=== PATIENT | male | born 1945 | race American Indian/Alaskan Native ===

== ENCOUNTER 2016-06-01 10:34 | Outpatient (CLI) | payer MEDICARE ==
[2016-06-01] MEDS ORDERED: XYLOCAINE TOPICAL 4% TP ONE ×2 (10:40→15:38)
[2016-06-01] MEDS ORDERED: AD OINTMENT TP ONE (12:05)
[2016-06-01] MEDS ORDERED: AD OINTMENT TP SCH (17:00)
== END 2016-06-01 10:35 | disposition home or self-care (01) ==
LOC: WOUND 10:34
PROVIDERS: ATTEND Orthopaedic Surgery
DX: E11.622 Type 2 diabetes mellitus with other skin ulcer (principal); L97.921 Non-pressure chronic ulcer of unspecified part of left lower leg limited to breakdown of skin; L97.911 Non-pressure chronic ulcer of unspecified part of right lower leg limited to breakdown of skin
CPT/HCPCS: A6250

== ENCOUNTER 2016-06-08 10:47 | Outpatient (CLI) | payer MEDICARE ==
[2016-06-08] MEDS ORDERED: XYLOCAINE TOPICAL 2% TP ONE ×2 (11:26→11:52)
[2016-06-08] MEDS ORDERED: AD OINTMENT TP ONE (12:14)
[2016-06-09] MEDS ORDERED: AD OINTMENT TP SCH (10:00)
== END 2016-06-08 10:48 | disposition home or self-care (01) ==
LOC: WOUND 10:47
PROVIDERS: ATTEND Orthopaedic Surgery
DX: I87.2 Venous insufficiency (chronic) (peripheral) (principal); E11.622 Type 2 diabetes mellitus with other skin ulcer; L97.921 Non-pressure chronic ulcer of unspecified part of left lower leg limited to breakdown of skin; L97.911 Non-pressure chronic ulcer of unspecified part of right lower leg limited to breakdown of skin
CPT/HCPCS: A6250

== ENCOUNTER 2016-06-22 13:26 | Outpatient (CLI) | payer MEDICARE ==
[~2016-06-22 13:26] MED LIST: AD OINTMENT TP ONE; XYLOCAINE TOPICAL 2% TP ONE
[2016-06-23] MEDS ORDERED: XYLOCAINE TOPICAL 2% TP ONE (09:25)
[2016-06-23] MEDS ORDERED: AD OINTMENT TP SCH (10:00)
== END 2016-06-22 13:27 | disposition home or self-care (01) ==
LOC: WOUND 13:26
PROVIDERS: ATTEND Internal Medicine
DX: I87.313 Chronic venous hypertension (idiopathic) with ulcer of bilateral lower extremity (principal); E11.622 Type 2 diabetes mellitus with other skin ulcer; L97.821 Non-pressure chronic ulcer of other part of left lower leg limited to breakdown of skin; L97.811 Non-pressure chronic ulcer of other part of right lower leg limited to breakdown of skin; I50.40 Unspecified combined systolic (congestive) and diastolic (congestive) heart failure; K21.0 Gastro-esophageal reflux disease with esophagitis; Z98.62 Peripheral vascular angioplasty status
CPT/HCPCS: A6250

== ENCOUNTER 2016-06-29 11:05 | Outpatient (CLI) | payer MEDICARE ==
[2016-06-29] MEDS ORDERED: XYLOCAINE TOPICAL 4% TP ONE ×2 (11:09→12:00)
== END 2016-06-29 11:06 | disposition home or self-care (01) ==
LOC: WOUND 11:05
PROVIDERS: ATTEND Internal Medicine
DX: I87.313 Chronic venous hypertension (idiopathic) with ulcer of bilateral lower extremity (principal); L97.821 Non-pressure chronic ulcer of other part of left lower leg limited to breakdown of skin; L97.811 Non-pressure chronic ulcer of other part of right lower leg limited to breakdown of skin; E08.8 Diabetes mellitus due to underlying condition with unspecified complications; K21.0 Gastro-esophageal reflux disease with esophagitis; I11.0 Hypertensive heart disease with heart failure; I50.40 Unspecified combined systolic (congestive) and diastolic (congestive) heart failure
CPT/HCPCS: 29581

== ENCOUNTER 2016-07-13 11:12 | Outpatient (CLI) | payer MEDICARE ==
[2016-07-13] MEDS ORDERED: XYLOCAINE TOPICAL 4% TP ONE ×2 (11:30→12:00)
[2016-07-13] MEDS ORDERED: NACL 0.9% 500 ML IR ONE (11:30)
[2016-07-13] MEDS ORDERED: NACL 0.9% IR PRN (12:00)
[2016-07-13] MEDS ORDERED: AD OINTMENT TP ONE (12:24)
== END 2016-07-13 11:13 | disposition home or self-care (01) ==
LOC: WOUND 11:12
PROVIDERS: ATTEND Internal Medicine
DX: I87.313 Chronic venous hypertension (idiopathic) with ulcer of bilateral lower extremity (principal); E11.622 Type 2 diabetes mellitus with other skin ulcer; L97.821 Non-pressure chronic ulcer of other part of left lower leg limited to breakdown of skin; L97.811 Non-pressure chronic ulcer of other part of right lower leg limited to breakdown of skin; K21.0 Gastro-esophageal reflux disease with esophagitis; I11.0 Hypertensive heart disease with heart failure; I50.40 Unspecified combined systolic (congestive) and diastolic (congestive) heart failure; Z98.62 Peripheral vascular angioplasty status
CPT/HCPCS: 29581; G0463; A6250

== ENCOUNTER 2016-07-22 12:11 | Outpatient (CLI) | payer MEDICARE | END 2016-07-22 12:12 | disposition home or self-care (01) | LOC: WOUND 12:11 | PROVIDERS: ATTEND Podiatrist | DX: I87.313 Chronic venous hypertension (idiopathic) with ulcer of bilateral lower extremity (principal); E11.622 Type 2 diabetes mellitus with other skin ulcer; L97.821 Non-pressure chronic ulcer of other part of left lower leg limited to breakdown of skin; L97.811 Non-pressure chronic ulcer of other part of right lower leg limited to breakdown of skin; K21.0 Gastro-esophageal reflux disease with esophagitis; I11.0 Hypertensive heart disease with heart failure; I50.40 Unspecified combined systolic (congestive) and diastolic (congestive) heart failure; Z98.62 Peripheral vascular angioplasty status | CPT/HCPCS: 29580; 29581 ==

== ENCOUNTER 2016-08-03 11:43 | Outpatient (CLI) | payer MEDICARE ==
[2016-08-03] MEDS ORDERED: XYLOCAINE TOPICAL 4% TP ONE ×2 (12:00→12:36)
[2016-08-03] MEDS ORDERED: NACL 0.9% IR ONE (12:29)
[2016-08-03] MEDS ORDERED: SODIUM CHLORIDE 0.9% IR SCH (13:00)
[2016-08-03] MEDS ORDERED: GENTAMICIN IR SCH (13:00)
[2016-08-03] MEDS ORDERED: SILVER NITRATE TP ONE (13:26)
== END 2016-08-03 11:44 | disposition home or self-care (01) ==
LOC: WOUND 11:43
PROVIDERS: ATTEND Internal Medicine
DX: E11.622 Type 2 diabetes mellitus with other skin ulcer (principal); I87.313 Chronic venous hypertension (idiopathic) with ulcer of bilateral lower extremity; L97.821 Non-pressure chronic ulcer of other part of left lower leg limited to breakdown of skin; L97.811 Non-pressure chronic ulcer of other part of right lower leg limited to breakdown of skin; K21.0 Gastro-esophageal reflux disease with esophagitis; I11.0 Hypertensive heart disease with heart failure; I50.40 Unspecified combined systolic (congestive) and diastolic (congestive) heart failure; Z98.62 Peripheral vascular angioplasty status
CPT/HCPCS: 11042; 11045; 82962; J1580

== ENCOUNTER 2016-08-10 11:40 | Outpatient (CLI) | payer MEDICARE ==
[2016-08-10] MEDS ORDERED: XYLOCAINE TOPICAL 4% TP ONE ×2 (11:46→14:16)
== END 2016-08-10 11:41 | disposition home or self-care (01) ==
LOC: WOUND 11:40
PROVIDERS: ATTEND Internal Medicine
DX: I87.313 Chronic venous hypertension (idiopathic) with ulcer of bilateral lower extremity (principal); E11.622 Type 2 diabetes mellitus with other skin ulcer; L97.821 Non-pressure chronic ulcer of other part of left lower leg limited to breakdown of skin; L97.811 Non-pressure chronic ulcer of other part of right lower leg limited to breakdown of skin; K21.0 Gastro-esophageal reflux disease with esophagitis; I11.0 Hypertensive heart disease with heart failure; I50.40 Unspecified combined systolic (congestive) and diastolic (congestive) heart failure; Z98.62 Peripheral vascular angioplasty status
CPT/HCPCS: 11042; 11045; 82962; 99212; G0277; 99183

== ENCOUNTER 2016-08-11 14:52 | Outpatient (CLI) | payer MEDICARE | END 2016-08-11 14:53 | disposition home or self-care (01) | LOC: WOUND 14:52 | PROVIDERS: ATTEND Internal Medicine | DX: Z53.21 Procedure and treatment not carried out due to patient leaving prior to being seen by health care provider (principal) | CPT/HCPCS: 82962; 99183; G0277 ==

== ENCOUNTER 2016-08-12 15:08 | Outpatient (CLI) | payer MEDICARE | END 2016-08-12 15:09 | disposition home or self-care (01) | LOC: WOUND 15:08 | PROVIDERS: ATTEND Internal Medicine | DX: I87.313 Chronic venous hypertension (idiopathic) with ulcer of bilateral lower extremity (principal); E11.622 Type 2 diabetes mellitus with other skin ulcer; L97.821 Non-pressure chronic ulcer of other part of left lower leg limited to breakdown of skin; L97.811 Non-pressure chronic ulcer of other part of right lower leg limited to breakdown of skin; I11.0 Hypertensive heart disease with heart failure; I50.40 Unspecified combined systolic (congestive) and diastolic (congestive) heart failure; K21.0 Gastro-esophageal reflux disease with esophagitis; Z98.62 Peripheral vascular angioplasty status | CPT/HCPCS: 82962; G0277; 99183 ==

== ENCOUNTER 2016-08-15 14:52 | Outpatient (CLI) | payer MEDICARE ==
[2016-08-15] MEDS ORDERED: GENTAMICIN IR SCH (15:30)
[2016-08-15] MEDS ORDERED: SODIUM CHLORIDE 0.9% IR SCH (15:30)
== END 2016-08-15 14:53 | disposition home or self-care (01) ==
LOC: WOUND 14:52
PROVIDERS: ATTEND Internal Medicine
DX: I87.313 Chronic venous hypertension (idiopathic) with ulcer of bilateral lower extremity (principal); E11.622 Type 2 diabetes mellitus with other skin ulcer; L97.821 Non-pressure chronic ulcer of other part of left lower leg limited to breakdown of skin; L97.811 Non-pressure chronic ulcer of other part of right lower leg limited to breakdown of skin; I11.0 Hypertensive heart disease with heart failure; I50.9 Heart failure, unspecified; K21.0 Gastro-esophageal reflux disease with esophagitis; Z98.62 Peripheral vascular angioplasty status
CPT/HCPCS: 82962; G0277; J1580; 99183

== ENCOUNTER 2016-08-16 14:52 | Outpatient (CLI) | payer MEDICARE | END 2016-08-16 14:53 | disposition home or self-care (01) | LOC: WOUND 14:52 | PROVIDERS: ATTEND Internal Medicine | DX: I87.313 Chronic venous hypertension (idiopathic) with ulcer of bilateral lower extremity (principal); E11.622 Type 2 diabetes mellitus with other skin ulcer; L97.821 Non-pressure chronic ulcer of other part of left lower leg limited to breakdown of skin; L97.811 Non-pressure chronic ulcer of other part of right lower leg limited to breakdown of skin; K21.0 Gastro-esophageal reflux disease with esophagitis; I11.0 Hypertensive heart disease with heart failure; I50.40 Unspecified combined systolic (congestive) and diastolic (congestive) heart failure; Z98.62 Peripheral vascular angioplasty status | CPT/HCPCS: 82962; G0277; 99183 ==

== ENCOUNTER 2016-08-17 15:27 | Outpatient (CLI) | payer MEDICARE | END 2016-08-17 15:28 | disposition home or self-care (01) | LOC: WOUND 15:27 | PROVIDERS: ATTEND Internal Medicine | DX: I87.313 Chronic venous hypertension (idiopathic) with ulcer of bilateral lower extremity (principal); E11.622 Type 2 diabetes mellitus with other skin ulcer; L97.821 Non-pressure chronic ulcer of other part of left lower leg limited to breakdown of skin; L97.811 Non-pressure chronic ulcer of other part of right lower leg limited to breakdown of skin; K21.0 Gastro-esophageal reflux disease with esophagitis; I11.0 Hypertensive heart disease with heart failure; I50.40 Unspecified combined systolic (congestive) and diastolic (congestive) heart failure; Z98.62 Peripheral vascular angioplasty status | CPT/HCPCS: 82962; G0277; 99183 ==

== ENCOUNTER 2016-08-19 14:48 | Outpatient (CLI) | payer MEDICARE | END 2016-08-19 14:49 | disposition home or self-care (01) | LOC: WOUND 14:48 | PROVIDERS: ATTEND Internal Medicine | DX: I87.313 Chronic venous hypertension (idiopathic) with ulcer of bilateral lower extremity (principal); E11.622 Type 2 diabetes mellitus with other skin ulcer; L97.821 Non-pressure chronic ulcer of other part of left lower leg limited to breakdown of skin; L97.811 Non-pressure chronic ulcer of other part of right lower leg limited to breakdown of skin; K21.0 Gastro-esophageal reflux disease with esophagitis; I11.0 Hypertensive heart disease with heart failure; I50.40 Unspecified combined systolic (congestive) and diastolic (congestive) heart failure; Z98.62 Peripheral vascular angioplasty status | CPT/HCPCS: 82962; G0277; 99183 ==

== ENCOUNTER 2016-08-23 15:05 | Outpatient (CLI) | payer MEDICARE | END 2016-08-23 15:06 | disposition home or self-care (01) | LOC: WOUND 15:05 | PROVIDERS: ATTEND Internal Medicine | DX: I87.313 Chronic venous hypertension (idiopathic) with ulcer of bilateral lower extremity (principal); E11.622 Type 2 diabetes mellitus with other skin ulcer; L97.821 Non-pressure chronic ulcer of other part of left lower leg limited to breakdown of skin; L97.811 Non-pressure chronic ulcer of other part of right lower leg limited to breakdown of skin; K21.0 Gastro-esophageal reflux disease with esophagitis; I11.0 Hypertensive heart disease with heart failure; I50.40 Unspecified combined systolic (congestive) and diastolic (congestive) heart failure; Z98.62 Peripheral vascular angioplasty status | CPT/HCPCS: 82962; G0277; 99183 ==

== ENCOUNTER 2016-08-25 13:52 | Outpatient (CLI) | payer MEDICARE | END 2016-08-25 13:53 | disposition home or self-care (01) | LOC: WOUND 13:52 | PROVIDERS: ATTEND Internal Medicine | DX: I87.313 Chronic venous hypertension (idiopathic) with ulcer of bilateral lower extremity (principal); E11.622 Type 2 diabetes mellitus with other skin ulcer; L97.821 Non-pressure chronic ulcer of other part of left lower leg limited to breakdown of skin; L97.811 Non-pressure chronic ulcer of other part of right lower leg limited to breakdown of skin; I11.0 Hypertensive heart disease with heart failure; I50.40 Unspecified combined systolic (congestive) and diastolic (congestive) heart failure; K21.0 Gastro-esophageal reflux disease with esophagitis; Z98.62 Peripheral vascular angioplasty status | CPT/HCPCS: 82962; G0277; 99183 ==

== ENCOUNTER 2016-08-26 14:45 | Outpatient (CLI) | payer MEDICARE ==
[2016-08-26] MEDS ORDERED: SODIUM CHLORIDE 0.9% IR SCH (22:00)
[2016-08-26] MEDS ORDERED: GENTAMICIN IR SCH (22:00)
== END 2016-08-26 14:46 | disposition home or self-care (01) ==
LOC: WOUND 14:45
PROVIDERS: ATTEND Internal Medicine
DX: I87.313 Chronic venous hypertension (idiopathic) with ulcer of bilateral lower extremity (principal); E11.622 Type 2 diabetes mellitus with other skin ulcer; L97.821 Non-pressure chronic ulcer of other part of left lower leg limited to breakdown of skin; L97.811 Non-pressure chronic ulcer of other part of right lower leg limited to breakdown of skin; I11.0 Hypertensive heart disease with heart failure; I50.40 Unspecified combined systolic (congestive) and diastolic (congestive) heart failure; K21.0 Gastro-esophageal reflux disease with esophagitis; Z98.62 Peripheral vascular angioplasty status
CPT/HCPCS: G0277 ×2; 99183

== ENCOUNTER 2016-08-29 14:25 | Outpatient (CLI) | payer MEDICARE | END 2016-08-29 14:26 | disposition home or self-care (01) | LOC: WOUND 14:25 | PROVIDERS: ATTEND Internal Medicine | DX: I87.313 Chronic venous hypertension (idiopathic) with ulcer of bilateral lower extremity (principal); E11.622 Type 2 diabetes mellitus with other skin ulcer; L97.821 Non-pressure chronic ulcer of other part of left lower leg limited to breakdown of skin; L97.811 Non-pressure chronic ulcer of other part of right lower leg limited to breakdown of skin; I10 Essential (primary) hypertension; K21.0 Gastro-esophageal reflux disease with esophagitis; I11.0 Hypertensive heart disease with heart failure; I50.40 Unspecified combined systolic (congestive) and diastolic (congestive) heart failure; Z98.62 Peripheral vascular angioplasty status | CPT/HCPCS: 82962; G0277; 99183 ==

== ENCOUNTER 2016-08-30 14:27 | Outpatient (CLI) | payer MEDICARE | END 2016-08-30 14:28 | disposition home or self-care (01) | LOC: WOUND 14:27 | PROVIDERS: ATTEND Internal Medicine | DX: I87.313 Chronic venous hypertension (idiopathic) with ulcer of bilateral lower extremity (principal); E11.622 Type 2 diabetes mellitus with other skin ulcer; L97.821 Non-pressure chronic ulcer of other part of left lower leg limited to breakdown of skin; L97.811 Non-pressure chronic ulcer of other part of right lower leg limited to breakdown of skin; I11.0 Hypertensive heart disease with heart failure; I50.40 Unspecified combined systolic (congestive) and diastolic (congestive) heart failure; K21.0 Gastro-esophageal reflux disease with esophagitis; Z98.62 Peripheral vascular angioplasty status | CPT/HCPCS: 82962; G0277; 99183 ==

== ENCOUNTER 2016-08-31 13:09 | Outpatient (CLI) | payer MEDICARE ==
[2016-08-31] MEDS ORDERED: XYLOCAINE TOPICAL 4% TP ONE (16:00)
== END 2016-08-31 13:10 | disposition home or self-care (01) ==
LOC: WOUND 13:09
PROVIDERS: ATTEND Internal Medicine
DX: E11.622 Type 2 diabetes mellitus with other skin ulcer (principal); I87.313 Chronic venous hypertension (idiopathic) with ulcer of bilateral lower extremity; L97.821 Non-pressure chronic ulcer of other part of left lower leg limited to breakdown of skin; L97.811 Non-pressure chronic ulcer of other part of right lower leg limited to breakdown of skin; I11.0 Hypertensive heart disease with heart failure; I50.40 Unspecified combined systolic (congestive) and diastolic (congestive) heart failure; K21.0 Gastro-esophageal reflux disease with esophagitis; Z98.62 Peripheral vascular angioplasty status
CPT/HCPCS: 11042; 11045; 82962; G0277; 29581; 99183

== ENCOUNTER 2016-09-01 14:25 | Outpatient (CLI) | payer MEDICARE ==
[~2016-09-01 14:25] MED LIST changes: -AD OINTMENT TP ONE; -XYLOCAINE TOPICAL 2% TP ONE; +XYLOCAINE TOPICAL 4% TP ONE
== END 2016-09-01 14:26 | disposition home or self-care (01) ==
LOC: WOUND 14:25
PROVIDERS: ATTEND Internal Medicine
DX: I87.313 Chronic venous hypertension (idiopathic) with ulcer of bilateral lower extremity (principal); E11.622 Type 2 diabetes mellitus with other skin ulcer; L97.811 Non-pressure chronic ulcer of other part of right lower leg limited to breakdown of skin; L97.821 Non-pressure chronic ulcer of other part of left lower leg limited to breakdown of skin; K21.0 Gastro-esophageal reflux disease with esophagitis; I11.0 Hypertensive heart disease with heart failure; I50.40 Unspecified combined systolic (congestive) and diastolic (congestive) heart failure; M72.6 Necrotizing fasciitis
CPT/HCPCS: 82962; G0277; 99183

== ENCOUNTER 2016-09-02 15:23 | Outpatient (CLI) | payer MEDICARE | END 2016-09-02 15:24 | disposition home or self-care (01) | LOC: WOUND 15:23 | PROVIDERS: ATTEND Internal Medicine | DX: I87.313 Chronic venous hypertension (idiopathic) with ulcer of bilateral lower extremity (principal); E11.622 Type 2 diabetes mellitus with other skin ulcer; L97.821 Non-pressure chronic ulcer of other part of left lower leg limited to breakdown of skin; L97.811 Non-pressure chronic ulcer of other part of right lower leg limited to breakdown of skin; I11.0 Hypertensive heart disease with heart failure; I50.9 Heart failure, unspecified; K21.0 Gastro-esophageal reflux disease with esophagitis; I10 Essential (primary) hypertension; Z98.62 Peripheral vascular angioplasty status | CPT/HCPCS: 82962; G0277; 99183 ==

== ENCOUNTER 2016-09-05 14:42 | Outpatient (CLI) | payer MEDICARE | END 2016-09-05 14:43 | disposition home or self-care (01) | LOC: WOUND 14:42 | PROVIDERS: ATTEND Internal Medicine | DX: I87.313 Chronic venous hypertension (idiopathic) with ulcer of bilateral lower extremity (principal); E11.622 Type 2 diabetes mellitus with other skin ulcer; L97.811 Non-pressure chronic ulcer of other part of right lower leg limited to breakdown of skin; L97.821 Non-pressure chronic ulcer of other part of left lower leg limited to breakdown of skin; K21.0 Gastro-esophageal reflux disease with esophagitis; I11.0 Hypertensive heart disease with heart failure; I50.9 Heart failure, unspecified | CPT/HCPCS: 82962; G0277; 99183 ==

== ENCOUNTER 2016-09-06 14:46 | Outpatient (CLI) | payer MEDICARE | END 2016-09-06 14:47 | disposition home or self-care (01) | LOC: WOUND 14:46 | PROVIDERS: ATTEND Podiatrist | DX: I87.313 Chronic venous hypertension (idiopathic) with ulcer of bilateral lower extremity (principal); E11.622 Type 2 diabetes mellitus with other skin ulcer; L97.821 Non-pressure chronic ulcer of other part of left lower leg limited to breakdown of skin; L97.811 Non-pressure chronic ulcer of other part of right lower leg limited to breakdown of skin; I11.0 Hypertensive heart disease with heart failure; I50.9 Heart failure, unspecified; K21.0 Gastro-esophageal reflux disease with esophagitis; Z98.62 Peripheral vascular angioplasty status | CPT/HCPCS: 82962; G0277; 99183 ==

== ENCOUNTER 2016-09-08 13:39 | Outpatient (CLI) | payer MEDICARE | END 2016-09-08 13:40 | disposition home or self-care (01) | LOC: WOUND 13:39 | PROVIDERS: ATTEND Internal Medicine | DX: I87.313 Chronic venous hypertension (idiopathic) with ulcer of bilateral lower extremity (principal); E11.622 Type 2 diabetes mellitus with other skin ulcer; L97.821 Non-pressure chronic ulcer of other part of left lower leg limited to breakdown of skin; L97.811 Non-pressure chronic ulcer of other part of right lower leg limited to breakdown of skin; I50.40 Unspecified combined systolic (congestive) and diastolic (congestive) heart failure; K21.0 Gastro-esophageal reflux disease with esophagitis; I11.0 Hypertensive heart disease with heart failure; I50.9 Heart failure, unspecified; Z98.62 Peripheral vascular angioplasty status | CPT/HCPCS: 82962; G0277; 99183 ==

== ENCOUNTER 2016-09-09 14:55 | Outpatient (CLI) | payer MEDICARE | END 2016-09-09 14:56 | disposition home or self-care (01) | LOC: WOUND 14:55 | PROVIDERS: ATTEND Internal Medicine | DX: I87.313 Chronic venous hypertension (idiopathic) with ulcer of bilateral lower extremity (principal); E11.622 Type 2 diabetes mellitus with other skin ulcer; L97.811 Non-pressure chronic ulcer of other part of right lower leg limited to breakdown of skin; L97.821 Non-pressure chronic ulcer of other part of left lower leg limited to breakdown of skin; M72.6 Necrotizing fasciitis; E08.8 Diabetes mellitus due to underlying condition with unspecified complications; K21.0 Gastro-esophageal reflux disease with esophagitis; I11.0 Hypertensive heart disease with heart failure; I50.40 Unspecified combined systolic (congestive) and diastolic (congestive) heart failure | CPT/HCPCS: 82962; G0277; 99183 ==

== ENCOUNTER 2016-09-12 14:42 | Outpatient (CLI) | payer MEDICARE | END 2016-09-12 14:43 | disposition home or self-care (01) | LOC: WOUND 14:42 | PROVIDERS: ATTEND Surgery | DX: I87.313 Chronic venous hypertension (idiopathic) with ulcer of bilateral lower extremity (principal); L97.811 Non-pressure chronic ulcer of other part of right lower leg limited to breakdown of skin; L97.821 Non-pressure chronic ulcer of other part of left lower leg limited to breakdown of skin; I11.0 Hypertensive heart disease with heart failure; I50.40 Unspecified combined systolic (congestive) and diastolic (congestive) heart failure; E11.622 Type 2 diabetes mellitus with other skin ulcer; K21.9 Gastro-esophageal reflux disease without esophagitis | CPT/HCPCS: 82962; G0277; 99183 ==

== ENCOUNTER 2016-09-13 14:42 | Outpatient (CLI) | payer MEDICARE | END 2016-09-13 14:43 | disposition home or self-care (01) | LOC: WOUND 14:42 | PROVIDERS: ATTEND Internal Medicine | DX: I87.313 Chronic venous hypertension (idiopathic) with ulcer of bilateral lower extremity (principal); E11.622 Type 2 diabetes mellitus with other skin ulcer; L97.821 Non-pressure chronic ulcer of other part of left lower leg limited to breakdown of skin; L97.811 Non-pressure chronic ulcer of other part of right lower leg limited to breakdown of skin; K21.9 Gastro-esophageal reflux disease without esophagitis; I11.0 Hypertensive heart disease with heart failure; I50.40 Unspecified combined systolic (congestive) and diastolic (congestive) heart failure | CPT/HCPCS: 82962; G0277; 99183 ==

== ENCOUNTER 2016-09-14 13:10 | Outpatient (CLI) | payer MEDICARE ==
[2016-09-14] MEDS ORDERED: XYLOCAINE TOPICAL 4% TP ONE ×2 (13:46→16:00)
== END 2016-09-14 13:11 | disposition home or self-care (01) ==
LOC: WOUND 13:10
PROVIDERS: ATTEND Surgery
DX: I87.313 Chronic venous hypertension (idiopathic) with ulcer of bilateral lower extremity (principal); E11.622 Type 2 diabetes mellitus with other skin ulcer; L97.821 Non-pressure chronic ulcer of other part of left lower leg limited to breakdown of skin; L97.811 Non-pressure chronic ulcer of other part of right lower leg limited to breakdown of skin; I11.0 Hypertensive heart disease with heart failure; I50.40 Unspecified combined systolic (congestive) and diastolic (congestive) heart failure; K21.9 Gastro-esophageal reflux disease without esophagitis
CPT/HCPCS: 29581; 82962; G0277; 99183

== ENCOUNTER 2016-09-16 14:27 | Outpatient (CLI) | payer MEDICARE | END 2016-09-16 14:28 | disposition home or self-care (01) | LOC: WOUND 14:27 | PROVIDERS: ATTEND Internal Medicine | DX: I87.313 Chronic venous hypertension (idiopathic) with ulcer of bilateral lower extremity (principal); E11.622 Type 2 diabetes mellitus with other skin ulcer; L97.811 Non-pressure chronic ulcer of other part of right lower leg limited to breakdown of skin; L97.821 Non-pressure chronic ulcer of other part of left lower leg limited to breakdown of skin; M72.6 Necrotizing fasciitis; I11.0 Hypertensive heart disease with heart failure; I50.40 Unspecified combined systolic (congestive) and diastolic (congestive) heart failure; K21.9 Gastro-esophageal reflux disease without esophagitis | CPT/HCPCS: G0277 ×2; 82962; 99183 ==

== ENCOUNTER 2016-09-21 13:16 | Outpatient (CLI) | payer MEDICARE ==
[2016-09-21] MEDS ORDERED: XYLOCAINE TOPICAL 4% TP ONE (16:27)
== END 2016-09-21 13:17 | disposition home or self-care (01) ==
LOC: WOUND 13:16
PROVIDERS: ATTEND Surgery
DX: E11.622 Type 2 diabetes mellitus with other skin ulcer (principal); I87.313 Chronic venous hypertension (idiopathic) with ulcer of bilateral lower extremity; L97.811 Non-pressure chronic ulcer of other part of right lower leg limited to breakdown of skin; L97.821 Non-pressure chronic ulcer of other part of left lower leg limited to breakdown of skin; I50.40 Unspecified combined systolic (congestive) and diastolic (congestive) heart failure; K21.0 Gastro-esophageal reflux disease with esophagitis; I11.0 Hypertensive heart disease with heart failure; I50.9 Heart failure, unspecified
CPT/HCPCS: 29581; 82962; G0277; 99183

== ENCOUNTER 2016-09-22 15:00 | Outpatient (CLI) | payer MEDICARE | END 2016-09-22 15:01 | disposition home or self-care (01) | LOC: WOUND 15:00 | PROVIDERS: ATTEND Internal Medicine | DX: I87.313 Chronic venous hypertension (idiopathic) with ulcer of bilateral lower extremity (principal); E11.622 Type 2 diabetes mellitus with other skin ulcer; L97.811 Non-pressure chronic ulcer of other part of right lower leg limited to breakdown of skin; L97.821 Non-pressure chronic ulcer of other part of left lower leg limited to breakdown of skin; M72.6 Necrotizing fasciitis; K21.0 Gastro-esophageal reflux disease with esophagitis; I11.0 Hypertensive heart disease with heart failure; I50.40 Unspecified combined systolic (congestive) and diastolic (congestive) heart failure | CPT/HCPCS: 82962; G0277; 99183 ==

== ENCOUNTER 2016-09-27 14:34 | Outpatient (CLI) | payer MEDICARE | END 2016-09-27 14:35 | disposition home or self-care (01) | LOC: WOUND 14:34 | PROVIDERS: ATTEND Internal Medicine | DX: I87.313 Chronic venous hypertension (idiopathic) with ulcer of bilateral lower extremity (principal); E11.622 Type 2 diabetes mellitus with other skin ulcer; L97.821 Non-pressure chronic ulcer of other part of left lower leg limited to breakdown of skin; L97.811 Non-pressure chronic ulcer of other part of right lower leg limited to breakdown of skin; I11.0 Hypertensive heart disease with heart failure; I50.9 Heart failure, unspecified; K21.9 Gastro-esophageal reflux disease without esophagitis; Z98.62 Peripheral vascular angioplasty status | CPT/HCPCS: 82962; G0277; 99183 ==

== ENCOUNTER 2016-09-28 13:16 | Outpatient (CLI) | payer MEDICARE ==
[2016-09-28] MEDS ORDERED: XYLOCAINE TOPICAL 4% TP ONE ×2 (13:48→14:00)
== END 2016-09-28 13:17 | disposition home or self-care (01) ==
LOC: WOUND 13:16
PROVIDERS: ATTEND Internal Medicine
DX: I87.313 Chronic venous hypertension (idiopathic) with ulcer of bilateral lower extremity (principal); E11.622 Type 2 diabetes mellitus with other skin ulcer; L97.821 Non-pressure chronic ulcer of other part of left lower leg limited to breakdown of skin; L97.811 Non-pressure chronic ulcer of other part of right lower leg limited to breakdown of skin; K21.0 Gastro-esophageal reflux disease with esophagitis; I11.0 Hypertensive heart disease with heart failure; I50.9 Heart failure, unspecified; Z98.62 Peripheral vascular angioplasty status
CPT/HCPCS: 11042; 11045; 82962; G0277; 99183

== ENCOUNTER 2016-09-30 14:52 | Outpatient (CLI) | payer MEDICARE | END 2016-09-30 14:53 | disposition home or self-care (01) | LOC: WOUND 14:52 | PROVIDERS: ATTEND Podiatrist | DX: I87.313 Chronic venous hypertension (idiopathic) with ulcer of bilateral lower extremity (principal); E11.622 Type 2 diabetes mellitus with other skin ulcer; L97.821 Non-pressure chronic ulcer of other part of left lower leg limited to breakdown of skin; L97.811 Non-pressure chronic ulcer of other part of right lower leg limited to breakdown of skin; I11.0 Hypertensive heart disease with heart failure; I50.40 Unspecified combined systolic (congestive) and diastolic (congestive) heart failure; K21.0 Gastro-esophageal reflux disease with esophagitis | CPT/HCPCS: 82962; G0277; 99183 ==

== ENCOUNTER 2016-10-03 13:21 | Outpatient (CLI) | payer MEDICARE ==
[2016-10-03] MEDS ORDERED: XYLOCAINE TOPICAL 4% TP ONE ×3 (13:47→14:14)
== END 2016-10-03 13:22 | disposition home or self-care (01) ==
LOC: WOUND 13:21
PROVIDERS: ATTEND Internal Medicine
DX: I87.313 Chronic venous hypertension (idiopathic) with ulcer of bilateral lower extremity (principal); E11.622 Type 2 diabetes mellitus with other skin ulcer; L97.821 Non-pressure chronic ulcer of other part of left lower leg limited to breakdown of skin; L97.811 Non-pressure chronic ulcer of other part of right lower leg limited to breakdown of skin; I11.0 Hypertensive heart disease with heart failure; I50.40 Unspecified combined systolic (congestive) and diastolic (congestive) heart failure; K21.0 Gastro-esophageal reflux disease with esophagitis
CPT/HCPCS: 29581; 82962; G0277; 99183

== ENCOUNTER 2016-10-04 14:30 | Outpatient (CLI) | payer MEDICARE | END 2016-10-04 14:31 | disposition home or self-care (01) | LOC: WOUND 14:30 | PROVIDERS: ATTEND Surgery | DX: I87.313 Chronic venous hypertension (idiopathic) with ulcer of bilateral lower extremity (principal); E11.622 Type 2 diabetes mellitus with other skin ulcer; L97.821 Non-pressure chronic ulcer of other part of left lower leg limited to breakdown of skin; L97.811 Non-pressure chronic ulcer of other part of right lower leg limited to breakdown of skin; K21.0 Gastro-esophageal reflux disease with esophagitis; I50.40 Unspecified combined systolic (congestive) and diastolic (congestive) heart failure; I11.0 Hypertensive heart disease with heart failure | CPT/HCPCS: 82962; G0277; 99183 ==

== ENCOUNTER 2016-10-05 14:32 | Outpatient (CLI) | payer MEDICARE | END 2016-10-05 14:33 | disposition home or self-care (01) | LOC: WOUND 14:32 | PROVIDERS: ATTEND Internal Medicine | DX: I87.313 Chronic venous hypertension (idiopathic) with ulcer of bilateral lower extremity (principal); E11.622 Type 2 diabetes mellitus with other skin ulcer; L97.821 Non-pressure chronic ulcer of other part of left lower leg limited to breakdown of skin; L97.811 Non-pressure chronic ulcer of other part of right lower leg limited to breakdown of skin; I11.0 Hypertensive heart disease with heart failure; I50.9 Heart failure, unspecified; K21.0 Gastro-esophageal reflux disease with esophagitis; Z98.62 Peripheral vascular angioplasty status | CPT/HCPCS: 82962; G0277; 99183 ==

== ENCOUNTER 2016-10-06 15:40 | Outpatient (CLI) | payer MEDICARE | END 2016-10-06 15:41 | disposition home or self-care (01) | LOC: WOUND 15:40 | PROVIDERS: ATTEND Internal Medicine | DX: I87.313 Chronic venous hypertension (idiopathic) with ulcer of bilateral lower extremity (principal); E11.622 Type 2 diabetes mellitus with other skin ulcer; L97.821 Non-pressure chronic ulcer of other part of left lower leg limited to breakdown of skin; L97.811 Non-pressure chronic ulcer of other part of right lower leg limited to breakdown of skin; K21.0 Gastro-esophageal reflux disease with esophagitis; I11.0 Hypertensive heart disease with heart failure; I50.40 Unspecified combined systolic (congestive) and diastolic (congestive) heart failure; Z98.62 Peripheral vascular angioplasty status | CPT/HCPCS: 82962; G0277; 99183 ==

== ENCOUNTER 2016-10-12 14:47 | Outpatient (CLI) | payer MEDICARE | END 2016-10-12 14:48 | disposition home or self-care (01) | LOC: WOUND 14:47 | PROVIDERS: ATTEND Surgery | DX: I87.313 Chronic venous hypertension (idiopathic) with ulcer of bilateral lower extremity (principal); E11.622 Type 2 diabetes mellitus with other skin ulcer; L97.821 Non-pressure chronic ulcer of other part of left lower leg limited to breakdown of skin; L97.811 Non-pressure chronic ulcer of other part of right lower leg limited to breakdown of skin; K21.0 Gastro-esophageal reflux disease with esophagitis; I11.0 Hypertensive heart disease with heart failure; I50.40 Unspecified combined systolic (congestive) and diastolic (congestive) heart failure; Z98.62 Peripheral vascular angioplasty status | CPT/HCPCS: 82962; G0277; 99183 ==

== ENCOUNTER 2016-10-13 14:26 | Outpatient (CLI) | payer MEDICARE | END 2016-10-13 14:27 | disposition home or self-care (01) | LOC: WOUND 14:26 | PROVIDERS: ATTEND Internal Medicine | DX: I87.313 Chronic venous hypertension (idiopathic) with ulcer of bilateral lower extremity (principal); E11.622 Type 2 diabetes mellitus with other skin ulcer; L97.821 Non-pressure chronic ulcer of other part of left lower leg limited to breakdown of skin; L97.811 Non-pressure chronic ulcer of other part of right lower leg limited to breakdown of skin; I11.0 Hypertensive heart disease with heart failure; I50.40 Unspecified combined systolic (congestive) and diastolic (congestive) heart failure; K21.0 Gastro-esophageal reflux disease with esophagitis; Z98.62 Peripheral vascular angioplasty status | CPT/HCPCS: 82962; G0277; 99183 ==

== ENCOUNTER 2016-10-14 14:26 | Outpatient (CLI) | payer MEDICARE | END 2016-10-14 14:27 | disposition home or self-care (01) | LOC: WOUND 14:26 | PROVIDERS: ATTEND Podiatrist | DX: I87.313 Chronic venous hypertension (idiopathic) with ulcer of bilateral lower extremity (principal); E11.622 Type 2 diabetes mellitus with other skin ulcer; L97.821 Non-pressure chronic ulcer of other part of left lower leg limited to breakdown of skin; L97.811 Non-pressure chronic ulcer of other part of right lower leg limited to breakdown of skin; I11.0 Hypertensive heart disease with heart failure; I50.40 Unspecified combined systolic (congestive) and diastolic (congestive) heart failure; K21.0 Gastro-esophageal reflux disease with esophagitis; Z98.62 Peripheral vascular angioplasty status | CPT/HCPCS: 82962; G0277; 99183 ==

== ENCOUNTER 2016-10-18 14:48 | Outpatient (CLI) | payer MEDICARE | END 2016-10-18 14:49 | disposition home or self-care (01) | LOC: WOUND 14:48 | PROVIDERS: ATTEND Surgery | DX: I87.313 Chronic venous hypertension (idiopathic) with ulcer of bilateral lower extremity (principal); E11.622 Type 2 diabetes mellitus with other skin ulcer; L97.821 Non-pressure chronic ulcer of other part of left lower leg limited to breakdown of skin; L97.811 Non-pressure chronic ulcer of other part of right lower leg limited to breakdown of skin; I11.0 Hypertensive heart disease with heart failure; I50.40 Unspecified combined systolic (congestive) and diastolic (congestive) heart failure; K21.0 Gastro-esophageal reflux disease with esophagitis; Z98.62 Peripheral vascular angioplasty status | CPT/HCPCS: 82962; G0277; 99183 ==

== ENCOUNTER 2016-10-20 14:22 | Outpatient (CLI) | payer MEDICARE | END 2016-10-20 14:23 | disposition home or self-care (01) | LOC: WOUND 14:22 | PROVIDERS: ATTEND Internal Medicine | DX: I87.313 Chronic venous hypertension (idiopathic) with ulcer of bilateral lower extremity (principal); E11.622 Type 2 diabetes mellitus with other skin ulcer; L97.821 Non-pressure chronic ulcer of other part of left lower leg limited to breakdown of skin; L97.811 Non-pressure chronic ulcer of other part of right lower leg limited to breakdown of skin; I11.0 Hypertensive heart disease with heart failure; I50.40 Unspecified combined systolic (congestive) and diastolic (congestive) heart failure; K21.0 Gastro-esophageal reflux disease with esophagitis; Z98.62 Peripheral vascular angioplasty status | CPT/HCPCS: 82962; G0277; 99183 ==

== ENCOUNTER 2016-10-24 12:25 | Outpatient (CLI) | payer MEDICARE ==
[2016-10-24] MEDS ORDERED: XYLOCAINE TOPICAL 4% TP ONE (13:49)
== END 2016-10-24 12:26 | disposition home or self-care (01) ==
LOC: WOUND 12:25
PROVIDERS: ATTEND Internal Medicine
DX: I87.313 Chronic venous hypertension (idiopathic) with ulcer of bilateral lower extremity (principal); E11.622 Type 2 diabetes mellitus with other skin ulcer; L97.821 Non-pressure chronic ulcer of other part of left lower leg limited to breakdown of skin; L97.811 Non-pressure chronic ulcer of other part of right lower leg limited to breakdown of skin; I11.0 Hypertensive heart disease with heart failure; I50.9 Heart failure, unspecified; K21.0 Gastro-esophageal reflux disease with esophagitis; Z98.62 Peripheral vascular angioplasty status
CPT/HCPCS: 99215; G0463

== ENCOUNTER 2016-10-25 15:00 | Outpatient (CLI) | payer MEDICARE ==
[2016-10-25] MEDS ORDERED: XYLOCAINE TOPICAL 4% TP ONE ×2 (15:20→16:25)
[2016-10-25] MEDS ORDERED: DAKIN'S FULL STRENGTH ONE (15:54)
[2016-10-25] MEDS ORDERED: DAKIN'S FULL STRENGTH IR SCH (22:00)
[2016-10-25] MEDS ORDERED: DAKIN'S HALF STRENGTH TP SCH (22:00)
== END 2016-10-25 15:01 | disposition home or self-care (01) ==
LOC: WOUND 15:00
PROVIDERS: ATTEND Surgery
DX: I87.313 Chronic venous hypertension (idiopathic) with ulcer of bilateral lower extremity (principal); L97.821 Non-pressure chronic ulcer of other part of left lower leg limited to breakdown of skin; L97.811 Non-pressure chronic ulcer of other part of right lower leg limited to breakdown of skin; I11.0 Hypertensive heart disease with heart failure; I50.40 Unspecified combined systolic (congestive) and diastolic (congestive) heart failure; K21.0 Gastro-esophageal reflux disease with esophagitis; Z98.62 Peripheral vascular angioplasty status

== ENCOUNTER 2016-10-26 13:34 | Outpatient (CLI) | payer MEDICARE ==
[2016-10-26] MEDS ORDERED: XYLOCAINE TOPICAL 4% TP ONE ×2 (14:16→15:22)
== END 2016-10-26 13:35 | disposition home or self-care (01) ==
LOC: WOUND 13:34
PROVIDERS: ATTEND Surgery
DX: I87.313 Chronic venous hypertension (idiopathic) with ulcer of bilateral lower extremity (principal); E11.622 Type 2 diabetes mellitus with other skin ulcer; L97.821 Non-pressure chronic ulcer of other part of left lower leg limited to breakdown of skin; L97.811 Non-pressure chronic ulcer of other part of right lower leg limited to breakdown of skin; I11.0 Hypertensive heart disease with heart failure; I50.40 Unspecified combined systolic (congestive) and diastolic (congestive) heart failure; K21.0 Gastro-esophageal reflux disease with esophagitis; Z98.62 Peripheral vascular angioplasty status
CPT/HCPCS: 29581

== ENCOUNTER 2016-10-31 13:14 | Outpatient (CLI) | payer MEDICARE | END 2016-10-31 13:15 | disposition home or self-care (01) | LOC: WOUND 13:14 | PROVIDERS: ATTEND Internal Medicine | DX: E11.622 Type 2 diabetes mellitus with other skin ulcer (principal); I87.313 Chronic venous hypertension (idiopathic) with ulcer of bilateral lower extremity; L97.811 Non-pressure chronic ulcer of other part of right lower leg limited to breakdown of skin; L97.821 Non-pressure chronic ulcer of other part of left lower leg limited to breakdown of skin; K21.0 Gastro-esophageal reflux disease with esophagitis; I11.0 Hypertensive heart disease with heart failure; I50.40 Unspecified combined systolic (congestive) and diastolic (congestive) heart failure | CPT/HCPCS: 99215; G0463 ==

== ENCOUNTER 2016-11-07 14:08 | Outpatient (CLI) | payer MEDICARE ==
[2016-11-07] MEDS ORDERED: XYLOCAINE TOPICAL 4% TP ONE (14:49)
== END 2016-11-07 14:09 | disposition home or self-care (01) ==
LOC: WOUND 14:08
PROVIDERS: ATTEND Internal Medicine
DX: I87.313 Chronic venous hypertension (idiopathic) with ulcer of bilateral lower extremity (principal); E11.622 Type 2 diabetes mellitus with other skin ulcer; L97.821 Non-pressure chronic ulcer of other part of left lower leg limited to breakdown of skin; L97.811 Non-pressure chronic ulcer of other part of right lower leg limited to breakdown of skin; K21.0 Gastro-esophageal reflux disease with esophagitis; I11.0 Hypertensive heart disease with heart failure; I50.40 Unspecified combined systolic (congestive) and diastolic (congestive) heart failure; Z98.62 Peripheral vascular angioplasty status
CPT/HCPCS: 99215; G0463

== ENCOUNTER 2016-11-28 12:57 | Outpatient (CLI) | payer MEDICARE ==
[2016-11-28] MEDS ORDERED: XYLOCAINE TOPICAL 4% TP ONE ×2 (13:40→13:41)
[2016-11-28] MEDS ORDERED: SILVER NITRATE TP ONE (14:20)
== END 2016-11-28 12:58 | disposition home or self-care (01) ==
LOC: WOUND 12:57
PROVIDERS: ATTEND Internal Medicine
DX: I87.313 Chronic venous hypertension (idiopathic) with ulcer of bilateral lower extremity (principal); E11.622 Type 2 diabetes mellitus with other skin ulcer; L97.821 Non-pressure chronic ulcer of other part of left lower leg limited to breakdown of skin; L97.811 Non-pressure chronic ulcer of other part of right lower leg limited to breakdown of skin; K21.0 Gastro-esophageal reflux disease with esophagitis; I11.0 Hypertensive heart disease with heart failure; I50.40 Unspecified combined systolic (congestive) and diastolic (congestive) heart failure; Z98.62 Peripheral vascular angioplasty status
CPT/HCPCS: 11719; 29581

== ENCOUNTER 2016-12-12 13:36 | Outpatient (CLI) | payer MEDICARE ==
[2016-12-12] MEDS ORDERED: XYLOCAINE TOPICAL 4% TP ONE ×2 (14:20→14:21)
[2016-12-12] MEDS ORDERED: SILVER NITRATE TP ONE ×2 (14:45→15:08)
[2016-12-12] MEDS ORDERED: AD OINTMENT TP ONE (15:38)
[2016-12-13] MEDS ORDERED: XYLOCAINE TOPICAL 4% TP ONE (14:45)
== END 2016-12-12 13:37 | disposition home or self-care (01) ==
LOC: WOUND 13:36
PROVIDERS: ATTEND Internal Medicine
DX: I87.313 Chronic venous hypertension (idiopathic) with ulcer of bilateral lower extremity (principal); E11.622 Type 2 diabetes mellitus with other skin ulcer; L97.821 Non-pressure chronic ulcer of other part of left lower leg limited to breakdown of skin; L97.811 Non-pressure chronic ulcer of other part of right lower leg limited to breakdown of skin; K21.0 Gastro-esophageal reflux disease with esophagitis; I11.0 Hypertensive heart disease with heart failure; I50.40 Unspecified combined systolic (congestive) and diastolic (congestive) heart failure; Z98.62 Peripheral vascular angioplasty status
CPT/HCPCS: A6250

== ENCOUNTER 2016-12-19 13:20 | Outpatient (CLI) | payer MEDICARE ==
[2016-12-19] MEDS ORDERED: XYLOCAINE TOPICAL 4% TP ONE (13:55)
== END 2016-12-19 13:21 | disposition home or self-care (01) ==
LOC: WOUND 13:20
PROVIDERS: ATTEND Internal Medicine
DX: E11.622 Type 2 diabetes mellitus with other skin ulcer (principal); I87.313 Chronic venous hypertension (idiopathic) with ulcer of bilateral lower extremity; L97.821 Non-pressure chronic ulcer of other part of left lower leg limited to breakdown of skin; L97.811 Non-pressure chronic ulcer of other part of right lower leg limited to breakdown of skin; E11.621 Type 2 diabetes mellitus with foot ulcer; L97.511 Non-pressure chronic ulcer of other part of right foot limited to breakdown of skin; I50.40 Unspecified combined systolic (congestive) and diastolic (congestive) heart failure; I11.0 Hypertensive heart disease with heart failure; Z98.62 Peripheral vascular angioplasty status
CPT/HCPCS: 99215; G0463

== ENCOUNTER 2017-02-13 23:00 | Inpatient (IN) | payer MEDICARE ==
[2017-02-13] MEDS ORDERED: TYLENOL PO STA (23:32)
[2017-02-13] MEDS ORDERED: NACL 0.9% 500 ML 500 ML IV ONE (23:32)
[2017-02-14 00:14] LABS: Alanine Aminotransferase 12 units/L (7-56); Albumin 2.8 g/dL (3.9-5); Albumin/Globulin Ratio 0.7 %; Alkaline Phosphatase 89 units/L (35-129); Blood Urea Nitrogen 12 mg/dL (9-20); Carbon Dioxide 17 mmol/L (22-30); Chloride 94.9 mmol/L (98-107); Glucose 362 mg/dL (75-100); Potassium 4.3 mmol/L (3.6-5.0); Sodium 128 mmol/L (137-145)
[2017-02-14 00:19] LABS: Anion Gap 20 mmol/L
[2017-02-14] MEDS ORDERED: FLAGYL 500 MG/100 ML 500 MG/100 ML BAG IV ONE (00:26)
[2017-02-14] MEDS ORDERED: NACL 0.9% 1000 ML IV ONE (00:26)
[2017-02-14] MEDS ORDERED: VANCOMYCIN VIAL IV ONE (00:26)
--- NOTE | 2017-02-14 00:29 | Emergency Department Report ---
ED General Adult HPI - General Chief complaint: Altered Mental Status Stated complaint: AMS/FEVER Time Seen by Provider: 02/13/17 23:39 Source: patient, family, EMS (ems notes not available at time of chart dictation), RN notes reviewed Mode of arrival: Stretcher Limitations: Altered Mental Status, Physical Limitation, Other (patient is delirious) - History of Present Illness Initial comments: This is a 72-year-old male, the patient is a previously unknown to this provider. Has a past medical history of peripheral artery disease, chronic lower extremity wounds, diabetes, renal insufficiency, history of lower extremity cellulitis. Patient is brought to the hospital by his family for evaluation of bilateral lower extremity redness, pain, swelling, discharge, fever, generalized weakness. This is been going on for 1 day. It is constant. It does not have exacerbating or relieving factors. Patient indicates that his legs hurt, however he cannot describe the nature of the pain, he cannot describe radiation, he indicates that palpation and range of motion makes his pain worse. Other past medical history includes COPD, diabetes, hypertension, IVC filter and vascular stent. -: Gradual Location: left, right, lower extremity Severity scale (0 -10): 6 Consistency: constant Improves with: none Worsens with: none Associated Symptoms: confusion, fever/chills, malaise, weakness - Related Data Home Medications Medication Instructions Recorded Confirmed Last Taken Famotidine 20 mg PO BID 08/02/13 02/14/17 10/31/16 08:00 Multivitamin [Multi-Vitamin Daily] 1 each PO QDAY 08/02/13 02/14/17 10/31/16 08: 00 glipiZIDE [Glipizide] 5 mg PO BIDAC 08/02/13 02/14/17 10/31/16 08:00 Acetaminophen [Tylenol] 650 mg PO Q6HR PRN 02/14/17 02/14/17 Unknown Allopurinol [Zyloprim] 100 mg PO QDAY 02/14/17 02/14/17 Unknown Docusate Sodium [Colace] 100 mg PO BID PRN 02/14/17 02/14/17 Unknown HYDROcodone/APAP 5-325 [[place] 1 each PO 4XD PRN 02/14/17 02/14/17 Unknown 5/325] Insulin Detemir [Levemir Flextouch] 10 unit SQ QHS 02/14/17 02/14/17 Unknown Insulin Lispro [Humalog 100 5 units SQ AC 02/14/17 02/14/17 Unknown UNITS/ML Kwikpen] Metoprolol [Lopressor TAB] 50 mg PO BID 02/14/17 02/14/17 Unknown Vitamin B Complex 1 each PO QDAY 02/14/17 02/14/17 Unknown amLODIPine [Norvasc] 10 mg PO DAILY 02/14/17 02/14/17 Unknown Previous Rx's Medication Instructions Recorded Last Taken Type Clopidogrel [Plavix] 75 mg PO QDAY #30 tablet 11/05/16 Unknown Rx Pregabalin [Lyrica] 100 mg PO TID #90 capsule 11/05/16 Unknown Rx Allergies Allergy/AdvReac Type Severity Reaction Status Date / Time gabapentin Allergy Unknown Verified 02/13/17 23:32 sulfamethoxazole Allergy Dizziness Verified 02/13/17 23:36 [From Bactrim] tetracycline Allergy Unknown Verified 02/13/17 23:32 trimethoprim [From Bactrim] Allergy Dizziness Verified 02/13/17 23:36 ED Review of Systems ROS: Stated complaint: AMS/FEVER Other details as noted in HPI Comment: Unobtainable due to pts medical conditions Constitutional: fever, malaise Skin: rash, lesions Neurological: weakness, confusion ED Past Medical Hx - Past Medical History Previous Medical History?: Yes Hx Hypertension: Yes Hx Congestive Heart Failure: Yes Hx Diabetes: Yes Hx Seizures: No Hx COPD: No Hx Dementia: No Hx HIV: No Additional medical history: leg ulcers, cataracts, heart murmur, enlarged heart - Surgical History Past Surgical History?: Yes Additional Surgical History: vein catheterization, IVC filter. skin debridment - Social History Smoking Status: Never Smoker Substance Use Type: None - Medications Home Medications: Home Medications Medication Instructions Recorded Confirmed Last Taken Type Famotidine 20 mg PO BID 08/02/13 02/14/17 10/31/16 08:00 History Multivitamin [Multi-Vitamin Daily] 1 each PO QDAY 08/02/13 02/14/17 10/31/16 08: 00 History glipiZIDE [Glipizide] 5 mg PO BIDAC 08/02/13 02/14/17 10/31/16 08:00 History Clopidogrel [Plavix] 75 mg PO QDAY #30 tablet 11/05/16 02/14/17 Unknown Rx Pregabalin [Lyrica] 100 mg PO TID #90 capsule 11/05/16 02/14/17 Unknown Rx Acetaminophen [Tylenol] 650 mg PO Q6HR PRN 02/14/17 02/14/17 Unknown History Allopurinol [Zyloprim] 100 mg PO QDAY 02/14/17 02/14/17 Unknown History Docusate Sodium [Colace] 100 mg PO BID PRN 02/14/17 02/14/17 Unknown History HYDROcodone/APAP 5-325 [[place] 1 each PO 4XD PRN 02/14/17 02/14/17 Unknown History 5/325] Insulin Detemir [Levemir Flextouch] 10 unit SQ QHS 02/14/17 02/14/17 Unknown History Insulin Lispro [Humalog 100 5 units SQ AC 02/14/17 02/14/17 Unknown History UNITS/ML Kwikpen] Metoprolol [Lopressor TAB] 50 mg PO BID 02/14/17 02/14/17 Unknown History Vitamin B Complex 1 each PO QDAY 02/14/17 02/14/17 Unknown History amLODIPine [Norvasc] 10 mg PO DAILY 02/14/17 02/14/17 Unknown History ED Physical Exam - General Limitations: Other (patient is delirious. He follows commands.) General appearance: alert, in distress, obese - Head Head exam: Present: atraumatic, normocephalic - Eye Eye exam: Present: normal appearance, EOMI - ENT ENT exam: Present: mucous membranes dry - Neck Neck exam: Present: normal inspection, full ROM - Respiratory Respiratory exam: Present: normal lung sounds bilaterally. Absent: respiratory distress, wheezes, rales, rhonchi, stridor, chest wall tenderness - Cardiovascular Cardiovascular Exam: Present: normal rhythm, tachycardia, normal heart sounds. Absent: systolic murmur, diastolic murmur, rubs, gallop - GI/Abdominal GI/Abdominal exam: Present: soft, normal bowel sounds. Absent: distended, tenderness, guarding, rebound, rigid, pulsatile mass - Rectal Rectal exam: Present: normal inspection, other (small sacral ulcer is noted) - exam: Present: normal inspection External exam: Present: normal external exam - Extremities Exam Extremities exam: Present: tenderness (bilateral lower extremities are tender. The plantar aspect of the right foot is eroded away, with foul-smelling discharge, no pulses are appreciated secondary to swelling.), calf tenderness, other (2+ femoral pulses are noted bilaterally. The bilateral lower extremities have chronic venous insufficiency. Left lower extremity has ulcerations on the medial and lateral aspect of the left lower extremity. There is necrotic toe. There is diffuse swelling to the lower extremity. Chronic venous stasis is noted, foul-smelling discharge is noted.). Absent: normal capillary refill - Back Exam Back exam: Present: normal inspection. Absent: tenderness - Neurological Exam Neurological exam: Present: altered, other (patient moves 4 extremities to command. Sensation is intact to light touch.) - Psychiatric Psychiatric exam: Present: normal affect, normal mood - Skin Skin exam: Present: warm, dry, intact, normal color. Absent: rash ED Course Vital Signs 02/13/17 02/13/17 02/13/17 23:24 23:30 23:40 Temperature 102.3 F H Pulse Rate 117 H 111 H 121 H Respiratory 20 22 24 Rate Blood Pressure 127/57 127/57 O2 Sat by Pulse 98 97 93 Oximetry 02/13/17 02/13/17 02/14/17 23:46 23:49 00:00 Temperature Pulse Rate 126 H 133 H Respiratory 24 22 30 H Rate Blood Pressure 143/66 167/72 O2 Sat by Pulse 96 98 Oximetry 02/14/17 02/14/17 02/14/17 00:03 00:06 00:16 Temperature Pulse Rate 133 H 133 H 130 H Respiratory 22 31 H 27 H Rate Blood Pressure 167/72 167/72 O2 Sat by Pulse 98 88 91 Oximetry 02/14/17 02/14/17 02/14/17 00:30 00:46 01:00 Temperature Pulse Rate 123 H 114 H 107 H Respiratory 26 H 17 16 Rate Blood Pressure 143/66 143/66 167/72 O2 Sat by Pulse 100 100 100 Oximetry 02/14/17 02/14/17 02/14/17 01:16 01:30 01:46 Temperature Pulse Rate 103 H 99 H 95 H Respiratory 25 H 22 22 Rate Blood Pressure 167/72 167/72 115/46 O2 Sat by Pulse 99 99 99 Oximetry 02/14/17 02/14/17 02/14/17 02:00 02:04 02:16 Temperature 101.0 F H Pulse Rate 93 H 90 Respiratory 20 15 Rate Blood Pressure 107/50 107/50 O2 Sat by Pulse 99 100 Oximetry 02/14/17 02/14/17 02/14/17 02:30 02:46 03:00 Temperature Pulse Rate 83 92 H 89 Respiratory 20 13 18 Rate Blood Pressure 107/50 115/52 121/58 O2 Sat by Pulse 100 99 99 Oximetry 02/14/17 02/14/17 02/14/17 03:16 03:30 03:40 Temperature Pulse Rate 87 86 87 Respiratory 21 21 21 Rate Blood Pressure 121/58 123/53 123/53 O2 Sat by Pulse 100 100 100 Oximetry - Reevaluation(s) Reevaluation #1: 02/14/17 02:30 Case discussed with vascular surgery, Dr. Carmen; they agree with plan for medical management, and will see the patient in the morning for consultation. ED Medical Decision Making - Lab Data Result diagrams: 02/13/17 23:42 02/14/17 00:01 Vital Signs 02/13/17 02/13/17 02/13/17 23:24 23:30 23:46 Temperature 102.3 F H Pulse Rate 117 H 111 H 126 H Respiratory 20 22 24 Rate Blood Pressure 127/57 127/57 143/66 O2 Sat by Pulse 98 97 96 Oximetry 02/13/17 02/14/17 02/14/17 23:49 00:00 00:03 Temperature Pulse Rate 133 H 133 H Respiratory 22 30 H 22 Rate Blood Pressure 167/72 O2 Sat by Pulse 98 98 Oximetry Lab Results 02/13/17 02/13/17 02/13/17 Range/Units 23:42 23:42 23:42 WBC 5.3 (4.5-11.0) K/mm3 RBC 3.66 (3.65-5.03) M/mm3 Hgb 10.1 L (11.8-15.2) gm/dl Hct 31.7 L (35.5-45.6) % MCV 87 (84-94) fl MCH 28 (28-32) pg MCHC 32 (32-34) % RDW 16.3 H (13.2-15.2) % Plt Count 216 (140-440) K/mm3 Lymph % (Auto) 9.5 L (13.4-35.0) % [place]borne % (Auto) 4.5 (0.0-7.3) % Eos % (Auto) 0.6 (0.0-4.3) % Baso % (Auto) 0.4 (0.0-1.8) % Lymph # 0.5 L (1.2-5.4) K/mm3 [place] # 0.2 (0.0-0.8) K/mm3 Eos # 0.0 (0.0-0.4) K/mm3 Baso # 0.0 (0.0-0.1) K/mm3 Seg Neutrophils % 85.0 H (40.0-70.0) % Seg Neutrophils # 4.5 (1.8-7.7) K/mm3 ESR Cancelled PT TNR INR TNR VBG pH (7.320-7.420) Sodium (137-145) mmol/L Potassium (3.6-5.0) mmol/L Chloride (98-107) mmol/L Carbon Dioxide (22-30) mmol/L Anion Gap mmol/L BUN (9-20) mg/dL Creatinine (0.8-1.5) mg/dL Estimated GFR ml/min BUN/Creatinine Ratio % Glucose (75-100) mg/dL Lactic Acid 1.20 (0.7-2.0) mmol/L Calcium (8.4-10.2) mg/dL Total Bilirubin (0.1-1.2) mg/dL AST (5-40) units/L ALT (7-56) units/L Alkaline Phosphatase (35-129) units/L Total Creatine Kinase (55-170) units/L Total Protein (6.3-8.2) g/dL Albumin (3.9-5) g/dL Albumin/Globulin Ratio % 02/14/17 02/14/17 02/14/17 Range/Units 00:01 00:38 00:38 WBC (4.5-11.0) K/mm3 RBC (3.65-5.03) M/mm3 Hgb (11.8-15.2) gm/dl Hct (35.5-45.6) % MCV (84-94) fl MCH (28-32) pg MCHC (32-34) % RDW (13.2-15.2) % Plt Count (140-440) K/mm3 Lymph % (Auto) (13.4-35.0) % [place] % (Auto) (0.0-7.3) % Eos % (Auto) (0.0-4.3) % Baso % (Auto) (0.0-1.8) % Lymph # (1.2-5.4) K/mm3 [place] # (0.0-0.8) K/mm3 Eos # (0.0-0.4) K/mm3 Baso # (0.0-0.1) K/mm3 Seg Neutrophils % (40.0-70.0) % Seg Neutrophils # (1.8-7.7) K/mm3 ESR PT INR VBG pH 7.318 L (7.320-7.420) Sodium 128 L (137-145) mmol/L Potassium 4.3 (3.6-5.0) mmol/L Chloride 94.9 L (98-107) mmol/L Carbon Dioxide 17 L (22-30) mmol/L Anion Gap 20 mmol/L BUN 12 (9-20) mg/dL Creatinine 1.1 (0.8-1.5) mg/dL Estimated GFR > 60 ml/min BUN/Creatinine Ratio 10.90 % Glucose 362 H (75-100) mg/dL Lactic Acid (0.7-2.0) mmol/L Calcium 8.0 L (8.4-10.2) mg/dL Total Bilirubin 0.40 (0.1-1.2) mg/dL AST 13 (5-40) units/L ALT 12 (7-56) units/L Alkaline Phosphatase 89 (35-129) units/L Total Creatine Kinase 26 L (55-170) units/L Total Protein 7.0 (6.3-8.2) g/dL Albumin 2.8 L (3.9-5) g/dL Albumin/Globulin Ratio 0.7 % - EKG Data -: EKG Interpreted by Me - EKG Data 02/14/17 01:18 Motion artifact, sinus tachycardia, 133 beats per minute, not morphologically consistent with STEMI, normal axis, QTC within normal limits. Appears unchanged from prior EKG from February 2016 - Radiology Data Radiology results: image reviewed interpreted by me: X-ray of the chest is negative for acute disease - Medical Decision Making Differential diagnosis: Cellulitis, myositis, osteomyelitis, pneumonia, urinary tract infection, delirium, bacteremia Assessment and plan: 72-year-old male with acute febrile illness, delirium, clinically infected bilateral lower extremities, will be medicated with vancomycin, cefepime and Flagyl. Plain films of the lower extremities are pending at this time. Patient will be treated along with sepsis pathway at this time. He is protecting his airway, does not require intubation, urinalysis is also pending. Vancomycin and Zosyn combination is avoided secondary to risk for renal insufficiency. I appreciated the patient has a past medical history of congestive heart failure , but given that he obviously meet sepsis criteria, and appears to be volume depleted, I believe the patient will benefit from aggressive IV fluid resuscitation. Case presented to the Hospital physician, Dr. Arboleda, she accepted the patient to her service. Critical care attestation.: If time is entered above; I have spent that time in minutes in the direct care of this critically ill patient, excluding procedure time. ED Disposition Clinical Impression: Sepsis, Venous stasis ulcers, Leg ulcer, Hyponatremia Disposition: OP ADMIT IP TO THIS HOSP Is pt being admited?: Yes Condition: Fair
[2017-02-14 00:41] LABS: Basophils % (Auto) 0.4 % (0.0-1.8); Eosinophils % (Auto) 0.6 % (0.0-4.3); Hematocrit 31.7 % (35.5-45.6); Hemoglobin 10.1 gm/dl (11.8-15.2); Mean Corpuscular HGB Conc 32 % (32-34); Mean Corpuscular Hemoglobin 28 pg (28-32); Mean Corpuscular Volume 87 fl (84-94); Platelet Count 216 K/mm3 (140-440); Red Blood Count 3.66 M/mm3 (3.65-5.03); Red Cell Distribution Width 16.3 % (13.2-15.2); White Blood Count 5.3 K/mm3 (4.5-11.0)
[2017-02-14 00:52] LABS: INR TNR (0.87-1.13)
[2017-02-14] MEDS ORDERED: MAXIPIME/NS 2 GM/100 ML 2 GM/100 ML BAG IV ONE (01:00)
[2017-02-14] MEDS ORDERED: VANCOMYCIN PHARMACY TO DOSE IV SCH (01:00)
--- NOTE | 2017-02-14 01:33 | XRay Report ---
FINAL REPORT EXAM: XR TIB/FIB BILAT 2V HISTORY: leg pain infection COMPARISON: None available. FINDINGS: AP lateral views of left tibia and fibula obtained. This periosteal reaction along the lateral margins of the distal fibula bilaterally. There is similar soft tissue calcification versus periosteal reaction along the medial margins of the bilateral tibia a. these findings are nonspecific but may relate to chronic osteomyelitis or sequelae of prior osteomyelitis. Neoplastic process less likely given their symmetry. Left and right knee joint spaces are preserved. Ankle mortises are preserved. IMPRESSION: Periosteal reaction along the medial margins of the distal tibia bilaterally MR prominent periosteal reaction along the lateral margins of the bilateral fibula bilaterally. Given the patient's history, these findings are concerning for chronic osteomyelitis.
--- NOTE | 2017-02-14 01:36 | XRay Report ---
FINAL REPORT EXAM: XR FOOT BILAT 2V HISTORY: food pain sepsis COMPARISON: Bilateral tibia from the same date. FINDINGS: Two views of each foot obtained. As seen on earlier exam, there is prominent periosteal reaction along the lateral margins of bilateral fibula and less prominent periosteal reaction along the medial margins of bilateral tibia. Findings are concerning for sequelae of chronic osteomyelitis. There pockets a gas along the medial margin of the 1st MTP joint on the left. There is also prominent soft tissue pockets of gas along the 2nd and 3rd digits on the left. Bony structures in those regions are not well evaluated due to overlapping of bony structures. Subtle erosive changes are not excluded. No concha deformity. IMPRESSION: Soft tissue wound with pockets a gas along the right 1st MTP joint and right 2nd digit and 2nd and 3rd left toes. Limited evaluation of bony structures those regions overlapping of bony structures. Findings are concerning for soft tissue infection with gas-forming organism. No concha bony deformity. Subtle erosive changes are not excluded in those regions. MRI may be of benefit for further evaluation of the bony structures. Periosteal reaction of the distal tibia and fibula concerning for sequelae of chronic osteomyelitis.
[2017-02-14] MEDS ORDERED: VANCOMYCIN 2,000 MG in NACL 0.9% 500 ML 500 ML IV ONE (02:00)
[2017-02-14 02:30] LABS: INR 1.15 (0.87-1.13); Partial Thromboplastin Time 31.9 Sec. (24.2-36.6)
--- NOTE | 2017-02-14 03:39 | History and Physical Report ---
History of Present Illness Date of examination: 02/14/17 Date of admission: 02/14/17 01:58 History of present illness: 72-year-old man with history of hypertension, diabetes, COPD, CHF, peripheral vascular disease, gout chronic lower extremity ulcers came to the emergency room with complaints of fever and chills. Stated that his ulcers are more painful especially the ones at the bottom of the feet and they have been draining. Patient is now seen physicians at [facility], he is scheduled to follow-up with his physician for concern of blocked toes which she's had for 2-3 weeks. Review Of Systems: Constitutional: no weight loss Ears, eyes, nose, mouth and throat: no nasal congestion, no nasal discharge, no sinus pressure, blurry vision, diplopia Neck: No neck pain or rigidity. Cardiovascular: NO chest pain, orthopnea, palpitations Respiratory: No shortness of breath, cough Gastrointestinal: abdominal pain, hematochezia Genitourinary : no dysuria, frequency , hematuria Musculoskeletal: no muscle ache Integumentary: no rash, no pruritis Neurological: no parathesias, focal weakness Endocrine: no cold or heat intolerance, no polyuria or polydipsia Hematologic/Lymphatic: no easy bruising, no easy bleeding, no gland swelling Allergic/Immunologic: no urticaria, no angioedema. PAST MEDICAL HISTORY: hypertension, diabetes, COPD, CHF, peripheral vascular disease, gout chronic lower extremity ulcers PAST SURGICAL HISTORY: IVC filter, cataract extraction SOCIAL HISTORY: Denies alcohol, tobacco, drugs FAMILY HISTORY: Diabetes Medications and Allergies Allergies Allergy/AdvReac Type Severity Reaction Status Date / Time gabapentin Allergy Unknown Verified 02/13/17 23:32 sulfamethoxazole Allergy Dizziness Verified 02/13/17 23:36 [From Bactrim] tetracycline Allergy Unknown Verified 02/13/17 23:32 trimethoprim [From Bactrim] Allergy Dizziness Verified 02/13/17 23:36 Home Medications Medication Instructions Recorded Confirmed Last Taken Type Famotidine 20 mg PO BID 08/02/13 02/14/17 10/31/16 08:00 History Multivitamin [Multi-Vitamin Daily] 1 each PO QDAY 08/02/13 02/14/17 10/31/16 08: 00 History glipiZIDE [Glipizide] 5 mg PO BIDAC 08/02/13 02/14/17 10/31/16 08:00 History Clopidogrel [Plavix] 75 mg PO QDAY #30 tablet 11/05/16 02/14/17 Unknown Rx Pregabalin [Lyrica] 100 mg PO TID #90 capsule 11/05/16 02/14/17 Unknown Rx Acetaminophen [Tylenol] 650 mg PO Q6HR PRN 02/14/17 02/14/17 Unknown History Allopurinol [Zyloprim] 100 mg PO QDAY 02/14/17 02/14/17 Unknown History Docusate Sodium [Colace] 100 mg PO BID PRN 02/14/17 02/14/17 Unknown History HYDROcodone/APAP 5-325 [[place] 1 each PO 4XD PRN 02/14/17 02/14/17 Unknown History 5/325] Insulin Detemir [Levemir Flextouch] 10 unit SQ QHS 02/14/17 02/14/17 Unknown History Insulin Lispro [Humalog 100 5 units SQ AC 02/14/17 02/14/17 Unknown History UNITS/ML Kwikpen] Metoprolol [Lopressor TAB] 50 mg PO BID 02/14/17 02/14/17 Unknown History Vitamin B Complex 1 each PO QDAY 02/14/17 02/14/17 Unknown History amLODIPine [Norvasc] 10 mg PO DAILY 02/14/17 02/14/17 Unknown History Active Meds: Active Medications Enoxaparin Sodium (Lovenox) 40 mg SUB-Q QDAY [facility] Vancomycin HCl 2,000 mg/ (Sodium Chloride) 520 mls @ 250 mls/hr IV ONCE.ED ONE Stop: 02/14/17 04:04 Vancomycin HCl 1,500 mg/ (Sodium Chloride) 515 mls @ 333.333 mls/hr IV Q12H [facility] Vancomycin HCl (Vancomycin Pharmacy To Dose) 1 each IV PKCONSULT RACHAEL PRN Reason: Protocol Exam - Physical Exam Narrative exam: General Apperance: The patient sitting in bed no acute distress HEENT: Normocephalic, atraumatic. Pupils equally round and reactive to light, extraocular movement intact, and no sclericterus or JVD or thyromegaly or nodule. Neck supple, no carotid bruit, mucous membranes moist, no exudate or erythema Heart: S1-S2, regular is rhythm Lungs: Decreased breath sound at the bases bilaterally, breathing comfortable Abdomen: Positive bowel sounds, soft, nontender, nondistended, no organomegaly Extremities: 3+ edema up to the thigh, scrotal edema, no cyanosis clubbing Skin: Lower extremity ulcers bilateral, large bilateral lower extremity ulcers and also on the plantar aspect. Positive foul smelling odor, the right first and third digit and the left third toe is necrotic, no rash, nodule, warm and dry Neuro: Cranial nerves II through XII intact, speech is fluent, motor intact , sensation intact - Constitutional Vitals: Temp Pulse Resp BP Pulse Ox 101.0 F H 86 21 123/53 100 02/14/17 02:04 02/14/17 03:30 02/14/17 03:30 02/14/17 03:30 02/14/17 03:30 Results - Labs CBC & Chem 7: 02/13/17 23:42 02/14/17 00:01 Assessment and Plan Assessment Sepsis Infected lower extremity ulcers Lower extremity ischemia hypertension, diabetes, COPD, CHF, chronic, diastolic peripheral vascular disease, gout Plan Admit to medicine Start IV Zosyn, vancomycin, follow cultures Consult vascular hOLD further IV fluid secondary to CHF Check fingersticks and initiate insulin sliding scale DVT prophylaxis
[2017-02-14] MEDS ORDERED: DULCOLAX PR PRN (03:40)
[2017-02-14] MEDS ORDERED: TYLENOL PO PRN (03:40)
[2017-02-14] MEDS ORDERED: ZOFRAN IV PRN (03:40)
[2017-02-14] MEDS ORDERED: MILK OF MAGNESIA PO PRN (03:40)
[2017-02-14] MEDS: ZOSYN/NS 3.375GM/50ML 3.375 GM/50 ML BAG IV SCH ×3 (06:14→21:22)
[2017-02-14] MEDS ORDERED: LOVENOX SUB-Q SCH (10:00)
--- NOTE | 2017-02-14 10:24 | XRay Report ---
AP chest x-ray. History: Sepsis. Findings: The heart is borderline in size with mild prominence of the central pulmonary vessels. The lungs are clear. There is no pleural fluid. Impression: Borderline heart size with mild central venous congestion.
[2017-02-14] MEDS: LOVENOX SUB-Q SCH (10:38)
[2017-02-14] MEDS: MORPHINE IV PRN ×2 (11:27→19:29)
[2017-02-14 11:32] LABS: Bilirubin,Urine NEG (Negative); Blood,Urine SM (Negative); Ketones,Urine NEG (Negative); Leukocyte Esterase,Urine MOD (Negative); Mucus,Urine FEW /HPF; Nitrite,Urine NEG (Negative); Protein,Urine <15 mg/dL mg/dL (Negative); Urobilinogen,Urine < 2.0 mg/dL (<2.0)
[2017-02-14] MEDS: VANCOMYCIN 1,500 MG in NACL 0.9% 500 ML 500 ML IV SCH (14:50)
[2017-02-14] MEDS ORDERED: COLACE PO PRN (16:54)
[2017-02-14] MEDS ORDERED: D50W (25GM) Syringe IV PRN (16:56)
--- NOTE | 2017-02-14 16:57 | Event Note ---
Date: 02/14/17 Patient examined in no acute distress has bilateral lower extremity dressing. Vascular surgeon already consulted with wound care consult. We'll also request records from [place]. If no intervention planned by vascular today we'll start patient on diet. We'll adjust insulin for better blood sugar control.
--- NOTE | 2017-02-14 17:02 | Consultation ---
History of Present Illness - Reason for Consult Consult date: 02/14/17 Peripheral Arterial Disease with Ulceration Requesting physician: EDGAR PLUNKETT - History of Present Illness This patient is 72-year-old -[place] male that was admitted on 2016 due to bilateral lower extremity wound infections. The patient is well- known to our service from previous hospitalizations. 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 He is status post a left anterior tibial artery atherectomy with balloon angioplasty; and balloon angioplasty of the left dorsalis pedis on 03/01/2016. His wound care was previously managed by the outpatient wound care clinic at [facility]. He was recently admitted to [facility]. His states that Dr. Barraza, his swage tender, has been the primary provider managing his lower extremity wound care at this point. Following discharge, he was sent to [facility] for short course of rehabilitation and antibiotics. He has since been discharged from rehabilitation. His wounds began to deteriorate which prompted him to go to the emergency room at [facility], where he has since been admitted. He was to follow-up with Dr. Barraza as an outpatient, but his medical transportation service never showed up. A vascular surgery consult has been requested to further evaluate. He states he is able to ambulate short distances in his house without much difficulty. His disagrees. 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 Hightower, cataract removal, right lower extremity wound debridement by his swage tender, possible right lower extremity arterial intervention by vascular surgeon/IR physician at [facility] regarding her recent hospitalization as per his ) Social history: . denies: smoking, alcohol abuse Family history: diabetes, hypertension Medications and Allergies Allergies Allergy/AdvReac Type Severity Reaction Status Date / Time gabapentin Allergy Unknown Verified 02/13/17 23:32 sulfamethoxazole Allergy Dizziness Verified 02/13/17 23:36 [From Bactrim] tetracycline Allergy Unknown Verified 02/13/17 23:32 trimethoprim [From Bactrim] Allergy Dizziness Verified 02/13/17 23:36 Home Medications Medication Instructions Recorded Confirmed Last Taken Type Famotidine 20 mg PO BID 08/02/13 02/14/17 10/31/16 08:00 History Multivitamin [Multi-Vitamin Daily] 1 each PO QDAY 08/02/13 02/14/17 10/31/16 08: 00 History glipiZIDE [Glipizide] 5 mg PO BIDAC 08/02/13 02/14/17 10/31/16 08:00 History Clopidogrel [Plavix] 75 mg PO QDAY #30 tablet 11/05/16 02/14/17 Unknown Rx Pregabalin [Lyrica] 100 mg PO TID #90 capsule 11/05/16 02/14/17 Unknown Rx Acetaminophen [Tylenol] 650 mg PO Q6HR PRN 02/14/17 02/14/17 Unknown History Allopurinol [Zyloprim] 100 mg PO QDAY 02/14/17 02/14/17 Unknown History Docusate Sodium [Colace] 100 mg PO BID PRN 02/14/17 02/14/17 Unknown History HYDROcodone/APAP 5-325 [Ruffin 1 each PO 4XD PRN 02/14/17 02/14/17 Unknown History 5/325] Insulin Detemir [Levemir Flextouch] 10 unit SQ QHS 02/14/17 02/14/17 Unknown History Insulin Lispro [Humalog 100 5 units SQ AC 02/14/17 02/14/17 Unknown History UNITS/ML Kwikpen] Metoprolol [Lopressor TAB] 50 mg PO BID 02/14/17 02/14/17 Unknown History Vitamin B Complex 1 each PO QDAY 02/14/17 02/14/17 Unknown History amLODIPine [Norvasc] 10 mg PO DAILY 02/14/17 02/14/17 Unknown History Active Meds: Active Medications Acetaminophen (Tylenol) 650 mg PO Q4H PRN PRN Reason: Pain MILD(1-3)/Fever >100.5/ROE Bisacodyl (Dulcolax) 10 mg [place] QDAY PRN PRN Reason: Constipation unrelieved by MOM Enoxaparin Sodium (Lovenox) 40 mg SUB-Q QDAY RACHAEL Last Admin: 02/14/17 10:38 Dose: 40 mg Vancomycin HCl 1,500 mg/ (Sodium Chloride) 515 mls @ 333.333 mls/hr IV Q12H RACHAEL Last Admin: 02/14/17 14:50 Dose: 333.333 mls/hr Piperacillin Sod/Tazobactam Sod (Zosyn/Ns 3.375gm/50ml) 3.375 gm in 50 mls @ 100 mls/hr IV Q8HR RACHAEL PRN Reason: Protocol Last Admin: 02/14/17 14:50 Dose: 100 mls/hr Magnesium Hydroxide (Milk Of Magnesia) 30 ml PO Q4H PRN PRN Reason: Constipation Morphine Sulfate (Morphine) 2 mg IV Q4H PRN PRN Reason: Pain, Moderate (4-6) Last Admin: 02/14/17 11:27 Dose: 2 mg Ondansetron HCl (Zofran) 4 mg IV Q8H PRN PRN Reason: N/V unrelieved by Claudine Vancomycin HCl (Vancomycin Pharmacy To Dose) 1 each IV PKCONSULT RACHAEL PRN Reason: Protocol Review of Systems All systems: negative Exam - Constitutional Vitals: Temp Pulse Resp BP Pulse Ox 99.0 F 88 20 135/64 99 02/14/17 12:05 02/14/17 12:05 02/14/17 12:05 02/14/17 12:05 02/14/17 12:05 General appearance: Present: no acute distress - EENT Eyes: Present: EOM intact ENT: hearing intact - Neck Neck: Present: supple - Respiratory Respiratory effort: normal - Extremities Extremities: normal temperature Extremity abnormal: ulceration (he has large ulcerations to bilateral lower extremity wounds from below the knee including his feet. The wounds were noted to have a foul odor. There are gangrenous changes to digits on both left and right foot. The most significant wound appears to be on the volar aspect of the distal right metatarsal region there is significant slough. Please see the attached pictures. He is significantly tender to even minor manipulation of the lower extremities.), pulses diminished (nonpalpable pedal pulses bilaterally ) - Psychiatric Psychiatric: appropriate mood/affect, intact judgment & insight, cooperative - Neurologic Neurologic: no focal deficits - Additional findings Additional findings: Results - Labs CBC & Chem 7: 02/13/17 23:42 02/14/17 00:01 Assessment and Plan This patient has a long history of chronic lower extremity ulcerations. This is suspected to be due to both mixed arterial and venous disease. The patient was apparently recently hospitalized at [facility] where he had a debridement to his right foot as well as an unknown arterial intervention as per his 's report. She states they are attempting to retrieve these records for review. I will repeat his arterial duplex to verify that he has adequate blood flow to heal his distal wounds. Further recommendations based upon these findings. I had a long conversation with the patient as well as his . His wounds will be very difficult to heal and will require a multifaceted approach including medical, nutritional , and arterial optimization, in combination with good local wound care. Would recommend consultation to the wound care surgeon. - Patient Problems (1) Atherosclerosis of [place] arteries of the extremities with ulceration Current Visit: No Status: Acute (2) Venous stasis ulcers Current Visit: Yes Status: Chronic Qualifiers: Venous stasis ulcer site: V Varicose vein presence: V Laterality: L Non -pressure ulcer stage: N (3) ADILENE (acute kidney injury) Current Visit: No Status: Acute (4) Congestive heart failure Current Visit: No Status: Chronic Qualifiers: Congestive heart failure type: systolic Congestive heart failure chronicity : C (5) Diabetes mellitus, type II Current Visit: No Status: Chronic Qualifiers: Diabetes mellitus complication status: D Diabetes mellitus complication detail: D Diabetic retinopathy severity: D Proliferative retinopathy type: P Diabetes mellitus macular edema: D 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
[2017-02-14] MEDS: PEPCID PO SCH (21:29)
[2017-02-14] MEDS: LOPRESSOR PO SCH (21:29)
[2017-02-14] MEDS: NOVOLOG SUB-Q SCH (21:30)
[2017-02-14] MEDS: LEVEMIR SUB-Q SCH (21:31)
[2017-02-15] MEDS: VANCOMYCIN 1,500 MG in NACL 0.9% 500 ML 500 ML IV SCH ×2 (01:01→14:31)
[2017-02-15] MEDS: ZOSYN/NS 3.375GM/50ML 3.375 GM/50 ML BAG IV SCH (05:51)
[2017-02-15 06:46] LABS: Basophils % (Auto) 0.5 % (0.0-1.8); Eosinophils % (Auto) 7.2 % (0.0-4.3); Hematocrit 27.2 % (35.5-45.6); Hemoglobin 8.7 gm/dl (11.8-15.2); Mean Corpuscular HGB Conc 32 % (32-34); Mean Corpuscular Hemoglobin 28 pg (28-32); Mean Corpuscular Volume 88 fl (84-94); Platelet Count 228 K/mm3 (140-440); Red Blood Count 3.11 M/mm3 (3.65-5.03); Red Cell Distribution Width 16.7 % (13.2-15.2); White Blood Count 4.7 K/mm3 (4.5-11.0)
[2017-02-15 07:08] LABS: Anion Gap 16 mmol/L; Blood Urea Nitrogen 8 mg/dL (9-20); Carbon Dioxide 22 mmol/L (22-30); Chloride 103.8 mmol/L (98-107); Glucose 128 mg/dL (75-100); Potassium 3.7 mmol/L (3.6-5.0); Sodium 138 mmol/L (137-145)
[2017-02-15] MEDS: NOVOLOG SUB-Q SCH ×2 (09:22→18:06)
--- NOTE | 2017-02-15 09:28 | Consultation ---
History of Present Illness - Reason for Consult Consult date: 02/15/17 bilateral feet/legs ulcers Requesting physician: RADHA HARDIN - History of Present Illness 72-year-old male with history of COPD, diabetes, heart failure, hypertension, PVD, venous insuficiency and chronic bilateral leg/foot ulcers; admitted on due to bilateral lower extremity wound with foul-smelling drainage. He is status post a left anterior tibial artery atherectomy with balloon angioplasty; and balloon angioplasty of the left dorsalis pedis on 03/01/2016. Of note, patient was recently admitted to [facility]. He sees Dr. Barraza, his assembler plastic boat. After discharge, he was sent to [facility] for short course of rehabilitation and antibiotics-unclear names. He has since been discharged from rehabilitation. His wounds began to deteriorate. Of note, he has a wound cx from 11/09/15 + ESBL E coli. In the emergency room, his initial temperature was 102.3, heart rate 93, blood pressure 139/68. Initial white count 5.3. CRP 3.5. Creatinine 1.1. Blood cultures so far negative. Foot x-ray show right first metacarpophalanx joint and right second digit and second and third left toe suspect soft tissue with gas. Tibial X-rays show periosteal reaction distal to the left the area. 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 Hightower, cataract removal, right lower extremity wound debridement by his assembler plastic boat, possible right lower extremity arterial intervention by vascular surgeon/IR physician at [facility] regarding her recent hospitalization as per his ) Social history: . denies: smoking, alcohol abuse Family history: diabetes, hypertension Medications and Allergies Allergies Allergy/AdvReac Type Severity Reaction Status Date / Time gabapentin Allergy Unknown Verified 02/13/17 23:32 sulfamethoxazole Allergy Dizziness Verified 02/13/17 23:36 [From Bactrim] tetracycline Allergy Unknown Verified 02/13/17 23:32 trimethoprim [From Bactrim] Allergy Dizziness Verified 02/13/17 23:36 Home Medications Medication Instructions Recorded Confirmed Last Taken Type Famotidine 20 mg PO BID 08/02/13 02/14/17 10/31/16 08:00 History Multivitamin [Multi-Vitamin Daily] 1 each PO QDAY 08/02/13 02/14/17 10/31/16 08: 00 History glipiZIDE [Glipizide] 5 mg PO BIDAC 08/02/13 02/14/17 10/31/16 08:00 History Clopidogrel [Plavix] 75 mg PO QDAY #30 tablet 11/05/16 02/14/17 Unknown Rx Pregabalin [Lyrica] 100 mg PO TID #90 capsule 11/05/16 02/14/17 Unknown Rx Acetaminophen [Tylenol] 650 mg PO Q6HR PRN 02/14/17 02/14/17 Unknown History Allopurinol [Zyloprim] 100 mg PO QDAY 02/14/17 02/14/17 Unknown History Docusate Sodium [Colace] 100 mg PO BID PRN 02/14/17 02/14/17 Unknown History HYDROcodone/APAP 5-325 [Pfeifer 1 each PO 4XD PRN 02/14/17 02/14/17 Unknown History 5/325] Insulin Detemir [Levemir Flextouch] 10 unit SQ QHS 02/14/17 02/14/17 Unknown History Insulin Lispro [Humalog 100 5 units SQ AC 02/14/17 02/14/17 Unknown History UNITS/ML Kwikpen] Metoprolol [Lopressor TAB] 50 mg PO BID 02/14/17 02/14/17 Unknown History Vitamin B Complex 1 each PO QDAY 02/14/17 02/14/17 Unknown History amLODIPine [Norvasc] 10 mg PO DAILY 02/14/17 02/14/17 Unknown History Active Meds: Active Medications Acetaminophen (Tylenol) 650 mg PO Q4H PRN PRN Reason: Pain MILD(1-3)/Fever >100.5/ROE Acetaminophen/Hydrocodone Bitart (Pfeifer 5/325) 1 each PO 4XD PRN PRN Reason: Pain Allopurinol (Zyloprim) 100 mg PO QDAY RACHAEL Amlodipine Besylate (Norvasc) 10 mg PO DAILY [facility] Bisacodyl (Dulcolax) 10 mg [place] QDAY PRN PRN Reason: Constipation unrelieved by MOM Clopidogrel Bisulfate (Plavix) 75 mg PO QDAY [facility] Dextrose (D50w (25gm) Syringe) 50 ml IV PRN PRN PRN Reason: Hypoglycemia Docusate Sodium (Colace) 100 mg PO BID PRN PRN Reason: Pain Enoxaparin Sodium (Lovenox) 40 mg SUB-Q QDAY [facility] Last Admin: 02/14/17 10:38 Dose: 40 mg Famotidine (Pepcid) 20 mg PO BID [facility] Last Admin: 02/14/17 21:29 Dose: 20 mg Vancomycin HCl 1,500 mg/ (Sodium Chloride) 515 mls @ 333.333 mls/hr IV Q12H [facility] Last Admin: 02/15/17 01:01 Dose: 333.333 mls/hr Piperacillin Sod/Tazobactam Sod (Zosyn/Ns 3.375gm/50ml) 3.375 gm in 50 mls @ 100 mls/hr IV Q8HR [facility] PRN Reason: Protocol Last Admin: 02/15/17 05:51 Dose: 100 mls/hr Insulin Aspart (Novolog) 0 units SUB-Q ACHS [facility] PRN Reason: Protocol Last Admin: 02/14/17 21:30 Dose: 7 units Insulin Detemir (Levemir) 15 units SUB-Q QHS [facility] Last Admin: 02/14/17 21:31 Dose: 15 units Magnesium Hydroxide (Milk Of Magnesia) 30 ml PO Q4H PRN PRN Reason: Constipation Metoprolol Tartrate (Lopressor) 50 mg PO BID [facility] Last Admin: 02/14/17 21:29 Dose: 50 mg Morphine Sulfate (Morphine) 2 mg IV Q4H PRN PRN Reason: Pain, Moderate (4-6) Last Admin: 02/14/17 19:29 Dose: 2 mg Ondansetron HCl (Zofran) 4 mg IV Q8H PRN PRN Reason: N/V unrelieved by Reglan Pregabalin 25 mg/ Pregabalin (75 mg) 100 mg PO QDAY [facility] Vancomycin HCl (Vancomycin Pharmacy To Dose) 1 each IV PKCONSULT [facility] PRN Reason: Protocol Review of Systems All systems: negative (malaise, subjective fever.) Physical Examination - Physical Exam Narrative exam: General appearance: Alert in NAD, conversant Eyes: anicteric sclerae, moist conjunctivae; no lid-lag; PERRLA HENT: Atraumatic; oropharynx clear with moist mucous membranes and no mucosal ulcerations/no oral thrush; normal hard and soft palate. Normal external ears. Neck: Trachea midline; supple, no thyromegaly or lymphadenopathy Lungs: CTA, with normal respiratory effort and no intercostal retractions CV: RRR, no murmurs Abdomen: Soft, non-tender; no masses or hepatosplenomegaly Extremities: marked bilateral leg edema with complete gangrene of right and left 3rd toes with a necrotic ulcer extended to the midanterior sole bialteral L >R. Partial left great toe necrosis. Multiple ulcers on the leg. +foul smelling drainage. Skin: Normal temperature, turgor and texture; no rash, ulcers or subcutaneous nodules Psych: Appropriate affect, alert and oriented to person, place and time. Neuro: alert and oriented x 3. Moving all extermities Lines: No CVL / PICC - Constitutional Vitals: Vital Signs Temp Pulse Resp BP Pulse Ox 98.5 F 95 H 19 139/62 98 02/15/17 05:15 02/15/17 05:15 02/15/17 05:15 02/15/17 05:15 02/15/17 05:15 Temperature -Last 24 Hours Temperature 98.5 F Temperature 98.8 F Temperature 98.8 F Temperature 97.9 F Temperature 99.0 F Results - Labs CBC & Chem 7: 02/15/17 05:42 02/15/17 05:42 Labs: Abnormal lab results 02/14/17 02/15/17 02/15/17 Range/Units 20:35 05:42 05:42 RBC 3.11 L (3.65-5.03) M/mm3 Hgb 8.7 L (11.8-15.2) gm/dl Hct 27.2 L (35.5-45.6) % RDW 16.7 H (13.2-15.2) % [place] % (Auto) 7.8 H (0.0-7.3) % Eos % (Auto) 7.2 H (0.0-4.3) % Lymph # 0.8 L (1.2-5.4) K/mm3 BUN 8 L (9-20) mg/dL Glucose 128 H (75-100) mg/dL POC Glucose 394 H (70-105) Calcium 8.0 L (8.4-10.2) mg/dL 02/15/17 Range/Units 07:54 RBC (3.65-5.03) M/mm3 Hgb (11.8-15.2) gm/dl Hct (35.5-45.6) % RDW (13.2-15.2) % [place] % (Auto) (0.0-7.3) % Eos % (Auto) (0.0-4.3) % Lymph # (1.2-5.4) K/mm3 BUN (9-20) mg/dL Glucose (75-100) mg/dL POC Glucose 118 H (70-105) Calcium (8.4-10.2) mg/dL Assessment and Plan Assessment: 1) Sepsis: Present on admission, manifested by fever, tachycardia. 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 2) Bilateral foot / toe gangrene likely due to PVD ? dry gangrene versus infected wet gangrene -S/P recent IV antibiotics and wound care -11/09/15 wound cx + ESBL E coli. -CRP=5.1 3) COPD 4) Diabetes 5) Heart failure 6) Hypertension 7) Severe PVD -S/P left anterior tibial artery atherectomy with balloon angioplasty; and balloon angioplasty of the left dorsalis pedis on 03/01/2016. 8) Venous insuficiency and chronic bilateral leg/foot ulcers; admitted on 02/14 due to bilateral lower extremity wound with foul-smelling drainage. Plan: -Vascular consult - extensive necrotic changes and failure of previous IV antibiotics/wound care consider bilateral limb amputation -follow-up blood cultures -stop zosyn -start meropenem -continue vancomycin -contact isolation Thank you Dr Hardin for your consultation, will follow up with you. Pratibha Hooper MD Infectious Diseases Specialist [facility] ([facility] M [phone] O [phone]
[2017-02-15] MEDS ORDERED: LYRICA 25 MG, LYRICA 75 MG PO SCH (10:00)
[2017-02-15] MEDS: NORCO 5/325 PO PRN (15:05)
--- NOTE | 2017-02-15 15:57 | Progress Note ---
Assessment and Plan Await results form Vascular study. Previous medical records not available when I called the floor earlier this am. I had a long conversation with the patient about his options. This included continuing what he has been doing now in attempts to get his wounds to heal. He has not been successful thus far and it would be a long slow process and may never be completely successful. There is certainly a risk that his wounds could become infected which could lead to sepsis, and potentially life threatening. Another option would be to consider amputation. Given the condition of his lower ext skin, this would likely be Bilat AKA. We discussed the indications of amputation including: Uncontrollable pain Ascending infection Hygienic concerns The pt will consider amputation (only on the right at this point) due to the amount of persistent pain he is having. I discussed the R,B,and A with the patient including the high nato-operative mortality He will discuss this with his family. We will review the [facility] study, and see if the previous op notes from [facility] have been located. If he does not wish to proceed with amputation, then he will need a consult with the wound care surgeon for possible wound debridement. - Patient Problems (1) Atherosclerosis of [place] arteries of the extremities with ulceration Current Visit: No Status: Acute (2) Venous stasis ulcers Current Visit: Yes Status: Chronic Qualifiers: Venous stasis ulcer site: V Varicose vein presence: V Laterality: L Non -pressure ulcer stage: N (3) ADILENE (acute kidney injury) Current Visit: No Status: Acute (4) Congestive heart failure Current Visit: No Status: Chronic Qualifiers: Congestive heart failure type: systolic Congestive heart failure chronicity : C (5) Diabetes mellitus, type II Current Visit: No Status: Chronic Qualifiers: Diabetes mellitus complication status: D Diabetes mellitus complication detail: D Diabetic retinopathy severity: D Proliferative retinopathy type: P Diabetes mellitus macular edema: D Diabetes mellitus assisted insulin use : D Laterality: L Chronic kidney disease stage: C (6) Hypertension Current Visit: No Status: Chronic Qualifiers: Hypertension type: H Subjective Date of service: 02/15/17 Interval history: Pt is awake. Continues to complain of pain with manipulation. Denies pain at rest. Objective - Constitutional Vitals: Vital Signs - 12hr 02/15/17 02/15/17 02/15/17 05:15 07:56 08:00 Temperature 98.5 F 98.1 F 98.2 F Pulse Rate 95 H 100 H Respiratory 19 18 Rate Blood Pressure 139/62 Blood Pressure 154/69 [Left] O2 Sat by Pulse 98 Oximetry 02/15/17 10:06 Temperature Pulse Rate Respiratory Rate Blood Pressure Blood Pressure [Left] O2 Sat by Pulse 98 Oximetry General appearance: Present: no acute distress - EENT Eyes: EOM intact ENT: hearing intact - Respiratory Respiratory effort: normal (at rest on O2 NC) Extremities: abnormal (bilat lower ext wounds bandaged recently by ET Nurse.) - Neurologic Neurologic: no focal deficits - Psychiatric Psychiatric: appropriate mood/affect, intact judgment & insight, cooperative - Labs CBC & Chem 7: 02/15/17 05:42 02/15/17 05:42 Labs: Abnormal lab results 02/14/17 02/15/17 02/15/17 Range/Units 20:35 05:42 05:42 RBC 3.11 L (3.65-5.03) M/mm3 Hgb 8.7 L (11.8-15.2) gm/dl Hct 27.2 L (35.5-45.6) % RDW 16.7 H (13.2-15.2) % [place] % (Auto) 7.8 H (0.0-7.3) % Eos % (Auto) 7.2 H (0.0-4.3) % Lymph # 0.8 L (1.2-5.4) K/mm3 BUN 8 L (9-20) mg/dL Glucose 128 H (75-100) mg/dL POC Glucose 394 H (70-105) Calcium 8.0 L (8.4-10.2) mg/dL 02/15/17 Range/Units 07:54 RBC (3.65-5.03) M/mm3 Hgb (11.8-15.2) gm/dl Hct (35.5-45.6) % RDW (13.2-15.2) % [place] % (Auto) (0.0-7.3) % Eos % (Auto) (0.0-4.3) % Lymph # (1.2-5.4) K/mm3 BUN (9-20) mg/dL Glucose (75-100) mg/dL POC Glucose 118 H (70-105) Calcium (8.4-10.2) mg/dL
--- NOTE | 2017-02-15 17:47 | Progress Note ---
Assessment and Plan Assessment and plan: The patient is a 72 yo man with a history of hypertension, DM, Copd, chf, pvd w/ chronic leg ulcers and gout who presented with fevers. -Sepsis skin infection: abx, ID is following, following culture results -PVD, acute on chronic worsening: vascular is following -Bilateral leg ischemia: Vascular is following -Bilateral leg/foot/toes gangrene: ?amputation -DVT prophylaxis: on sq Lovenox per Vascular: "Await results form Vascular study. Previous medical records not available when I called the floor earlier this am. I had a long conversation with the patient about his options. This included continuing what he has been doing now in attempts to get his wounds to heal. He has not been successful thus far and it would be a long slow process and may never be completely successful. There is certainly a risk that his wounds could become infected which could lead to sepsis, and potentially life threatening. Another option would be to consider amputation. Given the condition of his lower ext skin, this would likely be Bilat AKA. We discussed the indications of amputation including: Uncontrollable pain, Ascending infection, Hygienic concerns, The pt will consider amputation (only on the right at this point) due to the amount of persistent pain he is having. I discussed the R,B,and A with the patient including the high nato-operative mortality. He will discuss this with his family. We will review the [facility] study, and see if the previous op notes from [facility] have been located. If he does not wish to proceed with amputation, then he will need a consult with the wound care surgeon for possible wound debridement. " History Interval history: Patient was seen and examined. Follow-up on current diagnosis/fevers. Overnight uneventful. Patient denies any chest pain, shortness breath, nausea/ vomiting or severe headaches. Imaging, nursing note, chart, labs and old chart reviewed. Discussed with patient. Hospitalist Physical - Physical exam Narrative exam: GEN: Chronic debilitated, NAD, AWAKE, ALERT, ORIENTATED times to 3 HEENT: NCAT, EOMI, PERRL, OP Clear NECK: supple, no adenopathy, no thyromegaly, no JVD CVS/HEART: RRR, NORMAL S1S2, NO JVD, pulses absent feet CHEST/LUNGS: CTA B, Symmetrical chest expansion, good air entry bilaterally GI/Abdomen: soft, NTND, good bowel sounds, no guarding or rebound /Bladder: no suprapubic tenderness, no CVA or paraspinal tenderness EXT/Skin: Severe bilateral leg ulceration with gangrene MSK: FROM x 4 Neuro: CN 2-12 grossly intact, no new focal deficits Psych: calm - Constitutional Vitals: Temp Pulse Resp BP Pulse Ox 98.2 F 100 H 18 154/69 98 02/15/17 08:00 02/15/17 08:00 02/15/17 07:56 02/15/17 08:00 02/15/17 10:06 General appearance: Present: no acute distress Results - Labs CBC & Chem 7: 02/15/17 05:42 02/15/17 05:42 Labs: Laboratory Last Values WBC 4.7 K/mm3 (4.5-11.0) 02/15/17 05:42 RBC 3.11 M/mm3 (3.65-5.03) L 02/15/17 05:42 Hgb 8.7 gm/dl (11.8-15.2) L 02/15/17 05:42 Hct 27.2 % (35.5-45.6) L 02/15/17 05:42 MCV 88 fl (84-94) 02/15/17 05:42 MCH 28 pg (28-32) 02/15/17 05:42 MCHC 32 % (32-34) 02/15/17 05:42 RDW 16.7 % (13.2-15.2) H 02/15/17 05:42 Plt Count 228 K/mm3 (140-440) 02/15/17 05:42 Lymph % (Auto) 16.7 % (13.4-35.0) 02/15/17 05:42 [place] % (Auto) 7.8 % (0.0-7.3) H 02/15/17 05:42 Eos % (Auto) 7.2 % (0.0-4.3) H 02/15/17 05:42 Baso % (Auto) 0.5 % (0.0-1.8) 02/15/17 05:42 Lymph # 0.8 K/mm3 (1.2-5.4) L 02/15/17 05:42 [place] # 0.4 K/mm3 (0.0-0.8) 02/15/17 05:42 Eos # 0.3 K/mm3 (0.0-0.4) 02/15/17 05:42 Baso # 0.0 K/mm3 (0.0-0.1) 02/15/17 05:42 Seg Neutrophils % 67.8 % (40.0-70.0) 02/15/17 05:42 Seg Neutrophils # 3.2 K/mm3 (1.8-7.7) 02/15/17 05:42 ESR 85 mm/Hr (0-20) 02/14/17 01:33 PT 14.6 Sec. (12.2-14.9) 02/14/17 01:33 INR 1.15 (0.87-1.13) H 02/14/17 01:33 APTT 31.9 Sec. (24.2-36.6) 02/14/17 01:33 VBG pH 7.318 (7.320-7.420) L 02/14/17 00:38 Sodium 138 mmol/L (137-145) D 02/15/17 05:42 Potassium 3.7 mmol/L (3.6-5.0) 02/15/17 05:42 Chloride 103.8 mmol/L (98-107) 02/15/17 05:42 Carbon Dioxide 22 mmol/L (22-30) 02/15/17 05:42 Anion Gap 16 mmol/L 02/15/17 05:42 BUN 8 mg/dL (9-20) L 02/15/17 05:42 Creatinine 0.8 mg/dL (0.8-1.5) 02/15/17 05:42 Estimated GFR > 60 ml/min 02/15/17 05:42 BUN/Creatinine Ratio 10.00 % 02/15/17 05:42 Glucose 128 mg/dL (75-100) H 02/15/17 05:42 POC Glucose 344 (70-105) H 02/15/17 17:42 Lactic Acid 1.70 mmol/L (0.7-2.0) 02/14/17 05:26 Calcium 8.0 mg/dL (8.4-10.2) L 02/15/17 05:42 Total Bilirubin 0.40 mg/dL (0.1-1.2) 02/14/17 00:01 AST 13 units/L (5-40) 02/14/17 00:01 ALT 12 units/L (7-56) 02/14/17 00:01 Alkaline Phosphatase 89 units/L (35-129) 02/14/17 00:01 Total Creatine Kinase 26 units/L (55-170) L 02/14/17 00:38 C-Reactive Protein 3.50 mg/dL (0.00-1.30) H 02/14/17 00:38 Total Protein 7.0 g/dL (6.3-8.2) 02/14/17 00:01 Albumin 2.8 g/dL (3.9-5) L 02/14/17 00:01 Albumin/Globulin Ratio 0.7 % 02/14/17 00:01 Urine Color Yellow (Yellow) 02/13/17 Unknown Urine Turbidity Clear (Clear) 02/13/17 Unknown Urine pH 7.0 (5.0-7.0) 02/13/17 Unknown Ur Specific [place] 1.008 (1.003-1.030) 02/13/17 Unknown Urine Protein <15 mg/dl mg/dL (Negative) 02/13/17 Unknown Urine Glucose (UA) >=500 mg/dL (Negative) 02/13/17 Unknown Urine Ketones Neg mg/dL (Negative) 02/13/17 Unknown Urine Blood Sm (Negative) 02/13/17 Unknown Urine Nitrite Neg (Negative) 02/13/17 Unknown Urine Bilirubin Neg (Negative) 02/13/17 Unknown Urine Urobilinogen < 2.0 mg/dL (<2.0) 02/13/17 Unknown Ur Leukocyte Esterase Mod (Negative) 02/13/17 Unknown Urine WBC (Auto) 13.0 /HPF (0.0-6.0) H 02/13/17 Unknown Urine RBC (Auto) 1.0 /HPF (0.0-6.0) 02/13/17 Unknown U Epithel Cells (Auto) 1.0 /HPF (0-13.0) 02/13/17 Unknown Urine Mucus Few /HPF 02/13/17 Unknown
[2017-02-15] MEDS: LEVEMIR SUB-Q SCH (21:45)
[2017-02-16] MEDS: NOVOLOG SUB-Q SCH ×5 (01:05→22:21)
[2017-02-16] MEDS: MORPHINE IV PRN (01:37)
[2017-02-16] MEDS: VANCOMYCIN 1,500 MG in NACL 0.9% 500 ML 500 ML IV SCH ×2 (01:51→19:31)
[2017-02-16 06:00] LABS: Hematocrit 27.5 % (35.5-45.6); Hemoglobin 9.1 gm/dl (11.8-15.2); Mean Corpuscular HGB Conc 33 % (32-34); Mean Corpuscular Hemoglobin 28 pg (28-32); Mean Corpuscular Volume 85 fl (84-94); Platelet Count 239 K/mm3 (140-440); Red Blood Count 3.23 M/mm3 (3.65-5.03); Red Cell Distribution Width 16.6 % (13.2-15.2)
[2017-02-16 06:20] LABS: Anion Gap 16 mmol/L; Blood Urea Nitrogen 7 mg/dL (9-20); Calcium 8.5 mg/dL (8.4-10.2); Carbon Dioxide 23 mmol/L (22-30); Glucose 143 mg/dL (75-100); Potassium 3.8 mmol/L (3.6-5.0); Sodium 139 mmol/L (137-145)
--- NOTE | 2017-02-16 08:11 | Vascular Lab Report ---
LOWER EXTREMITY ARTERIAL DUPLEX: REASON FOR EXAM: Peripheral arterial disease. COMMENTS ON THE RIGHT: Triphasic waveforms are seen proximally. Monophasic waveforms are seen distally. No significant velocity gradients are identified. No focal significant plaque is identified. Findings are consistent with normal perfusion. Findings are consistent with the ability to heal distal wounds. COMMENTS ON THE LEFT: Triphasic waveforms are seen proximally. Triphasic waveforms are seen distally. No significant velocity gradients are identified. No focal significant plaque is identified. Findings are consistent with normal perfusion. Findings are consistent with the ability to heal distal wounds. IMPRESSION: RIGHT: Essentially normal arterial flow. LEFT:Essentially normal arterial flow.
[2017-02-16] MEDS: ZYLOPRIM PO SCH (11:51)
[2017-02-16] MEDS: PEPCID PO SCH ×2 (11:51→22:20)
[2017-02-16] MEDS: LOPRESSOR PO SCH ×2 (11:51→22:20)
[2017-02-16] MEDS: LOVENOX SUB-Q SCH (11:52)
[2017-02-16] MEDS: NORVASC PO SCH (11:53)
[2017-02-16] MEDS: PLAVIX PO SCH (11:55)
--- NOTE | 2017-02-16 12:35 | Progress Note ---
Assessment and Plan Vasc labs reviewed. Pt with tri-phasic flow proximally and monophasic distally, but no evidence of specific flow limiting lesion. No arterial intervention at this point. Pt s/p recent procedure at [facility], (details are not available for review at this point). Suspect he has adequate flow for wound healing. I had a long discussion with the pt and his (via the telephone). We discussed his condition and treatment options. 1. Continue current course in hopes that his wounds will heal. This certainly poses a risk of infection, and sepsis. 2. Amputation (indications were again discussed). His was leaning toward continuing the current course, but wanted to discuss further with her . If they continue with attempts at limb salvage, then he will need the right foot redebrided. He will need a consult with the gen surgery/wound care surgeon. Will f/u with them again tomorrow. - Patient Problems (1) Atherosclerosis of [place] arteries of the extremities with ulceration Current Visit: No Status: Acute (2) Venous stasis ulcers Current Visit: Yes Status: Chronic Qualifiers: Venous stasis ulcer site: V Varicose vein presence: V Laterality: L Non -pressure ulcer stage: N (3) ADILENE (acute kidney injury) Current Visit: No Status: Acute (4) Congestive heart failure Current Visit: No Status: Chronic Qualifiers: Congestive heart failure type: systolic Congestive heart failure chronicity : C (5) Diabetes mellitus, type II Current Visit: No Status: Chronic Qualifiers: Diabetes mellitus complication status: D Diabetes mellitus complication detail: D Diabetic retinopathy severity: D Proliferative retinopathy type: P Diabetes mellitus macular edema: D Diabetes mellitus chcf insulin use : D Laterality: L Chronic kidney disease stage: C (6) Hypertension Current Visit: No Status: Chronic Qualifiers: Hypertension type: H Subjective Date of service: 02/16/17 Interval history: Pt awake without specific complaint at present. Objective - Constitutional Vitals: Vital Signs - 12hr 02/16/17 02/16/17 02/16/17 00:49 04:31 11:51 Temperature 98.4 F 99.3 F Pulse Rate 94 H 89 Respiratory 18 21 Rate Blood Pressure 152/71 151/68 135/55 O2 Sat by Pulse 100 98 Oximetry 02/16/17 11:53 Temperature Pulse Rate Respiratory Rate Blood Pressure 135/55 O2 Sat by Pulse Oximetry General appearance: Present: no acute distress - EENT Eyes: EOM intact ENT: hearing intact - Neck Neck: supple - Respiratory Respiratory effort: normal Extremities: normal temperature, abnormal (bandages CDI) - Neurologic Neurologic: no focal deficits - Psychiatric Psychiatric: appropriate mood/affect, cooperative - Labs CBC & Chem 7: 02/16/17 05:41 02/16/17 05:41 Labs: Abnormal lab results 02/15/17 02/15/17 02/16/17 Range/Units 17:42 21:36 05:41 WBC 4.0 L (4.5-11.0) K/mm3 RBC 3.23 L (3.65-5.03) M/mm3 Hgb 9.1 L (11.8-15.2) gm/dl Hct 27.5 L (35.5-45.6) % RDW 16.6 H (13.2-15.2) % BUN (9-20) mg/dL Creatinine (0.8-1.5) mg/dL Glucose (75-100) mg/dL POC Glucose 344 H 314 H (70-105) 02/16/17 Range/Units 05:41 WBC (4.5-11.0) K/mm3 RBC (3.65-5.03) M/mm3 Hgb (11.8-15.2) gm/dl Hct (35.5-45.6) % RDW (13.2-15.2) % BUN 7 L (9-20) mg/dL Creatinine 0.7 L (0.8-1.5) mg/dL Glucose 143 H (75-100) mg/dL POC Glucose (70-105)
--- NOTE | 2017-02-16 15:05 | Progress Note ---
Assessment and Plan Assessment: 1) Sepsis: improving. 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 2) Bilateral foot / toe gangrene likely due to severe PVD ? dry gangrene versus infected wet gangrene -S/P recent IV antibiotics x 3 weeks and wound care -11/09/15 wound cx + ESBL E coli. -CRP=5.1 3) COPD 4) Diabetes 5) Heart failure 6) Hypertension 7) Severe PVD -S/P left anterior tibial artery atherectomy with balloon angioplasty; and balloon angioplasty of the left dorsalis pedis on 03/01/2016. 8) Venous insuficiency and chronic bilateral leg/foot ulcers; admitted on 02/14 due to bilateral lower extremity wound with foul-smelling drainage. Plan: -Discussed with Dr Juve Barraza (pot room supervisor) who recommended amputation and he personally called patient. Patient has failed IV antibiotics, aggressive surgical debridement and wound care. -continuation of home IV antibiotics would be futile -follow-up blood cultures -continue meropenem and vancomycin -contact isolation -discussed with vascular surgery LIYAH Jane. Thank you Dr Cabral for your consultation, will follow up with you. Pratibha Hooper MD Infectious Diseases Specialist [facility] ([facility]) M [phone] O [phone] Subjective Date of service: 02/16/17 Principal diagnosis: gangrene Interval history: Remains afebrile. No fever. Current Antimicrobials: Zosyn 02/13 Vancomycin 02/13 Microbiology: Blood cultures: 02/13 ngtd Urine cultures: Respiratory cultures: Wound cultures: Stool cultures: Other: Objective - Exam Narrative Exam: General appearance: Alert in NAD, conversant Eyes: anicteric sclerae, moist conjunctivae; no lid-lag; PERRLA HENT: Atraumatic; oropharynx clear with moist mucous membranes and no mucosal ulcerations/no oral thrush; normal hard and soft palate. Normal external ears. Neck: Trachea midline; supple, no thyromegaly or lymphadenopathy Lungs: CTA, with normal respiratory effort and no intercostal retractions CV: RRR, no murmurs Abdomen: Soft, non-tender; no masses or hepatosplenomegaly Extremities: marked bilateral leg edema with complete gangrene of right and left 3rd toes with a necrotic ulcer extended to the mid anterior sole bilateral L>R. Partial left great toe necrosis. Multiple ulcers on the leg. +foul smelling drainage. Skin: Normal temperature, turgor and texture; no rash, ulcers or subcutaneous nodules Psych: Appropriate affect, alert and oriented to person, place and time. Neuro: alert and oriented x 3. Moving all extermities Lines: No CVL / PICC - Constitutional Vitals: Vital Signs Temp Pulse Resp BP Pulse Ox 99.3 F 89 21 135/55 98 02/16/17 04:31 02/16/17 04:31 02/16/17 04:31 02/16/17 11:53 02/16/17 04:31 Temperature -Last 24 Hours Temperature 99.3 F Temperature 98.4 F Temperature 97.3 F Temperature 97.9 F - Labs CBC & Chem 7: 02/16/17 05:41 02/16/17 05:41 Labs: Abnormal lab results 02/15/17 02/15/17 02/16/17 Range/Units 17:42 21:36 05:41 WBC 4.0 L (4.5-11.0) K/mm3 RBC 3.23 L (3.65-5.03) M/mm3 Hgb 9.1 L (11.8-15.2) gm/dl Hct 27.5 L (35.5-45.6) % RDW 16.6 H (13.2-15.2) % BUN (9-20) mg/dL Creatinine (0.8-1.5) mg/dL Glucose (75-100) mg/dL POC Glucose 344 H 314 H (70-105) 02/16/17 Range/Units 05:41 WBC (4.5-11.0) K/mm3 RBC (3.65-5.03) M/mm3 Hgb (11.8-15.2) gm/dl Hct (35.5-45.6) % RDW (13.2-15.2) % BUN 7 L (9-20) mg/dL Creatinine 0.7 L (0.8-1.5) mg/dL Glucose 143 H (75-100) mg/dL POC Glucose (70-105)
--- NOTE | 2017-02-16 15:25 | Progress Note ---
Assessment and Plan Assessment and plan: The patient is a 72 yo man with a history of hypertension, DM, Copd, chf, pvd w/ chronic leg ulcers and gout who presented with fevers. -Sepsis skin infection: abx, ID is following, following culture results -PVD, acute on chronic worsening: vascular is following -Bilateral leg ischemia: Vascular is following -Bilateral leg/foot/toes gangrene: ?amputation -DVT prophylaxis: on sq Lovenox per Vascular: "Await results form Vascular study. Previous medical records not available when I called the floor earlier this am. I had a long conversation with the patient about his options. This included continuing what he has been doing now in attempts to get his wounds to heal. He has not been successful thus far and it would be a long slow process and may never be completely successful. There is certainly a risk that his wounds could become infected which could lead to sepsis, and potentially life threatening. Another option would be to consider amputation. Given the condition of his lower ext skin, this would likely be Bilat AKA. We discussed the indications of amputation including: Uncontrollable pain, Ascending infection, Hygienic concerns, The pt will consider amputation (only on the right at this point) due to the amount of persistent pain he is having. I discussed the R,B,and A with the patient including the high nato-operative mortality. He will discuss this with his family. We will review the [facility] study, and see if the previous op notes from [facility] have been located. If he does not wish to proceed with amputation, then he will need a consult with the wound care surgeon for possible wound debridement. " 1) Sepsis: improving. 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 2) Bilateral foot / toe gangrene likely due to severe PVD ? dry gangrene versus infected wet gangrene -S/P recent IV antibiotics x 3 weeks and wound care -11/09/15 wound cx + ESBL E coli. -CRP=5.1 3) COPD 4) Diabetes 5) Heart failure 6) Hypertension 7) Severe PVD -S/P left anterior tibial artery atherectomy with balloon angioplasty; and balloon angioplasty of the left dorsalis pedis on 03/01/2016. 8) Venous insuficiency and chronic bilateral leg/foot ulcers; admitted on 02/14 due to bilateral lower extremity wound with foul-smelling drainage. Plan: -Discussed with Dr Juve Barraza (plastics tooling engineer) who recommended amputation and he personally called patient. Patient has failed IV antibiotics, aggressive surgical debridement and wound care. -continuation of home IV antibiotics would be futile -follow-up blood cultures -continue meropenem and vancomycin -contact isolation -discussed with vascular surgery LIYAH Jane. Thank you Dr Cabral for your consultation, will follow up with you. Pratibha Hooper MD Infectious Diseases Specialist [facility] ([facility]) M [phone] O [phone] History Interval history: Patient was seen and examined. Follow-up on current diagnosis/fevers. Overnight uneventful. Patient denies any chest pain, shortness breath, nausea/ vomiting or severe headaches. Imaging, nursing note, chart, labs and old chart reviewed. Discussed with patient. Hospitalist Physical - Physical exam Narrative exam: GEN: Chronic debilitated, NAD, AWAKE, ALERT, ORIENTATED times to 3 HEENT: NCAT, EOMI, PERRL, OP Clear NECK: supple, no adenopathy, no thyromegaly, no JVD CVS/HEART: RRR, NORMAL S1S2, NO JVD, pulses absent feet CHEST/LUNGS: CTA B, Symmetrical chest expansion, good air entry bilaterally GI/Abdomen: soft, NTND, good bowel sounds, no guarding or rebound /Bladder: no suprapubic tenderness, no CVA or paraspinal tenderness EXT/Skin: Severe bilateral leg ulceration with gangrene MSK: FROM x 4 Neuro: CN 2-12 grossly intact, no new focal deficits Psych: calm - Constitutional Vitals: Temp Pulse Resp BP Pulse Ox 99.3 F 89 21 135/55 98 02/16/17 04:31 02/16/17 04:31 02/16/17 04:31 02/16/17 11:53 02/16/17 04:31 General appearance: Present: no acute distress Results - Labs CBC & Chem 7: 02/16/17 05:41 02/16/17 05:41 Labs: Laboratory Last Values WBC 4.0 K/mm3 (4.5-11.0) L 02/16/17 05:41 RBC 3.23 M/mm3 (3.65-5.03) L 02/16/17 05:41 Hgb 9.1 gm/dl (11.8-15.2) L 02/16/17 05:41 Hct 27.5 % (35.5-45.6) L 02/16/17 05:41 MCV 85 fl (84-94) 02/16/17 05:41 MCH 28 pg (28-32) 02/16/17 05:41 MCHC 33 % (32-34) 02/16/17 05:41 RDW 16.6 % (13.2-15.2) H 02/16/17 05:41 Plt Count 239 K/mm3 (140-440) 02/16/17 05:41 Lymph % (Auto) 16.7 % (13.4-35.0) 02/15/17 05:42 [place] % (Auto) 7.8 % (0.0-7.3) H 02/15/17 05:42 Eos % (Auto) 7.2 % (0.0-4.3) H 02/15/17 05:42 Baso % (Auto) 0.5 % (0.0-1.8) 02/15/17 05:42 Lymph # 0.8 K/mm3 (1.2-5.4) L 02/15/17 05:42 [place] # 0.4 K/mm3 (0.0-0.8) 02/15/17 05:42 Eos # 0.3 K/mm3 (0.0-0.4) 02/15/17 05:42 Baso # 0.0 K/mm3 (0.0-0.1) 02/15/17 05:42 Seg Neutrophils % 67.8 % (40.0-70.0) 02/15/17 05:42 Seg Neutrophils # 3.2 K/mm3 (1.8-7.7) 02/15/17 05:42 ESR 85 mm/Hr (0-20) 02/14/17 01:33 PT 14.6 Sec. (12.2-14.9) 02/14/17 01:33 INR 1.15 (0.87-1.13) H 02/14/17 01:33 APTT 31.9 Sec. (24.2-36.6) 02/14/17 01:33 VBG pH 7.318 (7.320-7.420) L 02/14/17 00:38 Sodium 139 mmol/L (137-145) 02/16/17 05:41 Potassium 3.8 mmol/L (3.6-5.0) 02/16/17 05:41 Chloride 104.0 mmol/L (98-107) 02/16/17 05:41 Carbon Dioxide 23 mmol/L (22-30) 02/16/17 05:41 Anion Gap 16 mmol/L 02/16/17 05:41 BUN 7 mg/dL (9-20) L 02/16/17 05:41 Creatinine 0.7 mg/dL (0.8-1.5) L 02/16/17 05:41 Estimated GFR > 60 ml/min 02/16/17 05:41 BUN/Creatinine Ratio 10.00 % 02/16/17 05:41 Glucose 143 mg/dL (75-100) H 02/16/17 05:41 POC Glucose 314 (70-105) H 02/15/17 21:36 Lactic Acid 1.70 mmol/L (0.7-2.0) 02/14/17 05:26 Calcium 8.5 mg/dL (8.4-10.2) 02/16/17 05:41 Total Bilirubin 0.40 mg/dL (0.1-1.2) 02/14/17 00:01 AST 13 units/L (5-40) 02/14/17 00:01 ALT 12 units/L (7-56) 02/14/17 00:01 Alkaline Phosphatase 89 units/L (35-129) 02/14/17 00:01 Total Creatine Kinase 26 units/L (55-170) L 02/14/17 00:38 C-Reactive Protein 3.50 mg/dL (0.00-1.30) H 02/14/17 00:38 Total Protein 7.0 g/dL (6.3-8.2) 02/14/17 00:01 Albumin 2.8 g/dL (3.9-5) L 02/14/17 00:01 Albumin/Globulin Ratio 0.7 % 02/14/17 00:01 Urine Color Yellow (Yellow) 02/13/17 Unknown Urine Turbidity Clear (Clear) 02/13/17 Unknown Urine pH 7.0 (5.0-7.0) 02/13/17 Unknown Ur Specific [place] 1.008 (1.003-1.030) 02/13/17 Unknown Urine Protein <15 mg/dl mg/dL (Negative) 02/13/17 Unknown Urine Glucose (UA) >=500 mg/dL (Negative) 02/13/17 Unknown Urine Ketones Neg mg/dL (Negative) 02/13/17 Unknown Urine Blood Sm (Negative) 02/13/17 Unknown Urine Nitrite Neg (Negative) 02/13/17 Unknown Urine Bilirubin Neg (Negative) 02/13/17 Unknown Urine Urobilinogen < 2.0 mg/dL (<2.0) 02/13/17 Unknown Ur Leukocyte Esterase Mod (Negative) 02/13/17 Unknown Urine WBC (Auto) 13.0 /HPF (0.0-6.0) H 02/13/17 Unknown Urine RBC (Auto) 1.0 /HPF (0.0-6.0) 02/13/17 Unknown U Epithel Cells (Auto) 1.0 /HPF (0-13.0) 02/13/17 Unknown Urine Mucus Few /HPF 02/13/17 Unknown Vancomycin Trough 19.0 ug/mL (5.0-20.0) 02/16/17 00:59
[2017-02-16] MEDS: NORCO 5/325 PO PRN (17:20)
--- NOTE | 2017-02-16 18:26 | Event Note ---
Date: 02/16/17 Reviewed ultrasound. RLE has monophasic distal flow. Discussed with patient that for any major amputation or minor amputation, the right lower extremity flow must be evaluated. He does not want any major amputations done at this time , and therefore will optimize RLE flow for debridement/minor amputations.
[2017-02-16] MEDS: MERREM 1,000 MG in NACL 0.9% 100 ML IV SCH (19:32)
[2017-02-16] MEDS: LEVEMIR SUB-Q SCH (22:25)
[2017-02-17] MEDS: MORPHINE IV PRN (04:53)
[2017-02-17] MEDS: ZYLOPRIM PO SCH (10:37)
[2017-02-17] MEDS: PEPCID PO SCH ×2 (10:37→21:50)
[2017-02-17] MEDS: NORVASC PO SCH (10:38)
[2017-02-17] MEDS: LOPRESSOR PO SCH ×2 (10:38→21:50)
[2017-02-17] MEDS: PLAVIX PO SCH (10:40)
--- NOTE | 2017-02-17 10:52 | Progress Note ---
Assessment and Plan Assessment: 1) Sepsis: resolved. 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 2) Bilateral foot / toe gangrene likely due to severe PVD -S/P OR right foot debridement at [facility] and recent IV antibiotics x 3 weeks and wound care -11/09/15 wound cx + ESBL E coli. -CRP=5.1 3) COPD 4) Diabetes 5) Heart failure 6) Hypertension 7) Severe PVD -S/P left anterior tibial artery atherectomy with balloon angioplasty; and balloon angioplasty of the left dorsalis pedis on 03/01/2016. 8) Venous insuficiency and chronic bilateral leg/foot ulcers; admitted on 02/14 due to bilateral lower extremity wound with foul-smelling drainage. Plan: -Patient has failed IV antibiotics, aggressive surgical debridement and wound care, requires amputation, continuation of home IV antibiotics would be futile -continue meropenem and vancomycin -contact isolation I am covering the weekend Thank you Dr Cabral for your consultation, will follow up with you. Pratibha Hooper MD Infectious Diseases Specialist [facility] ([facility]) M [phone] O [phone] Subjective Date of service: 02/17/17 Principal diagnosis: gangrene Interval history: Remains afebrile. No fever. Current Antimicrobials: Zosyn 02/13 Vancomycin 02/13 Microbiology: Blood cultures: 02/13 ngtd Urine cultures: Respiratory cultures: Wound cultures: Stool cultures: Other: Objective - Exam Narrative Exam: General appearance: Alert in NAD, conversant Eyes: anicteric sclerae, moist conjunctivae; no lid-lag; PERRLA HENT: Atraumatic; oropharynx clear with moist mucous membranes and no mucosal ulcerations/no oral thrush; normal hard and soft palate. Normal external ears. Neck: Trachea midline; supple, no thyromegaly or lymphadenopathy Lungs: CTA, with normal respiratory effort and no intercostal retractions CV: RRR, no murmurs Abdomen: Soft, non-tender; no masses or hepatosplenomegaly Extremities: marked bilateral leg edema with complete gangrene of right and left 3rd toes with a necrotic ulcer extended to the mid anterior sole bilateral L>R. Partial left great toe necrosis. Multiple ulcers on the leg. +foul smelling drainage. Skin: Normal temperature, turgor and texture; no rash, ulcers or subcutaneous nodules Psych: Appropriate affect, alert and oriented to person, place and time. Neuro: alert and oriented x 3. Moving all extermities Lines: No CVL / PICC - Constitutional Vitals: Vital Signs Temp Pulse Resp BP Pulse Ox 98.9 F 79 20 147/59 96 02/17/17 04:40 02/17/17 08:23 02/17/17 04:53 02/17/17 04:40 02/17/17 08:23 Temperature -Last 24 Hours Temperature 98.9 F Temperature 98.1 F Temperature 98.1 F Temperature 98.2 F - Labs CBC & Chem 7: 02/16/17 05:41 02/16/17 05:41 Labs: Abnormal lab results 02/16/17 02/16/17 02/16/17 Range/Units 08:48 11:53 17:26 POC Glucose 162 H 299 H 380 H (70-105) 02/16/17 Range/Units 21:42 POC Glucose 303 H (70-105)
[2017-02-17] MEDS: LYRICA PO SCH ×2 (11:36)
--- NOTE | 2017-02-17 13:52 | Query-Ulcer ---
Hilario Santoro_Dave Date:___02/17/2017 Bottoming Room Inspector/SONIA:___Monserrat Phone#:__[phone] Exercise your independent professional judgment when responding to query. Questions asked do not imply a particular answer is desired or expected. We greatly appreciate your clarification on this issue. Clinical Documentation States: 72 Year old male was admitted on 02/14/2017 with complaints of fever and chills. The Hospitalist progress note on 02/16/2017 states "Sepsis skin infection: abx, ID is following, following culture results -PVD, acute on chronic worsening: vascular is following -Bilateral leg ischemia: Vascular is following -Bilateral leg/foot/toes gangrene: ?amputation." Please specify the cause of Ulcer: [ ] Diabetic Ulcer [ ] Pressure Ulcer [ ] Venous Stasis Ulcer [x ] Arterial Ulcers (Ischemic Ulcer) [ ] Other: [ ] Unspecified Please specify the stage below: [ ] Stage I (pre-ulcer skin changes limited to persistent focal erythema) [ ] Stage II (abrasion, blister, and partial thickness skin loss) [ ] Stage III (full thickness skin loss with subcutaneous necrosis/damage) [ ] Stage IV (necrosis of soft tissues through to underlying muscle, tendon, bone) [x ] Unstageable [ ] Unable to determine Present on Admission: [ x] Yes (Y) [ ] Clinically undeterminable (W) [ ] No (N) Please also document response in your Progress Notes and/or Discharge Summary and indicate if the condition was present on admission. MTDD
--- NOTE | 2017-02-17 13:57 | Query- Nutrition ---
Hilario Bynum__Misha Date: 02/17/2017 Hatch Boss/CDS:___Monserrat Phone#:____[phone] Exercise your independent professional judgment when responding to query. Questions asked do not imply a particular answer is desired or expected. We greatly appreciate your clarification on this issue. Clinical Documentation States: 72 Year old male was admitted on 02/14/2017 with complaints of fever and chills. The Hospitalist progress note on 02/16/2017 states "-Sepsis skin infection: abx, ID is following, following culture results -PVD, acute on chronic worsening: vascular is following -Bilateral leg ischemia: Vascular is following -Bilateral leg/foot/toes gangrene: ?amputation." Clinical Findings Show: BMI: 32.8 Albumin: 2.8 Please select the most appropriate option 3 [] Mild Malnutrition [] Mild - Moderate Malnutrition [x] Moderate - Severe Malnutrition [] Severe Malnutrition Serum Albumin 2.8 to 3.4 g/dl or Pre-albumin 5 to 17 mg/dl1,2 Inadequate nutritional intake1,2,3,4 NPO > 5 days Weight loss: 5% in 1 month or 7.5% in 3 months or 10% in 6 months1, 3,4 BMI 16 to 18.4 or Weight <90% of ideal body weight1,2,3,4 Serum Albumin < 2.8 g/ dl1,2 Lymphocytes < 1500/ L2 Inadequate nutritional intake3, high stress e.g. major trauma, sepsis,pancreatitis, lee etc. Decubitus ulcers1,2, , skin breakdown2, easy hair pluckability2 Weight <80% standard for height2 Triceps skin fold <3 mm2 Mid-arm muscle circumference <15 cm2 Creatinine-height index <60% standard2 [ ] Cachexia [ ] Emaciated w/Malnutrition [ ] Other: [ ] Unable to determine [ ] Comment/Explanation: Present on Admission: [x ] Yes (Y) [ ] Clinically undeterminable (W) [ ] No (N) Please also document response in your Progress Notes and/or Discharge Summary and indicate if the condition was present on admission. MTDD
[2017-02-17] MEDS ORDERED: HEPARIN/NS 5000 UNIT/500ML(CATH LAB) 1,000 ML IR ONE (14:36)
[2017-02-17] MEDS ORDERED: HEPARIN 10,000 UNITS/10 ML ONE (14:36)
[2017-02-17] MEDS ORDERED: NACL 0.9% 500 ML 500 ML ONE (14:37)
[2017-02-17] MEDS ORDERED: ANCEF/STERILE WATER 2 GM/20 ML 2 GM/20 ML SYRINGE IV ONE (14:37)
[2017-02-17] MEDS ORDERED: XYLOCAINE 2% INFILTRATI ONE (14:37)
--- NOTE | 2017-02-17 14:41 | Consultation ---
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 Hightower, cataract removal, right lower extremity wound debridement by his parish worker, possible right lower extremity arterial intervention by vascular surgeon/IR physician at [facility] regarding her recent hospitalization as per his ) Social history: . denies: smoking, alcohol abuse Family history: diabetes, hypertension Medications and Allergies Allergies Allergy/AdvReac Type Severity Reaction Status Date / Time gabapentin Allergy Unknown Verified 02/13/17 23:32 sulfamethoxazole Allergy Dizziness Verified 02/13/17 23:36 [From Bactrim] tetracycline Allergy Unknown Verified 02/13/17 23:32 trimethoprim [From Bactrim] Allergy Dizziness Verified 02/13/17 23:36 Home Medications Medication Instructions Recorded Confirmed Last Taken Type Famotidine 20 mg PO BID 08/02/13 02/14/17 10/31/16 08:00 History Multivitamin [Multi-Vitamin Daily] 1 each PO QDAY 08/02/13 02/14/17 10/31/16 08: 00 History glipiZIDE [Glipizide] 5 mg PO BIDAC 08/02/13 02/14/17 10/31/16 08:00 History Clopidogrel [Plavix] 75 mg PO QDAY #30 tablet 11/05/16 02/14/17 Unknown Rx Pregabalin [Lyrica] 100 mg PO TID #90 capsule 11/05/16 02/14/17 Unknown Rx Acetaminophen [Tylenol] 650 mg PO Q6HR PRN 02/14/17 02/14/17 Unknown History Allopurinol [Zyloprim] 100 mg PO QDAY 02/14/17 02/14/17 Unknown History Docusate Sodium [Colace] 100 mg PO BID PRN 02/14/17 02/14/17 Unknown History HYDROcodone/APAP 5-325 [Prather 1 each PO 4XD PRN 02/14/17 02/14/17 Unknown History 5/325] Insulin Detemir [Levemir Flextouch] 10 unit SQ QHS 02/14/17 02/14/17 Unknown History Insulin Lispro [Humalog 100 5 units SQ AC 02/14/17 02/14/17 Unknown History UNITS/ML Kwikpen] Metoprolol [Lopressor TAB] 50 mg PO BID 02/14/17 02/14/17 Unknown History Vitamin B Complex 1 each PO QDAY 02/14/17 02/14/17 Unknown History amLODIPine [Norvasc] 10 mg PO DAILY 02/14/17 02/14/17 Unknown History Active Meds: Active Medications Acetaminophen (Tylenol) 650 mg PO Q4H PRN PRN Reason: Pain MILD(1-3)/Fever >100.5/ROE Acetaminophen/Hydrocodone Bitart (Prather 5/325) 1 each PO 4XD PRN PRN Reason: Pain, Moderate (4-6) Last Admin: 02/16/17 17:20 Dose: 1 each Allopurinol (Zyloprim) 100 mg PO QDAY [facility] Last Admin: 02/17/17 10:37 Dose: 100 mg Amlodipine Besylate (Norvasc) 10 mg PO DAILY [facility] Last Admin: 02/17/17 10:38 Dose: 10 mg Bisacodyl (Dulcolax) 10 mg NE QDAY PRN PRN Reason: Constipation unrelieved by MOM Clopidogrel Bisulfate (Plavix) 75 mg PO QDAY [facility] Last Admin: 02/16/17 11:55 Dose: 75 mg Dextrose (D50w (25gm) Syringe) 50 ml IV PRN PRN PRN Reason: Hypoglycemia Docusate Sodium (Colace) 100 mg PO BID PRN PRN Reason: Pain Enoxaparin Sodium (Lovenox) 40 mg SUB-Q QDAY [facility] Last Admin: 02/16/17 11:52 Dose: 40 mg Famotidine (Pepcid) 20 mg PO BID [facility] Last Admin: 02/17/17 10:37 Dose: 20 mg Vancomycin HCl 1,500 mg/ (Sodium Chloride) 515 mls @ 333.333 mls/hr IV Q12H [facility] Last Admin: 02/16/17 19:31 Dose: 333.333 mls/hr Meropenem 1,000 mg/ Sodium (Chloride) 100 mls @ 100 mls/hr IV Q8HR [facility] PRN Reason: Protocol Last Infusion: 02/16/17 20:32 Dose: Infused Insulin Aspart (Novolog) 0 units SUB-Q ACHS [facility] PRN Reason: Protocol Last Admin: 02/16/17 22:21 Dose: 6 units Insulin Detemir (Levemir) 15 units SUB-Q QHS [facility] Last Admin: 02/16/17 22:25 Dose: 15 units Magnesium Hydroxide (Milk Of Magnesia) 30 ml PO Q4H PRN PRN Reason: Constipation Metoprolol Tartrate (Lopressor) 50 mg PO BID [facility] Last Admin: 02/17/17 10:38 Dose: 50 mg Morphine Sulfate (Morphine) 2 mg IV Q4H PRN PRN Reason: Pain, Moderate (4-6) Last Admin: 02/17/17 04:53 Dose: 2 mg Ondansetron HCl (Zofran) 4 mg IV Q8H PRN PRN Reason: N/V unrelieved by Reglan Pregabalin (Lyrica) 25 mg PO QDAY [facility] Last Admin: 02/17/17 11:36 Dose: 25 mg Pregabalin (Lyrica) 75 mg PO QDAY [facility] Last Admin: 02/17/17 11:36 Dose: 75 mg Vancomycin HCl (Vancomycin Pharmacy To Dose) 1 each IV PKCONSULT [facility] PRN Reason: Protocol Assessment and Plan Bilateral LE gangrene discussed treatment options with patient, refuses recommendation for BKA's
[2017-02-17] MEDS: NOVOLOG SUB-Q SCH (14:43)
--- NOTE | 2017-02-17 15:26 | Progress Note ---
Assessment and Plan Assessment and plan: The patient is a 72 yo man with a history of hypertension, DM, Copd, chf, pvd w/ chronic leg ulcers and gout who presented with fevers. -Sepsis skin infection due to worsening PAD legs: abx, ID is following, following culture results -PVD, acute on chronic worsening: vascular is following -Bilateral leg ischemia: Vascular is following -Bilateral leg/foot/toes gangrene: ?amputation, pt refused to me despite counseling -DVT prophylaxis: on sq Lovenox per Vascular: "Await results form Vascular study. Previous medical records not available when I called the floor earlier this am. I had a long conversation with the patient about his options. This included continuing what he has been doing now in attempts to get his wounds to heal. He has not been successful thus far and it would be a long slow process and may never be completely successful. There is certainly a risk that his wounds could become infected which could lead to sepsis, and potentially life threatening. Another option would be to consider amputation. Given the condition of his lower ext skin, this would likely be Bilat AKA. We discussed the indications of amputation including: Uncontrollable pain, Ascending infection, Hygienic concerns, The pt will consider amputation (only on the right at this point) due to the amount of persistent pain he is having. I discussed the R,B,and A with the patient including the high nato-operative mortality. He will discuss this with his family. We will review the [facility] study, and see if the previous op notes from [facility] have been located. If he does not wish to proceed with amputation, then he will need a consult with the wound care surgeon for possible wound debridement. " 1) Sepsis: improving. 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 2) Bilateral foot / toe gangrene likely due to severe PVD ? dry gangrene versus infected wet gangrene -S/P recent IV antibiotics x 3 weeks and wound care -11/09/15 wound cx + ESBL E coli. -CRP=5.1 3) COPD 4) Diabetes 5) Heart failure 6) Hypertension 7) Severe PVD -S/P left anterior tibial artery atherectomy with balloon angioplasty; and balloon angioplasty of the left dorsalis pedis on 03/01/2016. 8) Venous insuficiency and chronic bilateral leg/foot ulcers; admitted on 02/14 due to bilateral lower extremity wound with foul-smelling drainage. Plan: -Discussed with Dr Juve Barraza (grey iron molder) who recommended amputation and he personally called patient. Patient has failed IV antibiotics, aggressive surgical debridement and wound care. -continuation of home IV antibiotics would be futile -follow-up blood cultures -continue meropenem and vancomycin -contact isolation -discussed with vascular surgery LIYAH Jane. Thank you Dr Cabral for your consultation, will follow up with you. Pratibha Hooper MD Infectious Diseases Specialist [facility] ([facility]) M [phone] O [phone] 02/17/17: per Ortho, Dr. Gray: "Bilateral LE gangrene, discussed treatment options with patient, refuses recommendation for BKA's". Per Vascular surgery, "Reviewed ultrasound. RLE has monophasic distal flow. Discussed with patient that for any major amputation or minor amputation, the right lower extremity flow must be evaluated. He does not want any major amputations done at this time , and therefore will optimize RLE flow for debridement/minor amputations" Options limited and prognosis poor without amputation, d/w Dr. Walter, she recommends palliative care. History Interval history: Patient was seen and examined. Follow-up on current diagnosis/fevers. Overnight uneventful. Patient denies any chest pain, shortness breath, nausea/ vomiting or severe headaches. Imaging, nursing note, chart, labs and old chart reviewed. Discussed with patient. Hospitalist Physical - Physical exam Narrative exam: GEN: Chronic debilitated, NAD, AWAKE, ALERT, ORIENTATED times to 3 HEENT: NCAT, EOMI, PERRL, OP Clear NECK: supple, no adenopathy, no thyromegaly, no JVD CVS/HEART: RRR, NORMAL S1S2, NO JVD, pulses absent feet CHEST/LUNGS: CTA B, Symmetrical chest expansion, good air entry bilaterally GI/Abdomen: soft, NTND, good bowel sounds, no guarding or rebound /Bladder: no suprapubic tenderness, no CVA or paraspinal tenderness EXT/Skin: Severe bilateral leg ulceration with gangrene MSK: FROM x 4 Neuro: CN 2-12 grossly intact, no new focal deficits Psych: calm - Constitutional Vitals: Temp Pulse Resp BP Pulse Ox 98.9 F 79 20 147/59 96 02/17/17 04:40 02/17/17 08:23 02/17/17 04:53 02/17/17 04:40 02/17/17 08:23 General appearance: Present: no acute distress Results - Labs CBC & Chem 7: 02/16/17 05:41 02/16/17 05:41 Labs: Laboratory Last Values WBC 4.0 K/mm3 (4.5-11.0) L 02/16/17 05:41 RBC 3.23 M/mm3 (3.65-5.03) L 02/16/17 05:41 Hgb 9.1 gm/dl (11.8-15.2) L 02/16/17 05:41 Hct 27.5 % (35.5-45.6) L 02/16/17 05:41 MCV 85 fl (84-94) 02/16/17 05:41 MCH 28 pg (28-32) 02/16/17 05:41 MCHC 33 % (32-34) 02/16/17 05:41 RDW 16.6 % (13.2-15.2) H 02/16/17 05:41 Plt Count 239 K/mm3 (140-440) 02/16/17 05:41 Lymph % (Auto) 16.7 % (13.4-35.0) 02/15/17 05:42 [place] % (Auto) 7.8 % (0.0-7.3) H 02/15/17 05:42 Eos % (Auto) 7.2 % (0.0-4.3) H 02/15/17 05:42 Baso % (Auto) 0.5 % (0.0-1.8) 02/15/17 05:42 Lymph # 0.8 K/mm3 (1.2-5.4) L 02/15/17 05:42 [place] # 0.4 K/mm3 (0.0-0.8) 02/15/17 05:42 Eos # 0.3 K/mm3 (0.0-0.4) 02/15/17 05:42 Baso # 0.0 K/mm3 (0.0-0.1) 02/15/17 05:42 Seg Neutrophils % 67.8 % (40.0-70.0) 02/15/17 05:42 Seg Neutrophils # 3.2 K/mm3 (1.8-7.7) 02/15/17 05:42 ESR 85 mm/Hr (0-20) 02/14/17 01:33 PT 14.6 Sec. (12.2-14.9) 02/14/17 01:33 INR 1.15 (0.87-1.13) H 02/14/17 01:33 APTT 31.9 Sec. (24.2-36.6) 02/14/17 01:33 VBG pH 7.318 (7.320-7.420) L 02/14/17 00:38 Sodium 139 mmol/L (137-145) 02/16/17 05:41 Potassium 3.8 mmol/L (3.6-5.0) 02/16/17 05:41 Chloride 104.0 mmol/L (98-107) 02/16/17 05:41 Carbon Dioxide 23 mmol/L (22-30) 02/16/17 05:41 Anion Gap 16 mmol/L 02/16/17 05:41 BUN 7 mg/dL (9-20) L 02/16/17 05:41 Creatinine 0.7 mg/dL (0.8-1.5) L 02/16/17 05:41 Estimated GFR > 60 ml/min 02/16/17 05:41 BUN/Creatinine Ratio 10.00 % 02/16/17 05:41 Glucose 143 mg/dL (75-100) H 02/16/17 05:41 POC Glucose 303 (70-105) H 02/16/17 21:42 Lactic Acid 1.70 mmol/L (0.7-2.0) 02/14/17 05:26 Calcium 8.5 mg/dL (8.4-10.2) 02/16/17 05:41 Total Bilirubin 0.40 mg/dL (0.1-1.2) 02/14/17 00:01 AST 13 units/L (5-40) 02/14/17 00:01 ALT 12 units/L (7-56) 02/14/17 00:01 Alkaline Phosphatase 89 units/L (35-129) 02/14/17 00:01 Total Creatine Kinase 26 units/L (55-170) L 02/14/17 00:38 C-Reactive Protein 3.50 mg/dL (0.00-1.30) H 02/14/17 00:38 Total Protein 7.0 g/dL (6.3-8.2) 02/14/17 00:01 Albumin 2.8 g/dL (3.9-5) L 02/14/17 00:01 Albumin/Globulin Ratio 0.7 % 02/14/17 00:01 Urine Color Yellow (Yellow) 02/13/17 Unknown Urine Turbidity Clear (Clear) 02/13/17 Unknown Urine pH 7.0 (5.0-7.0) 02/13/17 Unknown Ur Specific Power 1.008 (1.003-1.030) 02/13/17 Unknown Urine Protein <15 mg/dl mg/dL (Negative) 02/13/17 Unknown Urine Glucose (UA) >=500 mg/dL (Negative) 02/13/17 Unknown Urine Ketones Neg mg/dL (Negative) 02/13/17 Unknown Urine Blood Sm (Negative) 02/13/17 Unknown Urine Nitrite Neg (Negative) 02/13/17 Unknown Urine Bilirubin Neg (Negative) 02/13/17 Unknown Urine Urobilinogen < 2.0 mg/dL (<2.0) 02/13/17 Unknown Ur Leukocyte Esterase Mod (Negative) 02/13/17 Unknown Urine WBC (Auto) 13.0 /HPF (0.0-6.0) H 02/13/17 Unknown Urine RBC (Auto) 1.0 /HPF (0.0-6.0) 02/13/17 Unknown U Epithel Cells (Auto) 1.0 /HPF (0-13.0) 02/13/17 Unknown Urine Mucus Few /HPF 02/13/17 Unknown Vancomycin Trough 19.0 ug/mL (5.0-20.0) 02/16/17 00:59
[2017-02-17] MEDS: VERSED ONE ×3 (15:29→16:13)
[2017-02-17] MEDS: SUBLIMAZE ONE ×3 (15:29→16:05)
[2017-02-17] MEDS ORDERED: NACL 0.9% 500 ML 1,000 ML ONE (15:55)
[2017-02-17] MEDS ORDERED: TRIDIL DRIP 50MG/250ML 50 MG/250 ML BOTTLE ONE (15:55)
[2017-02-17] MEDS ORDERED: CALAN ONE (15:55)
[2017-02-17] MEDS ORDERED: BENADRYL ONE (16:17)
--- NOTE | 2017-02-17 16:53 | Operative Report ---
Operative Report Operative Report: EXAM: 1. Ultrasound-guided axis of the left common femoral artery. 2. Selection of the abdominal aorta with angiography. 3. Selection of the right external iliac artery with angiography. 4. Selection of the right superficial femoral artery with angiography. 5. Third order selection of the right popliteal artery with angiography of the entirety of the right lower extremity 6. Selection of the right anterior tibial artery with angiography. 7. Atherectomy of the right proximal and mid anterior tibial artery with a 1.25 micron CSI atherectomy device 8. Angioplasty of the right proximal and mid anterior tibial artery with a tapered 3.5-3.0 210 mm nanocross angioplasty balloon 9. Angiography of the left lower extremity 10. Closure of the left common femoral artery arteriotomy with a 6 Monegasque Angio -Seal DATE: 02/17/17 DRAPERY HEAD FORMER: DEISY ACOSTA MD INDICATION: Critical limb ischemia of the right lower extremity with abnormal ultrasound and nonhealing wounds. MEDICATIONS: Please see nursing report for full details. DEVICES: 3.5-3.0 210 mm nanocross angioplasty balloon 1.25 CSI atherectomy device CONTRAST: Please see Dietitian Teacher report for full details. PROCEDURE: The risks, benefits, and alternatives were discussed with the patient and his ; written informed consent was obtained. The patient's groins were prepped and draped in a sterile fashion. The left common femoral artery was evaluated under ultrasound was patent. Under direct ultrasound guidance, the left common from artery was accessed with a 21-gauge micropuncture needle. 0.018 inch wire was passed into the aorta. Needle was exchanged for transitional dilator. Y was exchanged for 0.035 inch wire. Transitional dilator was exchanged for a 5 Monegasque sheath. Digital subtraction angiography was performed to the sheath demonstrating an appropriate puncture, above the bifurcation and below the inferior epigastric artery. The left common femoral artery, external iliac artery, proximal superficial femoral artery were patent. The left profunda femoral artery had multifocal mild to moderate narrowings. Omni flush catheter was advanced over the wire into the abdominal aorta. Digital subtraction angiography was performed demonstrating patency of the infrarenal abdominal aorta. The bilateral common iliac arteries and external iliac arteries were patent. Catheter was used to select the right external iliac artery. Digital subtraction angiography demonstrating patency of the right external iliac artery , common femoral artery, proximal superficial femoral artery, and profunda femoral artery. Catheter was exchanged for an angled catheter. Angled catheter was used to select the superficial femoral artery. Digital subtraction angiography demonstrating patency of the right superficial femoral artery. Catheter was used to select the right popliteal artery. Digital subtraction angiography demonstrated patency of the popliteal artery. Tibioperoneal trunk was patent. The posterior tibial artery and peroneal artery were patent. The anterior tibial artery had multifocal moderate and severe narrowings within the proximal and midportion of the vessel. The patient was heparinized. The sheath was exchanged for 6 Monegasque 90 cm [place] destination positioned in the right popliteal artery. Under roadmap imaging, A V 18 wire was passed through the narrowings within the anterior tibial artery. Angled cath was advanced over the wire into the distal anterior tibial artery. Digital subtraction angiography was performed demonstrating intraluminal positioning. Viper wire was passed into the dorsalis pedis. CSI atherectomy device was advanced over the wire and use to perform atherectomy of the proximal and mid anterior tibial artery at low, medium, and high settings. 3.5-3.0 nanocross balloon was advanced over the wire and used to perform angioplasty of the proximal and mid anterior tibial artery with the proximal portion 3.5 millimeters in diameter and the middle portion 3 mm in diameter. This was inflated for 3 minutes. Fluid was removed digital subtraction angiography demonstrated no residual narrowing with excellent flow through the anterior tibial artery. Sheath was then retracted to the left external iliac artery. Digital subtraction angiography was performed throughout the left lower extremity demonstrating runoff to the left lower extremity. The left superficial femoral artery and popliteal artery were patent. The tibioperoneal trunk was patent. 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 The anterior tibial artery was occluded after the first few centimeters but reconstituted as the dorsalis pedis. Sheath was removed over 0.035 inch wire and 6 Monegasque Angio-Seal was deployed achieving immediate hemostasis. The left common femoral artery was still palpable. Patient tolerated the procedure well. Dermabond was applied. No immediate postprocedure complication. The patient's was contacted to alert her of the findings. Patient was transferred to the room without issue. FINDINGS: Please see procedure note above. IMPRESSION: Successful atherectomy and angioplasty of the right anterior tibial artery as described above.
[2017-02-17] MEDS: MERREM 1,000 MG in NACL 0.9% 100 ML IV SCH ×2 (17:37→21:59)
[2017-02-17] MEDS: VANCOMYCIN 1,500 MG in NACL 0.9% 500 ML 500 ML IV SCH (17:38)
[2017-02-17] MEDS: LEVEMIR SUB-Q SCH (21:59)
[2017-02-17] MEDS: NORCO 5/325 PO PRN (21:59)
[2017-02-18] MEDS: MERREM 1,000 MG in NACL 0.9% 100 ML IV SCH ×4 (05:51→22:24)
[2017-02-18] MEDS: VANCOMYCIN 1,500 MG in NACL 0.9% 500 ML 500 ML IV SCH ×3 (05:56→14:16)
[2017-02-18] MEDS: NOVOLOG SUB-Q SCH ×5 (08:59→22:23)
[2017-02-18] MEDS: PEPCID PO SCH ×2 (09:02→22:09)
[2017-02-18] MEDS: PLAVIX PO SCH (09:02)
[2017-02-18] MEDS: LYRICA PO SCH ×2 (09:03)
[2017-02-18] MEDS: ZYLOPRIM PO SCH (09:03)
[2017-02-18] MEDS: NORVASC PO SCH (09:04)
[2017-02-18] MEDS: LOVENOX SUB-Q SCH ×2 (09:04→09:05)
[2017-02-18] MEDS: LOPRESSOR PO SCH ×2 (09:05→22:10)
--- NOTE | 2017-02-18 14:49 | Progress Note ---
Assessment and Plan Assessment: 1) Sepsis: resolved. 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 2) Bilateral foot / toe gangrene likely due to severe PVD -S/P OR right foot debridement at [facility] and recent IV antibiotics x 3 weeks and wound care -11/09/15 wound cx + ESBL E coli. -CRP=5.1 -S/P angiogram and revascularization of right tibial with good flow per vascular surgery 3) COPD 4) Diabetes 5) Heart failure 6) Hypertension 7) Severe PVD -S/P left anterior tibial artery atherectomy with balloon angioplasty; and balloon angioplasty of the left dorsalis pedis on 03/01/2016. 8) Venous insuficiency and chronic bilateral leg/foot ulcers; admitted on 02/14 due to bilateral lower extremity wound with foul-smelling drainage. Plan: -Patient refusing major amputation -In view of right foot successful revascularization and patient refusal of major amputation, consider aggressive right leg debridement -differential repairer consult for debridement and deep tissue culture -continue meropenem and vancomycin IV for now -eventually, he needs revascularization of left foot -if aggressive debridement is done will consider prolonged IV abx Thank you Dr Cabral for your consultation, will follow up with you. Pratibha Hooper MD Infectious Diseases Specialist [facility] ([facility]) M [phone] O [phone] Subjective Date of service: 02/18/17 Principal diagnosis: gangrene Interval history: Remains afebrile. No fever. Current Antimicrobials: Zosyn 02/13 Vancomycin 02/13 Microbiology: Blood cultures: 02/13 ngtd Urine cultures: Objective - Exam Narrative Exam: General appearance: Alert in NAD, conversant Eyes: anicteric sclerae, moist conjunctivae; no lid-lag; PERRLA HENT: Atraumatic; oropharynx clear with moist mucous membranes and no mucosal ulcerations/no oral thrush; normal hard and soft palate. Normal external ears. Neck: Trachea midline; supple, no thyromegaly or lymphadenopathy Lungs: CTA, with normal respiratory effort and no intercostal retractions CV: RRR, no murmurs Abdomen: Soft, non-tender; no masses or hepatosplenomegaly Extremities: marked bilateral leg edema with complete gangrene of right and left 3rd toes with a necrotic ulcer extended to the mid anterior sole bilateral L>R. Partial left great toe necrosis. Multiple ulcers on the leg. +foul smelling drainage. Skin: Normal temperature, turgor and texture; no rash, ulcers or subcutaneous nodules Psych: Appropriate affect, alert and oriented to person, place and time. Neuro: alert and oriented x 3. Moving all extermities Lines: No CVL / PICC - Constitutional Vitals: Vital Signs Temp Pulse Resp BP Pulse Ox 99.0 F 78 18 146/73 98 02/18/17 12:03 02/18/17 11:08 02/18/17 12:03 02/18/17 12:04 02/17/17 18:35 Temperature -Last 24 Hours Temperature 99.0 F Temperature 98.0 F Temperature 98.8 F Temperature 98.0 F Temperature 98.4 F Temperature 98.4 F Temperature 98.3 F - Labs CBC & Chem 7: 02/16/17 05:41 02/16/17 05:41 Labs: Abnormal lab results 02/17/17 02/17/17 02/17/17 Range/Units 08:25 13:04 17:12 POC Glucose 149 H 158 H 126 H (70-105) 02/17/17 Range/Units 20:53 POC Glucose 165 H (70-105)
--- NOTE | 2017-02-18 15:57 | Progress Note ---
Assessment and Plan 72-year-old male with chronic ulcerations of bilateral lower extremities which have been present for a long time with severe pain of the right foot with any minimal movement. After evaluating the right foot, although extensive debridement followed by open TMA could be considered, I believe major amputation should be recommended. The patient has Charcot deformities of his right foot making recurrent ulceration nearly certain in this medically frail patient, the patient has severe pain from the rest of his right leg ulcerations (which I reviewed from wound care notes) preventing movement of his right foot, the patient has had multiple admissions for infection/sepsis, and the patient has low likelihood of ever walking again with or without major amputation. All services have recommended right lower extremity major amputation. We discussed above knee amputation and below-knee amputation. The patient understands and below-knee amputation may not be successful due to the quality of his skin in his diabetes. He does not want an above knee amputation. He wants to talk about this more tomorrow, but appears somewhat agreeable to right lower extremity below-knee amputation. Regarding left lower extremity, patient will require revascularization after his right below-knee amputation is completed as well as further debridement and possible TMA due to the extensive forefoot plantar eschar. The patient did not let me evaluate his left foot more than I already did due to pain. Subjective Date of service: 02/18/17 Principal diagnosis: gangrene Interval history: No groin hematoma. No groin pseudoaneurysm. Evaluated right foot, took down dressings, extensive fibrinous exudate with some areas of granulation tissue with healthy minimal ooze, and some focal areas purulence of in the plantar aspect of the forefoot, extending into the first interdigital web space, with focal areas of gangrene on the first digit and fourth digit, and rocker bottom deformity of the right foot. The patient would not let me examine more his foot due to pain. Left foot evaluated and there is a large eschar on the plantar surface of the forefoot which is fluctuant, and when palpated expresses pus into the left first and second interdigital this web space. The left second digit is gangrenous. The patient would not let me examine more of his leg due to pain. Objective - Constitutional Vitals: Vital Signs - 12hr 02/18/17 02/18/17 02/18/17 04:46 07:53 11:08 Temperature 98.0 F 98.8 F 98.0 F Pulse Rate 78 Respiratory 20 18 Rate Blood Pressure 156/64 152/69 Blood Pressure 152/69 [Left] 02/18/17 02/18/17 12:03 12:04 Temperature 99.0 F Pulse Rate Respiratory 18 Rate Blood Pressure 146/73 146/73 Blood Pressure [Left] General appearance: Present: mild distress (pain from feet) - EENT Eyes: EOM intact Extremities: normal temperature, normal color Extremity abnormal: other (see subjective) - Psychiatric Psychiatric: cooperative - Labs CBC & Chem 7: 02/16/17 05:41 02/16/17 05:41 Labs: Abnormal lab results 02/17/17 02/17/17 02/17/17 Range/Units 08:25 13:04 17:12 POC Glucose 149 H 158 H 126 H (70-105) 02/17/17 Range/Units 20:53 POC Glucose 165 H (70-105)
--- NOTE | 2017-02-18 18:20 | Progress Note ---
Assessment and Plan Assessment and plan: The patient is a 72 yo man with a history of hypertension, DM, Copd, chf, pvd w/ chronic leg ulcers and gout who presented with fevers. -Sepsis skin infection due to worsening PAD legs: abx, ID is following, following culture results -PVD, acute on chronic worsening: vascular is following -Bilateral leg ischemia: Vascular is following -Bilateral leg/foot/toes gangrene: ?amputation, pt refused to me despite counseling -DVT prophylaxis: on sq Lovenox per Vascular: "Await results form Vascular study. Previous medical records not available when I called the floor earlier this am. I had a long conversation with the patient about his options. This included continuing what he has been doing now in attempts to get his wounds to heal. He has not been successful thus far and it would be a long slow process and may never be completely successful. There is certainly a risk that his wounds could become infected which could lead to sepsis, and potentially life threatening. Another option would be to consider amputation. Given the condition of his lower ext skin, this would likely be Bilat AKA. We discussed the indications of amputation including: Uncontrollable pain, Ascending infection, Hygienic concerns, The pt will consider amputation (only on the right at this point) due to the amount of persistent pain he is having. I discussed the R,B,and A with the patient including the high nato-operative mortality. He will discuss this with his family. We will review the [facility] study, and see if the previous op notes from [facility] have been located. If he does not wish to proceed with amputation, then he will need a consult with the wound care surgeon for possible wound debridement. " 1) Sepsis: improving. 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 2) Bilateral foot / toe gangrene likely due to severe PVD ? dry gangrene versus infected wet gangrene -S/P recent IV antibiotics x 3 weeks and wound care -11/09/15 wound cx + ESBL E coli. -CRP=5.1 3) COPD 4) Diabetes 5) Heart failure 6) Hypertension 7) Severe PVD -S/P left anterior tibial artery atherectomy with balloon angioplasty; and balloon angioplasty of the left dorsalis pedis on 03/01/2016. 8) Venous insuficiency and chronic bilateral leg/foot ulcers; admitted on 02/14 due to bilateral lower extremity wound with foul-smelling drainage. Plan: -Discussed with Dr Juve Barraza (interventional physician) who recommended amputation and he personally called patient. Patient has failed IV antibiotics, aggressive surgical debridement and wound care. -continuation of home IV antibiotics would be futile -follow-up blood cultures -continue meropenem and vancomycin -contact isolation -discussed with vascular surgery LIYAH Jane. Thank you Dr Cabral for your consultation, will follow up with you. Pratibha Hooper MD Infectious Diseases Specialist [facility] ([facility]) M [phone] O [phone] 02/17/17: per Ortho, Dr. Gray: "Bilateral LE gangrene, discussed treatment options with patient, refuses recommendation for BKA's". Per Vascular surgery, "Reviewed ultrasound. RLE has monophasic distal flow. Discussed with patient that for any major amputation or minor amputation, the right lower extremity flow must be evaluated. He does not want any major amputations done at this time , and therefore will optimize RLE flow for debridement/minor amputations" Options limited and prognosis poor without amputation, d/w Dr. Walter, she recommends palliative care. 02/18/17: I had a prolong discussion with him, he doesnt want palliative care. He only wants right bka, not both. But he is just understandably sacred, comfort given. He will speak with his . History Interval history: Patient was seen and examined. Follow-up on current diagnosis/fevers. Overnight uneventful. Patient denies any chest pain, shortness breath, nausea/ vomiting or severe headaches. Imaging, nursing note, chart, labs and old chart reviewed. Discussed with patient. Hospitalist Physical - Physical exam Narrative exam: GEN: Chronic debilitated, NAD, AWAKE, ALERT, ORIENTATED times to 3 HEENT: NCAT, EOMI, PERRL, OP Clear NECK: supple, no adenopathy, no thyromegaly, no JVD CVS/HEART: RRR, NORMAL S1S2, NO JVD, pulses absent feet CHEST/LUNGS: CTA B, Symmetrical chest expansion, good air entry bilaterally GI/Abdomen: soft, NTND, good bowel sounds, no guarding or rebound /Bladder: no suprapubic tenderness, no CVA or paraspinal tenderness EXT/Skin: Severe bilateral leg ulceration with gangrene MSK: FROM x 4 Neuro: CN 2-12 grossly intact, no new focal deficits Psych: calm - Constitutional Vitals: Temp Pulse Resp BP Pulse Ox 99.0 F 78 18 146/73 98 02/18/17 12:03 02/18/17 11:08 02/18/17 12:03 02/18/17 12:04 02/17/17 18:35 Results - Labs CBC & Chem 7: 02/16/17 05:41 02/16/17 05:41 Labs: Laboratory Last Values WBC 4.0 K/mm3 (4.5-11.0) L 02/16/17 05:41 RBC 3.23 M/mm3 (3.65-5.03) L 02/16/17 05:41 Hgb 9.1 gm/dl (11.8-15.2) L 02/16/17 05:41 Hct 27.5 % (35.5-45.6) L 02/16/17 05:41 MCV 85 fl (84-94) 02/16/17 05:41 MCH 28 pg (28-32) 02/16/17 05:41 MCHC 33 % (32-34) 02/16/17 05:41 RDW 16.6 % (13.2-15.2) H 02/16/17 05:41 Plt Count 239 K/mm3 (140-440) 02/16/17 05:41 Lymph % (Auto) 16.7 % (13.4-35.0) 02/15/17 05:42 [place] % (Auto) 7.8 % (0.0-7.3) H 02/15/17 05:42 Eos % (Auto) 7.2 % (0.0-4.3) H 02/15/17 05:42 Baso % (Auto) 0.5 % (0.0-1.8) 02/15/17 05:42 Lymph # 0.8 K/mm3 (1.2-5.4) L 02/15/17 05:42 Trinity # 0.4 K/mm3 (0.0-0.8) 02/15/17 05:42 Eos # 0.3 K/mm3 (0.0-0.4) 02/15/17 05:42 Baso # 0.0 K/mm3 (0.0-0.1) 02/15/17 05:42 Seg Neutrophils % 67.8 % (40.0-70.0) 02/15/17 05:42 Seg Neutrophils # 3.2 K/mm3 (1.8-7.7) 02/15/17 05:42 ESR 85 mm/Hr (0-20) 02/14/17 01:33 PT 14.6 Sec. (12.2-14.9) 02/14/17 01:33 INR 1.15 (0.87-1.13) H 02/14/17 01:33 APTT 31.9 Sec. (24.2-36.6) 02/14/17 01:33 VBG pH 7.318 (7.320-7.420) L 02/14/17 00:38 Sodium 139 mmol/L (137-145) 02/16/17 05:41 Potassium 3.8 mmol/L (3.6-5.0) 02/16/17 05:41 Chloride 104.0 mmol/L (98-107) 02/16/17 05:41 Carbon Dioxide 23 mmol/L (22-30) 02/16/17 05:41 Anion Gap 16 mmol/L 02/16/17 05:41 BUN 7 mg/dL (9-20) L 02/16/17 05:41 Creatinine 0.7 mg/dL (0.8-1.5) L 02/16/17 05:41 Estimated GFR > 60 ml/min 02/16/17 05:41 BUN/Creatinine Ratio 10.00 % 02/16/17 05:41 Glucose 143 mg/dL (75-100) H 02/16/17 05:41 POC Glucose 342 (70-105) H 02/18/17 16:59 Lactic Acid 1.70 mmol/L (0.7-2.0) 02/14/17 05:26 Calcium 8.5 mg/dL (8.4-10.2) 02/16/17 05:41 Total Bilirubin 0.40 mg/dL (0.1-1.2) 02/14/17 00:01 AST 13 units/L (5-40) 02/14/17 00:01 ALT 12 units/L (7-56) 02/14/17 00:01 Alkaline Phosphatase 89 units/L (35-129) 02/14/17 00:01 Total Creatine Kinase 26 units/L (55-170) L 02/14/17 00:38 C-Reactive Protein 3.50 mg/dL (0.00-1.30) H 02/14/17 00:38 Total Protein 7.0 g/dL (6.3-8.2) 02/14/17 00:01 Albumin 2.8 g/dL (3.9-5) L 02/14/17 00:01 Albumin/Globulin Ratio 0.7 % 02/14/17 00:01 Urine Color Yellow (Yellow) 02/13/17 Unknown Urine Turbidity Clear (Clear) 02/13/17 Unknown Urine pH 7.0 (5.0-7.0) 02/13/17 Unknown Ur Specific [place] 1.008 (1.003-1.030) 02/13/17 Unknown Urine Protein <15 mg/dl mg/dL (Negative) 02/13/17 Unknown Urine Glucose (UA) >=500 mg/dL (Negative) 02/13/17 Unknown Urine Ketones Neg mg/dL (Negative) 02/13/17 Unknown Urine Blood Sm (Negative) 02/13/17 Unknown Urine Nitrite Neg (Negative) 02/13/17 Unknown Urine Bilirubin Neg (Negative) 02/13/17 Unknown Urine Urobilinogen < 2.0 mg/dL (<2.0) 02/13/17 Unknown Ur Leukocyte Esterase Mod (Negative) 02/13/17 Unknown Urine WBC (Auto) 13.0 /HPF (0.0-6.0) H 02/13/17 Unknown Urine RBC (Auto) 1.0 /HPF (0.0-6.0) 02/13/17 Unknown U Epithel Cells (Auto) 1.0 /HPF (0-13.0) 02/13/17 Unknown Urine Mucus Few /HPF 02/13/17 Unknown Vancomycin Trough 19.0 ug/mL (5.0-20.0) 02/16/17 00:59
[2017-02-18] MEDS: NORCO 5/325 PO PRN (22:11)
[2017-02-18] MEDS: LEVEMIR SUB-Q SCH (22:11)
[2017-02-19] MEDS: VANCOMYCIN 1,500 MG in NACL 0.9% 500 ML 500 ML IV SCH ×2 (01:45→16:40)
[2017-02-19] MEDS: MORPHINE IV PRN ×2 (04:03→14:10)
[2017-02-19] MEDS: MERREM 1,000 MG in NACL 0.9% 100 ML IV SCH ×4 (05:41→23:04)
[2017-02-19 06:39] LABS: Hematocrit 28.4 % (35.5-45.6); Hemoglobin 9.6 gm/dl (11.8-15.2); Mean Corpuscular HGB Conc 34 % (32-34); Mean Corpuscular Hemoglobin 29 pg (28-32); Mean Corpuscular Volume 85 fl (84-94); Platelet Count 278 K/mm3 (140-440); Red Blood Count 3.34 M/mm3 (3.65-5.03); Red Cell Distribution Width 16.5 % (13.2-15.2); White Blood Count 4.2 K/mm3 (4.5-11.0)
[2017-02-19 06:49] LABS: Anion Gap 12 mmol/L; BUN/Creatinine Ratio 13.75; Blood Urea Nitrogen 11 mg/dL (9-20); Calcium 8.8 mg/dL (8.4-10.2); Carbon Dioxide 26 mmol/L (22-30); Chloride 105.5 mmol/L (98-107); Glucose 136 mg/dL (75-100); Potassium 3.8 mmol/L (3.6-5.0); Sodium 140 mmol/L (137-145)
[2017-02-19] MEDS: NOVOLOG SUB-Q SCH ×5 (08:30→22:51)
[2017-02-19] MEDS: PLAVIX PO SCH ×2 (11:27→11:31)
[2017-02-19] MEDS: LOPRESSOR PO SCH ×3 (11:27→22:53)
[2017-02-19] MEDS: PEPCID PO SCH ×3 (11:27→22:53)
[2017-02-19] MEDS: NORVASC PO SCH ×2 (11:27→11:32)
[2017-02-19] MEDS: ZYLOPRIM PO SCH ×2 (11:28→11:31)
[2017-02-19] MEDS: LYRICA PO SCH ×2 (11:28)
[2017-02-19] MEDS: LOVENOX SUB-Q SCH (11:29)
--- NOTE | 2017-02-19 13:30 | Progress Note ---
Assessment and Plan 72-year-old male with chronic ulcerations of bilateral lower extremities which have been present for a long time with severe pain of the right foot with any minimal movement. After evaluating the right foot, although extensive debridement followed by open TMA could be considered, I believe major amputation should be recommended. The patient has Charcot deformities of his right foot making recurrent ulceration nearly certain in this medically frail patient, the patient has severe pain from the rest of his right leg ulcerations (which I reviewed from wound care notes) preventing movement of his right foot, the patient has had multiple admissions for infection/sepsis, and the patient has low likelihood of ever walking again with or without major amputation. All services have recommended right lower extremity major amputation. We discussed above knee amputation and below-knee amputation. The patient understands and below-knee amputation may not be successful due to the quality of his skin in his diabetes. He does not want an above knee amputation. The patient understands she needs a right major amputation and wants a right below-knee amputation, but his is not present. Will discuss further with being present tomorrow. Preliminarily discussed patient will need to be in rehabilitation after amputation, but he is actually resistant. may be able to convince him. Regarding left lower extremity, patient will require revascularization after his right below-knee amputation is completed as well as further debridement and possible TMA due to the extensive forefoot plantar eschar. The patient did not let me evaluate his left foot more than I already did due to pain. Subjective Date of service: 02/19/17 Principal diagnosis: gangrene Interval history: No groin hematoma. No groin pseudoaneurysm. Patient understands he needs right lower extremity major amputation. is not present. Objective - Constitutional Vitals: Vital Signs - 12hr 02/19/17 02/19/17 02/19/17 04:03 08:00 11:27 Temperature 98.7 F Pulse Rate 73 73 Respiratory 20 20 Rate Blood Pressure 147/67 Blood Pressure 147/67 [Left] O2 Sat by Pulse 97 Oximetry 02/19/17 02/19/17 11:30 11:32 Temperature Pulse Rate 73 73 Respiratory Rate Blood Pressure 147/67 147/67 Blood Pressure [Left] O2 Sat by Pulse Oximetry General appearance: Present: no acute distress - EENT Eyes: EOM intact ENT: hearing intact Extremities: normal temperature, normal color, abnormal (see prior exam, unchanged) - Psychiatric Psychiatric: cooperative - Labs CBC & Chem 7: 02/19/17 05:56 02/19/17 05:56 Labs: Abnormal lab results 02/18/17 02/18/17 02/18/17 Range/Units 07:57 12:09 16:59 WBC (4.5-11.0) K/mm3 RBC (3.65-5.03) M/mm3 Hgb (11.8-15.2) gm/dl Hct (35.5-45.6) % RDW (13.2-15.2) % Glucose (75-100) mg/dL POC Glucose 301 H 229 H 342 H (70-105) 02/18/17 02/19/17 02/19/17 Range/Units 21:15 05:56 05:56 WBC 4.2 L (4.5-11.0) K/mm3 RBC 3.34 L (3.65-5.03) M/mm3 Hgb 9.6 L (11.8-15.2) gm/dl Hct 28.4 L (35.5-45.6) % RDW 16.5 H (13.2-15.2) % Glucose 136 H (75-100) mg/dL POC Glucose 309 H (70-105) 02/19/17 Range/Units 12:21 WBC (4.5-11.0) K/mm3 RBC (3.65-5.03) M/mm3 Hgb (11.8-15.2) gm/dl Hct (35.5-45.6) % RDW (13.2-15.2) % Glucose (75-100) mg/dL POC Glucose 204 H (70-105)
--- NOTE | 2017-02-19 15:15 | Progress Note ---
Assessment and Plan Assessment and plan: The patient is a 72 yo man with a history of hypertension, DM, Copd, chf, pvd w/ chronic leg ulcers and gout who presented with fevers. -Sepsis skin infection due to worsening PAD legs: abx, ID is following, following culture results -PVD, acute on chronic worsening: vascular is following -Bilateral leg ischemia: Vascular is following -Bilateral leg/foot/toes gangrene: ?amputation, pt refused to me despite counseling -DVT prophylaxis: on sq Lovenox per Vascular: "Await results form Vascular study. Previous medical records not available when I called the floor earlier this am. I had a long conversation with the patient about his options. This included continuing what he has been doing now in attempts to get his wounds to heal. He has not been successful thus far and it would be a long slow process and may never be completely successful. There is certainly a risk that his wounds could become infected which could lead to sepsis, and potentially life threatening. Another option would be to consider amputation. Given the condition of his lower ext skin, this would likely be Bilat AKA. We discussed the indications of amputation including: Uncontrollable pain, Ascending infection, Hygienic concerns, The pt will consider amputation (only on the right at this point) due to the amount of persistent pain he is having. I discussed the R,B,and A with the patient including the high nato-operative mortality. He will discuss this with his family. We will review the [facility] study, and see if the previous op notes from [facility] have been located. If he does not wish to proceed with amputation, then he will need a consult with the wound care surgeon for possible wound debridement. " 1) Sepsis: improving. 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 2) Bilateral foot / toe gangrene likely due to severe PVD ? dry gangrene versus infected wet gangrene -S/P recent IV antibiotics x 3 weeks and wound care -11/09/15 wound cx + ESBL E coli. -CRP=5.1 3) COPD 4) Diabetes 5) Heart failure 6) Hypertension 7) Severe PVD -S/P left anterior tibial artery atherectomy with balloon angioplasty; and balloon angioplasty of the left dorsalis pedis on 03/01/2016. 8) Venous insuficiency and chronic bilateral leg/foot ulcers; admitted on 02/14 due to bilateral lower extremity wound with foul-smelling drainage. Plan: -Discussed with Dr Juve Barraza (clock and watch hands painter) who recommended amputation and he personally called patient. Patient has failed IV antibiotics, aggressive surgical debridement and wound care. -continuation of home IV antibiotics would be futile -follow-up blood cultures -continue meropenem and vancomycin -contact isolation -discussed with vascular surgery LIYAH Jane. Thank you Dr Cabral for your consultation, will follow up with you. Pratibha Hooper MD Infectious Diseases Specialist [facility] ([facility]) M [phone] O [phone] 02/17/17: per Ortho, Dr. Gray: "Bilateral LE gangrene, discussed treatment options with patient, refuses recommendation for BKA's". Per Vascular surgery, "Reviewed ultrasound. RLE has monophasic distal flow. Discussed with patient that for any major amputation or minor amputation, the right lower extremity flow must be evaluated. He does not want any major amputations done at this time , and therefore will optimize RLE flow for debridement/minor amputations" Options limited and prognosis poor without amputation, d/w Dr. Walter, she recommends palliative care. 02/18/17: I had a prolong discussion with him, he doesnt want palliative care. He only wants right bka, not both. But he is just understandably sacred, comfort given. He will speak with his . 02/19/17: Now he only wants right bka and not aka which is being recommended. History Interval history: Patient was seen and examined. Follow-up on current diagnosis/fevers. Overnight uneventful. Patient denies any chest pain, shortness breath, nausea/ vomiting or severe headaches. Imaging, nursing note, chart, labs and old chart reviewed. Discussed with patient. Hospitalist Physical - Physical exam Narrative exam: GEN: Chronic debilitated, NAD, AWAKE, ALERT, ORIENTATED times to 3 HEENT: NCAT, EOMI, PERRL, OP Clear NECK: supple, no adenopathy, no thyromegaly, no JVD CVS/HEART: RRR, NORMAL S1S2, NO JVD, pulses absent feet CHEST/LUNGS: CTA B, Symmetrical chest expansion, good air entry bilaterally GI/Abdomen: soft, NTND, good bowel sounds, no guarding or rebound /Bladder: no suprapubic tenderness, no CVA or paraspinal tenderness EXT/Skin: Severe bilateral leg ulceration with gangrene MSK: FROM x 4 Neuro: CN 2-12 grossly intact, no new focal deficits Psych: calm - Constitutional Vitals: Temp Pulse Resp BP Pulse Ox 98.7 F 73 20 147/67 97 02/19/17 08:00 02/19/17 11:32 02/19/17 08:00 02/19/17 11:32 02/19/17 08:00 General appearance: Present: no acute distress Results - Labs CBC & Chem 7: 02/19/17 05:56 02/19/17 05:56 Labs: Laboratory Last Values WBC 4.2 K/mm3 (4.5-11.0) L 02/19/17 05:56 RBC 3.34 M/mm3 (3.65-5.03) L 02/19/17 05:56 Hgb 9.6 gm/dl (11.8-15.2) L 02/19/17 05:56 Hct 28.4 % (35.5-45.6) L 02/19/17 05:56 MCV 85 fl (84-94) 02/19/17 05:56 MCH 29 pg (28-32) 02/19/17 05:56 MCHC 34 % (32-34) 02/19/17 05:56 RDW 16.5 % (13.2-15.2) H 02/19/17 05:56 Plt Count 278 K/mm3 (140-440) 02/19/17 05:56 Lymph % (Auto) 16.7 % (13.4-35.0) 02/15/17 05:42 [place] % (Auto) 7.8 % (0.0-7.3) H 02/15/17 05:42 Eos % (Auto) 7.2 % (0.0-4.3) H 02/15/17 05:42 Baso % (Auto) 0.5 % (0.0-1.8) 02/15/17 05:42 Lymph # 0.8 K/mm3 (1.2-5.4) L 02/15/17 05:42 [place] # 0.4 K/mm3 (0.0-0.8) 02/15/17 05:42 Eos # 0.3 K/mm3 (0.0-0.4) 02/15/17 05:42 Baso # 0.0 K/mm3 (0.0-0.1) 02/15/17 05:42 Seg Neutrophils % 67.8 % (40.0-70.0) 02/15/17 05:42 Seg Neutrophils # 3.2 K/mm3 (1.8-7.7) 02/15/17 05:42 ESR 85 mm/Hr (0-20) 02/14/17 01:33 PT 14.6 Sec. (12.2-14.9) 02/14/17 01:33 INR 1.15 (0.87-1.13) H 02/14/17 01:33 APTT 31.9 Sec. (24.2-36.6) 02/14/17 01:33 VBG pH 7.318 (7.320-7.420) L 02/14/17 00:38 Sodium 140 mmol/L (137-145) 02/19/17 05:56 Potassium 3.8 mmol/L (3.6-5.0) 02/19/17 05:56 Chloride 105.5 mmol/L (98-107) 02/19/17 05:56 Carbon Dioxide 26 mmol/L (22-30) 02/19/17 05:56 Anion Gap 12 mmol/L 02/19/17 05:56 BUN 11 mg/dL (9-20) 02/19/17 05:56 Creatinine 0.8 mg/dL (0.8-1.5) 02/19/17 05:56 Estimated GFR > 60 ml/min 02/19/17 05:56 BUN/Creatinine Ratio 13.75 % 02/19/17 05:56 Glucose 136 mg/dL (75-100) H 02/19/17 05:56 POC Glucose 204 (70-105) H 02/19/17 12:21 Lactic Acid 1.70 mmol/L (0.7-2.0) 02/14/17 05:26 Calcium 8.8 mg/dL (8.4-10.2) 02/19/17 05:56 Total Bilirubin 0.40 mg/dL (0.1-1.2) 02/14/17 00:01 AST 13 units/L (5-40) 02/14/17 00:01 ALT 12 units/L (7-56) 02/14/17 00:01 Alkaline Phosphatase 89 units/L (35-129) 02/14/17 00:01 Total Creatine Kinase 26 units/L (55-170) L 02/14/17 00:38 C-Reactive Protein 3.50 mg/dL (0.00-1.30) H 02/14/17 00:38 Total Protein 7.0 g/dL (6.3-8.2) 02/14/17 00:01 Albumin 2.8 g/dL (3.9-5) L 02/14/17 00:01 Albumin/Globulin Ratio 0.7 % 02/14/17 00:01 Urine Color Yellow (Yellow) 02/13/17 Unknown Urine Turbidity Clear (Clear) 02/13/17 Unknown Urine pH 7.0 (5.0-7.0) 02/13/17 Unknown Ur Specific [place] 1.008 (1.003-1.030) 02/13/17 Unknown Urine Protein <15 mg/dl mg/dL (Negative) 02/13/17 Unknown Urine Glucose (UA) >=500 mg/dL (Negative) 02/13/17 Unknown Urine Ketones Neg mg/dL (Negative) 02/13/17 Unknown Urine Blood Sm (Negative) 02/13/17 Unknown Urine Nitrite Neg (Negative) 02/13/17 Unknown Urine Bilirubin Neg (Negative) 02/13/17 Unknown Urine Urobilinogen < 2.0 mg/dL (<2.0) 02/13/17 Unknown Ur Leukocyte Esterase Mod (Negative) 02/13/17 Unknown Urine WBC (Auto) 13.0 /HPF (0.0-6.0) H 02/13/17 Unknown Urine RBC (Auto) 1.0 /HPF (0.0-6.0) 02/13/17 Unknown U Epithel Cells (Auto) 1.0 /HPF (0-13.0) 02/13/17 Unknown Urine Mucus Few /HPF 02/13/17 Unknown Vancomycin Trough 19.0 ug/mL (5.0-20.0) 02/16/17 00:59
--- NOTE | 2017-02-19 17:03 | Progress Note ---
Assessment and Plan Assessment: 1) Sepsis: resolved. 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 2) Bilateral foot / toe gangrene likely due to severe PVD -S/P OR right foot debridement at [facility] and recent IV antibiotics x 3 weeks and wound care -11/09/15 wound cx + ESBL E coli. -CRP=5.1 -S/P angiogram and revascularization of right tibial with good flow per vascular surgery 3) COPD 4) Diabetes 5) Heart failure 6) Hypertension 7) Severe PVD -S/P left anterior tibial artery atherectomy with balloon angioplasty; and balloon angioplasty of the left dorsalis pedis on 03/01/2016. 8) Venous insuficiency and chronic bilateral leg/foot ulcers; admitted on 02/14 due to bilateral lower extremity wound with foul-smelling drainage. Plan: -Patient considering right BKA -continue meropenem and vancomycin IV for now -eventually, he needs revascularization of left foot Thank you Dr Cabral for your consultation, will follow up with you. Pratibha Hooper MD Infectious Diseases Specialist [facility] ([facility]) M [phone] O [phone] Subjective Date of service: 02/19/17 Principal diagnosis: gangrene Interval history: Remains afebrile. No fever. Current Antimicrobials: Zosyn 02/13 Vancomycin 02/13 Microbiology: Blood cultures: 02/13 ngtd Urine cultures: Objective - Exam Narrative Exam: General appearance: Alert in NAD, conversant Eyes: anicteric sclerae, moist conjunctivae; no lid-lag; PERRLA HENT: Atraumatic; oropharynx clear with moist mucous membranes and no mucosal ulcerations/no oral thrush; normal hard and soft palate. Normal external ears. Neck: Trachea midline; supple, no thyromegaly or lymphadenopathy Lungs: CTA, with normal respiratory effort and no intercostal retractions CV: RRR, no murmurs Abdomen: Soft, non-tender; no masses or hepatosplenomegaly Extremities: marked bilateral leg edema with complete gangrene of right and left 3rd toes with a necrotic ulcer extended to the mid anterior sole bilateral L>R. Partial left great toe necrosis. Multiple ulcers on the leg. +foul smelling drainage. Skin: Normal temperature, turgor and texture; no rash, ulcers or subcutaneous nodules Psych: Appropriate affect, alert and oriented to person, place and time. Neuro: alert and oriented x 3. Moving all extermities Lines: No CVL / PICC - Constitutional Vitals: Vital Signs Temp Pulse Resp BP Pulse Ox 98.7 F 73 20 147/67 97 02/19/17 08:00 02/19/17 11:32 02/19/17 08:00 02/19/17 11:32 02/19/17 08:00 Temperature -Last 24 Hours Temperature 98.7 F Temperature 98.2 F Temperature 97.5 F - Labs CBC & Chem 7: 02/19/17 05:56 02/19/17 05:56 Labs: Abnormal lab results 02/18/17 02/18/17 02/18/17 Range/Units 07:57 12:09 16:59 WBC (4.5-11.0) K/mm3 RBC (3.65-5.03) M/mm3 Hgb (11.8-15.2) gm/dl Hct (35.5-45.6) % RDW (13.2-15.2) % Glucose (75-100) mg/dL POC Glucose 301 H 229 H 342 H (70-105) 02/18/17 02/19/17 02/19/17 Range/Units 21:15 05:56 05:56 WBC 4.2 L (4.5-11.0) K/mm3 RBC 3.34 L (3.65-5.03) M/mm3 Hgb 9.6 L (11.8-15.2) gm/dl Hct 28.4 L (35.5-45.6) % RDW 16.5 H (13.2-15.2) % Glucose 136 H (75-100) mg/dL POC Glucose 309 H (70-105) 02/19/17 Range/Units 12:21 WBC (4.5-11.0) K/mm3 RBC (3.65-5.03) M/mm3 Hgb (11.8-15.2) gm/dl Hct (35.5-45.6) % RDW (13.2-15.2) % Glucose (75-100) mg/dL POC Glucose 204 H (70-105)
[2017-02-19] MEDS: LEVEMIR SUB-Q SCH (22:52)
[2017-02-20] MEDS: NOVOLOG SUB-Q SCH ×5 (00:34→23:28)
[2017-02-20] MEDS: VANCOMYCIN 1,500 MG in NACL 0.9% 500 ML 500 ML IV SCH ×2 (01:56→13:25)
[2017-02-20] MEDS: NORCO 5/325 PO PRN ×2 (05:47→17:41)
[2017-02-20 06:52] LABS: Hematocrit 28.6 % (35.5-45.6); Hemoglobin 9.3 gm/dl (11.8-15.2); Mean Corpuscular HGB Conc 33 % (32-34); Mean Corpuscular Hemoglobin 28 pg (28-32); Mean Corpuscular Volume 86 fl (84-94); Platelet Count 296 K/mm3 (140-440); Red Blood Count 3.33 M/mm3 (3.65-5.03); Red Cell Distribution Width 16.8 % (13.2-15.2)
[2017-02-20 07:15] LABS: Anion Gap 14 mmol/L; Blood Urea Nitrogen 10 mg/dL (9-20); Calcium 8.7 mg/dL (8.4-10.2); Carbon Dioxide 25 mmol/L (22-30); Chloride 103.8 mmol/L (98-107); Glucose 186 mg/dL (75-100); Sodium 139 mmol/L (137-145)
[2017-02-20] MEDS: PLAVIX PO SCH (09:53)
[2017-02-20] MEDS: LOVENOX SUB-Q SCH (09:54)
[2017-02-20] MEDS: LYRICA PO SCH ×2 (09:54)
[2017-02-20] MEDS: NORVASC PO SCH (09:55)
[2017-02-20] MEDS: ZYLOPRIM PO SCH (09:55)
[2017-02-20] MEDS: PEPCID PO SCH ×2 (09:56→23:27)
[2017-02-20] MEDS: LOPRESSOR PO SCH ×2 (10:03→23:27)
--- NOTE | 2017-02-20 10:04 | Progress Note ---
Assessment and Plan Assessment: 1) Sepsis: resolved. 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 2) Bilateral foot / toe gangrene likely due to severe PVD -S/P OR right foot debridement at [facility] and recent IV antibiotics x 3 weeks and wound care -11/09/15 wound cx + ESBL E coli. -CRP=5.1 -S/P angiogram and revascularization of right tibial with good flow per vascular surgery 3) COPD 4) Diabetes 5) Heart failure 6) Hypertension 7) Severe PVD -S/P left anterior tibial artery atherectomy with balloon angioplasty; and balloon angioplasty of the left dorsalis pedis on 03/01/2016. 8) Venous insufficiency and chronic bilateral leg/foot ulcers; admitted on due to bilateral lower extremity wound with foul-smelling drainage. Plan: -Patient considering right BKA -continue meropenem and vancomycin IV for now -eventually, he needs revascularization of left foot -if amputation done will stop IV antibiotic Thank you Dr Cabral for your consultation, will follow up with you. Pratibha Hooper MD Infectious Diseases Specialist [facility] ([facility]) M [phone] O [phone] Subjective Date of service: 02/20/17 Principal diagnosis: gangrene Interval history: Remains afebrile. No fever. Current Antimicrobials: Zosyn 02/13 Vancomycin 02/13 Microbiology: Blood cultures: 02/13 ngtd Urine cultures: Objective - Exam Narrative Exam: General appearance: Alert in NAD, conversant Eyes: anicteric sclerae, moist conjunctivae; no lid-lag; PERRLA HENT: Atraumatic; oropharynx clear with moist mucous membranes and no mucosal ulcerations/no oral thrush; normal hard and soft palate. Normal external ears. Neck: Trachea midline; supple, no thyromegaly or lymphadenopathy Lungs: CTA, with normal respiratory effort and no intercostal retractions CV: RRR, no murmurs Abdomen: Soft, non-tender; no masses or hepatosplenomegaly Extremities: marked bilateral leg edema with complete gangrene of right and left 3rd toes with a necrotic ulcer extended to the mid anterior sole bilateral L>R. Partial left great toe necrosis. Multiple ulcers on the leg. +foul smelling drainage. Skin: Normal temperature, turgor and texture; no rash, ulcers or subcutaneous nodules Psych: Appropriate affect, alert and oriented to person, place and time. Neuro: alert and oriented x 3. Moving all extermities Lines: No CVL / PICC - Constitutional Vitals: Vital Signs Temp Pulse Resp BP Pulse Ox 98.5 F 67 18 126/46 96 02/19/17 19:28 02/20/17 09:55 02/19/17 19:28 02/20/17 09:55 02/19/17 19:28 Temperature -Last 24 Hours Temperature 98.5 F Temperature 97.6 F - Labs CBC & Chem 7: 02/20/17 06:01 02/20/17 06:01 Labs: Abnormal lab results 02/19/17 02/19/17 02/19/17 Range/Units 08:51 12:21 17:16 RBC (3.65-5.03) M/mm3 Hgb (11.8-15.2) gm/dl Hct (35.5-45.6) % RDW (13.2-15.2) % Glucose (75-100) mg/dL POC Glucose 156 H 204 H 347 H (70-105) 02/19/17 02/20/17 02/20/17 Range/Units 20:45 06:01 06:01 RBC 3.33 L (3.65-5.03) M/mm3 Hgb 9.3 L (11.8-15.2) gm/dl Hct 28.6 L (35.5-45.6) % RDW 16.8 H (13.2-15.2) % Glucose 186 H (75-100) mg/dL POC Glucose 331 H (70-105)
--- NOTE | 2017-02-20 10:12 | Event Note ---
Date: 02/20/17 Pt awake without specific complaint at present. I asked the pt if he and his had made any decisions regarding surgery. The Pt states he wants to proceed with a Right Above the knee amputation. I verified that he wanted an above the knee amputation, which he confirmed (His nurse was present in the room charting at the time). Our surgical schedule is full tomorrow, and will not accommodate an additional elective case. Therefore, I will schedule the case for Monday.
[2017-02-20] MEDS: MERREM 1,000 MG in NACL 0.9% 100 ML IV SCH ×2 (14:57→23:25)
--- NOTE | 2017-02-20 15:23 | Progress Note ---
Assessment and Plan Assessment and plan: The patient is a 72 yo man with a history of hypertension, DM, Copd, chf, pvd w/ chronic leg ulcers and gout who presented with fevers. -Sepsis skin infection due to worsening PAD legs: abx, ID is following, following culture results -PVD, acute on chronic worsening: vascular is following -Bilateral leg ischemia: Vascular is following -Bilateral leg/foot/toes gangrene: ?amputation, pt refused to me despite counseling -DVT prophylaxis: on sq Lovenox per Vascular: "Await results form Vascular study. Previous medical records not available when I called the floor earlier this am. I had a long conversation with the patient about his options. This included continuing what he has been doing now in attempts to get his wounds to heal. He has not been successful thus far and it would be a long slow process and may never be completely successful. There is certainly a risk that his wounds could become infected which could lead to sepsis, and potentially life threatening. Another option would be to consider amputation. Given the condition of his lower ext skin, this would likely be Bilat AKA. We discussed the indications of amputation including: Uncontrollable pain, Ascending infection, Hygienic concerns, The pt will consider amputation (only on the right at this point) due to the amount of persistent pain he is having. I discussed the R,B,and A with the patient including the high nato-operative mortality. He will discuss this with his family. We will review the [facility] study, and see if the previous op notes from [facility] have been located. If he does not wish to proceed with amputation, then he will need a consult with the wound care surgeon for possible wound debridement. " 1) Sepsis: improving. 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 2) Bilateral foot / toe gangrene likely due to severe PVD ? dry gangrene versus infected wet gangrene -S/P recent IV antibiotics x 3 weeks and wound care -11/09/15 wound cx + ESBL E coli. -CRP=5.1 3) COPD 4) Diabetes 5) Heart failure 6) Hypertension 7) Severe PVD -S/P left anterior tibial artery atherectomy with balloon angioplasty; and balloon angioplasty of the left dorsalis pedis on 03/01/2016. 8) Venous insuficiency and chronic bilateral leg/foot ulcers; admitted on 02/14 due to bilateral lower extremity wound with foul-smelling drainage. Plan: -Discussed with Dr Juve Barraza (head banquet waiter/waitress) who recommended amputation and he personally called patient. Patient has failed IV antibiotics, aggressive surgical debridement and wound care. -continuation of home IV antibiotics would be futile -follow-up blood cultures -continue meropenem and vancomycin -contact isolation -discussed with vascular surgery LIYAH Jane. Thank you Dr Cabral for your consultation, will follow up with you. Pratibha Hooper MD Infectious Diseases Specialist [facility] ([facility]) M [phone] O [phone] 02/17/17: per Ortho, Dr. Gray: "Bilateral LE gangrene, discussed treatment options with patient, refuses recommendation for BKA's". Per Vascular surgery, "Reviewed ultrasound. RLE has monophasic distal flow. Discussed with patient that for any major amputation or minor amputation, the right lower extremity flow must be evaluated. He does not want any major amputations done at this time , and therefore will optimize RLE flow for debridement/minor amputations" Options limited and prognosis poor without amputation, d/w Dr. Walter, she recommends palliative care. 02/18/17: I had a prolong discussion with him, he doesnt want palliative care. He only wants right bka, not both. But he is just understandably sacred, comfort given. He will speak with his . 02/19/17: Now he only wants right bka and not aka which is being recommended. 02/20/17: After extensive prolonged discussion >15 minutes, he has agreed for right AKA, so I spoke with Vascular and they will do it on Monday History Interval history: Patient was seen and examined. Follow-up on current diagnosis/fevers. Overnight uneventful. Patient denies any chest pain, shortness breath, nausea/ vomiting or severe headaches. Imaging, nursing note, chart, labs and old chart reviewed. Discussed with patient. Hospitalist Physical - Physical exam Narrative exam: GEN: Chronic debilitated, NAD, AWAKE, ALERT, ORIENTATED times to 3 HEENT: NCAT, EOMI, PERRL, OP Clear NECK: supple, no adenopathy, no thyromegaly, no JVD CVS/HEART: RRR, NORMAL S1S2, NO JVD, pulses absent feet CHEST/LUNGS: CTA B, Symmetrical chest expansion, good air entry bilaterally GI/Abdomen: soft, NTND, good bowel sounds, no guarding or rebound /Bladder: no suprapubic tenderness, no CVA or paraspinal tenderness EXT/Skin: Severe bilateral leg ulceration with gangrene MSK: FROM x 4 Neuro: CN 2-12 grossly intact, no new focal deficits Psych: calm - Constitutional Vitals: Temp Pulse Resp BP Pulse Ox 98.5 F 74 18 141/62 96 02/20/17 11:30 02/20/17 11:30 02/20/17 11:30 02/20/17 11:30 02/20/17 11:30 General appearance: Present: no acute distress Results - Labs CBC & Chem 7: 02/20/17 06:01 02/20/17 06:01 Labs: Laboratory Last Values WBC 5.0 K/mm3 (4.5-11.0) 02/20/17 06:01 RBC 3.33 M/mm3 (3.65-5.03) L 02/20/17 06:01 Hgb 9.3 gm/dl (11.8-15.2) L 02/20/17 06:01 Hct 28.6 % (35.5-45.6) L 02/20/17 06:01 MCV 86 fl (84-94) 02/20/17 06:01 MCH 28 pg (28-32) 02/20/17 06:01 MCHC 33 % (32-34) 02/20/17 06:01 RDW 16.8 % (13.2-15.2) H 02/20/17 06:01 Plt Count 296 K/mm3 (140-440) 02/20/17 06:01 Lymph % (Auto) 16.7 % (13.4-35.0) 02/15/17 05:42 [place] % (Auto) 7.8 % (0.0-7.3) H 02/15/17 05:42 Eos % (Auto) 7.2 % (0.0-4.3) H 02/15/17 05:42 Baso % (Auto) 0.5 % (0.0-1.8) 02/15/17 05:42 Lymph # 0.8 K/mm3 (1.2-5.4) L 02/15/17 05:42 [place] # 0.4 K/mm3 (0.0-0.8) 02/15/17 05:42 Eos # 0.3 K/mm3 (0.0-0.4) 02/15/17 05:42 Baso # 0.0 K/mm3 (0.0-0.1) 02/15/17 05:42 Seg Neutrophils % 67.8 % (40.0-70.0) 02/15/17 05:42 Seg Neutrophils # 3.2 K/mm3 (1.8-7.7) 02/15/17 05:42 ESR 85 mm/Hr (0-20) 02/14/17 01:33 PT 14.6 Sec. (12.2-14.9) 02/14/17 01:33 INR 1.15 (0.87-1.13) H 02/14/17 01:33 APTT 31.9 Sec. (24.2-36.6) 02/14/17 01:33 VBG pH 7.318 (7.320-7.420) L 02/14/17 00:38 Sodium 139 mmol/L (137-145) 02/20/17 06:01 Potassium 4.0 mmol/L (3.6-5.0) 02/20/17 06:01 Chloride 103.8 mmol/L (98-107) 02/20/17 06:01 Carbon Dioxide 25 mmol/L (22-30) 02/20/17 06:01 Anion Gap 14 mmol/L 02/20/17 06:01 BUN 10 mg/dL (9-20) 02/20/17 06:01 Creatinine 0.8 mg/dL (0.8-1.5) 02/20/17 06:01 Estimated GFR > 60 ml/min 02/20/17 06:01 BUN/Creatinine Ratio 12.50 % 02/20/17 06:01 Glucose 186 mg/dL (75-100) H 02/20/17 06:01 POC Glucose 331 (70-105) H 02/19/17 20:45 Lactic Acid 1.70 mmol/L (0.7-2.0) 02/14/17 05:26 Calcium 8.7 mg/dL (8.4-10.2) 02/20/17 06:01 Total Bilirubin 0.40 mg/dL (0.1-1.2) 02/14/17 00:01 AST 13 units/L (5-40) 02/14/17 00:01 ALT 12 units/L (7-56) 02/14/17 00:01 Alkaline Phosphatase 89 units/L (35-129) 02/14/17 00:01 Total Creatine Kinase 26 units/L (55-170) L 02/14/17 00:38 C-Reactive Protein 3.50 mg/dL (0.00-1.30) H 02/14/17 00:38 Total Protein 7.0 g/dL (6.3-8.2) 02/14/17 00:01 Albumin 2.8 g/dL (3.9-5) L 02/14/17 00:01 Albumin/Globulin Ratio 0.7 % 02/14/17 00:01 Urine Color Yellow (Yellow) 02/13/17 Unknown Urine Turbidity Clear (Clear) 02/13/17 Unknown Urine pH 7.0 (5.0-7.0) 02/13/17 Unknown Ur Specific [place] 1.008 (1.003-1.030) 02/13/17 Unknown Urine Protein <15 mg/dl mg/dL (Negative) 02/13/17 Unknown Urine Glucose (UA) >=500 mg/dL (Negative) 02/13/17 Unknown Urine Ketones Neg mg/dL (Negative) 02/13/17 Unknown Urine Blood Sm (Negative) 02/13/17 Unknown Urine Nitrite Neg (Negative) 02/13/17 Unknown Urine Bilirubin Neg (Negative) 02/13/17 Unknown Urine Urobilinogen < 2.0 mg/dL (<2.0) 02/13/17 Unknown Ur Leukocyte Esterase Mod (Negative) 02/13/17 Unknown Urine WBC (Auto) 13.0 /HPF (0.0-6.0) H 02/13/17 Unknown Urine RBC (Auto) 1.0 /HPF (0.0-6.0) 02/13/17 Unknown U Epithel Cells (Auto) 1.0 /HPF (0-13.0) 02/13/17 Unknown Urine Mucus Few /HPF 02/13/17 Unknown Vancomycin Trough 19.0 ug/mL (5.0-20.0) 02/16/17 00:59
[2017-02-20] MEDS: LEVEMIR SUB-Q SCH (23:28)
[2017-02-21] MEDS: MERREM 1,000 MG in NACL 0.9% 100 ML IV SCH ×4 (01:59→22:12)
[2017-02-21] MEDS: VANCOMYCIN 1,500 MG in NACL 0.9% 500 ML 500 ML IV SCH ×2 (02:03→15:35)
[2017-02-21] MEDS: NORCO 5/325 PO PRN ×3 (02:08→21:56)
[2017-02-21 08:14] LABS: Hematocrit 27.1 % (35.5-45.6); Hemoglobin 9.1 gm/dl (11.8-15.2); Mean Corpuscular HGB Conc 34 % (32-34); Mean Corpuscular Hemoglobin 29 pg (28-32); Mean Corpuscular Volume 85 fl (84-94); Platelet Count 295 K/mm3 (140-440); Red Blood Count 3.17 M/mm3 (3.65-5.03); Red Cell Distribution Width 16.3 % (13.2-15.2); White Blood Count 4.6 K/mm3 (4.5-11.0)
[2017-02-21 08:22] LABS: INR 1.09 (0.87-1.13); Partial Thromboplastin Time 32.9 Sec. (24.2-36.6)
[2017-02-21 08:27] LABS: Anion Gap 11 mmol/L; BUN/Creatinine Ratio 11; Blood Urea Nitrogen 9 mg/dL (9-20); Calcium 8.7 mg/dL (8.4-10.2); Carbon Dioxide 28 mmol/L (22-30); Chloride 101.6 mmol/L (98-107); Glucose 154 mg/dL (75-100); Potassium 3.8 mmol/L (3.6-5.0); Sodium 137 mmol/L (137-145)
[2017-02-21] MEDS: NOVOLOG SUB-Q SCH ×4 (08:52→21:45)
--- NOTE | 2017-02-21 11:14 | Progress Note ---
Assessment and Plan Assessment: 1) Sepsis: resolved. 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 2) Bilateral foot / toe gangrene likely due to severe PVD -S/P OR right foot debridement at [facility] and recent IV antibiotics x 3 weeks and wound care -11/09/15 wound cx + ESBL E coli. -CRP=5.1 -S/P angiogram and revascularization of right tibial with good flow per vascular surgery 3) COPD 4) Diabetes 5) Heart failure 6) Hypertension 7) Severe PVD -S/P left anterior tibial artery atherectomy with balloon angioplasty; and balloon angioplasty of the left dorsalis pedis on 03/01/2016. 8) Venous insufficiency and chronic bilateral leg/foot ulcers; admitted on due to bilateral lower extremity wound with foul-smelling drainage. Plan: -to the OR tomorrow for amputation -continue meropenem and vancomycin IV for now - will stop soon -eventually, he needs revascularization of left foot Thank you Dr Ward for your consultation, will follow up with you. Pratibha Hooper MD Infectious Diseases Specialist [facility] ([facility]) M [phone] O [phone] Subjective Date of service: 02/21/17 Principal diagnosis: gangrene Interval history: Remains afebrile. No fever. He is hungry. Current Antimicrobials: Zosyn 02/13 Vancomycin 02/13 Microbiology: Blood cultures: 02/13 ngtd Urine cultures: Objective - Exam Narrative Exam: General appearance: Alert in NAD, conversant Eyes: anicteric sclerae, moist conjunctivae; no lid-lag; PERRLA HENT: Atraumatic; oropharynx clear with moist mucous membranes and no mucosal ulcerations/no oral thrush; normal hard and soft palate. Normal external ears. Neck: Trachea midline; supple, no thyromegaly or lymphadenopathy Lungs: CTA, with normal respiratory effort and no intercostal retractions CV: RRR, no murmurs Abdomen: Soft, non-tender; no masses or hepatosplenomegaly Extremities: marked bilateral leg edema with complete gangrene of right and left 3rd toes with a necrotic ulcer extended to the mid anterior sole bilateral L>R. Partial left great toe necrosis. Multiple ulcers on the leg. +foul smelling drainage. Skin: Normal temperature, turgor and texture; no rash, ulcers or subcutaneous nodules Psych: Appropriate affect, alert and oriented to person, place and time. Neuro: alert and oriented x 3. Moving all extermities Lines: No CVL / PICC - Constitutional Vitals: Vital Signs Temp Pulse Resp BP Pulse Ox 98.4 F 64 20 142/72 100 02/21/17 10:03 02/21/17 10:03 02/21/17 10:03 02/21/17 10:03 02/21/17 10:03 Temperature -Last 24 Hours Temperature 98.4 F Temperature 98.3 F Temperature 98.5 F Temperature 98.0 F Temperature 98.6 F Temperature 98.5 F - Labs CBC & Chem 7: 02/21/17 07:18 02/21/17 07:18 Labs: Abnormal lab results 02/20/17 02/20/17 02/20/17 Range/Units 08:57 13:43 18:14 RBC (3.65-5.03) M/mm3 Hgb (11.8-15.2) gm/dl Hct (35.5-45.6) % RDW (13.2-15.2) % Glucose (75-100) mg/dL POC Glucose 137 H 185 H 264 H (70-105) 02/20/17 02/21/17 02/21/17 Range/Units 22:36 07:18 07:18 RBC 3.17 L (3.65-5.03) M/mm3 Hgb 9.1 L (11.8-15.2) gm/dl Hct 27.1 L (35.5-45.6) % RDW 16.3 H (13.2-15.2) % Glucose 154 H (75-100) mg/dL POC Glucose 243 H (70-105)
[2017-02-21] MEDS: LOVENOX SUB-Q SCH (11:40)
[2017-02-21] MEDS: ZYLOPRIM PO SCH (11:42)
[2017-02-21] MEDS: PLAVIX PO SCH (11:42)
[2017-02-21] MEDS: NORVASC PO SCH (11:44)
[2017-02-21] MEDS: LYRICA PO SCH ×2 (11:45)
[2017-02-21] MEDS: PEPCID PO SCH ×2 (11:46→21:42)
[2017-02-21] MEDS: LOPRESSOR PO SCH ×2 (11:49→21:42)
--- NOTE | 2017-02-21 13:26 | Event Note ---
Date: 02/21/17 Pt awake and alert. He denies complaint at present. He had a long discussion regarding his surgery planned for tomorrow. He now states he only wants a below the knee amputation. He understands that there is a chance this may not heal, and he still wishes to proceed. We discussed post-op rehab. R,B,and A were discussed in great detail. The pt agrees, but request that his sign the consent due to his difficulty using his right hand to sign. The consent was filled out and placed on the front of the chart. His is to sign it when she arrives at the hospital. The pt states if he codes intra-operatively then he wants us to perform a full code in attempts to save his life.
--- NOTE | 2017-02-21 16:58 | Anesthesia Consultation ---
Anesthesia Consult and Med Hx Date of service: 02/22/17 - Airway Anesthetic Teeth Evaluation: Dentures (upper and lower) ROM Head & Neck: Adequate Mental/Hyoid Distance: Adequate Mallampati Class: Class II Intubation Access Assessment: Probably Good - Pulmonary Exam CTA: Yes - Cardiac Exam Cardiac Exam: RRR - Pre-Operative Health Status ASA Pre-Surgery Classification: ASA3 Proposed Anesthetic Plan: General - Pulmonary Hx Smoking: Yes (quit 5 years ago) SOB: No COPD: Yes Hx Sleep Apnea: No - Cardiovascular System Hx Hypertension: Yes (CHF) Hx Heart Murmur: Yes Hx Peripheral Vascular Disease: Yes (IVC filter) - Central Nervous System Hx Seizures: No CVA: No Hx Psychiatric Problems: No - Gastrointestinal Hx Gastroesophageal Reflux Disease: No - Endocrine Hx Renal Disease: No (Gout) Hx Insulin Dependent Diabetes: Yes - Hematic Hx Anemia: Yes - Other Systems Hx Alcohol Use: No Hx Substance Use: No Hx Cancer: No (No to the following) Hx Obesity: No
--- NOTE | 2017-02-21 18:31 | Progress Note ---
Assessment and Plan Assessment and plan: The patient is a 72 yo man with a history of hypertension, DM, Copd, chf, pvd w/ chronic leg ulcers and gout who presented with fevers. -Sepsis skin infection due to worsening PAD legs: abx, ID is following, following culture results. failed conservative therapy -PVD, acute on chronic worsening: vascular is following. -S/P left anterior tibial artery atherectomy with balloon angioplasty; and balloon angioplasty of the left dorsalis pedis on 03/01/2016. -Bilateral leg ischemia: Vascular is following, Plan for BKA in am. -COPD- Continue nebs -Diabetes mellitus- accucheck ac/hs- Initiated, Continue levemeir QHS -Bilateral leg/foot/toes gangrene: AGREEABLE FOR AMPUTATION. -DVT prophylaxis: on sq Lovenox Plan discussed with patient in detail History Interval history: Patient seen and examined in no acute distress. Hospitalist Physical - Physical exam Narrative exam: VITAL SIGNS: Reviewed. GENERAL: The patient appeared chronically debilitated, Vital signs as documented. HEAD: No signs of head trauma. EYES: Pupils are equal. Extraocular motions intact. EARS: Hearing grossly intact. MOUTH: Oropharynx is normal. NECK: No adenopathy, no JVD. CHEST: Chest with clear breath sounds bilaterally. No wheezes, rales, or rhonchi. CARDIAC: Regular rate and rhythm. S1 and S2, without murmurs, gallops, or rubs. VASCULAR: Edema. Peripheral pulses normal and equal in all extremities. ABDOMEN: Soft, without detectable tenderness. No sign of distention. No rebound or guarding, and no masses palpated. Bowel Sounds normal. MUSCULOSKELETAL: Limited range of motion of all major joints. Extremities with severe bilateral leg ulceration with gangrene. Marked Bilateral leg edema, necrotic ulcer 3rd toe NEUROLOGIC EXAM: Alert and oriented x 3. No focal sensory or strength deficits. Speech normal. Follows commands. PSYCHIATRIC: Mood normal. SKIN: Foul smelling drainage with necrotic 3rd toe ulcer on the left - Constitutional Vitals: Temp Pulse Resp BP Pulse Ox 98.9 F 73 18 152/62 99 02/21/17 13:38 02/21/17 13:38 02/21/17 13:38 02/21/17 13:38 02/21/17 13:38 General appearance: Present: no acute distress Results - Labs CBC & Chem 7: 02/21/17 07:18 02/21/17 07:18 Labs: Laboratory Last Values WBC 4.6 K/mm3 (4.5-11.0) 02/21/17 07:18 RBC 3.17 M/mm3 (3.65-5.03) L 02/21/17 07:18 Hgb 9.1 gm/dl (11.8-15.2) L 02/21/17 07:18 Hct 27.1 % (35.5-45.6) L 02/21/17 07:18 MCV 85 fl (84-94) 02/21/17 07:18 MCH 29 pg (28-32) 02/21/17 07:18 MCHC 34 % (32-34) 02/21/17 07:18 RDW 16.3 % (13.2-15.2) H 02/21/17 07:18 Plt Count 295 K/mm3 (140-440) 02/21/17 07:18 Lymph % (Auto) 16.7 % (13.4-35.0) 02/15/17 05:42 [place] % (Auto) 7.8 % (0.0-7.3) H 02/15/17 05:42 Eos % (Auto) 7.2 % (0.0-4.3) H 02/15/17 05:42 Baso % (Auto) 0.5 % (0.0-1.8) 02/15/17 05:42 Lymph # 0.8 K/mm3 (1.2-5.4) L 02/15/17 05:42 [place] # 0.4 K/mm3 (0.0-0.8) 02/15/17 05:42 Eos # 0.3 K/mm3 (0.0-0.4) 02/15/17 05:42 Baso # 0.0 K/mm3 (0.0-0.1) 02/15/17 05:42 Seg Neutrophils % 67.8 % (40.0-70.0) 02/15/17 05:42 Seg Neutrophils # 3.2 K/mm3 (1.8-7.7) 02/15/17 05:42 ESR 85 mm/Hr (0-20) 02/14/17 01:33 PT 14.7 Sec. (12.2-14.9) 02/21/17 07:18 INR 1.09 (0.87-1.13) 02/21/17 07:18 APTT 32.9 Sec. (24.2-36.6) 02/21/17 07:18 VBG pH 7.318 (7.320-7.420) L 02/14/17 00:38 Sodium 137 mmol/L (137-145) 02/21/17 07:18 Potassium 3.8 mmol/L (3.6-5.0) 02/21/17 07:18 Chloride 101.6 mmol/L (98-107) 02/21/17 07:18 Carbon Dioxide 28 mmol/L (22-30) 02/21/17 07:18 Anion Gap 11 mmol/L 02/21/17 07:18 BUN 9 mg/dL (9-20) 02/21/17 07:18 Creatinine 0.8 mg/dL (0.8-1.5) 02/21/17 07:18 Estimated GFR > 60 ml/min 02/21/17 07:18 BUN/Creatinine Ratio 11 % 02/21/17 07:18 Glucose 154 mg/dL (75-100) H 02/21/17 07:18 POC Glucose 252 (70-105) H 02/21/17 12:13 Lactic Acid 1.70 mmol/L (0.7-2.0) 02/14/17 05:26 Calcium 8.7 mg/dL (8.4-10.2) 02/21/17 07:18 Magnesium 1.70 mg/dL (1.7-2.3) 02/21/17 07:18 Total Bilirubin 0.40 mg/dL (0.1-1.2) 02/14/17 00:01 AST 13 units/L (5-40) 02/14/17 00:01 ALT 12 units/L (7-56) 02/14/17 00:01 Alkaline Phosphatase 89 units/L (35-129) 02/14/17 00:01 Total Creatine Kinase 26 units/L (55-170) L 02/14/17 00:38 C-Reactive Protein 3.50 mg/dL (0.00-1.30) H 02/14/17 00:38 Total Protein 7.0 g/dL (6.3-8.2) 02/14/17 00:01 Albumin 2.8 g/dL (3.9-5) L 02/14/17 00:01 Albumin/Globulin Ratio 0.7 % 02/14/17 00:01 Urine Color Yellow (Yellow) 02/13/17 Unknown Urine Turbidity Clear (Clear) 02/13/17 Unknown Urine pH 7.0 (5.0-7.0) 02/13/17 Unknown Ur Specific [place] 1.008 (1.003-1.030) 02/13/17 Unknown Urine Protein <15 mg/dl mg/dL (Negative) 02/13/17 Unknown Urine Glucose (UA) >=500 mg/dL (Negative) 02/13/17 Unknown Urine Ketones Neg mg/dL (Negative) 02/13/17 Unknown Urine Blood Sm (Negative) 02/13/17 Unknown Urine Nitrite Neg (Negative) 02/13/17 Unknown Urine Bilirubin Neg (Negative) 02/13/17 Unknown Urine Urobilinogen < 2.0 mg/dL (<2.0) 02/13/17 Unknown Ur Leukocyte Esterase Mod (Negative) 02/13/17 Unknown Urine WBC (Auto) 13.0 /HPF (0.0-6.0) H 02/13/17 Unknown Urine RBC (Auto) 1.0 /HPF (0.0-6.0) 02/13/17 Unknown U Epithel Cells (Auto) 1.0 /HPF (0-13.0) 02/13/17 Unknown Urine Mucus Few /HPF 02/13/17 Unknown Vancomycin Trough 24.7 ug/mL (5.0-20.0) H 02/21/17 14:53
[2017-02-21] MEDS: LEVEMIR SUB-Q SCH (21:44)
[2017-02-22] MEDS: VANCOMYCIN 1,500 MG in NACL 0.9% 500 ML 500 ML IV SCH (02:20)
[2017-02-22 06:44] LABS: Hematocrit 26.8 % (35.5-45.6); Mean Corpuscular HGB Conc 34 % (32-34); Mean Corpuscular Hemoglobin 29 pg (28-32); Mean Corpuscular Volume 85 fl (84-94); Platelet Count 300 K/mm3 (140-440); Red Blood Count 3.16 M/mm3 (3.65-5.03); Red Cell Distribution Width 16.7 % (13.2-15.2); White Blood Count 4.4 K/mm3 (4.5-11.0)
[2017-02-22 07:03] LABS: Anion Gap 14 mmol/L; BUN/Creatinine Ratio 16; Blood Urea Nitrogen 11 mg/dL (9-20); Calcium 8.4 mg/dL (8.4-10.2); Carbon Dioxide 26 mmol/L (22-30); Chloride 101.3 mmol/L (98-107); Glucose 150 mg/dL (75-100); Sodium 137 mmol/L (137-145)
[2017-02-22] MEDS ORDERED: XYLOCAINE MPF 2% ONE (09:40)
[2017-02-22] MEDS ORDERED: SUBLIMAZE ONE ×2 (09:40→12:02)
[2017-02-22] MEDS ORDERED: DIPRIVAN 10 MG/ML IV ONE (09:42)
[2017-02-22] MEDS: LOPRESSOR PO SCH ×2 (10:00→22:15)
[2017-02-22] MEDS: NORVASC PO SCH (10:00)
[2017-02-22] MEDS: PLAVIX PO SCH (10:00)
[2017-02-22] MEDS: ZYLOPRIM PO SCH (10:00)
[2017-02-22] MEDS: PEPCID PO SCH ×2 (10:00→22:14)
[2017-02-22] MEDS: LOVENOX SUB-Q SCH (10:00)
[2017-02-22] MEDS: NOVOLOG SUB-Q SCH ×3 (10:00→22:54)
[2017-02-22] MEDS: LYRICA PO SCH ×2 (10:00)
[2017-02-22] MEDS ORDERED: ANCEF/STERILE WATER 2 GM/20 ML IV NR (11:00)
[2017-02-22] MEDS ORDERED: NACL 0.9% IR ONE (11:31)
[2017-02-22] MEDS ORDERED: NACL 0.9% 500 ML 500 ML IV NR (11:44)
[2017-02-22] MEDS ORDERED: NACL 0.9% 1000 ML 1,000 ML ONE (12:01)
[2017-02-22] MEDS ORDERED: ePHEDrine SULFATE ONE (12:13)
[2017-02-22] MEDS ORDERED: ZOFRAN ONE (12:29)
--- NOTE | 2017-02-22 12:36 | Operative Report ---
Operative Report Operative Report: Pre-operative diagnosis: Right foot gangrene Post-operative diagnosis: The same Procedure name(s): Right below-knee amputation Surgeon: Blake Toribio MD, RPVI Second Rigger: LIYAH Johnston Anesthesia: Gen. Findings: 1. Nonsalvageable right foot 2. Well vascularized flaps. 3. Severe venous insufficiency. 4. Poor skin condition. 5. Poorly defined fascia. Specimens: Right leg, EBL: 750 mL IV fluids: 1700 mL Disposition: The recovery Indications: Salvageable right foot Procedure: Patient was brought to the operating room and laid on the table in supine position. After general endotracheal anesthesia was achieved the leg was prepped in usual sterile fashion. The anterior and posterior flap were drawn on the right leg. The incision along the flap lines was made using #10 blade. Subcutaneous tissue was divided with electrocautery. The greater saphenous vein was encountered in its usual location and divided between 3-0 silk ties. The muscles were divided with Bovie electrocautery on both sides of the tibia. The anterior tibial artery was dissected free and ligated between 3-0 silk ties. Both anterior tibial veins were ligated with 3-0 silk ties. The posterior tibial artery was divided between 3-0 silk ties. The posterior tibial veins were divided between 3-0 silk ties. The tibia was divided with oscillating saw after the periosteal elevator was used to push back the periosteum. The fibula was dissected and skeletonized with periosteal elevator. It was cut with a bone cutter at the higher level than the cut edge of the tibia. The posterior flap was then developed using an amputation knife. The bleeding points were controlled with hemostats and tied with 3-0 silk ties. The tibial nerve was divided with a knife and allowed to retract. The hemostasis was adequate. The bleeding was significant due to both good arterial flow in significant venous insufficiency. Bleeding arterial and venous vessels were controlled with 3-0 silk suture ligature. The wound was irrigated with saline. The fascia was approximated using frequent interrupted 0 Vicryl sutures. The skin was closed using dionisio. The dressing and a posterior splint was applied. The patient tolerated procedure well. At the end of the case all instrument, sponge, and needle counts were correct.
[2017-02-22 12:43] LABS: ISTAT K 4.2 (3.5-4.9)
[2017-02-22] MEDS ORDERED: AMIDATE IV ONE (12:56)
[2017-02-22] MEDS: DILAUDID IV PRN ×3 (13:00→14:15)
[2017-02-22] MEDS ORDERED: LACTATED RINGERS 1,000 ML ONE (13:06)
--- NOTE | 2017-02-22 15:28 | Progress Note ---
Assessment and Plan Assessment and plan: The patient is a 72 yo man with a history of hypertension, DM, Copd, chf, pvd w/ chronic leg ulcers and gout who presented with fevers. -Sepsis skin infection due to worsening PAD legs: abx, ID is following, following culture results. failed conservative therapy. for amputation today -PVD, acute on chronic worsening: vascular is following. -S/P left anterior tibial artery atherectomy with balloon angioplasty; and balloon angioplasty of the left dorsalis pedis on 03/01/2016. -Bilateral leg ischemia: Vascular is following, Plan for BKA today. -COPD- Continue nebs -Diabetes mellitus- accucheck ac/hs- Initiated, Continue levemeir QHS -Bilateral leg/foot/toes gangrene: AGREEABLE FOR AMPUTATION. -DVT prophylaxis: on sq Lovenox Plan discussed with patient in detail History Interval history: Patient seen and examined in no acute distress. Going for amputation today Hospitalist Physical - Physical exam Narrative exam: VITAL SIGNS: Reviewed. GENERAL: The patient appeared chronically debilitated, Vital signs as documented. HEAD: No signs of head trauma. EYES: Pupils are equal. Extraocular motions intact. EARS: Hearing grossly intact. MOUTH: Oropharynx is normal. NECK: No adenopathy, no JVD. CHEST: Chest with clear breath sounds bilaterally. No wheezes, rales, or rhonchi. CARDIAC: Regular rate and rhythm. S1 and S2, without murmurs, gallops, or rubs. VASCULAR: Edema. Peripheral pulses normal and equal in all extremities. ABDOMEN: Soft, without detectable tenderness. No sign of distention. No rebound or guarding, and no masses palpated. Bowel Sounds normal. MUSCULOSKELETAL: Limited range of motion of all major joints. Extremities with severe bilateral leg ulceration with gangrene. Marked Bilateral leg edema, necrotic ulcer 3rd toe NEUROLOGIC EXAM: Alert and oriented x 3. No focal sensory or strength deficits. Speech normal. Follows commands. PSYCHIATRIC: Mood normal. SKIN: Foul smelling drainage with necrotic 3rd toe ulcer on the left - Constitutional Vitals: Temp Pulse Resp BP Pulse Ox 98.1 F 91 H 16 147/57 96 02/22/17 14:00 02/22/17 14:00 02/22/17 14:00 02/22/17 14:00 02/22/17 14:00 General appearance: Present: no acute distress Results - Labs CBC & Chem 7: 02/22/17 15:02 02/22/17 06:08 Labs: Laboratory Last Values WBC 4.4 K/mm3 (4.5-11.0) L 02/22/17 06:08 RBC 3.16 M/mm3 (3.65-5.03) L 02/22/17 06:08 Hgb 9.0 gm/dl (11.8-15.2) L 02/22/17 06:08 POC Hgb 8.2 (12-17) L 02/22/17 12:02 Hct 26.8 % (35.5-45.6) L 02/22/17 06:08 POC Hct 24 (38-51) L 02/22/17 12:02 MCV 85 fl (84-94) 02/22/17 06:08 MCH 29 pg (28-32) 02/22/17 06:08 MCHC 34 % (32-34) 02/22/17 06:08 RDW 16.7 % (13.2-15.2) H 02/22/17 06:08 Plt Count 300 K/mm3 (140-440) 02/22/17 06:08 Lymph % (Auto) 16.7 % (13.4-35.0) 02/15/17 05:42 [place] % (Auto) 7.8 % (0.0-7.3) H 02/15/17 05:42 Eos % (Auto) 7.2 % (0.0-4.3) H 02/15/17 05:42 Baso % (Auto) 0.5 % (0.0-1.8) 02/15/17 05:42 Lymph # 0.8 K/mm3 (1.2-5.4) L 02/15/17 05:42 [place] # 0.4 K/mm3 (0.0-0.8) 02/15/17 05:42 Eos # 0.3 K/mm3 (0.0-0.4) 02/15/17 05:42 Baso # 0.0 K/mm3 (0.0-0.1) 02/15/17 05:42 Seg Neutrophils % 67.8 % (40.0-70.0) 02/15/17 05:42 Seg Neutrophils # 3.2 K/mm3 (1.8-7.7) 02/15/17 05:42 ESR 85 mm/Hr (0-20) 02/14/17 01:33 PT 14.7 Sec. (12.2-14.9) 02/21/17 07:18 INR 1.09 (0.87-1.13) 02/21/17 07:18 APTT 32.9 Sec. (24.2-36.6) 02/21/17 07:18 VBG pH 7.318 (7.320-7.420) L 02/14/17 00:38 POC Sodium 138 mmol/L (138-146) 02/22/17 12:02 POC Potassium 4.2 (3.5-4.9) 02/22/17 12:02 POC Chloride 102 (98-109) 02/22/17 12:02 Sodium 137 mmol/L (137-145) 02/22/17 06:08 Potassium 4.0 mmol/L (3.6-5.0) 02/22/17 06:08 Chloride 101.3 mmol/L (98-107) 02/22/17 06:08 Carbon Dioxide 26 mmol/L (22-30) 02/22/17 06:08 Anion Gap 14 mmol/L 02/22/17 06:08 POC BUN 7 mg/dl (8-26) L 02/22/17 12:02 BUN 11 mg/dL (9-20) 02/22/17 06:08 Creatinine 0.7 mg/dL (0.8-1.5) L 02/22/17 06:08 Estimated GFR > 60 ml/min 02/22/17 06:08 BUN/Creatinine Ratio 16 % 02/22/17 06:08 Glucose 150 mg/dL (75-100) H 02/22/17 06:08 POC Glucose 152 (70-105) H 02/22/17 12:02 Lactic Acid 1.70 mmol/L (0.7-2.0) 02/14/17 05:26 Calcium 8.4 mg/dL (8.4-10.2) 02/22/17 06:08 Magnesium 1.70 mg/dL (1.7-2.3) 02/21/17 07:18 Total Bilirubin 0.40 mg/dL (0.1-1.2) 02/14/17 00:01 AST 13 units/L (5-40) 02/14/17 00:01 ALT 12 units/L (7-56) 02/14/17 00:01 Alkaline Phosphatase 89 units/L (35-129) 02/14/17 00:01 Total Creatine Kinase 26 units/L (55-170) L 02/14/17 00:38 C-Reactive Protein 3.50 mg/dL (0.00-1.30) H 02/14/17 00:38 Total Protein 7.0 g/dL (6.3-8.2) 02/14/17 00:01 Albumin 2.8 g/dL (3.9-5) L 02/14/17 00:01 Albumin/Globulin Ratio 0.7 % 02/14/17 00:01 Urine Color Yellow (Yellow) 02/13/17 Unknown Urine Turbidity Clear (Clear) 02/13/17 Unknown Urine pH 7.0 (5.0-7.0) 02/13/17 Unknown Ur Specific [place] 1.008 (1.003-1.030) 02/13/17 Unknown Urine Protein <15 mg/dl mg/dL (Negative) 02/13/17 Unknown Urine Glucose (UA) >=500 mg/dL (Negative) 02/13/17 Unknown Urine Ketones Neg mg/dL (Negative) 02/13/17 Unknown Urine Blood Sm (Negative) 02/13/17 Unknown Urine Nitrite Neg (Negative) 02/13/17 Unknown Urine Bilirubin Neg (Negative) 02/13/17 Unknown Urine Urobilinogen < 2.0 mg/dL (<2.0) 02/13/17 Unknown Ur Leukocyte Esterase Mod (Negative) 02/13/17 Unknown Urine WBC (Auto) 13.0 /HPF (0.0-6.0) H 02/13/17 Unknown Urine RBC (Auto) 1.0 /HPF (0.0-6.0) 02/13/17 Unknown U Epithel Cells (Auto) 1.0 /HPF (0-13.0) 02/13/17 Unknown Urine Mucus Few /HPF 02/13/17 Unknown Vancomycin Trough 24.7 ug/mL (5.0-20.0) H 02/21/17 14:53 Blood Type A POSITIVE 02/22/17 11:35 Antibody Screen TNR 02/22/17 11:35 OLIVA Antibody Screen Negative 02/22/17 11:35 Crossmatch See Detail 02/22/17 11:35
[2017-02-22 15:51] LABS: Hemoglobin 9.5 gm/dl (11.8-15.2)
[2017-02-22] MEDS: MORPHINE IV PRN (15:55)
[2017-02-22] MEDS: NORCO 5/325 PO PRN (18:26)
--- NOTE | 2017-02-22 18:37 | Post Anesthesia Evaluation ---
- Post Anesthesia Evaluation Patient Participated: Yes Airway Patent: Yes Stable Respiratory Function: Yes Nausea/Vomiting: No Temp > 96.8F: Yes Pain Manageable: Yes Adequeate Hydration: Yes Anesthesia Complications: No Block Receding Appropriately: Not Applicable Patient on Ventilator: No
[2017-02-22] MEDS: LEVEMIR SUB-Q SCH (22:16)
[2017-02-22] MEDS: MERREM 1,000 MG in NACL 0.9% 100 ML IV SCH (22:31)
[2017-02-23] MEDS: MORPHINE IV PRN (04:44)
[2017-02-23] MEDS: NACL 0.9% 1000 ML 1,000 ML IV SCH ×2 (05:54→19:41)
[2017-02-23] MEDS: MERREM 1,000 MG in NACL 0.9% 100 ML IV SCH ×2 (06:51→18:00)
[2017-02-23] MEDS: NOVOLOG SUB-Q SCH ×4 (08:29→22:43)
--- NOTE | 2017-02-23 10:57 | Progress Note ---
Assessment and Plan Assessment: 1) Sepsis: resolved. 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 2) Bilateral foot / toe gangrene likely due to severe PVD -S/P OR right foot debridement at [facility] and recent IV antibiotics x 3 weeks and wound care -11/09/15 wound cx + ESBL E coli. -CRP=5.1 -S/P angiogram and revascularization of right tibial with good flow per vascular surgery -S/P right BKA 02/22 3) COPD 4) Diabetes 5) Heart failure 6) Hypertension 7) Severe PVD -S/P left anterior tibial artery atherectomy with balloon angioplasty; and balloon angioplasty of the left dorsalis pedis on 03/01/2016. 8) Venous insufficiency and chronic bilateral leg/foot ulcers; admitted on due to bilateral lower extremity wound with foul-smelling drainage. Plan: -continue meropenem and vancomycin for 48h after BKA then monitor off antibiotics and f/u with [facility] ID provider -eventually, he needs revascularization of left foot I am signing off Thank you Dr Ward for your consultation, will follow up with you. Pratibha Hooper MD Infectious Diseases Specialist [facility] ([facility]) M [phone] O [phone] Subjective Date of service: 02/23/17 Principal diagnosis: gangrene Interval history: Somnolent no fever. Had Right BKA yesterday Current Antimicrobials: Zosyn 02/13 Vancomycin 02/13 Microbiology: Blood cultures: 02/13 ngtd Urine cultures: Objective - Exam Narrative Exam: General appearance: Alert in NAD, conversant Eyes: anicteric sclerae, moist conjunctivae; no lid-lag; PERRLA HENT: Atraumatic; oropharynx clear with moist mucous membranes and no mucosal ulcerations/no oral thrush; normal hard and soft palate. Normal external ears. Neck: Trachea midline; supple, no thyromegaly or lymphadenopathy Lungs: CTA, with normal respiratory effort and no intercostal retractions CV: RRR, no murmurs Abdomen: Soft, non-tender; no masses or hepatosplenomegaly Extremities: +right BKA. Partial left great toe necrosis. Multiple ulcers on the leg. Skin: Normal temperature, turgor and texture; no rash, ulcers or subcutaneous nodules Psych: Appropriate affect, alert and oriented to person, place and time. Neuro: alert and oriented x 3. Moving all extermities Lines: No CVL / PICC - Constitutional Vitals: Vital Signs Temp Pulse Resp BP Pulse Ox 99.0 F 78 20 140/65 99 02/23/17 05:48 02/23/17 08:00 02/23/17 05:53 02/23/17 05:48 02/23/17 05:48 Temperature -Last 24 Hours Temperature 99.0 F Temperature 99.1 F Temperature 98.8 F Temperature 98.1 F Temperature 99.0 F Temperature 99.0 F Temperature 98.2 F Temperature 98.6 F Temperature 98.2 F Temperature 98.2 F Temperature 98.4 F Temperature 98.4 F Temperature 98.1 F Temperature 98.1 F Temperature 97.9 F Temperature 98.2 F Temperature 98.6 F Temperature 99.1 F - Labs CBC & Chem 7: 02/22/17 15:02 02/22/17 06:08 Labs: Abnormal lab results 02/22/17 02/22/17 02/22/17 Range/Units 08:26 11:35 12:02 Hgb (11.8-15.2) gm/dl POC Hgb 8.2 L (12-17) Hct (35.5-45.6) % POC Hct 24 L (38-51) POC BUN 7 L (8-26) mg/dl POC Glucose 156 H 152 H (70-105) Crossmatch See Detail 02/22/17 02/22/17 02/22/17 Range/Units 12:45 15:02 17:37 Hgb 9.5 L (11.8-15.2) gm/dl POC Hgb (12-17) Hct 29.0 L (35.5-45.6) % POC Hct (38-51) POC BUN (8-26) mg/dl POC Glucose 198 H 234 H (70-105) Crossmatch 02/22/17 Range/Units 22:14 Hgb (11.8-15.2) gm/dl POC Hgb (12-17) Hct (35.5-45.6) % POC Hct (38-51) POC BUN (8-26) mg/dl POC Glucose 289 H (70-105) Crossmatch
[2017-02-23 11:13] LABS: Anion Gap 15 mmol/L; BUN/Creatinine Ratio 11; Blood Urea Nitrogen 8 mg/dL (9-20); Calcium 8.7 mg/dL (8.4-10.2); Carbon Dioxide 26 mmol/L (22-30); Chloride 98.4 mmol/L (98-107); Glucose 203 mg/dL (75-100); Potassium 4.2 mmol/L (3.6-5.0); Sodium 135 mmol/L (137-145)
[2017-02-23 11:23] LABS: Hematocrit 30.6 % (35.5-45.6); Mean Corpuscular HGB Conc 33 % (32-34); Mean Corpuscular Hemoglobin 29 pg (28-32); Mean Corpuscular Volume 87 fl (84-94); Platelet Count 325 K/mm3 (140-440); Red Blood Count 3.51 M/mm3 (3.65-5.03); Red Cell Distribution Width 16.4 % (13.2-15.2); White Blood Count 8.1 K/mm3 (4.5-11.0)
[2017-02-23] MEDS: LOPRESSOR PO SCH ×2 (11:52→22:42)
[2017-02-23] MEDS: LOVENOX SUB-Q SCH (11:52)
[2017-02-23] MEDS: LYRICA PO SCH ×2 (11:52→11:53)
[2017-02-23] MEDS: PLAVIX PO SCH (11:52)
[2017-02-23] MEDS: NORVASC PO SCH (11:53)
[2017-02-23] MEDS: ZYLOPRIM PO SCH (11:53)
[2017-02-23] MEDS: PEPCID PO SCH ×2 (11:53→22:42)
[2017-02-23] MEDS: DILAUDID IV PRN (15:58)
--- NOTE | 2017-02-23 16:21 | Progress Note ---
Assessment and Plan Assessment and plan: The patient is a 72 yo man with a history of hypertension, DM, Copd, chf, pvd w/ chronic leg ulcers and gout who presented with fevers. -Sepsis skin infection due to worsening PAD leg: abx, ID is following, following culture results. failed conservative therapy. S/P right BKA, -PVD, acute on chronic worsening: vascular is following. -S/P left anterior tibial artery atherectomy with balloon angioplasty; and balloon angioplasty of the left dorsalis pedis on 03/01/2016. -Bilateral leg ischemia: Vascular is following, S/P Right BKA -COPD- Continue nebs -Diabetes mellitus- accucheck ac/hs- Initiated, Continue levimeir QHS, adjusted upwards for better control -Bilateral leg/foot/toes gangrene: RIGHT BKA, done successfully -Acute blood loss anemia-Expected outcome, s/p PRBC transfusion with good response. -DVT prophylaxis: on sq Lovenox Plan discussed with patient in detail History Interval history: Patient seen and examined in no acute distress. Post amputation, still with some pain, refused PT today. Hospitalist Physical - Physical exam Narrative exam: VITAL SIGNS: Reviewed. GENERAL: The patient appeared chronically debilitated, Vital signs as documented. HEAD: No signs of head trauma. EYES: Pupils are equal. Extraocular motions intact. EARS: Hearing grossly intact. MOUTH: Oropharynx is normal. NECK: No adenopathy, no JVD. CHEST: Chest with clear breath sounds bilaterally. No wheezes, rales, or rhonchi. CARDIAC: Regular rate and rhythm. S1 and S2, without murmurs, gallops, or rubs. VASCULAR: Edema. Peripheral pulses normal and equal in all extremities. ABDOMEN: Soft, without detectable tenderness. No sign of distention. No rebound or guarding, and no masses palpated. Bowel Sounds normal. MUSCULOSKELETAL: Right BKA. left leg with dressing, positive edema, chronic changes noted NEUROLOGIC EXAM: Alert and oriented x 3. No focal sensory or strength deficits. Speech normal. Follows commands. PSYCHIATRIC: Mood normal. SKIN: Foul smelling drainage with necrotic 3rd toe ulcer on the left - Constitutional Vitals: Temp Pulse Resp BP Pulse Ox 99.0 F 95 H 20 162/64 100 02/23/17 05:48 02/23/17 12:21 02/23/17 15:58 02/23/17 12:20 02/23/17 12:21 General appearance: Present: no acute distress Results - Labs CBC & Chem 7: 02/23/17 10:31 02/23/17 10:31 Labs: Laboratory Last Values WBC 8.1 K/mm3 (4.5-11.0) 02/23/17 10:31 RBC 3.51 M/mm3 (3.65-5.03) L 02/23/17 10:31 Hgb 10.0 gm/dl (11.8-15.2) L 02/23/17 10:31 POC Hgb 8.2 (12-17) L 02/22/17 12:02 Hct 30.6 % (35.5-45.6) L 02/23/17 10:31 POC Hct 24 (38-51) L 02/22/17 12:02 MCV 87 fl (84-94) 02/23/17 10:31 MCH 29 pg (28-32) 02/23/17 10:31 MCHC 33 % (32-34) 02/23/17 10:31 RDW 16.4 % (13.2-15.2) H 02/23/17 10:31 Plt Count 325 K/mm3 (140-440) 02/23/17 10:31 Lymph % (Auto) 16.7 % (13.4-35.0) 02/15/17 05:42 [place] % (Auto) 7.8 % (0.0-7.3) H 02/15/17 05:42 Eos % (Auto) 7.2 % (0.0-4.3) H 02/15/17 05:42 Baso % (Auto) 0.5 % (0.0-1.8) 02/15/17 05:42 Lymph # 0.8 K/mm3 (1.2-5.4) L 02/15/17 05:42 [place] # 0.4 K/mm3 (0.0-0.8) 02/15/17 05:42 Eos # 0.3 K/mm3 (0.0-0.4) 02/15/17 05:42 Baso # 0.0 K/mm3 (0.0-0.1) 02/15/17 05:42 Seg Neutrophils % 67.8 % (40.0-70.0) 02/15/17 05:42 Seg Neutrophils # 3.2 K/mm3 (1.8-7.7) 02/15/17 05:42 ESR 85 mm/Hr (0-20) 02/14/17 01:33 PT 14.7 Sec. (12.2-14.9) 02/21/17 07:18 INR 1.09 (0.87-1.13) 02/21/17 07:18 APTT 32.9 Sec. (24.2-36.6) 02/21/17 07:18 VBG pH 7.318 (7.320-7.420) L 02/14/17 00:38 POC Sodium 138 mmol/L (138-146) 02/22/17 12:02 POC Potassium 4.2 (3.5-4.9) 02/22/17 12:02 POC Chloride 102 (98-109) 02/22/17 12:02 Sodium 135 mmol/L (137-145) L 02/23/17 10:31 Potassium 4.2 mmol/L (3.6-5.0) 02/23/17 10:31 Chloride 98.4 mmol/L (98-107) 02/23/17 10:31 Carbon Dioxide 26 mmol/L (22-30) 02/23/17 10:31 Anion Gap 15 mmol/L 02/23/17 10:31 POC BUN 7 mg/dl (8-26) L 02/22/17 12:02 BUN 8 mg/dL (9-20) L 02/23/17 10:31 Creatinine 0.7 mg/dL (0.8-1.5) L 02/23/17 10:31 Estimated GFR > 60 ml/min 02/23/17 10:31 BUN/Creatinine Ratio 11 % 02/23/17 10:31 Glucose 203 mg/dL (75-100) H 02/23/17 10:31 POC Glucose 292 (70-105) H 02/23/17 12:26 Lactic Acid 1.70 mmol/L (0.7-2.0) 02/14/17 05:26 Calcium 8.7 mg/dL (8.4-10.2) 02/23/17 10:31 Magnesium 1.70 mg/dL (1.7-2.3) 02/21/17 07:18 Total Bilirubin 0.40 mg/dL (0.1-1.2) 02/14/17 00:01 AST 13 units/L (5-40) 02/14/17 00:01 ALT 12 units/L (7-56) 02/14/17 00:01 Alkaline Phosphatase 89 units/L (35-129) 02/14/17 00:01 Total Creatine Kinase 26 units/L (55-170) L 02/14/17 00:38 C-Reactive Protein 3.50 mg/dL (0.00-1.30) H 02/14/17 00:38 Total Protein 7.0 g/dL (6.3-8.2) 02/14/17 00:01 Albumin 2.8 g/dL (3.9-5) L 02/14/17 00:01 Albumin/Globulin Ratio 0.7 % 02/14/17 00:01 Urine Color Yellow (Yellow) 02/13/17 Unknown Urine Turbidity Clear (Clear) 02/13/17 Unknown Urine pH 7.0 (5.0-7.0) 02/13/17 Unknown Ur Specific [place] 1.008 (1.003-1.030) 02/13/17 Unknown Urine Protein <15 mg/dl mg/dL (Negative) 02/13/17 Unknown Urine Glucose (UA) >=500 mg/dL (Negative) 02/13/17 Unknown Urine Ketones Neg mg/dL (Negative) 02/13/17 Unknown Urine Blood Sm (Negative) 02/13/17 Unknown Urine Nitrite Neg (Negative) 02/13/17 Unknown Urine Bilirubin Neg (Negative) 02/13/17 Unknown Urine Urobilinogen < 2.0 mg/dL (<2.0) 02/13/17 Unknown Ur Leukocyte Esterase Mod (Negative) 02/13/17 Unknown Urine WBC (Auto) 13.0 /HPF (0.0-6.0) H 02/13/17 Unknown Urine RBC (Auto) 1.0 /HPF (0.0-6.0) 02/13/17 Unknown U Epithel Cells (Auto) 1.0 /HPF (0-13.0) 02/13/17 Unknown Urine Mucus Few /HPF 02/13/17 Unknown Vancomycin Trough 24.7 ug/mL (5.0-20.0) H 02/21/17 14:53 Blood Type A POSITIVE 02/22/17 11:35 Antibody Screen TNR 02/22/17 11:35 OLIVA Antibody Screen Negative 02/22/17 11:35 Crossmatch See Detail 02/22/17 11:35
--- NOTE | 2017-02-23 16:56 | Progress Note ---
Assessment and Plan Spoke with at the bedside. Hem is 10.0 following transfusion. Pt c/o pain earlier this afternoon, and recently took IV analgesic. He has since fallen asleep, I did not wake the pt. I recommended that he use oral analgesics primarily, and IV should be for breakthrough pain only. He apparently worked with PT today. D/c planning in progress. Check wounds in the next 24-48 hrs. - Patient Problems (1) Atherosclerosis of [place] arteries of the extremities with ulceration Current Visit: No Status: Acute (2) Venous stasis ulcers Current Visit: Yes Status: Chronic Qualifiers: Venous stasis ulcer site: V Varicose vein presence: V Laterality: L Non -pressure ulcer stage: N (3) ADILENE (acute kidney injury) Current Visit: No Status: Acute (4) Congestive heart failure Current Visit: No Status: Chronic Qualifiers: Congestive heart failure type: systolic Congestive heart failure chronicity : C (5) Diabetes mellitus, type II Current Visit: No Status: Chronic Qualifiers: Diabetes mellitus complication status: D Diabetes mellitus complication detail: D Diabetic retinopathy severity: D Proliferative retinopathy type: P Diabetes mellitus macular edema: D Diabetes mellitus care home insulin use : D Laterality: L Chronic kidney disease stage: C (6) Hypertension Current Visit: No Status: Chronic Qualifiers: Hypertension type: H Subjective Date of service: 02/23/17 Principal diagnosis: gangrene Interval history: Pt sleeping. Objective - Constitutional Vitals: Vital Signs - 12hr 02/23/17 02/23/17 02/23/17 05:15 05:48 05:53 Temperature 99.1 F 99.0 F Pulse Rate 77 75 Respiratory 18 20 Rate Blood Pressure 150/67 140/65 O2 Sat by Pulse 99 99 Oximetry 02/23/17 02/23/17 02/23/17 06:47 08:00 08:37 Temperature Pulse Rate 82 78 83 Respiratory Rate Blood Pressure O2 Sat by Pulse 100 98 Oximetry 02/23/17 02/23/17 02/23/17 12:20 12:21 15:58 Temperature Pulse Rate 99 H 95 H Respiratory 18 20 Rate Blood Pressure 162/64 O2 Sat by Pulse 100 100 Oximetry General appearance: Present: no acute distress - EENT Eyes: EOM intact ENT: hearing intact - Respiratory Respiratory effort: normal Extremities: abnormal (Bandages CDI, Knee splint inplace) - Labs CBC & Chem 7: 02/23/17 10:31 02/23/17 10:31 Labs: Abnormal lab results 02/22/17 02/22/17 02/22/17 Range/Units 08:26 11:35 17:37 RBC (3.65-5.03) M/mm3 Hgb (11.8-15.2) gm/dl Hct (35.5-45.6) % RDW (13.2-15.2) % Sodium (137-145) mmol/L BUN (9-20) mg/dL Creatinine (0.8-1.5) mg/dL Glucose (75-100) mg/dL POC Glucose 156 H 234 H (70-105) Crossmatch See Detail 02/22/17 02/23/17 02/23/17 Range/Units 22:14 08:41 10:31 RBC 3.51 L (3.65-5.03) M/mm3 Hgb 10.0 L (11.8-15.2) gm/dl Hct 30.6 L (35.5-45.6) % RDW 16.4 H (13.2-15.2) % Sodium (137-145) mmol/L BUN (9-20) mg/dL Creatinine (0.8-1.5) mg/dL Glucose (75-100) mg/dL POC Glucose 289 H 217 H (70-105) Crossmatch 02/23/17 02/23/17 Range/Units 10:31 12:26 RBC (3.65-5.03) M/mm3 Hgb (11.8-15.2) gm/dl Hct (35.5-45.6) % RDW (13.2-15.2) % Sodium 135 L (137-145) mmol/L BUN 8 L (9-20) mg/dL Creatinine 0.7 L (0.8-1.5) mg/dL Glucose 203 H (75-100) mg/dL POC Glucose 292 H (70-105) Crossmatch
[2017-02-23] MEDS: LEVEMIR SUB-Q SCH (22:44)
[2017-02-24] MEDS: MERREM 1,000 MG in NACL 0.9% 100 ML IV SCH ×4 (01:25→23:02)
[2017-02-24] MEDS: NORCO 5/325 PO PRN ×2 (01:54→08:31)
[2017-02-24 05:35] LABS: Hematocrit 25.5 % (35.5-45.6); Hemoglobin 8.9 gm/dl (11.8-15.2); Mean Corpuscular HGB Conc 35 % (32-34); Mean Corpuscular Hemoglobin 30 pg (28-32); Mean Corpuscular Volume 86 fl (84-94); Platelet Count 287 K/mm3 (140-440); Red Blood Count 2.97 M/mm3 (3.65-5.03); Red Cell Distribution Width 15.9 % (13.2-15.2); White Blood Count 7.2 K/mm3 (4.5-11.0)
[2017-02-24 05:54] LABS: Anion Gap 16 mmol/L; BUN/Creatinine Ratio 12; Blood Urea Nitrogen 7 mg/dL (9-20); Calcium 8.2 mg/dL (8.4-10.2); Carbon Dioxide 26 mmol/L (22-30); Chloride 98.7 mmol/L (98-107); Glucose 168 mg/dL (75-100); Potassium 3.8 mmol/L (3.6-5.0); Sodium 137 mmol/L (137-145)
[2017-02-24] MEDS: NOVOLOG SUB-Q SCH ×5 (08:57→22:18)
[2017-02-24] MEDS: NORVASC PO SCH (09:25)
[2017-02-24] MEDS: ZYLOPRIM PO SCH (09:25)
[2017-02-24] MEDS: PLAVIX PO SCH (09:25)
[2017-02-24] MEDS: LOPRESSOR PO SCH ×2 (09:26→22:15)
[2017-02-24] MEDS: LYRICA PO SCH ×2 (09:26)
[2017-02-24] MEDS: LOVENOX SUB-Q SCH (09:26)
[2017-02-24] MEDS: PEPCID PO SCH ×2 (09:26→22:15)
--- NOTE | 2017-02-24 09:39 | Progress Note ---
Assessment and Plan Assessment and plan: The patient is a 72 yo man with a history of hypertension, DM, Copd, chf, pvd w/ chronic leg ulcers and gout who presented with fevers. patient is post up day # 2 from a right below-knee amputation. Is -Sepsis unableskin infection due to worsening PAD leg: abx, ID is following, following culture results. failed conservative therapy. Post Op right BKA, remains afibrile, anticipate discontinuation of abx today. and if fever free in am will discharge,. Per ID continue meropenem and vancomycin for 48h after BKA then monitor off antibiotics and f/u with [facility] ID provider - eventually, he needs revascularization of left foot. Flap evaluation by vascular. -PVD, acute on chronic worsening: vascular is following. -S/P left anterior tibial artery atherectomy with balloon angioplasty; and balloon angioplasty of the left dorsalis pedis on 03/01/2016. -Bilateral leg ischemia: Vascular is following, S/P Right BKA -COPD- Continue nebs -Diabetes mellitus- accucheck ac/hs- Initiated, Continue levimeir QHS, adjusted upwards for better control -Bilateral leg/foot/toes gangrene: RIGHT BKA, done successfully -Acute blood loss anemia-Expected outcome, s/p PRBC transfusion with good response. -DVT prophylaxis: on sq Lovenox Plan discussed with patient in detail Discharge planning WHEN OK WITH VASCULAR History Interval history: Patient seen and examined in no acute distress. Post amputation, still with some pain, refused PT today. Hospitalist Physical - Physical exam Narrative exam: VITAL SIGNS: Reviewed. GENERAL: The patient appeared chronically debilitated, Vital signs as documented. HEAD: No signs of head trauma. EYES: Pupils are equal. Extraocular motions intact. EARS: Hearing grossly intact. MOUTH: Oropharynx is normal. NECK: No adenopathy, no JVD. CHEST: Chest with clear breath sounds bilaterally. No wheezes, rales, or rhonchi. CARDIAC: Regular rate and rhythm. S1 and S2, without murmurs, gallops, or rubs. VASCULAR: Edema. Peripheral pulses normal and equal in all extremities. ABDOMEN: Soft, without detectable tenderness. No sign of distention. No rebound or guarding, and no masses palpated. Bowel Sounds normal. MUSCULOSKELETAL: Right BKA. left leg with dressing, positive edema, chronic changes noted NEUROLOGIC EXAM: Alert and oriented x 3. No focal sensory or strength deficits. Speech normal. Follows commands. PSYCHIATRIC: Mood normal. SKIN: Foul smelling drainage with necrotic 3rd toe ulcer on the left - Constitutional Vitals: Temp Pulse Resp BP Pulse Ox 98.9 F 74 22 144/62 97 02/24/17 08:05 02/24/17 08:05 02/24/17 08:05 02/24/17 08:05 02/24/17 08:05 General appearance: Present: no acute distress Results - Labs CBC & Chem 7: 02/24/17 05:13 02/24/17 05:13 Labs: Laboratory Last Values WBC 7.2 K/mm3 (4.5-11.0) 02/24/17 05:13 RBC 2.97 M/mm3 (3.65-5.03) L 02/24/17 05:13 Hgb 8.9 gm/dl (11.8-15.2) L 02/24/17 05:13 POC Hgb 8.2 (12-17) L 02/22/17 12:02 Hct 25.5 % (35.5-45.6) L 02/24/17 05:13 POC Hct 24 (38-51) L 02/22/17 12:02 MCV 86 fl (84-94) 02/24/17 05:13 MCH 30 pg (28-32) 02/24/17 05:13 MCHC 35 % (32-34) H 02/24/17 05:13 RDW 15.9 % (13.2-15.2) H 02/24/17 05:13 Plt Count 287 K/mm3 (140-440) 02/24/17 05:13 Lymph % (Auto) 16.7 % (13.4-35.0) 02/15/17 05:42 [place] % (Auto) 7.8 % (0.0-7.3) H 02/15/17 05:42 Eos % (Auto) 7.2 % (0.0-4.3) H 02/15/17 05:42 Baso % (Auto) 0.5 % (0.0-1.8) 02/15/17 05:42 Lymph # 0.8 K/mm3 (1.2-5.4) L 02/15/17 05:42 [place] # 0.4 K/mm3 (0.0-0.8) 02/15/17 05:42 Eos # 0.3 K/mm3 (0.0-0.4) 02/15/17 05:42 Baso # 0.0 K/mm3 (0.0-0.1) 02/15/17 05:42 Seg Neutrophils % 67.8 % (40.0-70.0) 02/15/17 05:42 Seg Neutrophils # 3.2 K/mm3 (1.8-7.7) 02/15/17 05:42 ESR 85 mm/Hr (0-20) 02/14/17 01:33 PT 14.7 Sec. (12.2-14.9) 02/21/17 07:18 INR 1.09 (0.87-1.13) 02/21/17 07:18 APTT 32.9 Sec. (24.2-36.6) 02/21/17 07:18 VBG pH 7.318 (7.320-7.420) L 02/14/17 00:38 POC Sodium 138 mmol/L (138-146) 02/22/17 12:02 POC Potassium 4.2 (3.5-4.9) 02/22/17 12:02 POC Chloride 102 (98-109) 02/22/17 12:02 Sodium 137 mmol/L (137-145) 02/24/17 05:13 Potassium 3.8 mmol/L (3.6-5.0) 02/24/17 05:13 Chloride 98.7 mmol/L (98-107) 02/24/17 05:13 Carbon Dioxide 26 mmol/L (22-30) 02/24/17 05:13 Anion Gap 16 mmol/L 02/24/17 05:13 POC BUN 7 mg/dl (8-26) L 02/22/17 12:02 BUN 7 mg/dL (9-20) L 02/24/17 05:13 Creatinine 0.6 mg/dL (0.8-1.5) L 02/24/17 05:13 Estimated GFR > 60 ml/min 02/24/17 05:13 BUN/Creatinine Ratio 12 % 02/24/17 05:13 Glucose 168 mg/dL (75-100) H 02/24/17 05:13 POC Glucose 231 (70-105) H 02/23/17 22:35 Lactic Acid 1.70 mmol/L (0.7-2.0) 02/14/17 05:26 Calcium 8.2 mg/dL (8.4-10.2) L 02/24/17 05:13 Magnesium 1.70 mg/dL (1.7-2.3) 02/21/17 07:18 Total Bilirubin 0.40 mg/dL (0.1-1.2) 02/14/17 00:01 AST 13 units/L (5-40) 02/14/17 00:01 ALT 12 units/L (7-56) 02/14/17 00:01 Alkaline Phosphatase 89 units/L (35-129) 02/14/17 00:01 Total Creatine Kinase 26 units/L (55-170) L 02/14/17 00:38 C-Reactive Protein 3.50 mg/dL (0.00-1.30) H 02/14/17 00:38 Total Protein 7.0 g/dL (6.3-8.2) 02/14/17 00:01 Albumin 2.8 g/dL (3.9-5) L 02/14/17 00:01 Albumin/Globulin Ratio 0.7 % 02/14/17 00:01 Urine Color Yellow (Yellow) 02/13/17 Unknown Urine Turbidity Clear (Clear) 02/13/17 Unknown Urine pH 7.0 (5.0-7.0) 02/13/17 Unknown Ur Specific [place] 1.008 (1.003-1.030) 02/13/17 Unknown Urine Protein <15 mg/dl mg/dL (Negative) 02/13/17 Unknown Urine Glucose (UA) >=500 mg/dL (Negative) 02/13/17 Unknown Urine Ketones Neg mg/dL (Negative) 02/13/17 Unknown Urine Blood Sm (Negative) 02/13/17 Unknown Urine Nitrite Neg (Negative) 02/13/17 Unknown Urine Bilirubin Neg (Negative) 02/13/17 Unknown Urine Urobilinogen < 2.0 mg/dL (<2.0) 02/13/17 Unknown Ur Leukocyte Esterase Mod (Negative) 02/13/17 Unknown Urine WBC (Auto) 13.0 /HPF (0.0-6.0) H 02/13/17 Unknown Urine RBC (Auto) 1.0 /HPF (0.0-6.0) 02/13/17 Unknown U Epithel Cells (Auto) 1.0 /HPF (0-13.0) 02/13/17 Unknown Urine Mucus Few /HPF 02/13/17 Unknown Vancomycin Trough 24.7 ug/mL (5.0-20.0) H 02/21/17 14:53 Blood Type A POSITIVE 02/22/17 11:35 Antibody Screen TNR 02/22/17 11:35 OLIVA Antibody Screen Negative 02/22/17 11:35 Crossmatch See Detail 02/22/17 11:35
[2017-02-24] MEDS: MORPHINE IV PRN (11:40)
--- NOTE | 2017-02-24 12:41 | Progress Note ---
Assessment and Plan The patient is postoperative day #2 from a right below-knee amputation. He does have some serosanguineous drainage from the incision as well as a blister on the posterior flap however the flap appears to be viable at this time. We will continue to do daily dressing changes and evaluate the flap for viability. He is encouraged to work with physical therapy. We will order an Amp[place]ield to protect the stump as well as provide knee immobilization and prevention of contracture. Subjective Date of service: 02/24/17 Principal diagnosis: gangrene Interval history: The patient has some incisional pain however he denies any other complaint at this time. Objective - Constitutional Vitals: Vital Signs - 12hr 02/24/17 02/24/17 02/24/17 01:01 03:35 04:10 Temperature 98.9 F 97.9 F Pulse Rate 79 70 71 Respiratory 20 20 19 Rate Blood Pressure 133/52 Blood Pressure 136/57 132/52 [Left] O2 Sat by Pulse 97 95 95 Oximetry 02/24/17 08:05 Temperature 98.9 F Pulse Rate 74 Respiratory 22 Rate Blood Pressure 144/62 Blood Pressure [Left] O2 Sat by Pulse 97 Oximetry General appearance: Present: no acute distress - Breasts Breasts: deferred Extremities: abnormal (right below-knee amputation incision with slight serosanguineous drainage. There is no obvious evidence of infection. The patient does have an intact blister on the posterior flap however this is small and superficial. Otherwise the incision is intact) - Labs CBC & Chem 7: 02/24/17 05:13 02/24/17 05:13 Labs: Abnormal lab results 02/23/17 02/23/17 02/23/17 Range/Units 08:41 12:26 18:04 RBC (3.65-5.03) M/mm3 Hgb (11.8-15.2) gm/dl Hct (35.5-45.6) % MCHC (32-34) % RDW (13.2-15.2) % BUN (9-20) mg/dL Creatinine (0.8-1.5) mg/dL Glucose (75-100) mg/dL POC Glucose 217 H 292 H 211 H (70-105) Calcium (8.4-10.2) mg/dL 02/23/17 02/24/17 02/24/17 Range/Units 22:35 05:13 05:13 RBC 2.97 L (3.65-5.03) M/mm3 Hgb 8.9 L (11.8-15.2) gm/dl Hct 25.5 L (35.5-45.6) % MCHC 35 H (32-34) % RDW 15.9 H (13.2-15.2) % BUN 7 L (9-20) mg/dL Creatinine 0.6 L (0.8-1.5) mg/dL Glucose 168 H (75-100) mg/dL POC Glucose 231 H (70-105) Calcium 8.2 L (8.4-10.2) mg/dL 02/24/17 Range/Units 08:06 RBC (3.65-5.03) M/mm3 Hgb (11.8-15.2) gm/dl Hct (35.5-45.6) % MCHC (32-34) % RDW (13.2-15.2) % BUN (9-20) mg/dL Creatinine (0.8-1.5) mg/dL Glucose (75-100) mg/dL POC Glucose 159 H (70-105) Calcium (8.4-10.2) mg/dL
[2017-02-24] MEDS: NACL 0.9% 1000 ML 1,000 ML IV SCH (19:36)
[2017-02-24] MEDS: LEVEMIR SUB-Q SCH (22:17)
[2017-02-25] MEDS: MERREM 1,000 MG in NACL 0.9% 100 ML IV SCH ×4 (06:55→22:55)
[2017-02-25] MEDS: NOVOLOG SUB-Q SCH ×4 (08:20→22:57)
[2017-02-25 08:37] LABS: Hematocrit 24.8 % (35.5-45.6); Hemoglobin 8.4 gm/dl (11.8-15.2); Mean Corpuscular HGB Conc 34 % (32-34); Mean Corpuscular Hemoglobin 29 pg (28-32); Mean Corpuscular Volume 86 fl (84-94); Platelet Count 297 K/mm3 (140-440); Red Blood Count 2.87 M/mm3 (3.65-5.03); Red Cell Distribution Width 16.3 % (13.2-15.2); White Blood Count 6.1 K/mm3 (4.5-11.0)
[2017-02-25] MEDS: LYRICA PO SCH ×2 (09:20→09:21)
[2017-02-25] MEDS: LOVENOX SUB-Q SCH (09:20)
[2017-02-25] MEDS: ZYLOPRIM PO SCH (09:21)
[2017-02-25] MEDS: PEPCID PO SCH ×2 (09:21→21:50)
[2017-02-25] MEDS: LOPRESSOR PO SCH ×2 (09:22→21:50)
[2017-02-25] MEDS: NORVASC PO SCH (09:23)
[2017-02-25] MEDS: PLAVIX PO SCH (09:23)
--- NOTE | 2017-02-25 11:11 | Progress Note ---
Assessment and Plan Assessment and plan: The patient is a 72 yo man with a history of hypertension, DM, Copd, chf, pvd w/ chronic leg ulcers and gout who presented with fevers. patient is post up day # 2 from a right below-knee amputation. Is -Sepsis unableskin infection due to worsening PAD leg: abx, ID is following, following culture results. failed conservative therapy. Post Op right BKA, remains afibrile, anticipate discontinuation of abx today. and if fever free in am will discharge,. Per ID continue meropenem and vancomycin for 48h after BKA then monitor off antibiotics and f/u with [facility] ID provider - eventually, he needs revascularization of left foot. Flap evaluation by vascular. -PVD, acute on chronic worsening: vascular is following. -S/P left anterior tibial artery atherectomy with balloon angioplasty; and balloon angioplasty of the left dorsalis pedis on 03/01/2016. -Bilateral leg ischemia: Vascular is following, S/P Right BKA -COPD- Continue nebs -Diabetes mellitus- accucheck ac/hs- Initiated, Continue levimeir QHS, adjusted upwards for better control -Bilateral leg/foot/toes gangrene: RIGHT BKA, done successfully -Acute blood loss anemia-Expected outcome, s/p PRBC transfusion with good response. SLOWLY DRIFTING DOWN. WILL MONITOR -DVT prophylaxis: on sq Lovenox Plan discussed with patient in detail Discharge planning WHEN OK WITH VASCULAR History Interval history: Patient seen and examined in no acute distress. Post amputation, still with some pain, tolerated some PT TODAY Hospitalist Physical - Physical exam Narrative exam: VITAL SIGNS: Reviewed. GENERAL: The patient appeared chronically debilitated, Vital signs as documented. HEAD: No signs of head trauma. EYES: Pupils are equal. Extraocular motions intact. EARS: Hearing grossly intact. MOUTH: Oropharynx is normal. NECK: No adenopathy, no JVD. CHEST: Chest with clear breath sounds bilaterally. No wheezes, rales, or rhonchi. CARDIAC: Regular rate and rhythm. S1 and S2, without murmurs, gallops, or rubs. VASCULAR: Edema. Peripheral pulses normal and equal in all extremities. ABDOMEN: Soft, without detectable tenderness. No sign of distention. No rebound or guarding, and no masses palpated. Bowel Sounds normal. MUSCULOSKELETAL: Right BKA. left leg with dressing, positive edema, chronic changes noted NEUROLOGIC EXAM: Alert and oriented x 3. No focal sensory or strength deficits. Speech normal. Follows commands. PSYCHIATRIC: Mood normal. SKIN: Foul smelling drainage with necrotic 3rd toe ulcer on the left - Constitutional Vitals: Temp Pulse Resp BP Pulse Ox 98.9 F 76 18 145/56 95 02/25/17 08:00 02/25/17 09:23 02/25/17 08:00 02/25/17 09:23 02/25/17 08:00 General appearance: Present: no acute distress Results - Labs CBC & Chem 7: 02/25/17 08:05 02/24/17 05:13 Labs: Laboratory Last Values WBC 6.1 K/mm3 (4.5-11.0) 02/25/17 08:05 RBC 2.87 M/mm3 (3.65-5.03) L 02/25/17 08:05 Hgb 8.4 gm/dl (11.8-15.2) L 02/25/17 08:05 POC Hgb 8.2 (12-17) L 02/22/17 12:02 Hct 24.8 % (35.5-45.6) L 02/25/17 08:05 POC Hct 24 (38-51) L 02/22/17 12:02 MCV 86 fl (84-94) 02/25/17 08:05 MCH 29 pg (28-32) 02/25/17 08:05 MCHC 34 % (32-34) 02/25/17 08:05 RDW 16.3 % (13.2-15.2) H 02/25/17 08:05 Plt Count 297 K/mm3 (140-440) 02/25/17 08:05 Lymph % (Auto) 16.7 % (13.4-35.0) 02/15/17 05:42 [place] % (Auto) 7.8 % (0.0-7.3) H 02/15/17 05:42 Eos % (Auto) 7.2 % (0.0-4.3) H 02/15/17 05:42 Baso % (Auto) 0.5 % (0.0-1.8) 02/15/17 05:42 Lymph # 0.8 K/mm3 (1.2-5.4) L 02/15/17 05:42 [place] # 0.4 K/mm3 (0.0-0.8) 02/15/17 05:42 Eos # 0.3 K/mm3 (0.0-0.4) 02/15/17 05:42 Baso # 0.0 K/mm3 (0.0-0.1) 02/15/17 05:42 Seg Neutrophils % 67.8 % (40.0-70.0) 02/15/17 05:42 Seg Neutrophils # 3.2 K/mm3 (1.8-7.7) 02/15/17 05:42 ESR 85 mm/Hr (0-20) 02/14/17 01:33 PT 14.7 Sec. (12.2-14.9) 02/21/17 07:18 INR 1.09 (0.87-1.13) 02/21/17 07:18 APTT 32.9 Sec. (24.2-36.6) 02/21/17 07:18 VBG pH 7.318 (7.320-7.420) L 02/14/17 00:38 POC Sodium 138 mmol/L (138-146) 02/22/17 12:02 POC Potassium 4.2 (3.5-4.9) 02/22/17 12:02 POC Chloride 102 (98-109) 02/22/17 12:02 Sodium 137 mmol/L (137-145) 02/24/17 05:13 Potassium 3.8 mmol/L (3.6-5.0) 02/24/17 05:13 Chloride 98.7 mmol/L (98-107) 02/24/17 05:13 Carbon Dioxide 26 mmol/L (22-30) 02/24/17 05:13 Anion Gap 16 mmol/L 02/24/17 05:13 POC BUN 7 mg/dl (8-26) L 02/22/17 12:02 BUN 7 mg/dL (9-20) L 02/24/17 05:13 Creatinine 0.6 mg/dL (0.8-1.5) L 02/24/17 05:13 Estimated GFR > 60 ml/min 02/24/17 05:13 BUN/Creatinine Ratio 12 % 02/24/17 05:13 Glucose 168 mg/dL (75-100) H 02/24/17 05:13 POC Glucose 160 (70-105) H 02/25/17 07:59 Lactic Acid 1.70 mmol/L (0.7-2.0) 02/14/17 05:26 Calcium 8.2 mg/dL (8.4-10.2) L 02/24/17 05:13 Magnesium 1.70 mg/dL (1.7-2.3) 02/21/17 07:18 Total Bilirubin 0.40 mg/dL (0.1-1.2) 02/14/17 00:01 AST 13 units/L (5-40) 02/14/17 00:01 ALT 12 units/L (7-56) 02/14/17 00:01 Alkaline Phosphatase 89 units/L (35-129) 02/14/17 00:01 Total Creatine Kinase 26 units/L (55-170) L 02/14/17 00:38 C-Reactive Protein 3.50 mg/dL (0.00-1.30) H 02/14/17 00:38 Total Protein 7.0 g/dL (6.3-8.2) 02/14/17 00:01 Albumin 2.8 g/dL (3.9-5) L 02/14/17 00:01 Albumin/Globulin Ratio 0.7 % 02/14/17 00:01 Urine Color Yellow (Yellow) 02/13/17 Unknown Urine Turbidity Clear (Clear) 02/13/17 Unknown Urine pH 7.0 (5.0-7.0) 02/13/17 Unknown Ur Specific [place] 1.008 (1.003-1.030) 02/13/17 Unknown Urine Protein <15 mg/dl mg/dL (Negative) 02/13/17 Unknown Urine Glucose (UA) >=500 mg/dL (Negative) 02/13/17 Unknown Urine Ketones Neg mg/dL (Negative) 02/13/17 Unknown Urine Blood Sm (Negative) 02/13/17 Unknown Urine Nitrite Neg (Negative) 02/13/17 Unknown Urine Bilirubin Neg (Negative) 02/13/17 Unknown Urine Urobilinogen < 2.0 mg/dL (<2.0) 02/13/17 Unknown Ur Leukocyte Esterase Mod (Negative) 02/13/17 Unknown Urine WBC (Auto) 13.0 /HPF (0.0-6.0) H 02/13/17 Unknown Urine RBC (Auto) 1.0 /HPF (0.0-6.0) 02/13/17 Unknown U Epithel Cells (Auto) 1.0 /HPF (0-13.0) 02/13/17 Unknown Urine Mucus Few /HPF 02/13/17 Unknown Vancomycin Trough 24.7 ug/mL (5.0-20.0) H 02/21/17 14:53 Blood Type A POSITIVE 02/22/17 11:35 Antibody Screen TNR 02/22/17 11:35 OLIVA Antibody Screen Negative 02/22/17 11:35 Crossmatch See Detail 02/22/17 11:35
--- NOTE | 2017-02-25 12:01 | Progress Note ---
Assessment and Plan Status post right BKA. Despite poor skin condition is appears to be healing well. Plan: Continue stump protection with Ambo shield. Pain control. Left leg wound care Subjective Principal diagnosis: gangrene Interval history: Patient denies significant pain. Objective - Exam Narrative Exam: Right BKA incision is intact with minimal drainage. Both flaps are viable. Skin discoloration due to venous insufficiency. - Constitutional Vitals: Vital Signs - 12hr 02/25/17 02/25/17 02/25/17 00:10 08:00 09:22 Temperature 99.5 F 98.9 F Pulse Rate 85 76 76 Respiratory 20 18 Rate Blood Pressure 145/56 Blood Pressure 149/67 145/56 [Left] O2 Sat by Pulse 80 L 95 Oximetry 02/25/17 09:23 Temperature Pulse Rate 76 Respiratory Rate Blood Pressure 145/56 Blood Pressure [Left] O2 Sat by Pulse Oximetry - Labs CBC & Chem 7: 02/25/17 08:05 02/24/17 05:13 Labs: Abnormal lab results 02/24/17 02/24/17 02/24/17 Range/Units 12:54 16:30 22:04 RBC (3.65-5.03) M/mm3 Hgb (11.8-15.2) gm/dl Hct (35.5-45.6) % RDW (13.2-15.2) % POC Glucose 130 H 191 H 232 H (70-105) 02/25/17 02/25/17 Range/Units 07:59 08:05 RBC 2.87 L (3.65-5.03) M/mm3 Hgb 8.4 L (11.8-15.2) gm/dl Hct 24.8 L (35.5-45.6) % RDW 16.3 H (13.2-15.2) % POC Glucose 160 H (70-105)
[2017-02-25] MEDS: NACL 0.9% 1000 ML 1,000 ML IV SCH (14:39)
[2017-02-25] MEDS: DILAUDID IV PRN (15:50)
[2017-02-25] MEDS: NORCO 5/325 PO PRN (15:59)
[2017-02-25] MEDS: LEVEMIR SUB-Q SCH (22:57)
[2017-02-26] MEDS: NORCO 5/325 PO PRN ×2 (04:05→18:50)
[2017-02-26] MEDS: MERREM 1,000 MG in NACL 0.9% 100 ML IV SCH ×3 (06:00→22:00)
[2017-02-26] MEDS: NACL 0.9% 1000 ML 1,000 ML IV SCH (06:01)
[2017-02-26] MEDS: NOVOLOG SUB-Q SCH ×4 (08:18→22:19)
[2017-02-26] MEDS: LOVENOX SUB-Q SCH (09:25)
[2017-02-26] MEDS: LYRICA PO SCH ×2 (09:32)
[2017-02-26] MEDS: PEPCID PO SCH ×2 (09:32→22:18)
[2017-02-26] MEDS: NORVASC PO SCH (09:32)
[2017-02-26] MEDS: PLAVIX PO SCH (09:32)
[2017-02-26] MEDS: LOPRESSOR PO SCH ×2 (09:33→22:17)
[2017-02-26] MEDS: ZYLOPRIM PO SCH (09:33)
--- NOTE | 2017-02-26 12:14 | Progress Note ---
Assessment and Plan Assessment and plan: The patient is a 72 yo man with a history of hypertension, DM, Copd, chf, pvd w/ chronic leg ulcers and gout who presented with fevers. patient is post up day # 2 from a right below-knee amputation. Is -Sepsis unableskin infection due to worsening PAD leg: abx, ID is following, following culture results. failed conservative therapy. Post Op right BKA, remains afibrile, anticipate discontinuation of abx today. and if fever free in am will discharge,. Per ID continue meropenem and vancomycin for 48h after BKA then monitor off antibiotics and f/u with [facility] ID provider - eventually, he needs revascularization of left foot. Flap evaluation by vascular. -PVD, acute on chronic worsening: vascular is following. -S/P left anterior tibial artery atherectomy with balloon angioplasty; and balloon angioplasty of the left dorsalis pedis on 03/01/2016. -Bilateral leg ischemia: Vascular is following, S/P Right BKA -COPD- Continue nebs -Diabetes mellitus- accucheck ac/hs- Initiated, Continue levimeir QHS, adjusted upwards for better control -Bilateral leg/foot/toes gangrene: RIGHT BKA, done successfully -Acute blood loss anemia-Expected outcome, s/p PRBC transfusion with good response. SLOWLY DRIFTING DOWN. WILL MONITOR -DVT prophylaxis: on sq Lovenox Plan discussed with patient in detail Discharge planning WHEN OK WITH VASCULAR History Interval history: Patient seen and examined in no acute distress. Post amputation, Hospitalist Physical - Physical exam Narrative exam: VITAL SIGNS: Reviewed. GENERAL: The patient appeared chronically debilitated, Vital signs as documented. HEAD: No signs of head trauma. EYES: Pupils are equal. Extraocular motions intact. EARS: Hearing grossly intact. MOUTH: Oropharynx is normal. NECK: No adenopathy, no JVD. CHEST: Chest with clear breath sounds bilaterally. No wheezes, rales, or rhonchi. CARDIAC: Regular rate and rhythm. S1 and S2, without murmurs, gallops, or rubs. VASCULAR: Edema. Peripheral pulses normal and equal in all extremities. ABDOMEN: Soft, without detectable tenderness. No sign of distention. No rebound or guarding, and no masses palpated. Bowel Sounds normal. MUSCULOSKELETAL: Right BKA. left leg with dressing, positive edema, chronic changes noted NEUROLOGIC EXAM: Alert and oriented x 3. No focal sensory or strength deficits. Speech normal. Follows commands. PSYCHIATRIC: Mood normal. SKIN: necrotic 3rd toe ulcer on the left - Constitutional Vitals: Temp Pulse Resp BP Pulse Ox 98.3 F 68 20 140/60 94 02/26/17 08:00 02/26/17 09:33 02/26/17 08:00 02/26/17 09:33 02/26/17 08:00 General appearance: Present: no acute distress Results - Labs CBC & Chem 7: 02/25/17 08:05 02/24/17 05:13 Labs: Laboratory Last Values WBC 6.1 K/mm3 (4.5-11.0) 02/25/17 08:05 RBC 2.87 M/mm3 (3.65-5.03) L 02/25/17 08:05 Hgb 8.4 gm/dl (11.8-15.2) L 02/25/17 08:05 POC Hgb 8.2 (12-17) L 02/22/17 12:02 Hct 24.8 % (35.5-45.6) L 02/25/17 08:05 POC Hct 24 (38-51) L 02/22/17 12:02 MCV 86 fl (84-94) 02/25/17 08:05 MCH 29 pg (28-32) 02/25/17 08:05 MCHC 34 % (32-34) 02/25/17 08:05 RDW 16.3 % (13.2-15.2) H 02/25/17 08:05 Plt Count 297 K/mm3 (140-440) 02/25/17 08:05 Lymph % (Auto) 16.7 % (13.4-35.0) 02/15/17 05:42 [place] % (Auto) 7.8 % (0.0-7.3) H 02/15/17 05:42 Eos % (Auto) 7.2 % (0.0-4.3) H 02/15/17 05:42 Baso % (Auto) 0.5 % (0.0-1.8) 02/15/17 05:42 Lymph # 0.8 K/mm3 (1.2-5.4) L 02/15/17 05:42 [place] # 0.4 K/mm3 (0.0-0.8) 02/15/17 05:42 Eos # 0.3 K/mm3 (0.0-0.4) 02/15/17 05:42 Baso # 0.0 K/mm3 (0.0-0.1) 02/15/17 05:42 Seg Neutrophils % 67.8 % (40.0-70.0) 02/15/17 05:42 Seg Neutrophils # 3.2 K/mm3 (1.8-7.7) 02/15/17 05:42 ESR 85 mm/Hr (0-20) 02/14/17 01:33 PT 14.7 Sec. (12.2-14.9) 02/21/17 07:18 INR 1.09 (0.87-1.13) 02/21/17 07:18 APTT 32.9 Sec. (24.2-36.6) 02/21/17 07:18 VBG pH 7.318 (7.320-7.420) L 02/14/17 00:38 POC Sodium 138 mmol/L (138-146) 02/22/17 12:02 POC Potassium 4.2 (3.5-4.9) 02/22/17 12:02 POC Chloride 102 (98-109) 02/22/17 12:02 Sodium 137 mmol/L (137-145) 02/24/17 05:13 Potassium 3.8 mmol/L (3.6-5.0) 02/24/17 05:13 Chloride 98.7 mmol/L (98-107) 02/24/17 05:13 Carbon Dioxide 26 mmol/L (22-30) 02/24/17 05:13 Anion Gap 16 mmol/L 02/24/17 05:13 POC BUN 7 mg/dl (8-26) L 02/22/17 12:02 BUN 7 mg/dL (9-20) L 02/24/17 05:13 Creatinine 0.6 mg/dL (0.8-1.5) L 02/24/17 05:13 Estimated GFR > 60 ml/min 02/24/17 05:13 BUN/Creatinine Ratio 12 % 02/24/17 05:13 Glucose 168 mg/dL (75-100) H 02/24/17 05:13 POC Glucose 263 (70-105) H 02/26/17 11:39 Lactic Acid 1.70 mmol/L (0.7-2.0) 02/14/17 05:26 Calcium 8.2 mg/dL (8.4-10.2) L 02/24/17 05:13 Magnesium 1.70 mg/dL (1.7-2.3) 02/21/17 07:18 Total Bilirubin 0.40 mg/dL (0.1-1.2) 02/14/17 00:01 AST 13 units/L (5-40) 02/14/17 00:01 ALT 12 units/L (7-56) 02/14/17 00:01 Alkaline Phosphatase 89 units/L (35-129) 02/14/17 00:01 Total Creatine Kinase 26 units/L (55-170) L 02/14/17 00:38 C-Reactive Protein 3.50 mg/dL (0.00-1.30) H 02/14/17 00:38 Total Protein 7.0 g/dL (6.3-8.2) 02/14/17 00:01 Albumin 2.8 g/dL (3.9-5) L 02/14/17 00:01 Albumin/Globulin Ratio 0.7 % 02/14/17 00:01 Urine Color Yellow (Yellow) 02/13/17 Unknown Urine Turbidity Clear (Clear) 02/13/17 Unknown Urine pH 7.0 (5.0-7.0) 02/13/17 Unknown Ur Specific [place] 1.008 (1.003-1.030) 02/13/17 Unknown Urine Protein <15 mg/dl mg/dL (Negative) 02/13/17 Unknown Urine Glucose (UA) >=500 mg/dL (Negative) 02/13/17 Unknown Urine Ketones Neg mg/dL (Negative) 02/13/17 Unknown Urine Blood Sm (Negative) 02/13/17 Unknown Urine Nitrite Neg (Negative) 02/13/17 Unknown Urine Bilirubin Neg (Negative) 02/13/17 Unknown Urine Urobilinogen < 2.0 mg/dL (<2.0) 02/13/17 Unknown Ur Leukocyte Esterase Mod (Negative) 02/13/17 Unknown Urine WBC (Auto) 13.0 /HPF (0.0-6.0) H 02/13/17 Unknown Urine RBC (Auto) 1.0 /HPF (0.0-6.0) 02/13/17 Unknown U Epithel Cells (Auto) 1.0 /HPF (0-13.0) 02/13/17 Unknown Urine Mucus Few /HPF 02/13/17 Unknown Vancomycin Trough 24.7 ug/mL (5.0-20.0) H 02/21/17 14:53 Blood Type A POSITIVE 02/22/17 11:35 Antibody Screen TNR 02/22/17 11:35 OLIVA Antibody Screen Negative 02/22/17 11:35 Crossmatch See Detail 02/22/17 11:35
[2017-02-26] MEDS: LEVEMIR SUB-Q SCH (22:20)
[2017-02-27] MEDS: NORCO 5/325 PO PRN ×2 (05:06→09:10)
[2017-02-27] MEDS: MERREM 1,000 MG in NACL 0.9% 100 ML IV SCH (06:00)
[2017-02-27] MEDS: NOVOLOG SUB-Q SCH ×2 (08:49→12:22)
[2017-02-27] MEDS: NORVASC PO SCH (09:03)
[2017-02-27] MEDS: LYRICA PO SCH ×2 (09:04)
[2017-02-27] MEDS: LOVENOX SUB-Q SCH (09:04)
[2017-02-27] MEDS: ZYLOPRIM PO SCH (09:05)
[2017-02-27] MEDS: LOPRESSOR PO SCH (09:05)
[2017-02-27] MEDS: PEPCID PO SCH (09:05)
[2017-02-27] MEDS: PLAVIX PO SCH (09:06)
--- NOTE | 2017-02-27 09:40 | Discharge Summary ---
Providers - Providers Date of Admission: 02/14/17 01:58 Attending physician: EDGAR PLUNKETT MD 02/14/17 02:29 Consult to Physician [CONS] Urgent Consulting Provider: DEISY ACOSTA Reason For Exam: sepsis celulitis PAD Place consult to:: Dr. Flores Notified:: Answering Service Phone number called:: [phone] Was contact made?: Yes If yes, spoke with:: Dr. Flores Time called:: 02:31 Comment:: Dr. Menezes ( dr) spoke with Dr. Flores 02/14/17 12:47 Consult to Wound/ET Nurse [CONS] Routine Reason For Exam: wound eval 02/14/17 12:48 Consult to Physician [CONS] Routine Consulting Provider: MARISSA ADDISON Reason For Exam: SEPSIS Place consult to:: Jose Angel Notified:: fish 02/16/17 17:18 Consult to Physician [CONS] Routine Consulting Provider: PAM GRAY Reason For Exam: Amputation Place consult to:: Dr. Gray Notified:: Griselda RN Phone number called:: Was contact made?: Yes If yes, spoke with:: Eladia-Office Time called:: 09:40 02/22/17 Consult to Case Management [CONS] Routine Services Needed at Discharge: Other Notified:: case mngt Was contact made?: Yes Comment:: rehab eval Occupational Therapy Evaluate and Treat [CONS] Routine Comment: Reason For Exam: s/p amputation Physical Therapy Evaluation and Treat [CONS] Routine Comment: Reason For Exam: s/p amputation 02/22/17 12:33 Consult Acute Rehabilitation [CONS] Routine Consulting Provider: PRABHA SPEAR Reason For Exam: eval for acute rehab 02/24/17 12:46 Consult to Resource Program Teacher [CONS] Routine Reason For Exam: Critical Care Cns for [place] (Call Already Placed) Primary care physician: PLASTIC WORKER Hospitalization Condition: Fair Hospital course: Status post right BKA. Despite poor skin condition is appears to be healing well. Plan: Continue stump protection with Ambo shield. Pain control. Left leg wound care 1) Sepsis: resolved. 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 2) Bilateral foot / toe gangrene likely due to severe PVD -S/P OR right foot debridement at [facility] and recent IV antibiotics x 3 weeks and wound care -11/09/15 wound cx + ESBL E coli. -CRP=5.1 -S/P angiogram and revascularization of right tibial with good flow per vascular surgery -S/P right BKA 02/22 3) COPD 4) Diabetes 5) Heart failure 6) Hypertension 7) Severe PVD -S/P left anterior tibial artery atherectomy with balloon angioplasty; and balloon angioplasty of the left dorsalis pedis on 03/01/2016. 8) Venous insufficiency and chronic bilateral leg/foot ulcers; admitted on due to bilateral lower extremity wound with foul-smelling drainage. Plan: -continue meropenem and vancomycin for 48h after BKA then monitor off antibiotics and f/u with [facility] provider -eventually, he needs revascularization of left foot Disposition: DC/TX-03 SN[facility] CERT Exam - Constitutional Vitals: Temp Pulse Resp BP Pulse Ox 98.8 F 64 18 143/62 97 02/27/17 08:00 02/27/17 09:03 02/27/17 08:00 02/27/17 09:03 02/27/17 08:00 Plan Activity: advance as tolerated, fall precautions Diet: low fat, diabetic Wound: per your surgeon's advice Special Instructions: record daily BP diary, record blood sugar diary, smoking cessation, physical therapy, occupational therapy Additional Instructions: Continue stump protection with Ambo shield. f/u with [facility] provider Follow up with: VARUN SAUNDERS MD [Primary Care Provider] - 3-5 Days WESLEY HOOPER MD [Staff Physician] - 7 Days Prescriptions: HYDROcodone/APAP 5-325 [[place] 5-325 mg TAB] 1 each PO 4XD PRN #14 tablet PRN Reason: Pain
[2017-02-27 13:40] VITALS: BP 120/50
--- NOTE | 2017-02-27 14:37 | Event Note ---
Date: 02/27/17 Patient is sleeping, but awoke easily. He denies complain at present. His ampushield and bandages were removed. His right BKA incision is intact. There is no erythema or drainage appreciated. He has a large fluid-filled bulla on the distal stump. His knee is straight. His bandages and the ampushield were replaced. The patient is in preparation for discharge to rehabilitation later today. No objections from a vascular surgery standpoint. Patient is to follow up in our office in 2 weeks and should call for an appointment.
== END 2017-02-27 16:56 | DRG 853 ==
LOC: ED 23:00 → 4A 02-14 01:58 → CC2 02-24 15:35
PROVIDERS: ADMIT Internal Medicine; ATTEND Internal Medicine
PROC: 047P3ZZ Dilation of Right Anterior Tibial Artery, Percutaneous Approach (ICD-10-PCS; principal; 2017-02-17)
PROC: 04CP3ZZ Extirpation of Matter from Right Anterior Tibial Artery, Percutaneous Approach (ICD-10-PCS; 2017-02-17)
PROC: B4101ZZ Fluoroscopy of Abdominal Aorta using Low Osmolar Contrast (ICD-10-PCS; 2017-02-17)
PROC: B41G1ZZ Fluoroscopy of Left Lower Extremity Arteries using Low Osmolar Contrast (ICD-10-PCS; 2017-02-17)
PROC: B41F1ZZ Fluoroscopy of Right Lower Extremity Arteries using Low Osmolar Contrast (ICD-10-PCS; 2017-02-17)
PROC: B41J1ZZ Fluoroscopy of Other Lower Arteries using Low Osmolar Contrast (ICD-10-PCS; 2017-02-17)
PROC: 0Y6H0Z1 Detachment at Right Lower Leg, High, Open Approach (ICD-10-PCS; 2017-02-22)
PROC: 30233N1 Transfusion of Nonautologous Red Blood Cells into Peripheral Vein, Percutaneous Approach (ICD-10-PCS; 2017-02-22)
DX: A41.9 Sepsis, unspecified organism (principal); E43 Unspecified severe protein-calorie malnutrition; L97.929 Non-pressure chronic ulcer of unspecified part of left lower leg with unspecified severity; L97.919 Non-pressure chronic ulcer of unspecified part of right lower leg with unspecified severity; I50.32 Chronic diastolic (congestive) heart failure; I77.2 Rupture of artery; E11.52 Type 2 diabetes mellitus with diabetic peripheral angiopathy with gangrene; E87.1 Hypo-osmolality and hyponatremia; N17.9 Acute kidney failure, unspecified; D62 Acute posthemorrhagic anemia; I70.261 Atherosclerosis of native arteries of extremities with gangrene, right leg; J44.9 Chronic obstructive pulmonary disease, unspecified; I11.0 Hypertensive heart disease with heart failure; E11.621 Type 2 diabetes mellitus with foot ulcer; M10.9 Gout, unspecified; Z83.3 Family history of diabetes mellitus; Z68.31 Body mass index [BMI] 31.0-31.9, adult; Z88.2 Allergy status to sulfonamides; Z79.899 Other long term (current) drug therapy; Z82.49 Family history of ischemic heart disease and other diseases of the circulatory system
CPT/HCPCS: 36415; 37229; 71010; 75625; 75710; 80048; 80053; 80202; 81001; 82140; 82550; 82803; 82805; 82962; 83735; 85014; 85018; 85025; 85027; 85610; 85652; 85730; 86140; 86850; 86900; 86901; 86920; 87040; 87086; 88307; 88311; 93005; 93010; 93925; 94760; 96365; 96367; 96375; C1724; C1725; C1760; C1769; C1887; J0690; J0692; J1170; J1200; J1644; J1650; J1815; J1818; J2185; J2250; J2270; J2405; J2543; J2704; J3010; J3370; J7030; J7040; J7120; P9016; Q9967

== ENCOUNTER 2017-06-19 13:23 | Outpatient (CLI) | payer MEDICARE ==
[2017-06-19] MEDS ORDERED: XYLOCAINE TOPICAL 4% TP ONE ×3 (14:05→14:35)
[2017-06-19] MEDS ORDERED: DAKIN'S FULL STRENGTH ONE (15:23)
[2017-06-19] MEDS ORDERED: DAKIN'S FULL STRENGTH TP ONE (16:07)
[2017-06-19] MEDS ORDERED: DAKIN'S HALF STRENGTH TP SCH (22:00)
== END 2017-06-19 13:24 | disposition home or self-care (01) ==
LOC: WOUND 13:23
PROVIDERS: ATTEND Internal Medicine
DX: E11.621 Type 2 diabetes mellitus with foot ulcer (principal); L97.421 Non-pressure chronic ulcer of left heel and midfoot limited to breakdown of skin; I87.2 Venous insufficiency (chronic) (peripheral); K21.9 Gastro-esophageal reflux disease without esophagitis; I11.0 Hypertensive heart disease with heart failure; I50.9 Heart failure, unspecified; Z89.511 Acquired absence of right leg below knee; Z98.62 Peripheral vascular angioplasty status; Z87.891 Personal history of nicotine dependence
CPT/HCPCS: 99215; G0463

== ENCOUNTER 2017-06-19 16:13 | Inpatient (IN) | payer MEDICARE ==
[2017-06-19 18:32] LABS: Basophils % (Auto) 0.2 % (0.0-1.8); Eosinophils % (Auto) 0.2 % (0.0-4.3); Hematocrit 35.8 % (35.5-45.6); Hemoglobin 11.8 gm/dl (11.8-15.2); Lymphocytes # (Auto) 0.6 K/mm3 (1.2-5.4); Lymphocytes % (Auto) 7.9 % (13.4-35.0); Mean Corpuscular HGB Conc 33 % (32-34); Mean Corpuscular Hemoglobin 27 pg (28-32); Mean Corpuscular Volume 83 fl (84-94); Monocytes # (Auto) 0.5 K/mm3 (0.0-0.8); Monocytes % (Auto) 5.9 % (0.0-7.3); Platelet Count 309 K/mm3 (140-440); Red Blood Count 4.34 M/mm3 (3.65-5.03); Red Cell Distribution Width 19.9 % (13.2-15.2)
[2017-06-19 18:54] LABS: Alanine Aminotransferase 10 units/L (7-56); BUN/Creatinine Ratio 18; Blood Urea Nitrogen 16 mg/dL (9-20); Calcium 9.3 mg/dL (8.4-10.2); Hemolysis Index 17
[2017-06-19] MEDS: NOVOLOG SUB-Q SCH ×2 (18:54→23:36)
[2017-06-19] MEDS ORDERED: DULCOLAX PR PRN (19:26)
[2017-06-19] MEDS ORDERED: TYLENOL PO PRN ×2 (19:26→19:34)
[2017-06-19] MEDS ORDERED: D50W (25GM) Syringe IV PRN (19:26)
[2017-06-19] MEDS ORDERED: MILK OF MAGNESIA PO PRN (19:26)
[2017-06-19] MEDS ORDERED: COLACE PO PRN (19:34)
--- NOTE | 2017-06-19 19:52 | History and Physical Report ---
History of Present Illness Date of examination: 06/19/17 Date of admission: 06/19/17 17:19 Chief complaint: Chief complaint: Left foot infection worsening 3 months. History of present illness: History of present illness: 72-year-old -[place] male with history of insulin-dependent diabetes hypertension peripheral arterial disease and coronary artery disease peripheral neuropathy and gout sent in from the wound clinic for left foot gangrenous and also changes with copious amounts of pus draining. Outpatient wound care could not be taken care of. Patient needs extensive debridement and may be left below-knee amputation because of non- resolving ulcers on the left foot. Patient has 2 large ulcers one on the left heel and one on the left forefoot.No fever no chills.No shortness of breath.No chest pain or palpitations Past medical history: Hypertension Type 2 [id number] diabetes Peripheral neuropathy Gout peripheral arterial disease Coronary artery disease Past surgical history: Right below-knee amputation Family history Hypertension social history Smoker in the past stopped many years ago. Review of System: Constitutional: no fever, no chills, no weight loss Ears, eyes, nose, mouth and throat: no nasal congestion, no nasal discharge, no sinus pressure, no vision change, no red eye. Neck: No neck pain or rigidity. Cardiovascular: No chest pain, no orthopnea, no palpitations, no leg swelling Respiratory: No shortness of breath, no cough, no congestion, no wheezing Gastrointestinal: no abdominal pain, no nausea, no vomiting Genitourinary : no dysuria, no hematuria Musculoskeletal: no joint swelling or muscle ache Integumentary: left foot ulcers acute on chronic draining lots of pus. Duration 3 months. Neurological: parathesias, numbness, tingling Endocrine: no cold or heat intolerance, no polyuria or polydipsia Hematologic/Lymphatic: no easy bruising, no easy bleeding, no gland swelling Allergic/Immunologic: no urticaria, no angioedema. Medications and Allergies Allergies Allergy/AdvReac Type Severity Reaction Status Date / Time gabapentin Allergy Unknown Verified 02/13/17 23:32 sulfamethoxazole Allergy Dizziness Verified 02/13/17 23:36 [From Bactrim] tetracycline Allergy Unknown Verified 02/13/17 23:32 trimethoprim [From Bactrim] Allergy Dizziness Verified 02/13/17 23:36 Home Medications Medication Instructions Recorded Confirmed Last Taken Type Famotidine 20 mg PO BID 08/02/13 02/14/17 10/31/16 08:00 History Multivitamin [Multi-Vitamin Daily] 1 each PO QDAY 08/02/13 02/14/17 10/31/16 08: 00 History glipiZIDE [Glipizide] 5 mg PO BIDAC 08/02/13 02/14/17 10/31/16 08:00 History Clopidogrel [Plavix] 75 mg PO QDAY #30 tablet 11/05/16 02/14/17 Unknown Rx Pregabalin [Lyrica] 100 mg PO TID #90 capsule 11/05/16 02/14/17 Unknown Rx Acetaminophen [Acetaminophen TAB] 650 mg PO Q6HR PRN 02/14/17 02/14/17 Unknown History Allopurinol [Zyloprim] 100 mg PO QDAY 02/14/17 02/14/17 Unknown History Docusate Sodium [Colace CAP] 100 mg PO BID PRN 02/14/17 02/14/17 Unknown History Insulin Detemir [Levemir Flextouch] 10 unit SQ QHS 02/14/17 02/14/17 Unknown History Insulin Lispro [Humalog 100 5 units SQ AC 02/14/17 02/14/17 Unknown History UNITS/ML Kwikpen] Metoprolol [Lopressor TAB] 50 mg PO BID 02/14/17 02/14/17 Unknown History Vitamin B Complex 1 each PO QDAY 02/14/17 02/14/17 Unknown History amLODIPine [Norvasc] 10 mg PO DAILY 02/14/17 02/14/17 Unknown History HYDROcodone/APAP 5-325 [[place] 1 each PO 4XD PRN #14 tablet 02/27/17 Unknown Rx 5-325 mg TAB] Active Meds: Active Medications Acetaminophen (Tylenol) 650 mg PO Q4H PRN PRN Reason: Pain MILD(1-3)/Fever >100.5/ROE Acetaminophen (Tylenol) 650 mg PO Q6HR PRN PRN Reason: Pain Allopurinol (Zyloprim) 100 mg PO QDAY RACHAEL Amlodipine Besylate (Norvasc) 10 mg PO DAILY RACHAEL Bisacodyl (Dulcolax) 10 mg OR QDAY PRN PRN Reason: Constipation unrelieved by MOM Clopidogrel Bisulfate (Plavix) 75 mg PO QDAY RACHAEL Dextrose (D50w (25gm) Syringe) 50 ml IV PRN PRN PRN Reason: Hypoglycemia Docusate Sodium (Colace) 100 mg PO BID PRN PRN Reason: Pain Famotidine (Pepcid) 20 mg PO BID RACHAEL Heparin Sodium (Porcine) (Heparin) 5,000 unit SUB-Q Q12HR RACHAEL Hydromorphone HCl (Dilaudid) 1 mg IV Q3H PRN PRN Reason: Pain , Severe (7-10) Sodium Chloride (Nacl 0.9% 1000 Ml) 1,000 mls @ 75 mls/hr IV DIRECT RACHAEL Piperacillin Sod/Tazobactam Sod (Zosyn/Ns 3.375gm/50ml) 3.375 gm in 50 mls @ 100 mls/hr IV Q8HR RACHAEL PRN Reason: Protocol Insulin Aspart (Novolog) 0 units SUB-Q ACHS RACHAEL PRN Reason: Protocol Last Admin: 06/19/17 18:54 Dose: 8 units Magnesium Hydroxide (Milk Of Magnesia) 30 ml PO Q4H PRN PRN Reason: Constipation Metoprolol Tartrate (Lopressor) 50 mg PO BID RACHAEL Miscellaneous Medication (Insulin Detemir [Levemir Flextouch]) 30 unit SQ QHS RACHAEL Miscellaneous Medication (Insulin Lispro [Humalog 100 Units/Ml Kwikpen]) 8 units SQ AC RACHAEL Miscellaneous Medication (Pregabalin [Lyrica]) 100 mg PO TID RACHAEL Morphine Sulfate (Morphine) 4 mg IV Q4H PRN PRN Reason: Pain , Severe (7-10) Ondansetron HCl (Zofran) 4 mg IV Q4H PRN PRN Reason: N/V unrelieved by Reglan Oxycodone/Acetaminophen (Percocet 5/325) 1 tab PO Q6H PRN PRN Reason: Pain, Moderate (4-6) Vancomycin HCl (Vancomycin Pharmacy To Dose) 1 each IV PKCONSULT RACHAEL PRN Reason: Protocol Exam - Physical Exam Narrative exam: lying in bed comfortably - Constitutional Vitals: Temp Pulse Resp BP Pulse Ox 97.6 F 100 H 19 133/70 96 06/19/17 18:49 06/19/17 18:49 06/19/17 18:49 06/19/17 18:49 06/19/17 18:49 General appearance: Present: no acute distress, well-nourished - EENT Eyes: Present: PERRL ENT: hearing intact, clear oral mucosa - Neck Neck: Present: supple, normal ROM - Respiratory Respiratory effort: normal Respiratory: bilateral: CTA - Cardiovascular Heart rate: 80 Rhythm: regular Heart Sounds: Present: S1 & S2. Absent: rub, click - Extremities Extremities: pulses symmetrical, No edema, abnormal (left foot 2 large ulcers on the plantar area one in the front and one in the back 5 cm 5 cm is about 1 cm depth. Draining pus) Extremity abnormal: edema (left foot), other (Right below-knee amputation) Peripheral Pulses: abnormal (decreased pulses) - Abdominal General gastrointestinal: Present: soft, non-tender, non-distended, normal bowel sounds Male genitourinary: Present: normal - Rectal Rectal Exam: deferred - Integumentary Integumentary: Present: clear, warm, dry - Musculoskeletal Musculoskeletal: gait normal, strength equal bilaterally - Psychiatric Psychiatric: appropriate mood/affect, intact judgment & insight - Neurologic Neurologic: CNII-XII intact, moves all extremities Results - Labs CBC & Chem 7: 06/19/17 17:55 06/19/17 17:55 Labs: Laboratory Last Values WBC 8.0 K/mm3 (4.5-11.0) 06/19/17 17:55 RBC 4.34 M/mm3 (3.65-5.03) 06/19/17 17:55 Hgb 11.8 gm/dl (11.8-15.2) 06/19/17 17:55 Hct 35.8 % (35.5-45.6) 06/19/17 17:55 MCV 83 fl (84-94) L 06/19/17 17:55 MCH 27 pg (28-32) L 06/19/17 17:55 MCHC 33 % (32-34) 06/19/17 17:55 RDW 19.9 % (13.2-15.2) H 06/19/17 17:55 Plt Count 309 K/mm3 (140-440) 06/19/17 17:55 Lymph % (Auto) 7.9 % (13.4-35.0) L 06/19/17 17:55 [place] % (Auto) 5.9 % (0.0-7.3) 06/19/17 17:55 Eos % (Auto) 0.2 % (0.0-4.3) 06/19/17 17:55 Baso % (Auto) 0.2 % (0.0-1.8) 06/19/17 17:55 Lymph # 0.6 K/mm3 (1.2-5.4) L 06/19/17 17:55 [place] # 0.5 K/mm3 (0.0-0.8) 06/19/17 17:55 Eos # 0.0 K/mm3 (0.0-0.4) 06/19/17 17:55 Baso # 0.0 K/mm3 (0.0-0.1) 06/19/17 17:55 Seg Neutrophils % 85.8 % (40.0-70.0) H 06/19/17 17:55 Seg Neutrophils # 6.9 K/mm3 (1.8-7.7) 06/19/17 17:55 Sodium 134 mmol/L (137-145) L 06/19/17 17:55 Potassium 3.8 mmol/L (3.6-5.0) 06/19/17 17:55 Chloride 97.9 mmol/L (98-107) L 06/19/17 17:55 Carbon Dioxide 19 mmol/L (22-30) L 06/19/17 17:55 Anion Gap 21 mmol/L 06/19/17 17:55 BUN 16 mg/dL (9-20) 06/19/17 17:55 Creatinine 0.9 mg/dL (0.8-1.5) 06/19/17 17:55 Estimated GFR > 60 ml/min 06/19/17 17:55 BUN/Creatinine Ratio 18 % 06/19/17 17:55 Glucose 372 mg/dL (75-100) H 06/19/17 17:55 POC Glucose 353 (70-105) H 06/19/17 18:47 Calcium 9.3 mg/dL (8.4-10.2) 06/19/17 17:55 Total Bilirubin 0.40 mg/dL (0.1-1.2) 06/19/17 17:55 AST 16 units/L (5-40) 06/19/17 17:55 ALT 10 units/L (7-56) 06/19/17 17:55 Alkaline Phosphatase 94 units/L (35-129) 06/19/17 17:55 Total Protein 7.6 g/dL (6.3-8.2) 06/19/17 17:55 Albumin 3.0 g/dL (3.9-5) L 06/19/17 17:55 Albumin/Globulin Ratio 0.7 % 06/19/17 17:55 Short CBC 06/19/17 Range/Units 17:55 WBC 8.0 (4.5-11.0) K/mm3 Hgb 11.8 (11.8-15.2) gm/dl Hct 35.8 (35.5-45.6) % Plt Count 309 (140-440) K/mm3 BMP 06/19/17 17:55 Sodium 134 L Potassium 3.8 Chloride 97.9 L Carbon Dioxide 19 L BUN 16 Creatinine 0.9 Glucose 372 H Calcium 9.3 Liver Function 06/19/17 Range/Units 17:55 Total Bilirubin 0.40 (0.1-1.2) mg/dL AST 16 (5-40) units/L ALT 10 (7-56) units/L Alkaline Phosphatase 94 (35-129) units/L Albumin 3.0 L (3.9-5) g/dL - Imaging and Cardiology Imaging and Cardiology: left foot x-ray pending Assessment and Plan Advance Directives: Yes (full code) VTE prophylaxis?: Chemical Plan of care discussed with patient/family: Yes - Patient Problems (1) Foot ulcer, left Current Visit: Yes Status: Chronic Qualifiers: Non-pressure ulcer stage: with fat layer exposed Qualified Code(s): L97.522 - Non-pressure chronic ulcer of other part of left foot with fat layer exposed Plan to address problem: severe left heel ulcer and forefoot ulcer. 5 cm 5 cm with about 1 cm depth. Patient to be treated aggressively with wound care debridement and broad- spectrum antibiotics including IV Zosyn and vancomycin. Surgery consult requested. Also vascular surgery consult requested. patient may need left below-knee amputation. MRI of the foot ordered to rule out osteomyelitis. Also arterial duplex scan ordered (2) Insulin dependent diabetes mellitus Current Visit: Yes Status: Chronic Plan to address problem: uncontrolled. Levemir increased to from 10 units to 30 units daily at bedtime. Also Humalog increased to 8 units subcutaneous before each meal. Check hemoglobin A1c. To treat diabetes aggressively.Will stop the glipizide as the patient is on insulin. Does not need oral hypoglycemics (3) Hypertension Current Visit: Yes Status: Chronic Qualifiers: Hypertension type: essential hypertension Qualified Code(s): I10 - Essential (primary) hypertension Plan to address problem: continue amlodipine and metoprolol. (4) Peripheral neuropathy Current Visit: Yes Status: Chronic Qualifiers: Peripheral neuropathy type: polyneuropathy, unspecified Qualified Code(s): G62.9 - Polyneuropathy, unspecified Plan to address problem: Continue Lyrica (5) Peripheral arterial disease Current Visit: Yes Status: Chronic Plan to address problem: Suspected--- arterial duplex scan ordered (6) Hyponatremia Current Visit: No Status: Acute Plan to address problem: mild----should correct with IV fluids normal saline (7) Coronary artery disease Current Visit: Yes Status: Chronic Qualifiers: Coronary Disease-Associated Artery/Lesion type: elim ira artery [place] vs. transplanted heart: elim ira heart Plan to address problem: continue Plavix (8) Gout Current Visit: Yes Status: Inactive Qualifiers: Gout etiology: idiopathic Plan to address problem: continue allopurinol to prevent gout attacks (9) Gastroesophageal reflux disease Current Visit: Yes Status: Chronic Qualifiers: Esophagitis presence: without esophagitis Qualified Code(s): K21.9 - Gastro -esophageal reflux disease without esophagitis Plan to address problem: continue famotidine (10) Pain management Current Visit: Yes Status: Chronic Plan to address problem: patient initiated on Percocet and morphine when necessary.. Will reevaluate (11) DVT prophylaxis Current Visit: No Status: Acute Plan to address problem: heparin 5000 ubcutaneous every 12hours
[2017-06-19] MEDS ORDERED: NON-FORMULARY (Pregabalin [Lyrica] 100 MG) PO SCH (20:00)
[2017-06-19] MEDS ORDERED: VANCOMYCIN PHARMACY TO DOSE IV SCH (20:00)
[2017-06-19] MEDS: PLAVIX PO SCH (20:39)
[2017-06-19] MEDS: NORVASC PO SCH (20:40)
[2017-06-19] MEDS: ZYLOPRIM PO SCH (20:40)
[2017-06-19] MEDS: ZOFRAN IV PRN (20:42)
[2017-06-19] MEDS: PEPCID PO SCH ×2 (20:42→23:28)
[2017-06-19] MEDS: DILAUDID IV PRN (20:42)
[2017-06-19] MEDS: LOPRESSOR PO SCH ×2 (20:47→23:36)
[2017-06-19] MEDS: NACL 0.9% 1000 ML 1,000 ML IV SCH (20:48)
[2017-06-19] MEDS ORDERED: LEVEMIR SUB-Q SCH (22:00)
[2017-06-19] MEDS ORDERED: INSULIN DETEMIR 30 UNIT SQ SCH (22:00)
[2017-06-19] MEDS: ZOSYN/NS 3.375GM/50ML 3.375 GM/50 ML BAG IV SCH (23:27)
[2017-06-19] MEDS: HEPARIN SUB-Q SCH (23:29)
[2017-06-19] MEDS: LYRICA PO SCH ×2 (23:36)
[2017-06-20] MEDS: ZOSYN/NS 3.375GM/50ML 3.375 GM/50 ML BAG IV SCH ×3 (05:12→23:08)
[2017-06-20] MEDS: DILAUDID IV PRN (05:12)
[2017-06-20 07:12] LABS: Basophils % (Auto) 0.5 % (0.0-1.8); Eosinophils # (Auto) 0.1 K/mm3 (0.0-0.4); Eosinophils % (Auto) 2.2 % (0.0-4.3); Hemoglobin 10.1 gm/dl (11.8-15.2); Lymphocytes # (Auto) 0.8 K/mm3 (1.2-5.4); Lymphocytes % (Auto) 14.5 % (13.4-35.0); Mean Corpuscular HGB Conc 34 % (32-34); Mean Corpuscular Hemoglobin 28 pg (28-32); Mean Corpuscular Volume 81 fl (84-94); Monocytes # (Auto) 0.5 K/mm3 (0.0-0.8); Monocytes % (Auto) 8.4 % (0.0-7.3); Platelet Count 276 K/mm3 (140-440); Red Blood Count 3.66 M/mm3 (3.65-5.03)
[2017-06-20] MEDS ORDERED: INSULIN LISPRO 8 UNIT SQ SCH (07:30)
[2017-06-20 07:32] LABS: Red Cell Distribution Width 20.1 % (13.2-15.2)
[2017-06-20 07:35] LABS: Hematocrit 29.7 % (35.5-45.6)
[2017-06-20 07:40] LABS: Alanine Aminotransferase 9 units/L (7-56); Albumin 3.1 g/dL (3.9-5); BUN/Creatinine Ratio 25; Blood Urea Nitrogen 25 mg/dL (9-20); Calcium 8.5 mg/dL (8.4-10.2); Hemolysis Index 3
[2017-06-20] MEDS ORDERED: LYRICA PO SCH ×2 (08:00)
[2017-06-20] MEDS: NOVOLOG SUB-Q SCH ×7 (08:35→22:59)
[2017-06-20] MEDS: PLAVIX PO SCH (09:58)
[2017-06-20] MEDS: NORVASC PO SCH (09:58)
[2017-06-20] MEDS: LOPRESSOR PO SCH ×2 (09:59→22:58)
[2017-06-20] MEDS: LYRICA PO SCH ×6 (09:59→22:18)
[2017-06-20] MEDS: ZYLOPRIM PO SCH (09:59)
[2017-06-20] MEDS: PEPCID PO SCH ×2 (09:59→22:59)
[2017-06-20] MEDS: HEPARIN SUB-Q SCH ×2 (10:01→22:59)
[2017-06-20] MEDS: PERCOCET 5/325 PO PRN (13:56)
--- NOTE | 2017-06-20 16:23 | Event Note ---
Date: 06/20/17 Consulted for PVD. Pt known to our service from previous admissions. Went to eval the pt, but he was off the floor. Arterial duplex ordered, will see pt tomorrow.
[2017-06-20] MEDS: VANCOMYCIN 1,250 MG in NACL 0.9% 250ML 250 ML IV SCH (17:00)
--- NOTE | 2017-06-20 17:31 | Progress Note ---
Assessment and Plan Assessment and plan: --Diabetic foot ulcer left/gangrenous changes Continue IV antibiotics, wound care, Doppler studies, MRI of the foot, vascular consulted --Peripheral neuropathy; continue current management, --Type 2 diabetes mellitus; moderate control, Accu-Chek sliding scale coverage and ADA diet and insulin hemoglobin A1c 8.1 --Hypertension; moderate control, continue current antihypertensives and when necessary medications --Peripheral vascular disease; follow arterial studies, vascular following the patient --Mild Hyponatremia; probably pseudohyponatremia secondary to hyperglycemia, significant improvement --DVT prophylaxis; Lovenox Closely monitor the patient had just management as needed Plan of care discussed with the patient and his nurse Follow MRA, vascular studies, and vascular evaluation and recommendations History Interval history: Patient seen and evaluated medical records reviewed No new complaints, Vital signs reviewed Alert and awake and responds appropriately, not in acute distress Hospitalist Physical - Constitutional Vitals: Temp Pulse Resp BP Pulse Ox 98.5 F 78 18 99/52 91 06/20/17 07:43 06/20/17 07:43 06/20/17 10:00 06/20/17 07:43 06/20/17 07:43 General appearance: Present: no acute distress, well-nourished - EENT Eyes: Present: PERRL, EOM intact - Neck Neck: Present: supple, normal ROM - Respiratory Respiratory effort: normal Respiratory: bilateral: diminished, negative: rales, rhonchi, wheezing - Cardiovascular Rhythm: regular Heart Sounds: Present: S1 & S2 - Extremities Extremities: abnormal (right below-knee amputation, hyperpigmentation of the stump) Extremity abnormal: other (left foot/leg gangrene, dressing in place) - Abdominal General gastrointestinal: soft, non-tender, non-distended, normal bowel sounds - Integumentary Integumentary: Present: clear, warm - Psychiatric Psychiatric: appropriate mood/affect, cooperative - Neurologic Neurologic: CNII-XII intact, moves all extremities Results - Labs CBC & Chem 7: 06/20/17 06:54 06/20/17 06:54 Labs: Laboratory Last Values WBC 5.6 K/mm3 (4.5-11.0) 06/20/17 06:54 RBC 3.66 M/mm3 (3.65-5.03) 06/20/17 06:54 Hgb 10.1 gm/dl (11.8-15.2) L 06/20/17 06:54 Hct 29.7 % (35.5-45.6) L D 06/20/17 06:54 MCV 81 fl (84-94) L 06/20/17 06:54 MCH 28 pg (28-32) 06/20/17 06:54 MCHC 34 % (32-34) 06/20/17 06:54 RDW 20.1 % (13.2-15.2) H 06/20/17 06:54 Plt Count 276 K/mm3 (140-440) 06/20/17 06:54 Lymph % (Auto) 14.5 % (13.4-35.0) 06/20/17 06:54 [place] % (Auto) 8.4 % (0.0-7.3) H 06/20/17 06:54 Eos % (Auto) 2.2 % (0.0-4.3) 06/20/17 06:54 Baso % (Auto) 0.5 % (0.0-1.8) 06/20/17 06:54 Lymph # 0.8 K/mm3 (1.2-5.4) L 06/20/17 06:54 Pe[place] # 0.5 K/mm3 (0.0-0.8) 06/20/17 06:54 Eos # 0.1 K/mm3 (0.0-0.4) 06/20/17 06:54 Baso # 0.0 K/mm3 (0.0-0.1) 06/20/17 06:54 Seg Neutrophils % 74.4 % (40.0-70.0) H 06/20/17 06:54 Seg Neutrophils # 4.2 K/mm3 (1.8-7.7) 06/20/17 06:54 Sodium 139 mmol/L (137-145) 06/20/17 06:54 Potassium 4.0 mmol/L (3.6-5.0) 06/20/17 06:54 Chloride 103.9 mmol/L (98-107) 06/20/17 06:54 Carbon Dioxide 24 mmol/L (22-30) 06/20/17 06:54 Anion Gap 15 mmol/L 06/20/17 06:54 BUN 25 mg/dL (9-20) H 06/20/17 06:54 Creatinine 1.0 mg/dL (0.8-1.5) 06/20/17 06:54 Estimated GFR > 60 ml/min 06/20/17 06:54 BUN/Creatinine Ratio 25 % 06/20/17 06:54 Glucose 79 mg/dL (75-100) 06/20/17 06:54 POC Glucose 52 (70-105) L 06/20/17 11:13 Hemoglobin A1c 8.1 % (4-6) H 06/19/17 17:55 Calcium 8.5 mg/dL (8.4-10.2) 06/20/17 06:54 Total Bilirubin 0.50 mg/dL (0.1-1.2) 06/20/17 06:54 AST 13 units/L (5-40) 06/20/17 06:54 ALT 9 units/L (7-56) 06/20/17 06:54 Alkaline Phosphatase 78 units/L (35-129) 06/20/17 06:54 Total Protein 6.9 g/dL (6.3-8.2) 06/20/17 06:54 Albumin 3.1 g/dL (3.9-5) L 06/20/17 06:54 Albumin/Globulin Ratio 0.8 % 06/20/17 06:54
--- NOTE | 2017-06-20 19:24 | Magnetic Resonance Report ---
FINAL REPORT EXAM: MR MOYA NONJOINT LT WO CON HISTORY: left foot severe ulcer. Rule out osteomyelitis TECHNIQUE: Multiplanar MRI of the left foot. No contrast administered. PRIORS: Left foot radiographs, 13 February 2017. FINDINGS: Examination somewhat limited due to positioning. Abnormal bone marrow edema, including dark T1 and bright T2 signal intensity, noted in the distal half of 2nd metatarsal, distal 3rd of 3rd metatarsal, involving the 2nd and 3rd MTP joints and also proximal phalanges. The 2nd toe middle phalanx and 3rd toe middle and distal phalanges suboptimally visualized and cannot completely exclude involvement. Diffuse soft tissue edema and apparent defect or ulceration in the plantar soft tissues centered about the 2nd and 3rd toe MTP joints. Soft tissue edema also the plantar musculature along 2nd and 3rd metatarsals. No discrete or loculated fluid collection. Remainder of bone marrow signal intensity within normal limits. Mild-moderate hallux valgus and variable degenerative change scattered in the MTP and IP joints. No occult fracture or other osseous abnormality. Flexor and extensor tendons appear grossly intact. Lisfranc ligament and joint grossly intact. Mild soft tissue edema in the dorsal forefoot. IMPRESSION: 1. Findings compatible with nonspecific postinflammatory change, including osteomyelitis and cellulitis centered about the 2nd and 3rd MTP joints and involving 2nd and 3rd metatarsals proximal phalanges, as reported above. Additional inflammatory change in the 2nd toe middle phalanx and 3rd toe middle and distal phalanges cannot be completely excluded. Clinical correlation and followup suggested.
[2017-06-20] MEDS: LEVEMIR SUB-Q SCH (23:22)
[2017-06-21] MEDS: VANCOMYCIN 1,250 MG in NACL 0.9% 250ML 250 ML IV SCH ×2 (04:06→17:21)
[2017-06-21] MEDS: NACL 0.9% 1000 ML 1,000 ML IV SCH (05:13)
[2017-06-21] MEDS: DILAUDID IV PRN (05:13)
[2017-06-21] MEDS: ZOFRAN IV PRN (05:14)
[2017-06-21] MEDS: ZOSYN/NS 3.375GM/50ML 3.375 GM/50 ML BAG IV SCH ×3 (05:47→17:35)
[2017-06-21] MEDS: LYRICA PO SCH ×8 (08:00→21:00)
[2017-06-21] MEDS: NOVOLOG SUB-Q SCH ×7 (08:02→22:00)
--- NOTE | 2017-06-21 13:09 | Event Note ---
Date: 06/21/17 my consult note was dictated and i have requested id consult and await vascular studies and vascular follow up. i have also made referral to [facility] because i believe the patient will need prolonged care to save the limb called pardeep gutierrez [facility]
[2017-06-21] MEDS: MORPHINE IV PRN ×3 (13:27→22:31)
[2017-06-21] MEDS: PEPCID PO SCH ×2 (13:30→22:10)
[2017-06-21] MEDS: ZYLOPRIM PO SCH (13:30)
[2017-06-21] MEDS: LOPRESSOR PO SCH ×2 (13:31→22:11)
[2017-06-21] MEDS: PLAVIX PO SCH (13:31)
[2017-06-21] MEDS: NORVASC PO SCH (13:31)
[2017-06-21] MEDS: HEPARIN SUB-Q SCH ×2 (13:35→22:20)
--- NOTE | 2017-06-21 15:46 | Consultation ---
History of Present Illness - Reason for Consult Consult date: 06/21/17 Left leg gangrene Requesting physician: MIGUEL ANGEL NICHOLSON - History of Present Illness History of present illness: 72-year-old -Hungarian male with history of insulin-dependent diabetes hypertension peripheral arterial disease and coronary artery disease peripheral neuropathy and gout sent in from the wound clinic for left foot gangrenous and also changes with copious amounts of pus draining. Outpatient wound care could not be taken care of. Patient needs extensive debridement and may be left below-knee amputation because of non- resolving ulcers on the left foot. Patient has 2 large ulcers one on the left heel and one on the left forefoot.No fever no chills.No shortness of breath.No chest pain or palpitations Initial temperature was 97.6, HR 100, SPO2 96%, , B/P 133/70, Cr 1.0, WBC 5.6 Microbiology: Blood cultures: Urine cultures: Wound culture 06/20 gram negative rods, SA Current Antimicrobials: vancomycin 06/20 zosyn 06/21 Previous Antimicrobials: Medications and Allergies Allergies Allergy/AdvReac Type Severity Reaction Status Date / Time gabapentin Allergy Unknown Verified 02/13/17 23:32 sulfamethoxazole Allergy Dizziness Verified 02/13/17 23:36 [From Bactrim] tetracycline Allergy Unknown Verified 02/13/17 23:32 trimethoprim [From Bactrim] Allergy Dizziness Verified 02/13/17 23:36 Home Medications Medication Instructions Recorded Confirmed Last Taken Type Famotidine 20 mg PO BID 08/02/13 02/14/17 10/31/16 08:00 History Multivitamin [Multi-Vitamin Daily] 1 each PO QDAY 08/02/13 02/14/17 10/31/16 08: 00 History glipiZIDE [Glipizide] 5 mg PO BIDAC 08/02/13 02/14/17 10/31/16 08:00 History Clopidogrel [Plavix] 75 mg PO QDAY #30 tablet 11/05/16 02/14/17 Unknown Rx Pregabalin [Lyrica] 100 mg PO TID #90 capsule 11/05/16 02/14/17 Unknown Rx Acetaminophen [Acetaminophen TAB] 650 mg PO Q6HR PRN 02/14/17 02/14/17 Unknown History Allopurinol [Zyloprim] 100 mg PO QDAY 02/14/17 02/14/17 Unknown History Docusate Sodium [Colace CAP] 100 mg PO BID PRN 02/14/17 02/14/17 Unknown History Insulin Detemir [Levemir Flextouch] 10 unit SQ QHS 02/14/17 02/14/17 Unknown History Insulin Lispro [Humalog 100 5 units SQ AC 02/14/17 02/14/17 Unknown History UNITS/ML Kwikpen] Metoprolol [Lopressor TAB] 50 mg PO BID 02/14/17 02/14/17 Unknown History Vitamin B Complex 1 each PO QDAY 02/14/17 02/14/17 Unknown History amLODIPine [Norvasc] 10 mg PO DAILY 02/14/17 02/14/17 Unknown History HYDROcodone/APAP 5-325 [[place] 1 each PO 4XD PRN #14 tablet 02/27/17 Unknown Rx 5-325 mg TAB] Active Meds: Active Medications Acetaminophen (Tylenol) 650 mg PO Q4H PRN PRN Reason: Pain MILD(1-3)/Fever >100.5/ROE Allopurinol (Zyloprim) 100 mg PO QDAY [facility] Last Admin: 06/21/17 13:30 Dose: 100 mg Amlodipine Besylate (Norvasc) 10 mg PO DAILY [facility] Last Admin: 06/21/17 13:31 Dose: 10 mg Bisacodyl (Dulcolax) 10 mg [place] QDAY PRN PRN Reason: Constipation unrelieved by MOM Clopidogrel Bisulfate (Plavix) 75 mg PO QDAY [facility] Last Admin: 06/21/17 13:31 Dose: 75 mg Dextrose (D50w (25gm) Syringe) 50 ml IV PRN PRN PRN Reason: Hypoglycemia Docusate Sodium (Colace) 100 mg PO BID PRN PRN Reason: Pain Famotidine (Pepcid) 20 mg PO BID [facility] Last Admin: 06/21/17 13:30 Dose: 20 mg Heparin Sodium (Porcine) (Heparin) 5,000 unit SUB-Q Q12HR [facility] Last Admin: 06/21/17 13:35 Dose: 5,000 unit Hydromorphone HCl (Dilaudid) 1 mg IV Q3H PRN PRN Reason: Pain , Severe (7-10) Last Admin: 06/21/17 05:13 Dose: 1 mg Sodium Chloride (Nacl 0.9% 1000 Ml) 1,000 mls @ 75 mls/hr IV DIRECT [facility] Last Admin: 06/21/17 05:13 Dose: 75 mls/hr Piperacillin Sod/Tazobactam Sod (Zosyn/Ns 3.375gm/50ml) 3.375 gm in 50 mls @ 100 mls/hr IV Q6HR [facility] PRN Reason: Protocol Last Admin: 06/21/17 13:28 Dose: 100 mls/hr Vancomycin HCl 1,250 mg/ (Sodium Chloride) 262.5 mls @ 166.667 mls/hr IV Q12H [facility] Last Admin: 06/21/17 04:06 Dose: 166.667 mls/hr Insulin Aspart (Novolog) 0 units SUB-Q ACHS [facility] PRN Reason: Protocol Last Admin: 06/21/17 13:37 Dose: 2 units Insulin Aspart (Novolog) 8 units SUB-Q AC [facility] Last Admin: 06/21/17 08:03 Dose: Not Given Insulin Detemir (Levemir) 10 units SUB-Q QHS [facility] Last Admin: 06/20/17 23:22 Dose: 10 units Magnesium Hydroxide (Milk Of Magnesia) 30 ml PO Q4H PRN PRN Reason: Constipation Metoprolol Tartrate (Lopressor) 50 mg PO BID [facility] Last Admin: 06/21/17 13:31 Dose: 50 mg Morphine Sulfate (Morphine) 4 mg IV Q4H PRN PRN Reason: Pain , Severe (7-10) Last Admin: 06/21/17 13:27 Dose: 4 mg Ondansetron HCl (Zofran) 4 mg IV Q4H PRN PRN Reason: N/V unrelieved by Reglan Last Admin: 06/21/17 05:14 Dose: 4 mg Oxycodone/Acetaminophen (Percocet 5/325) 1 tab PO Q6H PRN PRN Reason: Pain, Moderate (4-6) Last Admin: 06/20/17 13:56 Dose: 1 tab Pregabalin (Lyrica) 75 mg PO TID [facility] Last Admin: 06/21/17 08:29 Dose: 75 mg Pregabalin (Lyrica) 25 mg PO TID [facility] Last Admin: 06/21/17 14:24 Dose: 25 mg Vancomycin HCl (Vancomycin Pharmacy To Dose) 1 each IV PKCONSULT RACHAEL PRN Reason: Protocol Review of Systems All systems: negative Physical Examination - Physical Exam Narrative exam: General appearance: Alert in NAD Eyes: anicteric sclerae, moist conjunctivae; no lid-lag; PERRLA HENT: Atraumatic; oropharynx clear Neck: Trachea midline; supple, no thyromegaly or lymphadenopathy Lungs: CTAB CV: RRR, no murmurs Abdomen: Soft, non-tender; no masses or hepatosplenomegaly Extremities: left foot ulcer with pus, Right BKA Skin: Normal temperature, turgor and texture Psych: calm and cooperative Neuro: alert, non-verbal. Moving all extermities Lines: No CVL / PICC - Constitutional Vitals: Vital Signs Temp Pulse Resp BP Pulse Ox 97.8 F 89 20 122/55 98 06/21/17 15:07 06/21/17 15:07 06/21/17 15:07 06/21/17 15:07 06/21/17 15:07 Temperature -Last 24 Hours Temperature 97.8 F Temperature 98.8 F Temperature 99.3 F Temperature 97.6 F Results - Labs CBC & Chem 7: 06/20/17 06:54 06/20/17 06:54 Labs: Abnormal lab results 06/20/17 06/20/17 06/21/17 Range/Units 17:56 22:38 06:20 POC Glucose 133 H 160 H 130 H (70-105) 06/21/17 Range/Units 11:28 POC Glucose 158 H (70-105) Assessment and Plan Assessment: 1) Diabetic foot ulcer : left foot gangrene -CAROTID DUPLEX showed <50% STENOSIS BILATERALLY BY DOPPLER VELOCITIES.ANTEGRADE VERTEBRAL ARTERY FLOW BILATERALLY. 2) Peripheral vascular disease 3)HTN 4)Hyponatermia 5)Allergy to tetracycline, timethoprim, sufamethoxazole Plan: -continue zosyn and vanco for now -obtain CRP -wound care following -f/u on MRI Thank you Dr. Nicholson for your consult, will follow up MANPREET Hassan for Dr. Pratibha Hooper MD Infectious Diseases Specialist [facility], [place], [facility] ([facility] M [phone] O [phone]
--- NOTE | 2017-06-21 16:55 | Progress Note ---
Assessment and Plan Assessment and plan: --Diabetic foot ulcer left/left foot gangrene/possible osteomyelitis Continue IV antibiotics vancomycin Zosyn, wound care, Doppler studies, MRI of the foot reviewed, vascular consulted, ID evaluation noted and appreciated --Peripheral neuropathy; continue gabapentin --Type 2 diabetes mellitus; moderate control, Accu-Chek sliding scale coverage and ADA diet and insulin hemoglobin A1c 8.1 --Hypertension; moderate control, continue current antihypertensives and when necessary medications --Peripheral vascular disease; follow arterial studies, vascular following the patient --Mild Hyponatremia; probably pseudohyponatremia secondary to hyperglycemia, improved --DVT prophylaxis; Lovenox Closely monitor the patient had just management as needed Plan of care discussed with the patient and his nurse Follow MRA, vascular studies, and vascular evaluation and recommendations History Interval history: Patient Seen and evaluated medical records reviewed No new events reported by nursing staff Underwent MRI of the leg Findings consistent with postinflammatory change including osteomyelitis and cellulitis around second third metatarsophalangeal joints as well as proximal phalanx. Patient has no new complaints Vital signs reviewed Hospitalist Physical - Constitutional Vitals: Temp Pulse Resp BP Pulse Ox 97.8 F 89 20 122/55 98 06/21/17 15:07 06/21/17 15:07 06/21/17 15:07 06/21/17 15:07 06/21/17 15:07 General appearance: Present: no acute distress, well-nourished - EENT Eyes: Present: PERRL, EOM intact - Neck Neck: Present: supple, normal ROM - Respiratory Respiratory effort: normal Respiratory: bilateral: diminished, negative: rales, rhonchi, wheezing - Cardiovascular Rhythm: regular Heart Sounds: Present: S1 & S2 - Extremities Extremities: abnormal (status post right BKA) Extremity abnormal: other (left lower extremity, gangrene foot) - Abdominal General gastrointestinal: soft, non-tender, non-distended, normal bowel sounds - Integumentary Integumentary: Present: clear, warm - Psychiatric Psychiatric: appropriate mood/affect, cooperative - Neurologic Neurologic: CNII-XII intact, moves all extremities Results - Labs CBC & Chem 7: 06/20/17 06:54 06/20/17 06:54 Labs: Laboratory Last Values WBC 5.6 K/mm3 (4.5-11.0) 06/20/17 06:54 RBC 3.66 M/mm3 (3.65-5.03) 06/20/17 06:54 Hgb 10.1 gm/dl (11.8-15.2) L 06/20/17 06:54 Hct 29.7 % (35.5-45.6) L D 06/20/17 06:54 MCV 81 fl (84-94) L 06/20/17 06:54 MCH 28 pg (28-32) 06/20/17 06:54 MCHC 34 % (32-34) 06/20/17 06:54 RDW 20.1 % (13.2-15.2) H 06/20/17 06:54 Plt Count 276 K/mm3 (140-440) 06/20/17 06:54 Lymph % (Auto) 14.5 % (13.4-35.0) 06/20/17 06:54 [place] % (Auto) 8.4 % (0.0-7.3) H 06/20/17 06:54 Eos % (Auto) 2.2 % (0.0-4.3) 06/20/17 06:54 Baso % (Auto) 0.5 % (0.0-1.8) 06/20/17 06:54 Lymph # 0.8 K/mm3 (1.2-5.4) L 06/20/17 06:54 [place] # 0.5 K/mm3 (0.0-0.8) 06/20/17 06:54 Eos # 0.1 K/mm3 (0.0-0.4) 06/20/17 06:54 Baso # 0.0 K/mm3 (0.0-0.1) 06/20/17 06:54 Seg Neutrophils % 74.4 % (40.0-70.0) H 06/20/17 06:54 Seg Neutrophils # 4.2 K/mm3 (1.8-7.7) 06/20/17 06:54 Sodium 139 mmol/L (137-145) 06/20/17 06:54 Potassium 4.0 mmol/L (3.6-5.0) 06/20/17 06:54 Chloride 103.9 mmol/L (98-107) 06/20/17 06:54 Carbon Dioxide 24 mmol/L (22-30) 06/20/17 06:54 Anion Gap 15 mmol/L 06/20/17 06:54 BUN 25 mg/dL (9-20) H 06/20/17 06:54 Creatinine 1.0 mg/dL (0.8-1.5) 06/20/17 06:54 Estimated GFR > 60 ml/min 06/20/17 06:54 BUN/Creatinine Ratio 25 % 06/20/17 06:54 Glucose 79 mg/dL (75-100) 06/20/17 06:54 POC Glucose 158 (70-105) H 06/21/17 11:28 Hemoglobin A1c 8.1 % (4-6) H 06/19/17 17:55 Calcium 8.5 mg/dL (8.4-10.2) 06/20/17 06:54 Total Bilirubin 0.50 mg/dL (0.1-1.2) 06/20/17 06:54 AST 13 units/L (5-40) 06/20/17 06:54 ALT 9 units/L (7-56) 06/20/17 06:54 Alkaline Phosphatase 78 units/L (35-129) 06/20/17 06:54 Total Protein 6.9 g/dL (6.3-8.2) 06/20/17 06:54 Albumin 3.1 g/dL (3.9-5) L 06/20/17 06:54 Albumin/Globulin Ratio 0.8 % 06/20/17 06:54
--- NOTE | 2017-06-21 17:12 | Consultation ---
History of Present Illness - Reason for Consult Consult date: 06/21/17 Requesting physician: SAIRA HERNANDEZ - History of Present Illness This patient is a 72-year-old male that was admitted on 2017 due to a left lower extremity wound infection. The patient has chronic wounds which are followed at the outpatient wound care clinic at [facility]. He apparently presented to the clinic draining copious amounts of purulence from his left lower extremity wounds. He was sent to the hospital for direct admission, and to begin antibiotics. The patient is known to our service from previous admissions. He had similar wounds to his right lower extremity. He is undergone multiple endovascular procedures to improve the blood flow to his lower extremities. He ultimately required a right [id number]-[id number] amputation. A vascular surgery consult has been requested to further evaluate. The patient complains of severe right hip pain. He reports this started following an incident where he slipped from his chair to the floor. He subsequently developed a "muscle spasm" which has continued to give him discomfort. He denies discomfort to his right below the knee amputation site. He also denies pain involving his left lower extremity. 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 Higthower, cataract removal, debridement of the right lower extremity Previous debridement of his right lower extremity by technical aide, some sort of arterial intervention by an interventional radiologist at [facility]) Social history: . denies: smoking, alcohol abuse Family history: diabetes, hypertension Medications and Allergies Allergies Allergy/AdvReac Type Severity Reaction Status Date / Time gabapentin Allergy Unknown Verified 02/13/17 23:32 sulfamethoxazole Allergy Dizziness Verified 02/13/17 23:36 [From Bactrim] tetracycline Allergy Unknown Verified 02/13/17 23:32 trimethoprim [From Bactrim] Allergy Dizziness Verified 02/13/17 23:36 Home Medications Medication Instructions Recorded Confirmed Last Taken Type Famotidine 20 mg PO BID 08/02/13 02/14/17 10/31/16 08:00 History Multivitamin [Multi-Vitamin Daily] 1 each PO QDAY 08/02/13 02/14/17 10/31/16 08: 00 History glipiZIDE [Glipizide] 5 mg PO BIDAC 08/02/13 02/14/17 10/31/16 08:00 History Clopidogrel [Plavix] 75 mg PO QDAY #30 tablet 11/05/16 02/14/17 Unknown Rx Pregabalin [Lyrica] 100 mg PO TID #90 capsule 11/05/16 02/14/17 Unknown Rx Acetaminophen [Acetaminophen TAB] 650 mg PO Q6HR PRN 02/14/17 02/14/17 Unknown History Allopurinol [Zyloprim] 100 mg PO QDAY 02/14/17 02/14/17 Unknown History Docusate Sodium [Colace CAP] 100 mg PO BID PRN 02/14/17 02/14/17 Unknown History Insulin Detemir [Levemir Flextouch] 10 unit SQ QHS 02/14/17 02/14/17 Unknown History Insulin Lispro [Humalog 100 5 units SQ AC 02/14/17 02/14/17 Unknown History UNITS/ML Kwikpen] Metoprolol [Lopressor TAB] 50 mg PO BID 02/14/17 02/14/17 Unknown History Vitamin B Complex 1 each PO QDAY 02/14/17 02/14/17 Unknown History amLODIPine [Norvasc] 10 mg PO DAILY 02/14/17 02/14/17 Unknown History HYDROcodone/APAP 5-325 [[place] 1 each PO 4XD PRN #14 tablet 02/27/17 Unknown Rx 5-325 mg TAB] Active Meds: Active Medications Acetaminophen (Tylenol) 650 mg PO Q4H PRN PRN Reason: Pain MILD(1-3)/Fever >100.5/ROE Allopurinol (Zyloprim) 100 mg PO QDAY [facility] Last Admin: 06/21/17 13:30 Dose: 100 mg Amlodipine Besylate (Norvasc) 10 mg PO DAILY [facility] Last Admin: 06/21/17 13:31 Dose: 10 mg Bisacodyl (Dulcolax) 10 mg MI QDAY PRN PRN Reason: Constipation unrelieved by MOM Clopidogrel Bisulfate (Plavix) 75 mg PO QDAY [facility] Last Admin: 06/21/17 13:31 Dose: 75 mg Dextrose (D50w (25gm) Syringe) 50 ml IV PRN PRN PRN Reason: Hypoglycemia Docusate Sodium (Colace) 100 mg PO BID PRN PRN Reason: Pain Famotidine (Pepcid) 20 mg PO BID [facility] Last Admin: 06/21/17 13:30 Dose: 20 mg Heparin Sodium (Porcine) (Heparin) 5,000 unit SUB-Q Q12HR [facility] Last Admin: 06/21/17 13:35 Dose: 5,000 unit Hydromorphone HCl (Dilaudid) 1 mg IV Q3H PRN PRN Reason: Pain , Severe (7-10) Last Admin: 06/21/17 05:13 Dose: 1 mg Sodium Chloride (Nacl 0.9% 1000 Ml) 1,000 mls @ 75 mls/hr IV DIRECT [facility] Last Admin: 06/21/17 05:13 Dose: 75 mls/hr Piperacillin Sod/Tazobactam Sod (Zosyn/Ns 3.375gm/50ml) 3.375 gm in 50 mls @ 100 mls/hr IV Q6HR [facility] PRN Reason: Protocol Last Admin: 06/21/17 13:28 Dose: 100 mls/hr Vancomycin HCl 1,250 mg/ (Sodium Chloride) 262.5 mls @ 166.667 mls/hr IV Q12H [facility] Last Admin: 06/21/17 04:06 Dose: 166.667 mls/hr Insulin Aspart (Novolog) 0 units SUB-Q ACHS [facility] PRN Reason: Protocol Last Admin: 06/21/17 13:37 Dose: 2 units Insulin Aspart (Novolog) 8 units SUB-Q AC [facility] Last Admin: 06/21/17 08:03 Dose: Not Given Insulin Detemir (Levemir) 10 units SUB-Q QHS [facility] Last Admin: 06/20/17 23:22 Dose: 10 units Magnesium Hydroxide (Milk Of Magnesia) 30 ml PO Q4H PRN PRN Reason: Constipation Metoprolol Tartrate (Lopressor) 50 mg PO BID [facility] Last Admin: 06/21/17 13:31 Dose: 50 mg Morphine Sulfate (Morphine) 4 mg IV Q4H PRN PRN Reason: Pain , Severe (7-10) Last Admin: 06/21/17 13:27 Dose: 4 mg Ondansetron HCl (Zofran) 4 mg IV Q4H PRN PRN Reason: N/V unrelieved by Reglan Last Admin: 06/21/17 05:14 Dose: 4 mg Oxycodone/Acetaminophen (Percocet 5/325) 1 tab PO Q6H PRN PRN Reason: Pain, Moderate (4-6) Last Admin: 06/20/17 13:56 Dose: 1 tab Pregabalin (Lyrica) 75 mg PO TID [facility] Last Admin: 06/21/17 08:29 Dose: 75 mg Pregabalin (Lyrica) 25 mg PO TID [facility] Last Admin: 06/21/17 14:24 Dose: 25 mg Vancomycin HCl (Vancomycin Pharmacy To Dose) 1 each IV PKCONSULT RACHAEL PRN Reason: Protocol Review of Systems All systems: negative Exam - Constitutional Vitals: Temp Pulse Resp BP Pulse Ox 97.8 F 89 20 122/55 98 06/21/17 15:07 06/21/17 15:07 06/21/17 15:07 06/21/17 15:07 06/21/17 15:07 General appearance: Present: no acute distress - EENT Eyes: Present: EOM intact ENT: hearing intact - Neck Neck: Present: supple - Respiratory Respiratory effort: normal - Extremities Extremities: abnormal (patient has a right [id number] amputation, incision is healed well and is having one small downsize ulceration in the lateral aspect of the incision there is no erythema or drainage appreciated, the distal stump has dried skin, his left lower extremity shows chronic venous skin color changes with hemosiderin deposits thickened skin with scars from previous healed ulcerations his multiple active ulcerations over the anterior distal tibial section as well as over the Achilles and posterior heel as well as the lateral malleolus there is a large ulceration on the volar aspect of his foot over the metatarsal head, his third toe appears to have eroded away (please see pictures)) Extremity abnormal: pulses diminished - Psychiatric Psychiatric: appropriate mood/affect, cooperative - Neurologic Neurologic: no focal deficits Results - Labs CBC & Chem 7: 06/20/17 06:54 06/20/17 06:54 Labs: Abnormal lab results 06/20/17 06/20/17 06/21/17 Range/Units 17:56 22:38 06:20 POC Glucose 133 H 160 H 130 H (70-105) 06/21/17 06/21/17 Range/Units 11:28 16:57 POC Glucose 158 H 178 H (70-105) Assessment and Plan This patient presents with chronic wounds to his left lower extremity. He has known peripheral arterial disease, and status post previous revascularization attempts to both lower extremity. He ultimately required a [id number] amputation to his right lower extremity. A vascular surgery consult has been requested to evaluate. I discussed the situation with the patient. He has chronic wounds that have failed to heal thus far. They certainly place him at an increased risk of infection (that could be life threatening). I have concerns that his wounds are unlikely heal. We discussed amputation. He stated understanding, but states he does not wish to proceed with an amputation of his left lower extremity at this point. Therefore, recommend continued local wound care and antibiotics (as managed by the infectious disease service). We will check a lower extremity arterial duplex to evaluate his ability to heal distal wounds. Further recommendations based upon these findings. Pt's primary complaint is pain of his right hip. Recommend Ortho consult to evaluate for possible musculoskeletal etiology. - Patient Problems (1) Atherosclerosis of [place] arteries of the extremities with ulceration Current Visit: No Status: Acute (2) Venous stasis ulcers Current Visit: No Status: Chronic (3) Right hip pain Current Visit: Yes Status: Acute (4) Diabetes mellitus, type II Current Visit: No Status: Chronic (5) Hypertension Current Visit: No Status: Chronic (6) Congestive heart failure Current Visit: No Status: Chronic Qualifiers: Congestive heart failure type: systolic
[2017-06-21] MEDS: LEVEMIR SUB-Q SCH (22:13)
[2017-06-22] MEDS: ZOSYN/NS 3.375GM/50ML 3.375 GM/50 ML BAG IV SCH ×2 (01:00→06:11)
--- NOTE | 2017-06-22 01:56 | Consultation ---
TIME SEEN: 1200 noon. CHIEF COMPLAINT: Foot ulcer. HISTORY OF PRESENT ILLNESS: The patient has an extended history with me. He was seen by me for venous stasis, which he has had for greater than a decade, multiple ulcers, went through several procedures including hyperbaric therapy, multiple referrals, etc., ultimately developed a severe worsening decompensation of his leg ulcers and developed bilateral diabetic foot ulcers, eventually had to have amputation of his right leg, and I had not seen the patient for quite some time. He showed up in clinic with a weeping ulcer of his left foot with an auto amputation of a toe with venous ulcers that actually were slightly improved, but he obviously had an infection going on, cellulitis, osteomyelitis with possible vascular compromise, so I direct admitted him to the hospitalist. REVIEW OF SYSTEMS: No ENT, no chest pain, no shortness of breath, no GI or complaints. PAST MEDICAL HISTORY: Obviously, hypertension, diabetes, peripheral vascular disease, neuropathy, gout, coronary artery disease. PAST SURGICAL HISTORY: Right below knee amputation. FAMILY HISTORY: Hypertension. SOCIAL HISTORY: Negative. MEDICATIONS: Include Pepcid, multivitamin, glipizide, Plavix, Lyrica, Tylenol, allopurinol, Colace, detemir, lispro, metoprolol, vitamin B, Norvasc, hydrocodone. PHYSICAL EXAMINATION: VITAL SIGNS: Stable. HEENT: Head normocephalic, atraumatic. HEART: S1, S2. LUNGS: Good air entry. ABDOMEN: Nontender, soft, nondistended. Bowel sounds present. EXTREMITIES: Right leg amputation. Left foot large ulcer with slough, exudate, progressive chronic inflammation, erythema, edema, pus drainage. LABORATORY DATA AND IMAGING: CBC: Hemoglobin and hematocrit 11 and 35, white count 8, platelets 309. BMP was essentially normal. Creatinine 1.0. IMAGING: Arterial Dopplers report is actually pending. MRI shows osteomyelitis, cellulitis as I suspected of the left foot with degeneration of multiple phalanxes and tarsals. ASSESSMENT AND PLAN: 1. Diabetes. Accu-Cheks, sliding scale insulin. 2. Hypertension. 3. Peripheral vascular disease. 4. Neuropathy, all to be managed by the hospitalist. 5. Diabetic foot ulcer, venous stasis. Complete antibiotics, wound care consult. LTAC referral. Vascular consult. May need a partial amputation for removal of the infected bones, aggressive wound care and offloading. JOB# [id number] SENAIT/CRISTY
[2017-06-22] MEDS: VANCOMYCIN 1,250 MG in NACL 0.9% 250ML 250 ML IV SCH ×4 (03:30→23:03)
[2017-06-22] MEDS: NACL 0.9% 1000 ML 1,000 ML IV SCH (04:02)
--- NOTE | 2017-06-22 07:05 | Progress Note ---
Assessment and Plan - Patient Problems (1) Right hip pain Current Visit: Yes Status: Acute (2) Coronary artery disease Current Visit: No Status: Chronic Qualifiers: Coronary Disease-Associated Artery/Lesion type: pala artery [place] vs. transplanted heart: pala heart (3) Foot ulcer, left Current Visit: Yes Status: Chronic Qualifiers: Non-pressure ulcer stage: with fat layer exposed Qualified Code(s): L97.522 - Non-pressure chronic ulcer of other part of left foot with fat layer exposed Plan to address problem: continue antibiotics and await vascular input and treatment and review of studies will need debridement and wound vac and likely move to ltac if possible and appreciate id input (4) Gastroesophageal reflux disease Current Visit: No Status: Chronic Qualifiers: Esophagitis presence: without esophagitis Qualified Code(s): K21.9 - Gastro -esophageal reflux disease without esophagitis (5) Hypertension Current Visit: No Status: Chronic Qualifiers: Hypertension type: essential hypertension Qualified Code(s): I10 - Essential (primary) hypertension (6) Insulin dependent diabetes mellitus Current Visit: No Status: Chronic (7) Peripheral arterial disease Current Visit: Yes Status: Chronic Plan to address problem: continue anticoagulation (8) Peripheral neuropathy Current Visit: No Status: Chronic Qualifiers: Peripheral neuropathy type: polyneuropathy, unspecified Qualified Code(s): G62.9 - Polyneuropathy, unspecified (9) Gout Current Visit: No Status: Inactive Qualifiers: Gout etiology: idiopathic (10) Atherosclerosis of [place] arteries of the extremities with ulceration Current Visit: No Status: Acute (11) Diabetes mellitus Current Visit: No Status: Acute (12) Congestive heart failure Current Visit: No Status: Chronic Qualifiers: Congestive heart failure type: systolic (13) Leg ulcer Current Visit: No Status: Chronic (14) Peripheral vascular disease Current Visit: No Status: Chronic (15) Venous stasis ulcers Current Visit: No Status: Chronic Plan to address problem: much smaller than in past unable to compress due to current issues. vascular can consider skin matrix Subjective Date of service: 06/22/17 Interval history: patient remain stable and all issues explained Objective - Constitutional Vitals: Vital Signs - 12hr 06/21/17 06/21/17 06/21/17 22:00 22:11 23:20 Temperature 98.4 F Pulse Rate 82 68 Pulse Rate [ 82 Right Radial] Respiratory 18 18 Rate Blood Pressure 132/61 131/54 O2 Sat by Pulse 95 Oximetry General appearance: Present: no acute distress - EENT Eyes: EOM intact - Neck Neck: supple - Respiratory Respiratory effort: normal - Breasts Breasts: deferred - Cardiovascular Heart Sounds: Present: S1 & S2 Extremities: no ischemia Extremity abnormal: deformity - Gastrointestinal General gastrointestinal: Present: soft, non-tender, non-distended Rectal Exam: deferred - Genitourinary Male genitourinary: deferred - Neurologic Neurologic: CNII-XII intact - Psychiatric Psychiatric: appropriate mood/affect (wound dressing intact and ulcers without change) - Labs CBC & Chem 7: 06/20/17 06:54 06/20/17 06:54 Labs: Abnormal lab results 06/21/17 06/21/17 06/21/17 Range/Units 11:28 16:57 17:11 POC Glucose 158 H 178 H (70-105) C-Reactive Protein 5.10 H (0.00-1.30) mg/dL 06/21/17 06/22/17 Range/Units 22:02 06:18 POC Glucose 142 H 158 H (70-105) C-Reactive Protein (0.00-1.30) mg/dL
[2017-06-22] MEDS: NOVOLOG SUB-Q SCH ×7 (07:30→23:03)
[2017-06-22] MEDS: DILAUDID IV PRN ×3 (09:48→20:27)
[2017-06-22] MEDS: PLAVIX PO SCH (09:49)
[2017-06-22] MEDS: LYRICA PO SCH ×6 (09:49→20:27)
[2017-06-22] MEDS: ZYLOPRIM PO SCH (09:49)
[2017-06-22] MEDS: NORVASC PO SCH (09:49)
[2017-06-22] MEDS: LOPRESSOR PO SCH ×2 (09:50→22:49)
[2017-06-22] MEDS: PEPCID PO SCH ×2 (09:50→22:49)
[2017-06-22] MEDS: HEPARIN SUB-Q SCH ×2 (09:51→22:59)
--- NOTE | 2017-06-22 10:06 | Event Note ---
Date: 06/22/17 Reviewed arterial duplex. Monophasic flow in the left infrapopliteal arterial flow. Recommend angiography with possible revascularization. R/B/A discussed with patient and . Agreed with procedure.
--- NOTE | 2017-06-22 10:17 | Progress Note ---
Assessment and Plan Assessment: 1) Diabetic left foot ulcers at plantar and heel location with gangrene: ? osteomylitis, ?cellulitis -CAROTID DUPLEX showed <50% STENOSIS BILATERALLY BY DOPPLER VELOCITIES.ANTEGRADE VERTEBRAL ARTERY FLOW BILATERALLY. -CRP=5.10 -wound culture positive for MRSA, gram negative x 2 and proteus 2) Left foot Ostemyelitis, cellulitis: MRI showed osteomyelitis, cellulitis, with degeneration of multiple phalanxes and tarsals 3) Peripheral vascular disease 4)HTN 5)Hyponatermia 6)Allergy to tetracycline, timethoprim, sufamethoxazole Plan: -continue vanco and zosyn day 4 -Per vascular Recommend angiography with possible revascularization -If not amputated, will do iv ABX for 6 weeks -wound care following -place on contact isolation Thank you Dr. Uribe for your consult, will follow up MANPREET Hassan for Dr. Pratibha Hooper MD Infectious Diseases Specialist [facility] ([facility]) M [phone] O [phone] Subjective Date of service: 06/22/17 Principal diagnosis: gangrene Interval history: I feel better, no fever, sever painful spasms of the right stump Microbiology: Blood cultures: Urine cultures: Wound culture 06/20 gram negative rods, SA Current Antimicrobials: vancomycin 06/19 Previous Antimicrobials: zosyn 06/21 Objective - Exam Narrative Exam: General appearance: Alert in NAD Eyes: anicteric sclerae, moist conjunctivae; no lid-lag; PERRLA HENT: Atraumatic; oropharynx clear Neck: Trachea midline; supple, no thyromegaly or lymphadenopathy Lungs: CTAB CV: RRR, no murmurs Abdomen: Soft, non-tender; no masses or hepatosplenomegaly Extremities: left foot ulcer with pus, Right BKA Skin: Normal temperature, turgor and texture Psych: calm and cooperative Neuro: alert, non-verbal. Moving all extermities Lines: No CVL / PICC - Constitutional Vitals: Vital Signs Temp Pulse Resp BP Pulse Ox 99.1 F 74 18 126/60 92 06/22/17 07:34 06/22/17 09:50 06/22/17 10:02 06/22/17 09:50 06/22/17 07:34 Temperature -Last 24 Hours Temperature 99.1 F Temperature 98.4 F Temperature 97.8 F - Labs CBC & Chem 7: 06/20/17 06:54 06/20/17 06:54 Labs: Abnormal lab results 06/21/17 06/21/17 06/21/17 Range/Units 11:28 16:57 17:11 POC Glucose 158 H 178 H (70-105) C-Reactive Protein 5.10 H (0.00-1.30) mg/dL 06/21/17 06/22/17 Range/Units 22:02 06:18 POC Glucose 142 H 158 H (70-105) C-Reactive Protein (0.00-1.30) mg/dL
[2017-06-22] MEDS ORDERED: LEVAQUIN 750MG/150ML 750 MG/150 ML BAG IV SCH (14:00)
[2017-06-22] MEDS ORDERED: HEPARIN 10,000 UNITS/10 ML ONE (14:39)
[2017-06-22] MEDS ORDERED: HEPARIN/NS 5000 UNIT/500ML(CATH LAB) 1,000 ML IR ONE (14:39)
[2017-06-22] MEDS ORDERED: XYLOCAINE 2% INFILTRATI ONE (14:40)
[2017-06-22] MEDS ORDERED: ANCEF/STERILE WATER 2 GM/20 ML 2 GM/20 ML SYRINGE IV ONE (14:40)
[2017-06-22] MEDS: SUBLIMAZE ONE ×4 (15:00→16:06)
[2017-06-22] MEDS: VERSED ONE ×3 (15:00→16:06)
[2017-06-22] MEDS ORDERED: NACL 0.9% 1000 ML 0 ML ONE (15:38)
--- NOTE | 2017-06-22 15:39 | Query-Ulcer ---
Dear Date:__06/22/2017 Nozzle Tender/CDS:___Monserrat Phone#:__[phone] Exercise your independent professional judgment when responding to query. Questions asked do not imply a particular answer is desired or expected. We greatly appreciate your clarification on this issue. Clinical Documentation States: 72 Year old male was admitted on 06/19/2017 for for left foot gangrenous and also changes with copious amounts of pus draining. The Hospitalist (Dr. Gautam) Progress note on 06/21/2017 states "--Diabetic foot ulcer left/left foot gangrene/possible osteomyelitis." Please specify the stage below: [ ] Stage I (pre-ulcer skin changes limited to persistent focal erythema) [ ] Stage II (abrasion, blister, and partial thickness skin loss) [x ] Stage III (full thickness skin loss with subcutaneous necrosis/damage) [ ] Stage IV (necrosis of soft tissues through to underlying muscle, tendon, bone) [ ] Unstageable [ ] Unable to determine Present on Admission: [x ] Yes (Y) [ ] Clinically undeterminable (W) [ ] No (N) Please also document response in your Progress Notes and/or Discharge Summary and indicate if the condition was present on admission. MTDD
[2017-06-22] MEDS ORDERED: NITROGLYCERIN SYRINGE 3 ML ONE (15:58)
--- NOTE | 2017-06-22 16:17 | Operative Report ---
Operative Report Operative Report: EXAM: 1. Ultrasound-guided access of the right common femoral artery 2. Angiography of the right lower extremity. 3. Selection of the abdominal aorta with angiography 4. Selection of the left external iliac artery with angiography of the left lower extremity 5. Selection of the left superficial femoral artery and popliteal artery with angiography of the left lower extremity 6. Selection of the left dorsalis pedis with angiography 7. Pre-dilatation angioplasty of the left anterior tibial artery with a 1.5-2 mm x 210 mm casper cross angioplasty balloon 8. Angioplasty of the left anterior tibial artery with a 2-2.5 mm x 210 mm casper cross angioplasty balloon 9. Injection of 400 g of nitroglycerin in the left anterior tibial artery 10. Closure of the right common femoral artery with a 6 Serbian Perclose DATE: 06/22/2017 G[employer]TER APPRENTICE: DEISY ACOSTA MD INDICATION: Nonhealing ulcers of the left lower extremity with an infection of the left lower extremity with abnormal arterial ultrasounds concerning for critical limb ischemia. MEDICATIONS: Please see nursing report for full details. DEVICES: 1.5-2 mm x 210 mm now cross angioplasty balloon 2-2.5 mm x 210 mm casper cross angioplasty balloon CONTRAST: 55 mL of nonionic contrast PROCEDURE: The risks, benefits, and alternatives were discussed with the patient and his ; telephone consent was obtained from the patient's . The patient was transferred to the angiography suite in stable condition. The patient's groins were prepped and draped in a sterile fashion. The right common femoral artery was evaluated with ultrasound. Under direct ultrasound guidance, the right common femoral artery was accessed with a 21- gauge micro-puncture needle. 0.018 inch wire was passed into the aorta. Needle was exchanged for transitional dilator. A wire was exchanged for 0.035 inch wire. Transitional dilator was exchanged for a 5 Serbian sheath. Digital subtraction angiography was performed demonstrating an appropriate puncture, above the bifurcation and below the inferior epigastric artery. The right external iliac artery, common femoral artery, proximal superficial femoral artery, and proximal profunda femoral artery are patent. The abdominal aorta was selected. The infrarenal abdominal aorta was patent. The bilateral common iliac arteries are patent. The bilateral external iliac arteries and internal iliac arteries are patent. The left external iliac artery was selected. Digital subtraction angiography demonstrating patency of the left external iliac artery, common femoral artery, and proximal superficial femoral artery and profunda femoral artery. The left superficial femoral artery was selected. Digital subtraction angiography demonstrated patency of the left superficial femoral artery. Left popliteal artery was selected. Digital subtraction angiography demonstrated patency of the left popliteal artery. There was a single vessel runoff through an anatomic variant with the peroneal artery contiguous with the posterior tibial artery at the level of the ankle which provide dominant flow to the foot. This does not look like hypertrophied posterior communicating arteries, and instead appeared to be an anatomic variant with a single contiguous peroneal artery that communicated with the distal posterior tibial artery. The proximal and mid posterior tibial artery were occluded. The anterior tibial artery was occluded from ostium to ankle. The dorsalis pedis reconstituted but was diminutive in size. The patient was heparinized. Sheath was exchanged for 6 Serbian 90 cm [place] destination positioned in the left popliteal artery. The left anterior tibial artery was selected and with the use of a V18 and Navicross catheter, the chronic total occlusion was crossed and the and the dorsalis pedis. Digital subtraction angiography was performed demonstrating a diminutive dorsalis pedis measuring approximately half a millimeter in size. Viper wire was advanced into the dorsalis pedis. With the use of a Sophia-Olga Lidia, pullback angiography was performed. There is a tract created from the catheter from the ostium to the ankle. I decided not to perform atherectomy due to the diminutive size of the dorsalis pedis. 1.5-2 mm angioplasty balloon was advanced over the wire and used to perform predilatation angioplasty at the ankle to the mid calf. 2-2.5 mm millimeter angioplasty balloon was advanced over the wire and used to perform angioplasty from the ankle to the popliteal artery with the majority of the angioplasty using the 2.5 mm portion of the angioplasty balloon. Digital subtraction angiography demonstrated improved flow through the anterior tibial artery, but the dorsalis pedis artery had some spasm within it. 400 g of nitroglycerin was injected. Wire was removed and repeat angiography demonstrated prompt flow through the proximal mid and distal portions of the vessel, but there is still some mild spasm to the dorsalis pedis. This would likely improve on its own. At this point, all wires, catheters, and sheaths were retracted to the right external iliac artery. Sheath was exchanged for 6 Serbian Pro-glide. Pro-glide was deployed achieving immediate hemostasis. Sterile dressing applied. Patient tolerated the procedure well. No immediate postprocedural complication. FINDINGS: Please see procedure note above IMPRESSION: 1. Successful angioplasty/revascularization of the left anterior tibial artery. 2. Successful angiography of the bilateral lower extremities with clinical change (left lower extremity worsening infection).
[2017-06-22] MEDS ORDERED: HALFPRIN EC PO ONE (17:19)
--- NOTE | 2017-06-22 18:48 | Progress Note ---
Assessment and Plan Assessment and plan: --Mild hypoalbuminemia/protein calorie malnutrition; supportive care, nutrition supplements --Diabetic foot ulcer left/left foot gangrene/possible osteomyelitis Continue IV antibiotics vancomycin Zosyn, wound care, Doppler studies, MRI findings consistent with osteomyelitis Vascular and ID wound care following --Peripheral vascular disease; vascular recommend angiography and possible revascularization --MRSA wound infection; contact isolation, continue vancomycin, follow culture sensitivities --Cultures gram-negative rods 2 and Proteus, ID following --Peripheral neuropathy; continue gabapentin --Type 2 diabetes mellitus; moderate control, Accu-Chek sliding scale coverage and ADA diet and insulin hemoglobin A1c 8.1 --Hypertension; moderate control, continue current antihypertensives and when necessary medications --Mild Hyponatremia; probably pseudohyponatremia secondary to hyperglycemia, improved --DVT prophylaxis; Lovenox Closely monitor the patient had just management as needed Plan of care discussed with the patient and his nurse Follow MRA, vascular studies, and vascular evaluation and recommendations History Interval history: Patient seen and evaluated medical records reviewed Patient feels Slightly better, but complains of pain in the right leg Vascular evaluation is in progress A lot of headache oriented 3 vital signs reviewed Hospitalist Physical - Constitutional Vitals: Temp Pulse Resp BP Pulse Ox 97.9 F 78 20 134/62 96 06/22/17 16:51 06/22/17 16:51 06/22/17 16:51 06/22/17 16:51 06/22/17 16:51 General appearance: Present: no acute distress, well-nourished - EENT Eyes: Present: PERRL, EOM intact - Neck Neck: Present: supple, normal ROM - Respiratory Respiratory effort: normal Respiratory: negative: rales, rhonchi, wheezing - Cardiovascular Rhythm: regular Heart Sounds: Present: S1 & S2 - Extremities Extremities: abnormal (right below-knee amputation) Extremity abnormal: other (left leg nonhealing ulcer, dressing in place) - Abdominal General gastrointestinal: soft, non-tender, non-distended, normal bowel sounds - Integumentary Integumentary: Present: clear, warm - Psychiatric Psychiatric: appropriate mood/affect, cooperative - Neurologic Neurologic: CNII-XII intact, moves all extremities Results - Labs CBC & Chem 7: 06/20/17 06:54 06/20/17 06:54 Labs: Laboratory Last Values WBC 5.6 K/mm3 (4.5-11.0) 06/20/17 06:54 RBC 3.66 M/mm3 (3.65-5.03) 06/20/17 06:54 Hgb 10.1 gm/dl (11.8-15.2) L 06/20/17 06:54 Hct 29.7 % (35.5-45.6) L D 06/20/17 06:54 MCV 81 fl (84-94) L 06/20/17 06:54 MCH 28 pg (28-32) 06/20/17 06:54 MCHC 34 % (32-34) 06/20/17 06:54 RDW 20.1 % (13.2-15.2) H 06/20/17 06:54 Plt Count 276 K/mm3 (140-440) 06/20/17 06:54 Lymph % (Auto) 14.5 % (13.4-35.0) 06/20/17 06:54 [place] % (Auto) 8.4 % (0.0-7.3) H 06/20/17 06:54 Eos % (Auto) 2.2 % (0.0-4.3) 06/20/17 06:54 Baso % (Auto) 0.5 % (0.0-1.8) 06/20/17 06:54 Lymph # 0.8 K/mm3 (1.2-5.4) L 06/20/17 06:54 [place] # 0.5 K/mm3 (0.0-0.8) 06/20/17 06:54 Eos # 0.1 K/mm3 (0.0-0.4) 06/20/17 06:54 Baso # 0.0 K/mm3 (0.0-0.1) 06/20/17 06:54 Seg Neutrophils % 74.4 % (40.0-70.0) H 06/20/17 06:54 Seg Neutrophils # 4.2 K/mm3 (1.8-7.7) 06/20/17 06:54 ESR > 140.0 mm/Hr (0-20) 06/21/17 19:45 Sodium 139 mmol/L (137-145) 06/20/17 06:54 Potassium 4.0 mmol/L (3.6-5.0) 06/20/17 06:54 Chloride 103.9 mmol/L (98-107) 06/20/17 06:54 Carbon Dioxide 24 mmol/L (22-30) 06/20/17 06:54 Anion Gap 15 mmol/L 06/20/17 06:54 BUN 25 mg/dL (9-20) H 06/20/17 06:54 Creatinine 1.0 mg/dL (0.8-1.5) 06/20/17 06:54 Estimated GFR > 60 ml/min 06/20/17 06:54 BUN/Creatinine Ratio 25 % 06/20/17 06:54 Glucose 79 mg/dL (75-100) 06/20/17 06:54 POC Glucose 134 (70-105) H 06/22/17 16:55 Hemoglobin A1c 8.1 % (4-6) H 06/19/17 17:55 Calcium 8.5 mg/dL (8.4-10.2) 06/20/17 06:54 Total Bilirubin 0.50 mg/dL (0.1-1.2) 06/20/17 06:54 AST 13 units/L (5-40) 06/20/17 06:54 ALT 9 units/L (7-56) 06/20/17 06:54 Alkaline Phosphatase 78 units/L (35-129) 06/20/17 06:54 C-Reactive Protein 5.10 mg/dL (0.00-1.30) H 06/21/17 17:11 Total Protein 6.9 g/dL (6.3-8.2) 06/20/17 06:54 Albumin 3.1 g/dL (3.9-5) L 06/20/17 06:54 Albumin/Globulin Ratio 0.8 % 06/20/17 06:54 Vancomycin Trough 19.6 ug/mL (5.0-20.0) 06/22/17 02:40
[2017-06-22] MEDS: LEVEMIR SUB-Q SCH (23:00)
[2017-06-23] MEDS: NACL 0.9% 1000 ML 1,000 ML IV SCH ×2 (01:18→12:57)
[2017-06-23 06:39] LABS: Basophils % (Auto) 0.5 % (0.0-1.8); Eosinophils # (Auto) 0.2 K/mm3 (0.0-0.4); Eosinophils % (Auto) 5.1 % (0.0-4.3); Hematocrit 29.8 % (35.5-45.6); Hemoglobin 9.7 gm/dl (11.8-15.2); Lymphocytes # (Auto) 0.5 K/mm3 (1.2-5.4); Lymphocytes % (Auto) 16.7 % (13.4-35.0); Mean Corpuscular HGB Conc 33 % (32-34); Mean Corpuscular Hemoglobin 28 pg (28-32); Mean Corpuscular Volume 84 fl (84-94); Monocytes # (Auto) 0.3 K/mm3 (0.0-0.8); Monocytes % (Auto) 8.4 % (0.0-7.3); Platelet Count 242 K/mm3 (140-440); Red Blood Count 3.54 M/mm3 (3.65-5.03)
[2017-06-23] MEDS: DILAUDID IV PRN ×2 (06:41→16:22)
[2017-06-23 06:58] LABS: BUN/Creatinine Ratio 13; Blood Urea Nitrogen 10 mg/dL (9-20); Calcium 8.5 mg/dL (8.4-10.2); Hemolysis Index 11
--- NOTE | 2017-06-23 07:03 | Progress Note ---
Assessment and Plan post angio and the patient will likely need some type of debridement and prolonged antibiotics and has been accepted at [facility] once all procedural treatment has been completed - Patient Problems (1) Right hip pain Current Visit: Yes Status: Acute (2) Coronary artery disease Current Visit: No Status: Chronic Qualifiers: Coronary Disease-Associated Artery/Lesion type: algaaciq artery [place] vs. transplanted heart: algaaciq heart (3) Foot ulcer, left Current Visit: Yes Status: Chronic Qualifiers: Non-pressure ulcer stage: with fat layer exposed Qualified Code(s): L97.522 - Non-pressure chronic ulcer of other part of left foot with fat layer exposed (4) Gastroesophageal reflux disease Current Visit: No Status: Chronic Qualifiers: Esophagitis presence: without esophagitis Qualified Code(s): K21.9 - Gastro -esophageal reflux disease without esophagitis (5) Hypertension Current Visit: No Status: Chronic Qualifiers: Hypertension type: essential hypertension Qualified Code(s): I10 - Essential (primary) hypertension (6) Insulin dependent diabetes mellitus Current Visit: No Status: Chronic (7) Peripheral arterial disease Current Visit: Yes Status: Chronic (8) Peripheral neuropathy Current Visit: No Status: Chronic Qualifiers: Peripheral neuropathy type: polyneuropathy, unspecified Qualified Code(s): G62.9 - Polyneuropathy, unspecified (9) Atherosclerosis of algaaciq arteries of the extremities with ulceration Current Visit: No Status: Acute (10) Diabetes mellitus Current Visit: No Status: Acute (11) Congestive heart failure Current Visit: No Status: Chronic Qualifiers: Congestive heart failure type: systolic (12) Leg ulcer Current Visit: No Status: Chronic (13) Peripheral vascular disease Current Visit: No Status: Chronic (14) Venous stasis ulcers Current Visit: No Status: Chronic Subjective Date of service: 06/23/17 Principal diagnosis: gangrene Interval history: post angio Objective - Constitutional Vitals: Vital Signs - 12hr 06/22/17 06/22/17 06/22/17 20:09 22:49 23:35 Temperature 97.7 F 98.5 F Pulse Rate 89 89 85 Respiratory 16 16 Rate Blood Pressure 142/63 143/63 125/63 O2 Sat by Pulse 94 93 Oximetry Extremity abnormal: erythema (wound clean and intact) - Labs CBC & Chem 7: 06/23/17 06:19 06/23/17 06:19 Labs: Abnormal lab results 06/22/17 06/22/17 06/22/17 Range/Units 11:50 16:55 21:18 WBC (4.5-11.0) K/mm3 RBC (3.65-5.03) M/mm3 Hgb (11.8-15.2) gm/dl Hct (35.5-45.6) % RDW (13.2-15.2) % [place] % (Auto) (0.0-7.3) % Eos % (Auto) (0.0-4.3) % Lymph # (1.2-5.4) K/mm3 Glucose (75-100) mg/dL POC Glucose 114 H 134 H 208 H (70-105) 06/23/17 06/23/17 06/23/17 Range/Units 05:30 06:19 06:19 WBC 3.2 L (4.5-11.0) K/mm3 RBC 3.54 L (3.65-5.03) M/mm3 Hgb 9.7 L (11.8-15.2) gm/dl Hct 29.8 L (35.5-45.6) % RDW 20.0 H (13.2-15.2) % [place] % (Auto) 8.4 H (0.0-7.3) % Eos % (Auto) 5.1 H (0.0-4.3) % Lymph # 0.5 L (1.2-5.4) K/mm3 Glucose 146 H (75-100) mg/dL POC Glucose 148 H (70-105)
--- NOTE | 2017-06-23 08:25 | Vascular Lab Report ---
LOWER EXTREMITY ARTERIAL DUPLEX: REASON FOR EXAM: Lower extremity gangrene with right below-knee amputation. COMMENTS ON THE RIGHT: Triphasic waveforms are seen proximally. The right superficial femoral artery has triphasic waveforms. There is a right below-knee amputation. The popliteal artery could not be evaluated due to patient compliance. No significant velocity gradients are identified. No focal significant plaque is identified. Findings are consistent with normal perfusion. Findings are consistent with the ability to heal distal wounds. COMMENTS ON THE LEFT: Triphasic waveforms are seen proximally. The superficial femoral artery and popliteal artery are triphasic. Monophasic waveforms are seen distally. No significant velocity gradients are identified. There is a significant decline in velocities of the anterior tibial artery compared to the posterior tibial artery. No focal significant plaque is identified. Findings are consistent with abnormal perfusion. Findings are compatible with possible compromise in the ability to heal distal wounds in the anterior tibial artery territory. IMPRESSION: RIGHT: Essentially normal arterial flow. LEFT:Monophasic distal waveforms which, in combination with gangrene, are concerning for distal arterial disease. Velocities are predominantly preserved. Recommend further evaluation.
[2017-06-23] MEDS: NOVOLOG SUB-Q SCH ×9 (08:27→23:25)
[2017-06-23] MEDS: HEPARIN SUB-Q SCH ×2 (10:16→21:52)
[2017-06-23] MEDS: PLAVIX PO SCH (10:19)
[2017-06-23] MEDS: HALFPRIN EC PO SCH (10:19)
[2017-06-23] MEDS: NORVASC PO SCH (10:19)
[2017-06-23] MEDS: ZYLOPRIM PO SCH (10:19)
[2017-06-23] MEDS: MORPHINE IV PRN (10:20)
[2017-06-23] MEDS: PEPCID PO SCH ×2 (10:20→21:55)
[2017-06-23] MEDS: LYRICA PO SCH ×6 (10:20→19:55)
[2017-06-23] MEDS: LOPRESSOR PO SCH ×2 (10:20→21:55)
--- NOTE | 2017-06-23 10:24 | Progress Note ---
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 -CRP=5.10 -wound culture positive for MRSA, ESBL E coli, Proteus, MDR -s/p balloon angioplaty of left tibial artery 06/22 2) Left foot Ostemyelitis, cellulitis: MRI showed osteomyelitis, cellulitis, with degeneration of multiple phalanxes and tarsals 3) Peripheral vascular disease 4)HTN 5)Hyponatermia, resolved 6)Allergy to tetracycline, timethoprim, sufamethoxazole Plan: - -continue vanco -stop levaquin -add meropenem due to ESBL E coli -If not amputated, will do iv ABX for 6 weeks -wound care following -continue contact isolation due to ESBL E coli -upon discharge will do vancomycin 1250 mg iv q 12 hrs and meropenem 1gm iv q 8hrs total 6 weeks until 08/03 -correctional case records supervisor notified we are signing off, please call for any question Thank you Dr. Uribe for your consult, will follow up MANPREET Hassan for Dr. Pratibha Hooper MD Infectious Diseases Specialist [facility] M [phone] O [phone] Subjective Date of service: 06/23/17 Principal diagnosis: gangrene Interval history: My spasms are getting better, no fever Microbiology: Blood cultures: Urine cultures: Wound culture 06/20 gram negative rods, SA Current Antimicrobials: vancomycin 06/19 Previous Antimicrobials: zosyn 06/21 Objective - Exam Narrative Exam: General appearance: Alert in NAD Eyes: anicteric sclerae, moist conjunctivae; no lid-lag; PERRLA HENT: Atraumatic; oropharynx clear Neck: Trachea midline; supple, no thyromegaly or lymphadenopathy Lungs: CTAB CV: RRR, no murmurs Abdomen: Soft, non-tender; no masses or hepatosplenomegaly Extremities: left foot ulcer with dressing intact, Right BKA with dressing Skin: Normal temperature, turgor and texture Psych: calm and cooperative Neuro: alert, non-verbal. Moving all extermities Lines: No CVL / PICC - Constitutional Vitals: Vital Signs Temp Pulse Resp BP Pulse Ox 98.4 F 85 19 134/60 99 06/23/17 09:29 06/23/17 09:29 06/23/17 09:29 06/23/17 09:29 06/23/17 09:29 Temperature -Last 24 Hours Temperature 98.4 F Temperature 98.5 F Temperature 97.7 F Temperature 98.3 F Temperature 97.9 F Temperature 98.4 F - Labs CBC & Chem 7: 06/23/17 06:19 06/23/17 06:19 Labs: Abnormal lab results 06/22/17 06/22/17 06/22/17 Range/Units 11:50 16:55 21:18 WBC (4.5-11.0) K/mm3 RBC (3.65-5.03) M/mm3 Hgb (11.8-15.2) gm/dl Hct (35.5-45.6) % RDW (13.2-15.2) % [place] % (Auto) (0.0-7.3) % Eos % (Auto) (0.0-4.3) % Lymph # (1.2-5.4) K/mm3 Glucose (75-100) mg/dL POC Glucose 114 H 134 H 208 H (70-105) 06/23/17 06/23/17 06/23/17 Range/Units 05:30 06:19 06:19 WBC 3.2 L (4.5-11.0) K/mm3 RBC 3.54 L (3.65-5.03) M/mm3 Hgb 9.7 L (11.8-15.2) gm/dl Hct 29.8 L (35.5-45.6) % RDW 20.0 H (13.2-15.2) % [place] % (Auto) 8.4 H (0.0-7.3) % Eos % (Auto) 5.1 H (0.0-4.3) % Lymph # 0.5 L (1.2-5.4) K/mm3 Glucose 146 H (75-100) mg/dL POC Glucose 148 H (70-105)
[2017-06-23] MEDS: VANCOMYCIN 1,250 MG in NACL 0.9% 250ML 250 ML IV SCH ×2 (13:06→13:14)
--- NOTE | 2017-06-23 15:29 | Progress Note ---
Assessment and Plan Assessment and plan: --Nonhealing Diabetic left foot/leg ulcer, possible osteomyelitis On vancomycin Zosyn, ID changed to daptomycin and meropenem , Continue wound care, Vascular , ID ,wound care following. Discussed with Dr. Kayce baez, advised to consult podiatry and orthopedic or possible debridement and other related procedures And transfer the patient to LTAC after procedures are done --Peripheral vascular disease; s/p balloon angioplasty per vascular, Discussed with vascular surgeon Dr. Hickman --MRSA wound infection; contact isolation, daptomycin and meropenem per ID --Cultures gram-negative rods 2 and Proteus, ID following --Peripheral neuropathy; continue gabapentin --Type 2 diabetes mellitus; Accu-Chek sliding scale coverage and ADA diet and insulin, hemoglobin A1c 8.1 --Hypertension; moderate control, continue current antihypertensives and when necessary medications --Mild Hyponatremia; probably pseudohyponatremia secondary to hyperglycemia, improved --Mild hypoalbuminemia/protein calorie malnutrition; supportive care, nutrition supplements --DVT prophylaxis; Lovenox Closely monitor the patient and adjust management as needed Plan of care discussed with the patient, the family and his nurse I also discussed with the PMD and vascular Dr. Hickman History Interval history: Patient seen and evaluated medical records reviewed Patient underwent vascular procedure balloon angioplasty Patient feels slightly better Vital signs reviewed Hospitalist Physical - Constitutional Vitals: Temp Pulse Resp BP Pulse Ox 98.4 F 85 19 134/60 99 06/23/17 09:29 06/23/17 09:29 06/23/17 09:29 06/23/17 09:29 06/23/17 09:29 General appearance: Present: no acute distress, well-nourished - EENT Eyes: Present: PERRL, EOM intact - Neck Neck: Present: supple, normal ROM - Respiratory Respiratory effort: normal Respiratory: bilateral: diminished, negative: rales, rhonchi, wheezing - Cardiovascular Rhythm: regular Heart Sounds: Present: S1 & S2 - Extremities Extremities: abnormal (status post BKA right) Extremity abnormal: other (nonhealing ulcer left leg and foot) - Abdominal General gastrointestinal: soft, non-tender, non-distended, normal bowel sounds - Integumentary Integumentary: Present: clear, warm - Psychiatric Psychiatric: appropriate mood/affect, cooperative - Neurologic Neurologic: CNII-XII intact, moves all extremities Results - Labs CBC & Chem 7: 06/23/17 06:19 06/23/17 06:19 Labs: Laboratory Last Values WBC 3.2 K/mm3 (4.5-11.0) L 06/23/17 06:19 RBC 3.54 M/mm3 (3.65-5.03) L 06/23/17 06:19 Hgb 9.7 gm/dl (11.8-15.2) L 06/23/17 06:19 Hct 29.8 % (35.5-45.6) L 06/23/17 06:19 MCV 84 fl (84-94) 06/23/17 06:19 MCH 28 pg (28-32) 06/23/17 06:19 MCHC 33 % (32-34) 06/23/17 06:19 RDW 20.0 % (13.2-15.2) H 06/23/17 06:19 Plt Count 242 K/mm3 (140-440) 06/23/17 06:19 Lymph % (Auto) 16.7 % (13.4-35.0) 06/23/17 06:19 [place] % (Auto) 8.4 % (0.0-7.3) H 06/23/17 06:19 Eos % (Auto) 5.1 % (0.0-4.3) H 06/23/17 06:19 Baso % (Auto) 0.5 % (0.0-1.8) 06/23/17 06:19 Lymph # 0.5 K/mm3 (1.2-5.4) L 06/23/17 06:19 [place] # 0.3 K/mm3 (0.0-0.8) 06/23/17 06:19 Eos # 0.2 K/mm3 (0.0-0.4) 06/23/17 06:19 Baso # 0.0 K/mm3 (0.0-0.1) 06/23/17 06:19 Seg Neutrophils % 69.3 % (40.0-70.0) 06/23/17 06:19 Seg Neutrophils # 2.2 K/mm3 (1.8-7.7) 06/23/17 06:19 ESR > 140.0 mm/Hr (0-20) 06/21/17 19:45 Sodium 138 mmol/L (137-145) 06/23/17 06:19 Potassium 3.7 mmol/L (3.6-5.0) 06/23/17 06:19 Chloride 102.9 mmol/L (98-107) 06/23/17 06:19 Carbon Dioxide 22 mmol/L (22-30) 06/23/17 06:19 Anion Gap 17 mmol/L 06/23/17 06:19 BUN 10 mg/dL (9-20) 06/23/17 06:19 Creatinine 0.8 mg/dL (0.8-1.5) 06/23/17 06:19 Estimated GFR > 60 ml/min 06/23/17 06:19 BUN/Creatinine Ratio 13 % 06/23/17 06:19 Glucose 146 mg/dL (75-100) H 06/23/17 06:19 POC Glucose 158 (70-105) H 06/23/17 12:13 Hemoglobin A1c 8.1 % (4-6) H 06/19/17 17:55 Calcium 8.5 mg/dL (8.4-10.2) 06/23/17 06:19 Total Bilirubin 0.50 mg/dL (0.1-1.2) 06/20/17 06:54 AST 13 units/L (5-40) 06/20/17 06:54 ALT 9 units/L (7-56) 06/20/17 06:54 Alkaline Phosphatase 78 units/L (35-129) 06/20/17 06:54 C-Reactive Protein 5.10 mg/dL (0.00-1.30) H 06/21/17 17:11 Total Protein 6.9 g/dL (6.3-8.2) 06/20/17 06:54 Albumin 3.1 g/dL (3.9-5) L 06/20/17 06:54 Albumin/Globulin Ratio 0.8 % 06/20/17 06:54 Vancomycin Trough 19.6 ug/mL (5.0-20.0) 06/22/17 02:40
--- NOTE | 2017-06-23 16:08 | Progress Note ---
Assessment and Plan 72-year-old male with history of peripheral vascular disease. This patient presents with chronic wounds to his left lower extremity. I had a long discussion with the patient. This was previous performed by our PA. He has known peripheral arterial disease, and status post previous revascularization attempts to both lower extremity. He ultimately required a [id number] amputation to his right lower extremity due to extensive soft tissue infection. A vascular surgery consult has been requested to evaluate. The patient has chronic wounds that have failed to heal thus far. They certainly place him at an increased risk of infection (that could be life threatening). I have concerns that his wounds are unlikely heal. We discussed minor and major amputations. He stated understanding, but states he does not wish to proceed with an amputation of his left lower extremity at this point. Vascular study performed and patient underwent revascularization of his left LARRY with good angiographic results. Given the patient's preferences, I recommend continued local wound care, debridement by wound care, and antibiotics for osteomyelitis (as managed by the infectious disease service). Pt's primary complaint is pain of his right hip. Recommend Ortho consult to evaluate for possible etiology. Subjective Date of service: 06/23/17 Principal diagnosis: gangrene Interval history: No complications from angiography. Right groin c/d/i bandage. Left foot bandaged and patient did not allow me to take bandage down. Right BKA bandaged and patient did not allow me to take bandage down. Objective - Constitutional Vitals: Vital Signs - 12hr 06/23/17 09:29 Temperature 98.4 F Pulse Rate 85 Respiratory 19 Rate Blood Pressure 134/60 O2 Sat by Pulse 99 Oximetry General appearance: Present: no acute distress - EENT Eyes: EOM intact ENT: hearing intact - Respiratory Respiratory effort: normal Extremities: pulses intact (R and L [employer]ECTIVE [employer]NAL INST[employer]ER palpable ; right BKA ; left foot bandaged), normal temperature, normal color, abnormal (left foot bandaged ; right BKA stump bandage ; patient did not allow me to take the dressing down) - Psychiatric Psychiatric: appropriate mood/affect, cooperative - Labs CBC & Chem 7: 06/23/17 06:19 06/23/17 06:19 Labs: Abnormal lab results 06/22/17 06/22/17 06/23/17 Range/Units 16:55 21:18 05:30 WBC (4.5-11.0) K/mm3 RBC (3.65-5.03) M/mm3 Hgb (11.8-15.2) gm/dl Hct (35.5-45.6) % RDW (13.2-15.2) % [place] % (Auto) (0.0-7.3) % Eos % (Auto) (0.0-4.3) % Lymph # (1.2-5.4) K/mm3 Glucose (75-100) mg/dL POC Glucose 134 H 208 H 148 H (70-105) 06/23/17 06/23/17 06/23/17 Range/Units 06:19 06:19 12:13 WBC 3.2 L (4.5-11.0) K/mm3 RBC 3.54 L (3.65-5.03) M/mm3 Hgb 9.7 L (11.8-15.2) gm/dl Hct 29.8 L (35.5-45.6) % RDW 20.0 H (13.2-15.2) % [place] % (Auto) 8.4 H (0.0-7.3) % Eos % (Auto) 5.1 H (0.0-4.3) % Lymph # 0.5 L (1.2-5.4) K/mm3 Glucose 146 H (75-100) mg/dL POC Glucose 158 H (70-105)
[2017-06-23] MEDS: MERREM 1,000 MG in NACL 0.9% 100 ML IV SCH ×2 (16:40→23:23)
[2017-06-23] MEDS: CUBICIN IV SCH (18:15)
[2017-06-23] MEDS: NACL 0.9% IV SCH (18:15)
[2017-06-23] MEDS: PERCOCET 5/325 PO PRN (20:06)
[2017-06-23] MEDS: LEVEMIR SUB-Q SCH (22:00)
[2017-06-24] MEDS: NACL 0.9% 1000 ML 1,000 ML IV SCH ×2 (05:24→21:56)
[2017-06-24] MEDS: MERREM 1,000 MG in NACL 0.9% 100 ML IV SCH ×3 (05:25→21:52)
[2017-06-24] MEDS: PERCOCET 5/325 PO PRN ×2 (05:47→18:05)
--- NOTE | 2017-06-24 07:39 | Event Note ---
Date: 06/24/17 patient remain stable and exam unchanged ,consider eval to remove phalanges and debride wound and then move to [facility], if cannot be accomplished then move to [facility]ac for prolonged abx.
[2017-06-24] MEDS: NOVOLOG SUB-Q SCH ×7 (08:34→21:56)
[2017-06-24] MEDS: LYRICA PO SCH ×6 (08:35→19:56)
[2017-06-24] MEDS: HALFPRIN EC PO SCH (10:19)
[2017-06-24] MEDS: PLAVIX PO SCH (10:19)
[2017-06-24] MEDS: NORVASC PO SCH (10:20)
[2017-06-24] MEDS: PEPCID PO SCH ×2 (10:20→21:52)
[2017-06-24] MEDS: ZYLOPRIM PO SCH (10:20)
[2017-06-24] MEDS: HEPARIN SUB-Q SCH ×2 (10:20→21:52)
[2017-06-24] MEDS: LOPRESSOR PO SCH ×2 (10:23→21:51)
[2017-06-24] MEDS: DILAUDID IV PRN (10:24)
--- NOTE | 2017-06-24 16:27 | Progress Note ---
Assessment and Plan Assessment and plan: --Peripheral vascular disease; s/p balloon angioplasty per vascular, Discussed with vascular surgeon Dr. Hickman --Nonhealing Diabetic left foot/leg ulcer, possible osteomyelitis Continue daptomycin and meropenem but ID, wound care, Vascular , ID ,wound care following. Dr. Kayce baez,recommended to consult podiatry and orthopedic for possible debridement and other related procedures Pending ortho and podiatry evaluations , And transfer the patient to LTAC after procedures are done --MRSA wound infection/positive gram-negative rods Proteus; contact isolation, daptomycin and meropenem per ID --Peripheral neuropathy; continue gabapentin --Type 2 diabetes mellitus; Accu-Chek sliding scale coverage and ADA diet and insulin, hemoglobin A1c 8.1 --Hypertension; moderate control, continue current antihypertensives and when necessary medications --Mild Hyponatremia; probably pseudohyponatremia secondary to hyperglycemia, improved --Mild hypoalbuminemia/protein calorie malnutrition; supportive care, nutrition supplements --DVT prophylaxis; Lovenox We'll follow ortho and podiatry evaluation and recommendations And then plans of surgical procedure patient can be transferred to LTAC for further management Plan of care discussed with the nurse and the patient at the bedside History Interval history: Patient seen and evaluated medical records reviewed Feels slightly better no new complaints Vascular and wound care evaluation smoking appreciated Alert awake oriented 3 not in acute distress Vital signs reviewed Hospitalist Physical - Constitutional Vitals: Temp Pulse Resp BP Pulse Ox 99.0 F 77 20 159/67 96 06/24/17 15:43 06/24/17 15:43 06/24/17 15:43 06/24/17 15:43 06/24/17 15:43 General appearance: Present: no acute distress, well-nourished - EENT Eyes: Present: PERRL, EOM intact - Neck Neck: Present: supple, normal ROM - Respiratory Respiratory effort: normal Respiratory: negative: rales, rhonchi, wheezing - Cardiovascular Rhythm: regular Heart Sounds: Present: S1 & S2 - Extremities Extremities: abnormal ( right BKA) Extremity abnormal: other (lower extremity nonhealing chronic ulcer, dressing in place) - Abdominal General gastrointestinal: soft, non-tender, non-distended, normal bowel sounds - Integumentary Integumentary: Present: clear, warm - Psychiatric Psychiatric: appropriate mood/affect, cooperative - Neurologic Neurologic: CNII-XII intact, moves all extremities Results - Labs CBC & Chem 7: 06/23/17 06:19 06/23/17 06:19 Labs: Laboratory Last Values WBC 3.2 K/mm3 (4.5-11.0) L 06/23/17 06:19 RBC 3.54 M/mm3 (3.65-5.03) L 06/23/17 06:19 Hgb 9.7 gm/dl (11.8-15.2) L 06/23/17 06:19 Hct 29.8 % (35.5-45.6) L 06/23/17 06:19 MCV 84 fl (84-94) 06/23/17 06:19 MCH 28 pg (28-32) 06/23/17 06:19 MCHC 33 % (32-34) 06/23/17 06:19 RDW 20.0 % (13.2-15.2) H 06/23/17 06:19 Plt Count 242 K/mm3 (140-440) 06/23/17 06:19 Lymph % (Auto) 16.7 % (13.4-35.0) 06/23/17 06:19 [place] % (Auto) 8.4 % (0.0-7.3) H 06/23/17 06:19 Eos % (Auto) 5.1 % (0.0-4.3) H 06/23/17 06:19 Baso % (Auto) 0.5 % (0.0-1.8) 06/23/17 06:19 Lymph # 0.5 K/mm3 (1.2-5.4) L 06/23/17 06:19 [place] # 0.3 K/mm3 (0.0-0.8) 06/23/17 06:19 Eos # 0.2 K/mm3 (0.0-0.4) 06/23/17 06:19 Baso # 0.0 K/mm3 (0.0-0.1) 06/23/17 06:19 Seg Neutrophils % 69.3 % (40.0-70.0) 06/23/17 06:19 Seg Neutrophils # 2.2 K/mm3 (1.8-7.7) 06/23/17 06:19 ESR > 140.0 mm/Hr (0-20) 06/21/17 19:45 Sodium 138 mmol/L (137-145) 06/23/17 06:19 Potassium 3.7 mmol/L (3.6-5.0) 06/23/17 06:19 Chloride 102.9 mmol/L (98-107) 06/23/17 06:19 Carbon Dioxide 22 mmol/L (22-30) 06/23/17 06:19 Anion Gap 17 mmol/L 06/23/17 06:19 BUN 10 mg/dL (9-20) 06/23/17 06:19 Creatinine 0.8 mg/dL (0.8-1.5) 06/23/17 06:19 Estimated GFR > 60 ml/min 06/23/17 06:19 BUN/Creatinine Ratio 13 % 06/23/17 06:19 Glucose 146 mg/dL (75-100) H 06/23/17 06:19 POC Glucose 190 (70-105) H 06/24/17 15:51 Hemoglobin A1c 8.1 % (4-6) H 06/19/17 17:55 Calcium 8.5 mg/dL (8.4-10.2) 06/23/17 06:19 Total Bilirubin 0.50 mg/dL (0.1-1.2) 06/20/17 06:54 AST 13 units/L (5-40) 06/20/17 06:54 ALT 9 units/L (7-56) 06/20/17 06:54 Alkaline Phosphatase 78 units/L (35-129) 06/20/17 06:54 C-Reactive Protein 5.10 mg/dL (0.00-1.30) H 06/21/17 17:11 Total Protein 6.9 g/dL (6.3-8.2) 06/20/17 06:54 Albumin 3.1 g/dL (3.9-5) L 06/20/17 06:54 Albumin/Globulin Ratio 0.8 % 06/20/17 06:54 Vancomycin Trough 19.6 ug/mL (5.0-20.0) 06/22/17 02:40
[2017-06-24] MEDS: CUBICIN IV SCH (18:05)
[2017-06-24] MEDS: NACL 0.9% IV SCH (18:05)
[2017-06-24] MEDS: LEVEMIR SUB-Q SCH (21:53)
[2017-06-25] MEDS: DILAUDID IV PRN ×2 (05:49→13:08)
[2017-06-25] MEDS: MERREM 1,000 MG in NACL 0.9% 100 ML IV SCH ×3 (05:55→21:30)
[2017-06-25] MEDS: NOVOLOG SUB-Q SCH ×7 (07:45→22:42)
--- NOTE | 2017-06-25 08:04 | Event Note ---
Date: 07/02/17 if no surgery to remove infected bones in the foot then transfer to [facility]
[2017-06-25] MEDS: LYRICA PO SCH ×6 (09:01→20:01)
[2017-06-25] MEDS: HALFPRIN EC PO SCH (09:16)
[2017-06-25] MEDS: PEPCID PO SCH ×2 (09:16→21:34)
[2017-06-25] MEDS: ZYLOPRIM PO SCH (09:16)
[2017-06-25] MEDS: LOPRESSOR PO SCH ×2 (09:16→21:33)
[2017-06-25] MEDS: PERCOCET 5/325 PO PRN ×3 (09:17→21:32)
[2017-06-25] MEDS: PLAVIX PO SCH (09:17)
[2017-06-25] MEDS: HEPARIN SUB-Q SCH ×2 (09:17→21:35)
[2017-06-25] MEDS: NORVASC PO SCH (09:18)
[2017-06-25] MEDS: NACL 0.9% 1000 ML 1,000 ML IV SCH (14:16)
[2017-06-25] MEDS: NACL 0.9% IV SCH (17:02)
[2017-06-25] MEDS: CUBICIN IV SCH (17:02)
--- NOTE | 2017-06-25 19:03 | Progress Note ---
Assessment and Plan Assessment and plan: --DC planning; patient is cleared for discharge and transfer to LTAC Case management contacted LTAC, the patient has bed however, they do not accept transfers over the weekend Possible discharge and transfer to LTAC tomorrow if stable --Peripheral vascular disease; s/p balloon angioplasty per vascular, Discussed with vascular surgeon Dr. Hickman --Nonhealing Diabetic left foot/leg ulcer, possible osteomyelitis Continue daptomycin and meropenem but ID, wound care, Vascular , ID ,wound care following. Dr. Kayce baez,recommended to consult podiatry and orthopedic for possible debridement and other related procedures Pending ortho and podiatry evaluations , And transfer the patient to LTAC after procedures are done --MRSA wound infection/positive gram-negative rods Proteus; contact isolation, daptomycin and meropenem per ID --Peripheral neuropathy; continue gabapentin --Type 2 diabetes mellitus; Accu-Chek sliding scale coverage and ADA diet and insulin, hemoglobin A1c 8.1 --Hypertension; moderate control, continue current antihypertensives and when necessary medications --Mild Hyponatremia; probably pseudohyponatremia secondary to hyperglycemia, improved --Mild hypoalbuminemia/protein calorie malnutrition; supportive care, nutrition supplements --DVT prophylaxis; Lovenox No plans of surgical procedure and vascular at this point Possible transfer to LTAC tomorrow Plan of care discussed with the nurse and the patient at the bedside History Interval history: Patient seen and examined medical records reviewed No new complaints Receiving antibiotics Awaiting LTAC transfer Alert awake oriented 3, vital signs stable Hospitalist Physical - Constitutional Vitals: Temp Pulse Resp BP Pulse Ox 98.5 F 68 18 144/62 95 06/25/17 07:47 06/25/17 07:47 06/25/17 07:47 06/25/17 07:47 06/25/17 07:47 General appearance: Present: no acute distress, well-nourished - EENT Eyes: Present: PERRL, EOM intact - Neck Neck: Present: supple, normal ROM - Respiratory Respiratory effort: normal Respiratory: bilateral: diminished, negative: rales, rhonchi, wheezing - Cardiovascular Rhythm: regular Heart Sounds: Present: S1 & S2 - Extremities Extremities: abnormal (right BKA) Extremity abnormal: other (nonhealing ulcers left leg, dressing intact) - Abdominal General gastrointestinal: soft, non-tender, non-distended, normal bowel sounds - Integumentary Integumentary: Present: clear, warm - Psychiatric Psychiatric: appropriate mood/affect, cooperative - Neurologic Neurologic: CNII-XII intact, moves all extremities Results - Labs CBC & Chem 7: 06/23/17 06:19 06/23/17 06:19 Labs: Laboratory Last Values WBC 3.2 K/mm3 (4.5-11.0) L 06/23/17 06:19 RBC 3.54 M/mm3 (3.65-5.03) L 06/23/17 06:19 Hgb 9.7 gm/dl (11.8-15.2) L 06/23/17 06:19 Hct 29.8 % (35.5-45.6) L 06/23/17 06:19 MCV 84 fl (84-94) 06/23/17 06:19 MCH 28 pg (28-32) 06/23/17 06:19 MCHC 33 % (32-34) 06/23/17 06:19 RDW 20.0 % (13.2-15.2) H 06/23/17 06:19 Plt Count 242 K/mm3 (140-440) 06/23/17 06:19 Lymph % (Auto) 16.7 % (13.4-35.0) 06/23/17 06:19 [place] % (Auto) 8.4 % (0.0-7.3) H 06/23/17 06:19 Eos % (Auto) 5.1 % (0.0-4.3) H 06/23/17 06:19 Baso % (Auto) 0.5 % (0.0-1.8) 06/23/17 06:19 Lymph # 0.5 K/mm3 (1.2-5.4) L 06/23/17 06:19 [place] # 0.3 K/mm3 (0.0-0.8) 06/23/17 06:19 Eos # 0.2 K/mm3 (0.0-0.4) 06/23/17 06:19 Baso # 0.0 K/mm3 (0.0-0.1) 06/23/17 06:19 Seg Neutrophils % 69.3 % (40.0-70.0) 06/23/17 06:19 Seg Neutrophils # 2.2 K/mm3 (1.8-7.7) 06/23/17 06:19 ESR > 140.0 mm/Hr (0-20) 06/21/17 19:45 Sodium 138 mmol/L (137-145) 06/23/17 06:19 Potassium 3.7 mmol/L (3.6-5.0) 06/23/17 06:19 Chloride 102.9 mmol/L (98-107) 06/23/17 06:19 Carbon Dioxide 22 mmol/L (22-30) 06/23/17 06:19 Anion Gap 17 mmol/L 06/23/17 06:19 BUN 10 mg/dL (9-20) 06/23/17 06:19 Creatinine 0.8 mg/dL (0.8-1.5) 06/23/17 06:19 Estimated GFR > 60 ml/min 06/23/17 06:19 BUN/Creatinine Ratio 13 % 06/23/17 06:19 Glucose 146 mg/dL (75-100) H 06/23/17 06:19 POC Glucose 125 (70-105) H 06/25/17 11:52 Hemoglobin A1c 8.1 % (4-6) H 06/19/17 17:55 Calcium 8.5 mg/dL (8.4-10.2) 06/23/17 06:19 Total Bilirubin 0.50 mg/dL (0.1-1.2) 06/20/17 06:54 AST 13 units/L (5-40) 06/20/17 06:54 ALT 9 units/L (7-56) 06/20/17 06:54 Alkaline Phosphatase 78 units/L (35-129) 06/20/17 06:54 C-Reactive Protein 5.10 mg/dL (0.00-1.30) H 06/21/17 17:11 Total Protein 6.9 g/dL (6.3-8.2) 06/20/17 06:54 Albumin 3.1 g/dL (3.9-5) L 06/20/17 06:54 Albumin/Globulin Ratio 0.8 % 06/20/17 06:54 Vancomycin Trough 19.6 ug/mL (5.0-20.0) 06/22/17 02:40
[2017-06-25] MEDS: LEVEMIR SUB-Q SCH (22:42)
[2017-06-26] MEDS: DILAUDID IV PRN ×3 (00:22→13:22)
[2017-06-26] MEDS: MERREM 1,000 MG in NACL 0.9% 100 ML IV SCH ×2 (06:10→13:20)
[2017-06-26] MEDS: NACL 0.9% 1000 ML 1,000 ML IV SCH (06:22)
--- NOTE | 2017-06-26 08:45 | Progress Note ---
Assessment and Plan basically await surgery orhto vs podiatry to consider bone removal vs debridement, patient may go to ltac after procedure or if no procedure planned - Patient Problems (1) Right hip pain Current Visit: Yes Status: Acute (2) Coronary artery disease Current Visit: No Status: Chronic Qualifiers: Coronary Disease-Associated Artery/Lesion type: rosebud artery [place] vs. transplanted heart: rosebud heart (3) Foot ulcer, left Current Visit: Yes Status: Chronic Qualifiers: Non-pressure ulcer stage: with fat layer exposed Qualified Code(s): L97.522 - Non-pressure chronic ulcer of other part of left foot with fat layer exposed (4) Gastroesophageal reflux disease Current Visit: No Status: Chronic Qualifiers: Esophagitis presence: without esophagitis Qualified Code(s): K21.9 - Gastro -esophageal reflux disease without esophagitis (5) Hypertension Current Visit: No Status: Chronic Qualifiers: Hypertension type: essential hypertension Qualified Code(s): I10 - Essential (primary) hypertension (6) Insulin dependent diabetes mellitus Current Visit: No Status: Chronic (7) Peripheral arterial disease Current Visit: Yes Status: Chronic (8) Peripheral neuropathy Current Visit: No Status: Chronic Qualifiers: Peripheral neuropathy type: polyneuropathy, unspecified Qualified Code(s): G62.9 - Polyneuropathy, unspecified (9) 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 Current Visit: No Status: Acute (10) Diabetes mellitus Current Visit: No Status: Acute (11) Congestive heart failure Current Visit: No Status: Chronic Qualifiers: Congestive heart failure type: systolic (12) Leg ulcer Current Visit: No Status: Chronic (13) Peripheral vascular disease Current Visit: No Status: Chronic (14) Venous stasis ulcers Current Visit: No Status: Chronic Subjective Date of service: 06/26/17 Principal diagnosis: gangrene Interval history: patient remain stable Objective - Constitutional Vitals: Vital Signs - 12hr 06/25/17 06/25/17 21:33 23:58 Temperature 97.6 F Pulse Rate 69 80 Respiratory 16 Rate Blood Pressure 144/72 145/64 O2 Sat by Pulse 97 Oximetry Extremity abnormal: edema, erythema, deformity (foot wound remain stable) - Labs CBC & Chem 7: 06/23/17 06:19 06/23/17 06:19 Labs: Abnormal lab results 06/25/17 06/25/17 06/25/17 Range/Units 11:52 16:29 21:51 POC Glucose 125 H 107 H 210 H (70-105) Total Creatine Kinase (55-170) units/L 06/26/17 06/26/17 Range/Units 06:00 06:31 POC Glucose 138 H (70-105) Total Creatine Kinase 25 L (55-170) units/L
[2017-06-26] MEDS: NOVOLOG SUB-Q SCH ×4 (08:48→12:47)
[2017-06-26] MEDS: LYRICA PO SCH ×4 (08:48→13:21)
--- NOTE | 2017-06-26 08:56 | Discharge Summary ---
Providers - Providers Date of Admission: 06/19/17 17:19 Date of discharge: 06/26/17 Attending physician: TAMIKO BIRCH 06/19/17 17:04 Consult to Physician [CONS] Routine Consulting Provider: MIGUEL ANGEL NICHOLSON Reason For Exam: LT. LEG GANGRENE Place consult to:: MIGUEL ANGEL MELTON Notified:: A.S. Phone number called:: [phone] Was contact made?: Yes If yes, spoke with:: STEPHANIE Time called:: 09:36 Comment:: CATY NOTIFIED 06/19/17 19:26 Consult to Physician [CONS] Routine Consulting Provider: DEISY ACOSTA Reason For Exam: PAD/left foot gangrene Place consult to:: ROBERTA Notified:: ANASTACIA Time called:: 13:46 06/19/17 19:32 Consult to Dietitian/Nutrition [CONS] Routine Physician Instructions: Reason For Exam: Reason for Consult: Diet education 06/20/17 06:44 Consult to Wound/ET Nurse [CONS] Urgent Reason For Exam: wound eval 06/21/17 12:58 Consult to Physician [CONS] Routine Consulting Provider: PRATIBHA ADDISON Reason For Exam: diabetic foot infection Place consult to:: Jose Angel Notified:: yes Comment:: DR Walter here to see patient now 06/21/17 13:01 Consult to Case Management [CONS] Routine Services Needed at Discharge: Other Notified:: yes If yes, spoke with:: ALE Comment:: refer to [facility] 06/23/17 13:57 Consult to Case Management [CONS] Stat Services Needed at Discharge: Other 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 Please fax results to [phone] and call [phone] for critical lab results. Pratibha Walter / Kenneth Boss Date: 06/23/17 06/23/17 14:01 Consult to PICC Line RN [CONS] Routine Reason For Exam: for IV abx for 6 weeks Type Line:: PICC 06/23/17 15:35 Consult to Physician [CONS] Routine Consulting Provider: PAM CHI Reason For Exam: non healing ulcer left lower extremity/hip pain Place consult to:: dr. chi Notified:: Phone number called:: [phone] Was contact made?: Yes If yes, spoke with:: dr. chi Time called:: 16:09 06/23/17 15:43 Consult to Physician [CONS] Routine Consulting Provider: ZOE CARNEY Reason For Exam: Non healing ulcer lt lower extremity Place consult to:: dr. carney Notified:: office Phone number called:: Was contact made?: Yes If yes, spoke with:: ami Time called:: 16:15 Primary care physician: TABITHA CRAIG Hospitalization Reason for admission: Worsening left leg and foot for the last 3 months Pertinent studies: Carotid Doppler; no hemodynamically significant stenosis; MRI of left leg; findings compatible with nonspecific post intimated to change including osteomyelitis and cellulitis about the second and third metatarsophalangeal joints involving second and third metatarsal proximal phalanges Lower extremity arterial Doppler; Right side; essentially normal arterial flow Left side; monophasic distal waveforms which in combination with gangrene are concerning for distal arterial disease Angiography of right and left lower extremities Balloon Angioplasty of the left anterior tibial artery Hospital course: Very pleasant 69-year-old male patient with significant history of hypertension diabetes mellitus peripheral neuropathy peripheral arterial disease gout coronary artery disease status post right below knee amputation was admitted through emergency room with the nonhealing left foot ulcer of 3 months duration Patient was initially evaluated admitted to the hospital symptomatically managed Evaluated by vascular in consultation, underwent arterial Doppler, latest had revascularization procedure with significant improvement of symptoms Vascular extensively discussed with the patient regarding his left lower extremity, and possible surgical intervention, and later decided to treat medically with long-term IV antibiotics as recommended by ID, Patient received wound care, blood sugars closely monitored medications optimized Patient was evaluated by LTAC long-term IV antibiotics And today he is comfortable in bed vital signs are stable [id number] evaluation physical examination done by me did not show any new changes Hemodynamically and clinically stable for discharge and transfer to LTAC for long-term IV antibiotics daptomycin and imipenem. With stop Date of 08/03/2017, recommended by ID Discharge diagnosis; --Peripheral vascular disease; s/p balloon angioplasty --Nonhealing Diabetic left foot/leg ulcer, possible osteomyelitis --MRSA wound infection/positive gram-negative rods Proteus; --Peripheral neuropathy; continue gabapentin --Type 2 diabetes mellitus; --Hypertension; --Mild Hyponatremia; probably pseudohyponatremia improved --Mild hypoalbuminemia/protein calorie malnutrition; --Status post right BKA Disposition: DC/TX-[id number] MEDICARE CERT LT Time spent for discharge: 33 min Core Measure Documentation - Palliative Care Palliative Care/ Comfort Measures: Not Applicable - Core Measures Any of the following diagnoses?: none Exam - Constitutional Vitals: Temp Pulse Resp BP Pulse Ox 97.6 F 80 16 145/64 97 06/25/17 23:58 06/25/17 23:58 06/25/17 23:58 06/25/17 23:58 06/25/17 23:58 General appearance: Present: no acute distress, well-nourished - EENT Eyes: Present: PERRL, EOM intact - Neck Neck: Present: supple, normal ROM - Respiratory Respiratory effort: normal Respiratory: negative: rales, rhonchi, wheezing - Cardiovascular Rhythm: regular Heart Sounds: Present: S1 & S2 - Extremities Extremities: abnormal (right BKA) Extremity abnormal: edema, other (left lower extremity nonhealing wound) - Abdominal General gastrointestinal: Present: soft, non-tender, non-distended, normal bowel sounds - Integumentary Integumentary: Present: clear, warm - Musculoskeletal Musculoskeletal: strength equal bilaterally - Psychiatric Psychiatric: appropriate mood/affect, cooperative - Neurologic Neurologic: CNII-XII intact, moves all extremities Plan Activity: advance as tolerated, fall precautions Diet: diabetic Special Instructions: physical therapy Additional Instructions: Transfer to LTAC. IV Daptomycin 550 mg daily and Meropenem 1gm q 8hrs to be continued for total 6 weeks, end date 08/03/2017, as recommended by ID Follow up with: TABITHA CRAIG MD [Primary Care Provider] - 7 Days
--- NOTE | 2017-06-26 10:25 | Progress Note ---
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 -CRP=5.10 -wound culture positive for MRSA, ESBL E coli, Proteus, MDR -s/p balloon angioplaty of left tibial artery 06/22 2) Left foot Ostemyelitis, cellulitis: MRI showed osteomyelitis, cellulitis, with degeneration of multiple phalanxes and tarsals 3) Peripheral vascular disease 4)HTN 5)Hyponatermia, resolved 6)Allergy to tetracycline, timethoprim, sufamethoxazole Plan: -continue daptomycin and meropenem due to ESBL E coli -If not amputated, will do iv ABX for 6 weeks -wound care following -continue contact isolation due to ESBL E coli -upon discharge will do daptomycin 550 iv q day and meropenem 1gm iv q 8hrs total 6 weeks until 08/03 -spring encaser notified we are signing off, please call for any question Thank you Dr. Uribe for your consult, will follow up MANPREET Hassan for Dr. Pratibha Hooper MD Infectious Diseases Specialist [facility] ([facility]) M [phone] O [phone] Subjective Date of service: 06/26/17 Principal diagnosis: gangrene Interval history: I feel fine, no fever Microbiology: Blood cultures: Urine cultures: Wound culture 06/20 gram negative rods, SA Current Antimicrobials: vancomycin 06/19 Previous Antimicrobials: zosyn 06/21 Objective - Exam Narrative Exam: General appearance: Alert in NAD Eyes: anicteric sclerae, moist conjunctivae; no lid-lag; PERRLA HENT: Atraumatic; oropharynx clear Neck: Trachea midline; supple, no thyromegaly or lymphadenopathy Lungs: CTAB CV: RRR, no murmurs Abdomen: Soft, non-tender; no masses or hepatosplenomegaly Extremities: left foot ulcer with dressing intact, Right BKA with dressing Skin: Normal temperature, turgor and texture Psych: calm and cooperative Neuro: alert, non-verbal. Moving all extermities Lines: No CVL / PICC - Constitutional Vitals: Vital Signs Temp Pulse Resp BP Pulse Ox 97.6 F 80 16 145/64 97 06/25/17 23:58 06/25/17 23:58 06/25/17 23:58 06/25/17 23:58 06/25/17 23:58 Temperature -Last 24 Hours Temperature 97.6 F Temperature 98.1 F Temperature 97.6 F Temperature 98.4 F - Labs CBC & Chem 7: 06/23/17 06:19 06/23/17 06:19 Labs: Abnormal lab results 06/25/17 06/25/17 06/25/17 Range/Units 11:52 16:29 21:51 POC Glucose 125 H 107 H 210 H (70-105) Total Creatine Kinase (55-170) units/L 06/26/17 06/26/17 Range/Units 06:00 06:31 POC Glucose 138 H (70-105) Total Creatine Kinase 25 L (55-170) units/L
[2017-06-26] MEDS: HEPARIN SUB-Q SCH (12:05)
[2017-06-26] MEDS: PLAVIX PO SCH (12:06)
[2017-06-26] MEDS: NORVASC PO SCH (12:06)
[2017-06-26] MEDS: HALFPRIN EC PO SCH (12:06)
[2017-06-26] MEDS: ZYLOPRIM PO SCH (12:07)
[2017-06-26] MEDS: PEPCID PO SCH (12:07)
[2017-06-26] MEDS: LOPRESSOR PO SCH (12:07)
[2017-06-26 14:25] VITALS: BP 148/67
--- NOTE | 2017-06-28 13:39 | Vascular Lab Report ---
CAROTID DUPLEX STUDY: RIGHT PSVEDV CCA [id number] CCA DIST:[id number] ICA PROX:9712 ICA MID:[id number] ICA DIST:[id number] ECA: 876 VERT: 56 12 LEFT PSVEDV CCA PROX:1364 CCA DIST:[id number] ICA PROX:986 ICA MID:9514 ICA DIST:9620 ECA: 984 VERT: 79 13 REASON FOR EXAM: Carotid artery stenosis. COMMENTS ON THE RIGHT: Doppler frequency analysis is consistent with 16 to 49 percent diameter reduction of the internal carotid artery. A small amount of mixed density plaque is seen. The common carotid artery is patent. The external carotid artery is patent. The vertebral artery has antegrade flow. COMMENTS ON THE LEFT: Doppler frequency analysis is consistent with 16 to 49 percent diameter reduction of the internal carotid artery. A small moderate amount of calcified plaque is seen. The common carotid artery is patent. The external carotid artery is patent. The vertebral artery has antegrade flow. IMPRESSION: Less than 50% diameter reduction in the internal carotid arteries bilaterally. Consider repeat carotid artery duplex in 12 months because of calcified plaque in the carotid arteries bilaterally.
== END 2017-06-26 15:35 | DRG 253 ==
LOC: UNDOADMIN 16:13 → 3A 16:13
PROVIDERS: ADMIT Internal Medicine; ATTEND Internal Medicine
PROC: 047Q3ZZ Dilation of Left Anterior Tibial Artery, Percutaneous Approach (ICD-10-PCS; principal; 2017-06-22)
PROC: B41G1ZZ Fluoroscopy of Left Lower Extremity Arteries using Low Osmolar Contrast (ICD-10-PCS; 2017-06-22)
PROC: B4101ZZ Fluoroscopy of Abdominal Aorta using Low Osmolar Contrast (ICD-10-PCS; 2017-06-22)
PROC: B41J1ZZ Fluoroscopy of Other Lower Arteries using Low Osmolar Contrast (ICD-10-PCS; 2017-06-22)
DX: E11.52 Type 2 diabetes mellitus with diabetic peripheral angiopathy with gangrene (principal); E87.1 Hypo-osmolality and hyponatremia; E44.1 Mild protein-calorie malnutrition; M86.8X7 Other osteomyelitis, ankle and foot; L03.116 Cellulitis of left lower limb; M86.9 Osteomyelitis, unspecified; L97.423 Non-pressure chronic ulcer of left heel and midfoot with necrosis of muscle; E11.69 Type 2 diabetes mellitus with other specified complication; E11.621 Type 2 diabetes mellitus with foot ulcer; I25.10 Atherosclerotic heart disease of native coronary artery without angina pectoris; K21.9 Gastro-esophageal reflux disease without esophagitis; E11.42 Type 2 diabetes mellitus with diabetic polyneuropathy; E11.65 Type 2 diabetes mellitus with hyperglycemia; A49.02 Methicillin resistant Staphylococcus aureus infection, unspecified site; M10.9 Gout, unspecified; I11.0 Hypertensive heart disease with heart failure; I50.9 Heart failure, unspecified; Z79.4 Long term (current) use of insulin; Z68.26 Body mass index [BMI] 26.0-26.9, adult; Z89.511 Acquired absence of right leg below knee; Z82.49 Family history of ischemic heart disease and other diseases of the circulatory system; Z87.891 Personal history of nicotine dependence; Z88.1 Allergy status to other antibiotic agents; Z88.8 Allergy status to other drugs, medicaments and biological substances; Z68.27 Body mass index [BMI] 27.0-27.9, adult
CPT/HCPCS: 36415; 37228; 75625; 75716; 80048; 80053; 80202; 82550; 82962; 83036; 85025; 85652; 86140; 87076; 87116; 87186; 93880; 93925; C1725; C1760; C1769; C1887; J0690; J0878; J1170; J1644; J1815; J1818; J1956; J2185; J2250; J2270; J2405; J2543; J3010; J3370; J7030; J7050; Q9967

== ENCOUNTER 2017-08-14 12:38 | Outpatient (CLI) | payer MEDICARE ==
[2017-08-14] MEDS ORDERED: XYLOCAINE TOPICAL 4% TP ONE ×2 (13:03→13:06)
== END 2017-08-14 12:39 | disposition home or self-care (01) ==
LOC: WOUND 12:38
PROVIDERS: ATTEND Internal Medicine
DX: I87.332 Chronic venous hypertension (idiopathic) with ulcer and inflammation of left lower extremity (principal); E11.621 Type 2 diabetes mellitus with foot ulcer; L97.821 Non-pressure chronic ulcer of other part of left lower leg limited to breakdown of skin; K21.9 Gastro-esophageal reflux disease without esophagitis; I11.0 Hypertensive heart disease with heart failure; I50.9 Heart failure, unspecified; Z89.511 Acquired absence of right leg below knee; Z87.891 Personal history of nicotine dependence; Z95.820 Peripheral vascular angioplasty status with implants and grafts

== ENCOUNTER 2017-08-21 13:11 | Outpatient (CLI) | payer MEDICARE ==
[2017-08-21] MEDS ORDERED: XYLOCAINE TOPICAL 4% TP ONE ×2 (13:55)
== END 2017-08-21 13:12 | disposition home or self-care (01) ==
LOC: WOUND 13:11
PROVIDERS: ATTEND Internal Medicine
DX: T87.89 Other complications of amputation stump (principal); I87.332 Chronic venous hypertension (idiopathic) with ulcer and inflammation of left lower extremity; E11.622 Type 2 diabetes mellitus with other skin ulcer; L97.811 Non-pressure chronic ulcer of other part of right lower leg limited to breakdown of skin; L97.821 Non-pressure chronic ulcer of other part of left lower leg limited to breakdown of skin; E11.621 Type 2 diabetes mellitus with foot ulcer; L97.521 Non-pressure chronic ulcer of other part of left foot limited to breakdown of skin; K21.9 Gastro-esophageal reflux disease without esophagitis; I11.0 Hypertensive heart disease with heart failure; I50.9 Heart failure, unspecified; Z87.891 Personal history of nicotine dependence; Y83.5 Amputation of limb(s) as the cause of abnormal reaction of the patient, or of later complication, without mention of misadventure at the time of the procedure
CPT/HCPCS: 99215; G0463

== ENCOUNTER 2017-08-21 15:07 | Inpatient (IN) | payer MEDICARE ==
--- NOTE | 2017-08-21 15:17 | Event Note ---
Date: 08/21/17
--- NOTE | 2017-08-21 15:18 | History and Physical Report ---
History of Present Illness Date of examination: 08/21/17 Date of admission: 08/21/2017 Chief complaint: Chief complaint: Left lower extremity chronic ulcers with secondary infection and nonhealing. direct admit from wound clinic. History of present illness: History of Present Illness: 72-year-old male with history of COPD, diabetes, heart failure, hypertension, PVD, venous insuficiency and chronic Left leg/foot ulcers sent from wound care clinic by Dr. baez for 3 ulcers on her leg which were there for many years and now having some drainage and needing debridement. Dr. baez is also suspicious of osteomyelitis of the foot. Patient has stasis dermatitis on the left lower extremity and medial ulcer about 5 cm 3 cm and a lateral ulcer measuring about 6 cm 4 cm with a base which looks red and streaks of pus. Also visit a 6 cm x 4 cm circular ulcer on the forefoot heel which is also been nonhealing and needs debridement. 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 Patient has extensive peripheral vascular disease. 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 Hightower, cataract removal, right lower extremity wound debridement by his dean of admissions, possible right lower extremity arterial intervention by vascular surgeon/IR physician at [facility] regarding her recent hospitalization as per his ) right lower extremity below-knee amputation. Social history: . denies: smoking, alcohol abuse Family history: diabetes, hypertension Medications and Allergies Allergies Allergy/AdvReac Type Severity Reaction Status Date / Time gabapentin Allergy Unknown Verified 02/13/17 23:32 sulfamethoxazole Allergy Dizziness Verified 02/13/17 23:36 [From Bactrim] tetracycline Allergy Unknown Verified 02/13/17 23:32 trimethoprim [From Bactrim] Allergy Dizziness Verified 02/13/17 23:36 Home Medications Medication Instructions Recorded Confirmed Last Taken Type Famotidine 20 mg PO BID 08/02/13 02/14/17 10/31/16 08:00 History Multivitamin [Multi-Vitamin Daily] 1 each PO QDAY 08/02/13 02/14/17 10/31/16 08: 00 History glipiZIDE [Glipizide] 5 mg PO BIDAC 08/02/13 02/14/17 10/31/16 08:00 History Clopidogrel [Plavix] 75 mg PO QDAY #30 tablet 11/05/16 02/14/17 Unknown Rx Pregabalin [Lyrica] 100 mg PO TID #90 capsule 11/05/16 02/14/17 Unknown Rx Acetaminophen [Acetaminophen TAB] 650 mg PO Q6HR PRN 02/14/17 02/14/17 Unknown History Allopurinol [Zyloprim] 100 mg PO QDAY 02/14/17 02/14/17 Unknown History Docusate Sodium [Colace CAP] 100 mg PO BID PRN 02/14/17 02/14/17 Unknown History Insulin Detemir [Levemir Flextouch] 10 unit SQ QHS 02/14/17 02/14/17 Unknown History Insulin Lispro [Humalog 100 5 units SQ AC 02/14/17 02/14/17 Unknown History UNITS/ML Kwikpen] Metoprolol [Lopressor TAB] 50 mg PO BID 02/14/17 02/14/17 Unknown History Vitamin B Complex 1 each PO QDAY 02/14/17 02/14/17 Unknown History amLODIPine [Norvasc] 10 mg PO DAILY 02/14/17 02/14/17 Unknown History HYDROcodone/APAP 5-325 [[place] 1 each PO 4XD PRN #14 tablet 02/27/17 Unknown Rx 5-325 mg TAB] Review of Systems All systems: negative Constitutional: fever, no weight loss, no weight gain, no chills, no sweats, no night sweats Ears, nose, mouth and throat: no sore throat, no swelling in mouth, no swelling in throat Cardiovascular: no chest pain, no orthopnea, no palpitations, no rapid/ irregular heart beat, no edema, no syncope, no lightheadedness, no shortness of breath Respiratory: no cough, no cough with sputum, no excessive sputum, no hemoptysis , no shortness of breath, no dyspnea on exertion Gastrointestinal: no abdominal pain, no nausea, no vomiting, no diarrhea, no constipation, no change in bowel habits, no hematemesis, no coffee ground emesis Genitourinary Male: no dysuria, no hematuria, no flank pain, no discharge, no urinary frequency, no urinary hesitancy, no nocturia, no incontinence, no erectile dysfunction, no genital pain Rectal: no pain Musculoskeletal: no neck stiffness, no neck pain, no shooting arm pain, no arm numbness/tingling, no low back pain, no shooting leg pain, no leg numbness/ tingling, no redness of joints Integumentary: wounds (3 ulcers as described in physical on LLE), no rash, no pruritis, no redness, no sores, no jaundice, no boils Neurological: no head injury, no transient paralysis, no paralysis, no weakness , no parathesias, no numbness, no tingling, no seizures, no syncope Psychiatric: no anxiety, no memory loss, no change in sleep habits, no sleep disturbances, no insomnia, no hypersomnia, no change in appetite, no change in libido, no suicidal ideation, no disorientation, no hallucinations Endocrine: no cold intolerance, no heat intolerance, no polyphagia, no excessive thirst, no polydipsia Hematologic/Lymphatic: no easy bruising, no easy bleeding Allergic/Immunologic: no urticaria, no allergic rhinitis, no wheezing Exam - Constitutional General appearance: Present: no acute distress, well-nourished - EENT Eyes: Present: PERRL ENT: hearing intact, clear oral mucosa - Neck Neck: Present: supple, normal ROM - Respiratory Respiratory effort: normal Respiratory: bilateral: CTA - Cardiovascular Heart rate: 70 Rhythm: regular Heart Sounds: Present: S1 & S2. Absent: rub, click - Extremities Extremities: pulses symmetrical, No edema, abnormal Extremity abnormal: edema, ulceration (3 long-standing ulcers present on the left lower extremity. 54 ulcer on the medial aspect of left lower extremity. 64 ulcer on the lateral aspect of left lower extremity and 6 x 4 ulcer on the heel near the toes. All are infected and draining.), pulses diminished, other Peripheral Pulses: within normal limits - Abdominal General gastrointestinal: Present: soft, non-tender, non-distended, normal bowel sounds Male genitourinary: Present: normal - Integumentary Integumentary: Present: clear, warm, dry - Musculoskeletal Musculoskeletal: gait normal, strength equal bilaterally - Psychiatric Psychiatric: appropriate mood/affect, intact judgment & insight - Neurologic Neurologic: CNII-XII intact, moves all extremities Results - Labs CBC & Chem 7: 08/21/17 20:57 08/21/17 20:57 Assessment and Plan Advance Directives: Yes (full code) VTE prophylaxis?: Chemical Plan of care discussed with patient/family: Yes - Patient Problems (1) Foot ulcer, left Current Visit: No Status: Chronic Qualifiers: Non-pressure ulcer stage: with fat layer exposed Qualified Code(s): L97.522 - Non-pressure chronic ulcer of other part of left foot with fat layer exposed Plan to address problem: Patient has 3 chronic ulcers. With drainage. Needs debridement. Patient may end up having left below-knee amputation. We will get MRI of the foot to rule out osteomyelitis. Patient started on IV Unasyn and IV vancomycin. Orthopedic consult vascular consult and speech and language specialist consult requested. Also wound care consult requested. (2) Hypertension Current Visit: No Status: Chronic (3) IDDM (insulin dependent diabetes mellitus) Current Visit: Yes Status: Chronic Plan to address problem: Continue insulin and coverage. Needs tighter control. Check A1c (4) Peripheral neuropathy Current Visit: Yes Status: Chronic Qualifiers: Peripheral neuropathy type: polyneuropathy, unspecified Qualified Code(s): G62.9 - Polyneuropathy, unspecified Plan to address problem: Continue Lyrica (5) Peripheral arterial occlusive disease Current Visit: Yes Status: Chronic Plan to address problem: We will get vascular consult (6) Hypertension Current Visit: Yes Status: Chronic Qualifiers: Hypertension type: essential hypertension Qualified Code(s): I10 - Essential (primary) hypertension Plan to address problem: Continue antihypertensive (7) DVT prophylaxis Current Visit: No Status: Acute Plan to address problem: On heparin 5000 subcutaneous every 12
[2017-08-21] MEDS ORDERED: ZOFRAN IV PRN (15:19)
[2017-08-21] MEDS ORDERED: TYLENOL PO PRN (15:19)
[2017-08-21] MEDS ORDERED: SODIUM CHLORIDE FLUSH SYRINGE 10 ML IV PRN (15:19)
[2017-08-21] MEDS ORDERED: MORPHINE IV PRN (15:31)
[2017-08-21] MEDS ORDERED: DILAUDID IV PRN (15:31)
[2017-08-21] MEDS ORDERED: AMBIEN PO PRN (15:31)
[2017-08-21] MEDS ORDERED: COLACE PO PRN (15:35)
[2017-08-21] MEDS ORDERED: NON-FORMULARY (Multivitamin [Multi-Vitamin Daily] 1 EACH) PO SCH (15:45)
[2017-08-21] MEDS ORDERED: NACL 0.9% 1000 ML 1,000 ML IV SCH (16:00)
[2017-08-21] MEDS ORDERED: VANCOMYCIN PHARMACY TO DOSE IV SCH ×3 (16:00→22:00)
[2017-08-21] MEDS ORDERED: PEPCID PO SCH (16:00)
[2017-08-21] MEDS ORDERED: INSULIN LISPRO 5 UNIT SQ SCH (16:30)
[2017-08-21] MEDS ORDERED: ZOSYN/NS 4.5GM/100ML 4.5 GM/100 ML VIAL IV SCH (20:00)
[2017-08-21] MEDS ORDERED: NON-FORMULARY (Pregabalin [Lyrica] 100 MG) PO SCH (20:00)
[2017-08-21] MEDS ORDERED: GLUCOTROL PO SCH (20:00)
[2017-08-21 21:28] LABS: Basophils % (Auto) 0.2 % (0.0-1.8); Eosinophils # (Auto) 0.1 K/mm3 (0.0-0.4); Eosinophils % (Auto) 1.2 % (0.0-4.3); Hematocrit 34.1 % (35.5-45.6); Hemoglobin 11.5 gm/dl (11.8-15.2); Lymphocytes # (Auto) 0.6 K/mm3 (1.2-5.4); Lymphocytes % (Auto) 9.7 % (13.4-35.0); Mean Corpuscular HGB Conc 34 % (32-34); Mean Corpuscular Hemoglobin 30 pg (28-32); Mean Corpuscular Volume 88 fl (84-94); Monocytes # (Auto) 0.4 K/mm3 (0.0-0.8); Platelet Count 251 K/mm3 (140-440); Red Blood Count 3.89 M/mm3 (3.65-5.03); Red Cell Distribution Width 15.6 % (13.2-15.2)
[2017-08-21 21:57] LABS: Alanine Aminotransferase 17 units/L (7-56); Albumin 3.4 g/dL (3.9-5); BUN/Creatinine Ratio 19; Blood Urea Nitrogen 19 mg/dL (9-20); Calcium 8.6 mg/dL (8.4-10.2); Hemolysis Index 8
[2017-08-21] MEDS ORDERED: LANTUS SUB-Q SCH (22:00)
[2017-08-21] MEDS ORDERED: NON-FORMULARY (Insulin Detemir [Levemir Flextouch] 10 UNIT) SQ SCH (22:00)
[2017-08-21] MEDS: SODIUM CHLORIDE FLUSH SYRINGE 10 ML IV SCH (23:36)
[2017-08-21] MEDS: HEPARIN SUB-Q SCH (23:36)
[2017-08-21] MEDS: HumaLOG SUB-Q SCH (23:37)
[2017-08-21] MEDS: ZYLOPRIM PO SCH (23:38)
[2017-08-21] MEDS: LOPRESSOR PO SCH (23:38)
[2017-08-21] MEDS: PLAVIX PO SCH (23:39)
[2017-08-21] MEDS: LYRICA PO SCH ×2 (23:39)
[2017-08-21] MEDS: PEPCID PO SCH (23:40)
[2017-08-21] MEDS: PERCOCET 5/325 PO PRN (23:55)
[2017-08-22] MEDS ORDERED: VANCOMYCIN 1,750 MG in NACL 0.9% 500 ML 500 ML IV ONE (01:00)
[2017-08-22] MEDS: UNASYN/NS 3 GM/100 ML 3 GM/100 ML BAG IV SCH ×5 (01:43→23:28)
[2017-08-22 06:52] LABS: Hematocrit 37.2 % (35.5-45.6); Hemoglobin 12.1 gm/dl (11.8-15.2); Mean Corpuscular HGB Conc 33 % (32-34); Mean Corpuscular Hemoglobin 30 pg (28-32); Mean Corpuscular Volume 91 fl (84-94); Platelet Count 243 K/mm3 (140-440); Red Cell Distribution Width 16.1 % (13.2-15.2)
[2017-08-22 07:01] LABS: BUN/Creatinine Ratio 21; Blood Urea Nitrogen 17 mg/dL (9-20); Calcium 8.5 mg/dL (8.4-10.2); Hemolysis Index 27
[2017-08-22] MEDS: HumaLOG SUB-Q SCH ×7 (07:30→22:13)
[2017-08-22] MEDS: LYRICA PO SCH ×6 (09:05→22:25)
[2017-08-22] MEDS: NORVASC PO SCH (09:06)
[2017-08-22] MEDS: PEPCID PO SCH ×2 (09:06→22:25)
[2017-08-22] MEDS: PLAVIX PO SCH (09:06)
[2017-08-22] MEDS: THERAGRAN Tab PO SCH (09:06)
[2017-08-22] MEDS: ZYLOPRIM PO SCH (09:07)
[2017-08-22] MEDS: SODIUM CHLORIDE FLUSH SYRINGE 10 ML IV SCH ×2 (09:07→22:25)
[2017-08-22] MEDS: LOPRESSOR PO SCH ×2 (09:08→22:25)
[2017-08-22] MEDS: HEPARIN SUB-Q SCH ×2 (09:09→22:26)
[2017-08-22] MEDS: PERCOCET 5/325 PO PRN ×2 (09:21→15:11)
[2017-08-22] MEDS: VANCOMYCIN 1,250 MG in NACL 0.9% 250ML 250 ML IV SCH (14:16)
--- NOTE | 2017-08-22 14:49 | Progress Note ---
Assessment and Plan - Patient Problems (1) Foot ulcer, left Current Visit: No Status: Chronic Qualifiers: Non-pressure ulcer stage: with fat layer exposed Qualified Code(s): L97.522 - Non-pressure chronic ulcer of other part of left foot with fat layer exposed Plan to address problem: Patient has 3 chronic ulcers. With drainage. Needs debridement. Patient may end up having left below-knee amputation. We will get MRI of the foot to rule out osteomyelitis. Patient started on IV Unasyn and IV vancomycin. Orthopedic consult vascular consult and computer support specialist consult requested. Also wound care consult requested MR foot ordered. (2) Hypertension Current Visit: No Status: Chronic Plan to address problem: Cont antihypertensives (3) IDDM (insulin dependent diabetes mellitus) Current Visit: Yes Status: Chronic Plan to address problem: Continue insulin and coverage. Needs tighter control. Check A1c (4) Peripheral neuropathy Current Visit: Yes Status: Chronic Qualifiers: Peripheral neuropathy type: polyneuropathy, unspecified Qualified Code(s): G62.9 - Polyneuropathy, unspecified Plan to address problem: Continue Lyrica (5) Peripheral arterial occlusive disease Current Visit: Yes Status: Chronic Plan to address problem: We will get vascular consult Arterial duplex scan biphasic flow (6) Hypertension Current Visit: Yes Status: Chronic Qualifiers: Hypertension type: essential hypertension Qualified Code(s): I10 - Essential (primary) hypertension Plan to address problem: Continue antihypertensive (7) DVT prophylaxis Current Visit: No Status: Acute Plan to address problem: On heparin 5000 subcutaneous every 12 Subjective Date of service: 08/22/17 Principal diagnosis: LLE infected ulcers Interval history: Same condition Objective - Constitutional Vitals: Vital Signs - 12hr 08/22/17 08/22/17 08/22/17 08:24 09:08 09:21 Temperature 98.6 F Pulse Rate 84 84 Respiratory 16 20 Rate Blood Pressure 143/70 Blood Pressure 143/70 [Left] O2 Sat by Pulse 99 Oximetry General appearance: Present: no acute distress, well-nourished - EENT Eyes: PERRL, EOM intact ENT: hearing intact, clear oral mucosa Ears: bilateral: normal - Neck Neck: supple, normal ROM - Respiratory Respiratory effort: normal Respiratory: bilateral: CTA - Breasts Breasts: normal - Cardiovascular Rhythm: regular Heart Sounds: Present: S1 & S2. Absent: gallop, rub Extremities: pulses intact, No edema, normal color, Full ROM - Gastrointestinal General gastrointestinal: Present: soft, non-tender, non-distended, normal bowel sounds - Genitourinary Male genitourinary: normal - Integumentary Integumentary: clear, warm, dry - Musculoskeletal Musculoskeletal: 1, strength equal bilaterally - Neurologic Neurologic: moves all extremities - Psychiatric Psychiatric: memory intact, appropriate mood/affect, intact judgment & insight - Labs CBC & Chem 7: 08/22/17 06:04 08/22/17 06:04 Labs: Abnormal lab results 08/21/17 08/21/17 08/21/17 Range/Units 20:57 20:57 20:57 Hgb 11.5 L (11.8-15.2) gm/dl Hct 34.1 L (35.5-45.6) % RDW 15.6 H (13.2-15.2) % Lymph % (Auto) 9.7 L (13.4-35.0) % Lymph # 0.6 L (1.2-5.4) K/mm3 Seg Neutrophils % 82.9 H (40.0-70.0) % Carbon Dioxide (22-30) mmol/L Glucose 305 H (75-100) mg/dL POC Glucose (70-105) Hemoglobin A1c 8.2 H (4-6) % Albumin 3.4 L (3.9-5) g/dL 08/21/17 08/22/17 08/22/17 Range/Units 22:13 06:04 06:04 Hgb (11.8-15.2) gm/dl Hct (35.5-45.6) % RDW 16.1 H (13.2-15.2) % Lymph % (Auto) (13.4-35.0) % Lymph # (1.2-5.4) K/mm3 Seg Neutrophils % (40.0-70.0) % Carbon Dioxide 20 L (22-30) mmol/L Glucose (75-100) mg/dL POC Glucose 325 H (70-105) Hemoglobin A1c (4-6) % Albumin (3.9-5) g/dL 08/22/17 Range/Units 13:18 Hgb (11.8-15.2) gm/dl Hct (35.5-45.6) % RDW (13.2-15.2) % Lymph % (Auto) (13.4-35.0) % Lymph # (1.2-5.4) K/mm3 Seg Neutrophils % (40.0-70.0) % Carbon Dioxide (22-30) mmol/L Glucose (75-100) mg/dL POC Glucose 196 H (70-105) Hemoglobin A1c (4-6) % Albumin (3.9-5) g/dL - Imaging and cardiology Other: report reviewed (LLE ARTERIAL DUPLEX COMPLETED. VAS LAB PRELIMINARY REPORT; PHASIC FLOW NOTED THROUGHOUT LLE ARTERIAL SYSTEM. PHYSICIANS REPORT TO FOLLOW...(RSK))
--- NOTE | 2017-08-22 18:25 | Consultation ---
History of Present Illness - Reason for Consult Consult date: 08/22/17 Requesting physician: SAIRA HERNANDEZ - History of Present Illness This pt is a 72 yo AAM directly admitted to [facility] from the outpt wound care clinic due to deterioration of his chronic wounds. An orthopedic surgery, wound care, and vascular surgery consults have been placed. The pt is known to our service from previous admissions and multiple revascularization procedures as well as a right below the knee amputation. The pt states he does not use his LLE at this point based upon the recommendations of his outpt wound care physician. He's made it clear he does not wish to proceed with a higher level amputation of his left leg at this point. He denies pain at present. 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 Rodriguez, cataract removal , multiple previous debridements of his right and left lower extremities, reveals arterial intervention by an interventional radiologist at [facility]) Social history: . denies: smoking, alcohol abuse Family history: diabetes, hypertension Medications and Allergies Allergies Allergy/AdvReac Type Severity Reaction Status Date / Time gabapentin Allergy Unknown Verified 02/13/17 23:32 sulfamethoxazole Allergy Dizziness Verified 02/13/17 23:36 [From Bactrim] tetracycline Allergy Unknown Verified 02/13/17 23:32 trimethoprim [From Bactrim] Allergy Dizziness Verified 02/13/17 23:36 Home Medications Medication Instructions Recorded Confirmed Last Taken Type Famotidine 20 mg PO BID 08/02/13 08/22/17 10/31/16 08:00 History Multivitamin [Multi-Vitamin Daily] 1 each PO QDAY 08/02/13 08/22/17 10/31/16 08: 00 History glipiZIDE [Glipizide] 5 mg PO BIDAC 08/02/13 08/22/17 08/21/17 History Clopidogrel [Plavix] 75 mg PO QDAY #30 tablet 11/05/16 08/22/17 08/20/17 Rx Pregabalin [Lyrica] 100 mg PO TID #90 capsule 11/05/16 08/22/17 08/21/17 Rx Acetaminophen [Acetaminophen TAB] 650 mg PO Q6HR PRN 02/14/17 08/22/17 Unknown History Allopurinol [Zyloprim] 100 mg PO QDAY 02/14/17 08/22/17 Unknown History Docusate Sodium [Colace CAP] 100 mg PO BID PRN 02/14/17 08/22/17 Unknown History Insulin Detemir [Levemir Flextouch] 10 unit SQ QHS 02/14/17 08/22/17 Unknown History Insulin Lispro [Humalog 100 5 units SQ AC 02/14/17 08/22/17 Unknown History UNITS/ML Kwikpen] Metoprolol [Lopressor TAB] 50 mg PO BID 02/14/17 08/22/17 Unknown History Vitamin B Complex 1 each PO QDAY 02/14/17 08/22/17 Unknown History amLODIPine [Norvasc] 10 mg PO DAILY 02/14/17 08/22/17 Unknown History HYDROcodone/APAP 5-325 [[place] 1 each PO 4XD PRN #14 tablet 02/27/17 08/22/17 Unknown Rx 5-325 mg TAB] Active Meds: Active Medications Acetaminophen (Tylenol) 650 mg PO Q4H PRN PRN Reason: Pain MILD(1-3)/Fever >100.5/ROE Allopurinol (Zyloprim) 100 mg PO QDAY [facility] Last Admin: 08/22/17 09:07 Dose: 100 mg Amlodipine Besylate (Norvasc) 10 mg PO DAILY [facility] Last Admin: 08/22/17 09:06 Dose: 10 mg Clopidogrel Bisulfate (Plavix) 75 mg PO QDAY [facility] Last Admin: 08/22/17 09:06 Dose: 75 mg Docusate Sodium (Colace) 100 mg PO BID PRN PRN Reason: Pain Famotidine (Pepcid) 20 mg PO BID [facility] Last Admin: 08/22/17 09:06 Dose: 20 mg Heparin Sodium (Porcine) (Heparin) 5,000 unit SUB-Q Q12HR [facility] Last Admin: 08/22/17 09:09 Dose: 5,000 unit Hydromorphone HCl (Dilaudid) 0.5 mg IV Q3H PRN PRN Reason: Pain , Severe (7-10) Ampicillin Sodium/Sulbactam Sodium (Unasyn/Ns 3 Gm/100 Ml) 3 gm in 100 mls @ 100 mls/hr IV Q6HR [facility]; Protocol Last Admin: 08/22/17 05:38 Dose: 100 mls/hr Vancomycin HCl 1,250 mg/ (Sodium Chloride) 262.5 mls @ 166.667 mls/hr IV Q12H [facility] Last Admin: 08/22/17 14:16 Dose: 166.667 mls/hr Insulin Glargine (Lantus) 30 units SUB-Q QHS [facility] Insulin Human Lispro (Humalog) 5 unit SUB-Q AC [facility] Last Admin: 08/22/17 18:09 Dose: 5 unit Insulin Human Lispro (Humalog) 0 unit SUB-Q ACHS [facility]; Protocol Last Admin: 08/22/17 18:10 Dose: 4 unit Metoprolol Tartrate (Lopressor) 50 mg PO BID [facility] Last Admin: 08/22/17 09:08 Dose: 50 mg Morphine Sulfate (Morphine) 2 mg IV Q4H PRN PRN Reason: Pain, Moderate (4-6) Multivitamins (Theragran Tab) 1 each PO DAILY [facility] Last Admin: 08/22/17 09:06 Dose: 1 each Ondansetron HCl (Zofran) 4 mg IV Q8H PRN PRN Reason: Nausea And Vomiting Oxycodone/Acetaminophen (Percocet 5/325) 1 tab PO Q6H PRN PRN Reason: Pain, Moderate (4-6) Last Admin: 08/22/17 15:11 Dose: 1 tab Pregabalin (Lyrica) 75 mg PO TID [facility] Last Admin: 08/22/17 14:16 Dose: 75 mg Pregabalin (Lyrica) 25 mg PO TID [facility] Last Admin: 08/22/17 14:16 Dose: 25 mg Sodium Chloride (Sodium Chloride Flush Syringe 10 Ml) 10 ml IV BID [facility] Last Admin: 08/22/17 09:07 Dose: 10 ml Sodium Chloride (Sodium Chloride Flush Syringe 10 Ml) 10 ml IV PRN PRN PRN Reason: LINE FLUSH Vancomycin HCl (Vancomycin Pharmacy To Dose) 1 each IV PKCONSULT [facility]; Protocol Zolpidem Tartrate (Ambien) 5 mg PO QHS PRN PRN Reason: Insomnia Review of Systems All systems: negative Exam - Constitutional Vitals: Temp Pulse Resp BP Pulse Ox 97.8 F 81 16 142/63 97 08/22/17 16:34 08/22/17 16:34 08/22/17 16:34 08/22/17 16:34 08/22/17 16:34 General appearance: Present: no acute distress - EENT Eyes: Present: EOM intact ENT: hearing intact - Neck Neck: Present: supple - Respiratory Respiratory effort: normal - Extremities Extremities: normal temperature, abnormal (right BKA with wound to the posterior flap with a beefy red base, lipodermatosclerosis of the left lower leg with brown hemosiderin deposits, he has multiple ulcerations to his left lower extremity: on the medial and lateral lower leg, as well as a quarter- sized black and necrotic heel ulcer, and a approximately 1 inch deep ulceration over the mid volar metatarsal region of his foot (please see the attached pictures)) - Psychiatric Psychiatric: appropriate mood/affect, intact judgment & insight, cooperative - Neurologic Neurologic: no focal deficits - Additional findings Additional findings: Results - Labs CBC & Chem 7: 08/22/17 06:04 08/22/17 06:04 Labs: Abnormal lab results 08/21/17 08/21/17 08/21/17 Range/Units 20:57 20:57 20:57 Hgb 11.5 L (11.8-15.2) gm/dl Hct 34.1 L (35.5-45.6) % RDW 15.6 H (13.2-15.2) % Lymph % (Auto) 9.7 L (13.4-35.0) % Lymph # 0.6 L (1.2-5.4) K/mm3 Seg Neutrophils % 82.9 H (40.0-70.0) % Carbon Dioxide (22-30) mmol/L Glucose 305 H (75-100) mg/dL POC Glucose (70-105) Hemoglobin A1c 8.2 H (4-6) % Albumin 3.4 L (3.9-5) g/dL 08/21/17 08/22/17 08/22/17 Range/Units 22:13 06:04 06:04 Hgb (11.8-15.2) gm/dl Hct (35.5-45.6) % RDW 16.1 H (13.2-15.2) % Lymph % (Auto) (13.4-35.0) % Lymph # (1.2-5.4) K/mm3 Seg Neutrophils % (40.0-70.0) % Carbon Dioxide 20 L (22-30) mmol/L Glucose (75-100) mg/dL POC Glucose 325 H (70-105) Hemoglobin A1c (4-6) % Albumin (3.9-5) g/dL 08/22/17 08/22/17 Range/Units 13:18 16:33 Hgb (11.8-15.2) gm/dl Hct (35.5-45.6) % RDW (13.2-15.2) % Lymph % (Auto) (13.4-35.0) % Lymph # (1.2-5.4) K/mm3 Seg Neutrophils % (40.0-70.0) % Carbon Dioxide (22-30) mmol/L Glucose (75-100) mg/dL POC Glucose 196 H 271 H (70-105) Hemoglobin A1c (4-6) % Albumin (3.9-5) g/dL Assessment and Plan This pt has a long history chronic wounds to his lower extremities. This resulted in the ultimate below the knee amputation on the right. He's had multiple revascularization procedures to improve the chances of wound healing. We've had multiple conversations about the possible treatment courses. He understands that chronic open wounds pose a significant risk of infection (and the potential for life threatening sepsis). He states he has little to no function in the limb at present (per the recommendation of his outpt wound care physician). He does not want an amputation. He would like to discuss more aggressive operative wound debridement by the wound care service, and Dr Dunn. We will repeat arterial duplex, though I suspect it will be adequate as his wounds do appear to have improved since our last evaluation in May of this year. - Patient Problems (1) Atherosclerosis of [place] arteries of the extremities with ulceration Current Visit: No Status: Acute (2) Chronic cutaneous venous stasis ulcer Current Visit: No Status: Chronic (3) Hypertension Current Visit: Yes Status: Chronic Qualifiers: Hypertension type: essential hypertension Qualified Code(s): I10 - Essential (primary) hypertension (4) IDDM (insulin dependent diabetes mellitus) Current Visit: Yes Status: Chronic (5) Hypertension Current Visit: No Status: Chronic
[2017-08-22] MEDS: LANTUS SUB-Q SCH (22:13)
--- NOTE | 2017-08-22 22:59 | Consultation ---
History of Present Illness - [facility] Consult date: 08/22/17 Consult reason: other History of present illness: 72-year-old male with history of COPD, diabetes, heart failure, hypertension, PVD, venous insuficiency and chronic Left leg/foot ulcers sent from wound care clinic by Dr. baez for 3 ulcers on her leg which were there for many years and now having some drainage and needing debridement. 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 Rodriguez, cataract removal , multiple previous debridements of his right and left lower extremities, reveals arterial intervention by an interventional radiologist at [facility]) Social history: . denies: smoking, alcohol abuse Family history: diabetes, hypertension Medications and Allergies Allergies Allergy/AdvReac Type Severity Reaction Status Date / Time gabapentin Allergy Unknown Verified 02/13/17 23:32 sulfamethoxazole Allergy Dizziness Verified 02/13/17 23:36 [From Bactrim] tetracycline Allergy Unknown Verified 02/13/17 23:32 trimethoprim [From Bactrim] Allergy Dizziness Verified 02/13/17 23:36 Home Medications Medication Instructions Recorded Confirmed Last Taken Type Famotidine 20 mg PO BID 08/02/13 08/22/17 10/31/16 08:00 History Multivitamin [Multi-Vitamin Daily] 1 each PO QDAY 08/02/13 08/22/17 10/31/16 08: 00 History glipiZIDE [Glipizide] 5 mg PO BIDAC 08/02/13 08/22/17 08/21/17 History Clopidogrel [Plavix] 75 mg PO QDAY #30 tablet 11/05/16 08/22/17 08/20/17 Rx Pregabalin [Lyrica] 100 mg PO TID #90 capsule 11/05/16 08/22/17 08/21/17 Rx Acetaminophen [Acetaminophen TAB] 650 mg PO Q6HR PRN 02/14/17 08/22/17 Unknown History Allopurinol [Zyloprim] 100 mg PO QDAY 02/14/17 08/22/17 Unknown History Docusate Sodium [Colace CAP] 100 mg PO BID PRN 02/14/17 08/22/17 Unknown History Insulin Detemir [Levemir Flextouch] 10 unit SQ QHS 02/14/17 08/22/17 Unknown History Insulin Lispro [Humalog 100 5 units SQ AC 02/14/17 08/22/17 Unknown History UNITS/ML Kwikpen] Metoprolol [Lopressor TAB] 50 mg PO BID 02/14/17 08/22/17 Unknown History Vitamin B Complex 1 each PO QDAY 02/14/17 08/22/17 Unknown History amLODIPine [Norvasc] 10 mg PO DAILY 02/14/17 08/22/17 Unknown History HYDROcodone/APAP 5-325 [[place] 1 each PO 4XD PRN #14 tablet 02/27/17 08/22/17 Unknown Rx 5-325 mg TAB] Active Meds: Active Medications Acetaminophen (Tylenol) 650 mg PO Q4H PRN PRN Reason: Pain MILD(1-3)/Fever >100.5/ROE Allopurinol (Zyloprim) 100 mg PO QDAY [facility] OF [facility] Last Admin: 08/22/17 09:07 Dose: 100 mg Amlodipine Besylate (Norvasc) 10 mg PO DAILY [facility] Last Admin: 08/22/17 09:06 Dose: 10 mg Clopidogrel Bisulfate (Plavix) 75 mg PO QDAY ON [facility] OF [facility] Last Admin: 08/22/17 09:06 Dose: 75 mg Docusate Sodium (Colace) 100 mg PO BID PRN PRN Reason: Pain Famotidine (Pepcid) 20 mg PO BID [facility] Last Admin: 08/22/17 22:25 Dose: 20 mg Heparin Sodium (Porcine) (Heparin) 5,000 unit SUB-Q Q12HR [facility] Last Admin: 08/22/17 22:26 Dose: 5,000 unit Hydromorphone HCl (Dilaudid) 0.5 mg IV Q3H PRN PRN Reason: Pain , Severe (7-10) Ampicillin Sodium/Sulbactam Sodium (Unasyn/Ns 3 Gm/100 Ml) 3 gm in 100 mls @ 100 mls/hr IV Q6HR [facility]; Protocol Last Admin: 08/22/17 19:07 Dose: 100 mls/hr Vancomycin HCl 1,250 mg/ (Sodium Chloride) 262.5 mls @ 166.667 mls/hr IV Q12H [facility] Last Admin: 08/22/17 14:16 Dose: 166.667 mls/hr Insulin Glargine (Lantus) 30 units SUB-Q QHS [facility] Last Admin: 08/22/17 22:13 Dose: Not Given Insulin Human Lispro (Humalog) 5 unit SUB-Q AC [facility] Last Admin: 08/22/17 18:09 Dose: 5 unit Insulin Human Lispro (Humalog) 0 unit SUB-Q ACHS [facility]; Protocol Last Admin: 08/22/17 22:13 Dose: Not Given Metoprolol Tartrate (Lopressor) 50 mg PO BID [facility] Last Admin: 08/22/17 22:25 Dose: 50 mg Morphine Sulfate (Morphine) 2 mg IV Q4H PRN PRN Reason: Pain, Moderate (4-6) Multivitamins (Theragran Tab) 1 each PO DAILY [facility] Last Admin: 08/22/17 09:06 Dose: 1 each Ondansetron HCl (Zofran) 4 mg IV Q8H PRN PRN Reason: Nausea And Vomiting Oxycodone/Acetaminophen (Percocet 5/325) 1 tab PO Q6H PRN PRN Reason: Pain, Moderate (4-6) Last Admin: 08/22/17 15:11 Dose: 1 tab Pregabalin (Lyrica) 75 mg PO TID [facility] Last Admin: 08/22/17 22:25 Dose: 75 mg Pregabalin (Lyrica) 25 mg PO TID [facility] Last Admin: 08/22/17 22:25 Dose: 25 mg Sodium Chloride (Sodium Chloride Flush Syringe 10 Ml) 10 ml IV BID ON [facility] Last Admin: 08/22/17 22:25 Dose: 10 ml Sodium Chloride (Sodium Chloride Flush Syringe 10 Ml) 10 ml IV PRN PRN PRN Reason: LINE FLUSH Vancomycin HCl (Vancomycin Pharmacy To Dose) 1 each IV PKCONSULT ON LICENSE OF [facility]; Protocol Zolpidem Tartrate (Ambien) 5 mg PO QHS PRN PRN Reason: Insomnia Assessment and Plan - Patient Problems (1) IDDM (insulin dependent diabetes mellitus) Current Visit: Yes Status: Chronic (2) Peripheral neuropathy Current Visit: Yes Status: Chronic Qualifiers: Peripheral neuropathy type: polyneuropathy, unspecified Qualified Code(s): G62.9 - Polyneuropathy, unspecified (3) Atherosclerosis of [place] arteries of the extremities with ulceration Current Visit: No Status: Acute
[2017-08-23] MEDS: VANCOMYCIN 1,250 MG in NACL 0.9% 250ML 250 ML IV SCH ×2 (04:10→14:40)
[2017-08-23] MEDS: UNASYN/NS 3 GM/100 ML 3 GM/100 ML BAG IV SCH ×3 (05:41→21:07)
[2017-08-23] MEDS: PERCOCET 5/325 PO PRN ×3 (06:28→20:42)
[2017-08-23] MEDS: HumaLOG SUB-Q SCH ×7 (08:58→23:21)
[2017-08-23] MEDS: PEPCID PO SCH ×2 (11:14→22:39)
[2017-08-23] MEDS: NORVASC PO SCH (11:14)
[2017-08-23] MEDS: ZYLOPRIM PO SCH (11:14)
[2017-08-23] MEDS: THERAGRAN Tab PO SCH (11:15)
[2017-08-23] MEDS: LOPRESSOR PO SCH ×2 (11:15→22:39)
[2017-08-23] MEDS: SODIUM CHLORIDE FLUSH SYRINGE 10 ML IV SCH (11:15)
[2017-08-23] MEDS: PLAVIX PO SCH (11:16)
[2017-08-23] MEDS: HEPARIN SUB-Q SCH ×2 (11:16→22:42)
[2017-08-23] MEDS: LYRICA PO SCH ×6 (11:19→20:41)
--- NOTE | 2017-08-23 14:05 | Event Note ---
Date: 08/23/17 Pt sleeping comfortably. Arterial u/s reviewed. Appears to be adequate. No arterial intervention recommended at this point.
--- NOTE | 2017-08-23 18:04 | Vascular Lab Report ---
LOWER EXTREMITY ARTERIAL DUPLEX: REASON FOR EXAM: Peripheral arterial disease. COMMENTS ON THE LEFT: Triphasic waveforms are seen proximally. Triphasic and biphasic waveforms are seen distally. No significant velocity gradients are identified. A small amount of scattered plaque is identified. Findings are consistent with nearly normal perfusion. Findings are consistent with the ability to heal distal wounds. IMPRESSION: RIGHT: Not examine because the patient has a below knee amputation. LEFT:Essentially normal arterial flow.
[2017-08-23] MEDS: LANTUS SUB-Q SCH (23:22)
[2017-08-24] MEDS: UNASYN/NS 3 GM/100 ML 3 GM/100 ML BAG IV SCH ×4 (00:53→18:54)
[2017-08-24] MEDS: SODIUM CHLORIDE FLUSH SYRINGE 10 ML IV SCH ×3 (01:00→21:35)
[2017-08-24] MEDS: VANCOMYCIN 1,250 MG in NACL 0.9% 250ML 250 ML IV SCH ×2 (03:27→18:54)
[2017-08-24] MEDS: PERCOCET 5/325 PO PRN ×2 (07:45→21:48)
[2017-08-24] MEDS: LYRICA PO SCH ×6 (08:00→21:34)
[2017-08-24] MEDS: HumaLOG SUB-Q SCH ×7 (10:36→22:43)
[2017-08-24] MEDS: NORVASC PO SCH (10:38)
[2017-08-24] MEDS: THERAGRAN Tab PO SCH (10:38)
[2017-08-24] MEDS: PLAVIX PO SCH (10:38)
[2017-08-24] MEDS: PEPCID PO SCH ×2 (10:39→21:33)
[2017-08-24] MEDS: LOPRESSOR PO SCH ×2 (10:39→21:49)
[2017-08-24] MEDS: ZYLOPRIM PO SCH (10:39)
[2017-08-24] MEDS: HEPARIN SUB-Q SCH ×2 (10:40→21:37)
--- NOTE | 2017-08-24 17:31 | Progress Note ---
Assessment and Plan - Patient Problems (1) Foot ulcer, left Current Visit: No Status: Chronic Qualifiers: Non-pressure ulcer stage: with fat layer exposed Qualified Code(s): L97.522 - Non-pressure chronic ulcer of other part of left foot with fat layer exposed Plan to address problem: Patient has 3 chronic ulcers. With drainage. Needs debridement. Patient may end up having left below-knee amputation. We will get MRI of the foot to rule out osteomyelitis. Patient started on IV Unasyn and IV vancomycin. Orthopedic consult vascular consult and learning disabilities specialist consult requested. Also wound care consult requested MR foot ordered. (2) Hypertension Current Visit: No Status: Chronic Plan to address problem: Cont antihypertensives (3) IDDM (insulin dependent diabetes mellitus) Current Visit: Yes Status: Chronic Plan to address problem: Continue insulin and coverage. Needs tighter control. Check A1c (4) Peripheral neuropathy Current Visit: Yes Status: Chronic Qualifiers: Peripheral neuropathy type: polyneuropathy, unspecified Qualified Code(s): G62.9 - Polyneuropathy, unspecified Plan to address problem: Continue Lyrica (5) Peripheral arterial occlusive disease Current Visit: Yes Status: Chronic Plan to address problem: We will get vascular consult Arterial duplex scan biphasic flow (6) Hypertension Current Visit: Yes Status: Chronic Qualifiers: Hypertension type: essential hypertension Qualified Code(s): I10 - Essential (primary) hypertension Plan to address problem: Continue antihypertensive (7) DVT prophylaxis Current Visit: No Status: Acute Plan to address problem: On heparin 5000 subcutaneous every 12 History Interval history: Same condition Hospitalist Physical - Constitutional Vitals: Temp Pulse Resp BP Pulse Ox 98.0 F 83 18 143/66 97 08/24/17 15:35 08/24/17 15:35 08/24/17 15:35 08/24/17 15:35 08/24/17 15:35 General appearance: Present: no acute distress Results - Labs CBC & Chem 7: 08/22/17 06:04 08/22/17 06:04 Labs: Laboratory Last Values WBC 4.6 K/mm3 (4.5-11.0) 08/22/17 06:04 RBC 4.10 M/mm3 (3.65-5.03) 08/22/17 06:04 Hgb 12.1 gm/dl (11.8-15.2) 08/22/17 06:04 Hct 37.2 % (35.5-45.6) 08/22/17 06:04 MCV 91 fl (84-94) 08/22/17 06:04 MCH 30 pg (28-32) 08/22/17 06:04 MCHC 33 % (32-34) 08/22/17 06:04 RDW 16.1 % (13.2-15.2) H 08/22/17 06:04 Plt Count 243 K/mm3 (140-440) 08/22/17 06:04 Lymph % (Auto) Microbiology Supervisor 08/22/17 06:04 [place] % (Auto) Microbiology Supervisor 08/22/17 06:04 Eos % (Auto) Microbiology Supervisor 08/22/17 06:04 Baso % (Auto) Microbiology Supervisor 08/22/17 06:04 Lymph # Microbiology Supervisor 08/22/17 06:04 [place] # Microbiology Supervisor 08/22/17 06:04 Eos # Microbiology Supervisor 08/22/17 06:04 Baso # Microbiology Supervisor 08/22/17 06:04 Seg Neutrophils % Microbiology Supervisor 08/22/17 06:04 Seg Neutrophils # Microbiology Supervisor 08/22/17 06:04 Sodium 141 mmol/L (137-145) 08/22/17 06:04 Potassium 4.1 mmol/L (3.6-5.0) 08/22/17 06:04 Chloride 106.0 mmol/L (98-107) 08/22/17 06:04 Carbon Dioxide 20 mmol/L (22-30) L 08/22/17 06:04 Anion Gap 19 mmol/L 08/22/17 06:04 BUN 17 mg/dL (9-20) 08/22/17 06:04 Creatinine 0.8 mg/dL (0.8-1.5) 08/22/17 06:04 Estimated GFR > 60 ml/min 08/22/17 06:04 BUN/Creatinine Ratio 21 % 08/22/17 06:04 Glucose 81 mg/dL (75-100) 08/22/17 06:04 POC Glucose 127 (70-105) H 08/24/17 15:46 Hemoglobin A1c 8.2 % (4-6) H 08/21/17 20:57 Calcium 8.5 mg/dL (8.4-10.2) 08/22/17 06:04 Total Bilirubin < 0.20 mg/dL (0.1-1.2) 08/21/17 20:57 AST 18 units/L (5-40) 08/21/17 20:57 ALT 17 units/L (7-56) 08/21/17 20:57 Alkaline Phosphatase 102 units/L (35-129) 08/21/17 20:57 Total Protein 7.3 g/dL (6.3-8.2) 08/21/17 20:57 Albumin 3.4 g/dL (3.9-5) L 08/21/17 20:57 Albumin/Globulin Ratio 0.9 % 08/21/17 20:57 Vancomycin Trough 19.3 ug/mL (5.0-20.0) 08/24/17 01:46
--- NOTE | 2017-08-24 17:33 | Progress Note ---
Assessment and Plan - Patient Problems (1) Foot ulcer, left Current Visit: No Status: Chronic Qualifiers: Non-pressure ulcer stage: with fat layer exposed Qualified Code(s): L97.522 - Non-pressure chronic ulcer of other part of left foot with fat layer exposed Plan to address problem: Patient has 3 chronic ulcers. With drainage. Needs debridement. Patient may end up having left below-knee amputation. We will get MRI of the foot to rule out osteomyelitis. Patient started on IV Unasyn and IV vancomycin. Orthopedic consult vascular consult and aquatics specialist consult requested. Also wound care consult requested MR foot ordered. (2) Hypertension Current Visit: No Status: Chronic Plan to address problem: Cont antihypertensives (3) IDDM (insulin dependent diabetes mellitus) Current Visit: Yes Status: Chronic Plan to address problem: Continue insulin and coverage. Needs tighter control. Check A1c (4) Peripheral neuropathy Current Visit: Yes Status: Chronic Qualifiers: Peripheral neuropathy type: polyneuropathy, unspecified Qualified Code(s): G62.9 - Polyneuropathy, unspecified Plan to address problem: Continue Lyrica (5) Peripheral arterial occlusive disease Current Visit: Yes Status: Chronic Plan to address problem: We will get vascular consult Arterial duplex scan biphasic flow (6) Hypertension Current Visit: Yes Status: Chronic Qualifiers: Hypertension type: essential hypertension Qualified Code(s): I10 - Essential (primary) hypertension Plan to address problem: Continue antihypertensive (7) DVT prophylaxis Current Visit: No Status: Acute Plan to address problem: On heparin 5000 subcutaneous every 12 Subjective Date of service: 08/23/17 (Late entry for 08/23/17) Principal diagnosis: LLE infected ulcers-----Late entry for 08/23/17 Interval history: Same condition Objective - Constitutional Vitals: Vital Signs - 12hr 08/24/17 08/24/17 07:19 15:35 Temperature 97.8 F 98.0 F Pulse Rate 73 83 Respiratory 16 18 Rate Blood Pressure 146/64 143/66 O2 Sat by Pulse 98 97 Oximetry General appearance: Present: no acute distress, well-nourished - EENT Eyes: PERRL, EOM intact ENT: hearing intact, clear oral mucosa Ears: bilateral: normal - Neck Neck: supple, normal ROM - Respiratory Respiratory effort: normal Respiratory: bilateral: CTA - Breasts Breasts: normal - Cardiovascular Rhythm: regular Heart Sounds: Present: S1 & S2. Absent: gallop, rub Extremities: pulses intact, No edema, normal color, Full ROM - Gastrointestinal General gastrointestinal: Present: soft, non-tender, non-distended, normal bowel sounds - Genitourinary Male genitourinary: normal - Integumentary Integumentary: clear, warm, dry - Musculoskeletal Musculoskeletal: 1, strength equal bilaterally - Neurologic Neurologic: moves all extremities - Psychiatric Psychiatric: memory intact, appropriate mood/affect, intact judgment & insight - Labs CBC & Chem 7: 08/22/17 06:04 08/22/17 06:04 Labs: Abnormal lab results 08/23/17 08/23/17 08/24/17 Range/Units 16:45 22:05 05:34 POC Glucose 158 H 165 H 155 H (70-105) 08/24/17 08/24/17 Range/Units 11:36 15:46 POC Glucose 193 H 127 H (70-105)
[2017-08-24] MEDS: LANTUS SUB-Q SCH (21:52)
[2017-08-25] MEDS: UNASYN/NS 3 GM/100 ML 3 GM/100 ML BAG IV SCH (01:06)
[2017-08-25] MEDS: VANCOMYCIN 1,250 MG in NACL 0.9% 250ML 250 ML IV SCH ×2 (04:09→15:00)
[2017-08-25] MEDS: HumaLOG SUB-Q SCH ×6 (07:30→16:30)
[2017-08-25] MEDS: PERCOCET 5/325 PO PRN ×2 (08:34→14:01)
[2017-08-25] MEDS: LYRICA PO SCH ×4 (08:35→14:01)
[2017-08-25 09:45] VITALS: BP 145/73
[2017-08-25] MEDS: PLAVIX PO SCH (11:22)
[2017-08-25] MEDS: ZYLOPRIM PO SCH (11:22)
[2017-08-25] MEDS: PEPCID PO SCH (11:22)
[2017-08-25] MEDS: NORVASC PO SCH (11:23)
[2017-08-25] MEDS: THERAGRAN Tab PO SCH (11:35)
[2017-08-25] MEDS: HEPARIN SUB-Q SCH (11:35)
[2017-08-25] MEDS: LOPRESSOR PO SCH (11:35)
[2017-08-25] MEDS: SODIUM CHLORIDE FLUSH SYRINGE 10 ML IV SCH (11:37)
--- NOTE | 2017-08-25 12:21 | Discharge Summary ---
Providers - Providers Date of Admission: 08/21/17 15:19 Date of discharge: 08/25/17 Attending physician: SAIRA HERNANDEZ 08/21/17 15:31 Consult to Physician [CONS] Routine Comment: Consulting Provider: PAM BESS Physician Instructions: Reason For Exam: L foot osteomyelitis 08/21/17 21:24 Consult to Physician [CONS] Routine Comment: Consulting Provider: MIGUEL ANGEL NICHOLSON Physician Instructions: Reason For Exam: Wounds LLE Consult to Wound/ET Nurse [CONS] Routine Reason For Exam: wound eval 08/21/17 22:45 Consult to Physician [CONS] Routine Comment: Consulting Provider: RUDY LEW Physician Instructions: Reason For Exam: PAD Primary care physician: TABITHA CRAIG Hospitalization Disposition: DC-30 STILL A PATIENT - Discharge Diagnoses (1) Foot ulcer, left Status: Chronic Qualifiers: Non-pressure ulcer stage: with fat layer exposed Qualified Code(s): L97.522 - Non-pressure chronic ulcer of other part of left foot with fat layer exposed (2) Hypertension Status: Chronic (3) IDDM (insulin dependent diabetes mellitus) Status: Chronic (4) Peripheral neuropathy Status: Chronic Qualifiers: Peripheral neuropathy type: polyneuropathy, unspecified Qualified Code(s): G62.9 - Polyneuropathy, unspecified (5) Peripheral arterial occlusive disease Status: Chronic (6) Hypertension Status: Chronic Qualifiers: Hypertension type: essential hypertension Qualified Code(s): I10 - Essential (primary) hypertension (7) DVT prophylaxis Status: Acute Exam - Constitutional Vitals: Temp Pulse Resp BP Pulse Ox 97.4 F L 74 18 145/73 95 08/25/17 09:08 08/25/17 11:35 08/25/17 09:08 08/25/17 11:35 08/25/17 09:12 Plan Follow up with: TABITHA CRAIG MD [Primary Care Provider] - 7 Days
== END 2017-08-25 15:30 | disposition home or self-care (01) | DRG 638 ==
LOC: 3A 15:07 → UNDOADMIN 15:07 → 3A 15:19
PROVIDERS: ADMIT Internal Medicine; ATTEND Internal Medicine
DX: E11.621 Type 2 diabetes mellitus with foot ulcer (principal); L97.829 Non-pressure chronic ulcer of other part of left lower leg with unspecified severity; I70.248 Atherosclerosis of native arteries of left leg with ulceration of other part of lower leg; J44.9 Chronic obstructive pulmonary disease, unspecified; I50.9 Heart failure, unspecified; I11.0 Hypertensive heart disease with heart failure; I87.2 Venous insufficiency (chronic) (peripheral); E11.42 Type 2 diabetes mellitus with diabetic polyneuropathy; Z89.511 Acquired absence of right leg below knee; Z88.8 Allergy status to other drugs, medicaments and biological substances; Z88.1 Allergy status to other antibiotic agents
CPT/HCPCS: 36415; 80048; 80053; 80202; 82962; 83036; 85025; J0295; J1644; J1815; J2543; J3370; J7030; J7040; J7050

== ENCOUNTER 2018-02-14 13:08 | Outpatient (CLI) | payer MEDICARE ==
[2018-02-14] MEDS ORDERED: XYLOCAINE TOPICAL 4% TP ONE ×2 (13:21→13:45)
[2018-02-14] MEDS ORDERED: SILVER NITRATE TP ONE ×2 (13:44→13:45)
== END 2018-02-14 13:09 | disposition home or self-care (01) ==
LOC: WOUND 13:08
PROVIDERS: ATTEND Surgery
DX: E11.622 Type 2 diabetes mellitus with other skin ulcer (principal); L97.812 Non-pressure chronic ulcer of other part of right lower leg with fat layer exposed; L97.821 Non-pressure chronic ulcer of other part of left lower leg limited to breakdown of skin; I11.0 Hypertensive heart disease with heart failure; I50.9 Heart failure, unspecified; K21.9 Gastro-esophageal reflux disease without esophagitis; M10.9 Gout, unspecified; Z89.511 Acquired absence of right leg below knee; Z87.891 Personal history of nicotine dependence
CPT/HCPCS: 17250

== ENCOUNTER 2018-04-18 10:40 | Outpatient (CLI) | payer MEDICARE ==
[2018-04-18] MEDS ORDERED: XYLOCAINE TOPICAL 4% TP ONE ×2 (10:44→11:12)
[2018-04-18] MEDS ORDERED: AD OINTMENT TP PRN (11:12)
[2018-04-18] MEDS ORDERED: SILVER NITRATE TP ONE ×2 (11:20→11:31)
== END 2018-04-18 10:41 | disposition home or self-care (01) ==
LOC: WOUND 10:40
PROVIDERS: ATTEND Surgery
DX: E11.621 Type 2 diabetes mellitus with foot ulcer (principal); L97.524 Non-pressure chronic ulcer of other part of left foot with necrosis of bone; E11.622 Type 2 diabetes mellitus with other skin ulcer; L97.222 Non-pressure chronic ulcer of left calf with fat layer exposed; L97.812 Non-pressure chronic ulcer of other part of right lower leg with fat layer exposed; I11.0 Hypertensive heart disease with heart failure; I50.9 Heart failure, unspecified; I87.8 Other specified disorders of veins; K21.9 Gastro-esophageal reflux disease without esophagitis; M10.9 Gout, unspecified; Z89.511 Acquired absence of right leg below knee; Z87.891 Personal history of nicotine dependence
CPT/HCPCS: 17250; A6250

== ENCOUNTER 2018-05-16 09:32 | Inpatient (IN) | payer MEDICARE ==
[2018-05-16] MEDS ORDERED: DIPRIVAN 10 MG/ML IV ONE ×2 (10:08→11:48)
[2018-05-16] MEDS ORDERED: SUBLIMAZE ONE (10:08)
[2018-05-16] MEDS ORDERED: XYLOCAINE MPF 2% ONE (10:08)
[2018-05-16 10:11] LABS: Basophils % (Auto) 0.3 % (0.0-1.8); Eosinophils # (Auto) 0.3 K/mm3 (0.0-0.4); Eosinophils % (Auto) 4.1 % (0.0-4.3); Hematocrit 28.6 % (35.5-45.6); Hemoglobin 9.3 gm/dl (11.8-15.2); Lymphocytes # (Auto) 0.7 K/mm3 (1.2-5.4); Lymphocytes % (Auto) 8.7 % (13.4-35.0); Mean Corpuscular HGB Conc 32 % (32-34); Mean Corpuscular Hemoglobin 29 pg (28-32); Mean Corpuscular Volume 89 fl (84-94); Monocytes # (Auto) 0.3 K/mm3 (0.0-0.8); Monocytes % (Auto) 4.1 % (0.0-7.3); Platelet Count 367 K/mm3 (140-440); Red Blood Count 3.23 M/mm3 (3.65-5.03)
[2018-05-16] MEDS ORDERED: XYLOCAINE 1% 20 mL ONE (10:13)
[2018-05-16 10:25] LABS: BUN/Creatinine Ratio 10; Blood Urea Nitrogen 8 mg/dL (9-20); Calcium 8.5 mg/dL (8.4-10.2); Hemolysis Index 54
[2018-05-16] MEDS ORDERED: NACL 0.9% 1000 ML 1,000 ML ONE ×2 (10:40→14:46)
[2018-05-16] MEDS ORDERED: NACL 0.9% 1000 ML 1,000 ML IV SCH (11:00)
[2018-05-16] MEDS ORDERED: PEPCID IV NR (11:00)
[2018-05-16] MEDS ORDERED: VERSED IV PRN (11:00)
[2018-05-16] MEDS ORDERED: ANCEF/STERILE WATER 2 GM/20 ML IV NR (11:04)
[2018-05-16] MEDS ORDERED: HEPARIN SUB-Q NR (11:15)
[2018-05-16] MEDS ORDERED: NEO SYNEPHRINE/NS Syringe(OR USE) IV ONE (12:06)
[2018-05-16] MEDS ORDERED: ZOFRAN ONE (12:06)
[2018-05-16] MEDS ORDERED: DILAUDID ONE (12:18)
[2018-05-16] MEDS ORDERED: TYLENOL PO PRN ×2 (13:35→13:37)
[2018-05-16] MEDS ORDERED: SODIUM CHLORIDE FLUSH SYRINGE 10 ML IV PRN (13:35)
[2018-05-16] MEDS ORDERED: PROVENTIL IH PRN (13:35)
[2018-05-16] MEDS ORDERED: ZOFRAN IV PRN (13:35)
--- NOTE | 2018-05-16 13:38 | History and Physical Report ---
History of Present Illness Chief complaint: My leg is infected History of present illness: 73 YO Male with COPD, DM, CHF, HTN, PVD, LLE Ulcer complicated by cellulitis and gangrene of the foot admitted directly at the request of Dr. Dunn, for LLE Cellulitis. Pt states that he has pain, redness, and foul smelling discharge from his LLE. Pt acknowledges non healing wound to his Left leg and right stump as well as missing last dressing change. Pt taken to OR today for surgical intervention. Pt seen and evaluated postoperatively. Pt denies fever, chills, Chest pain, chills, CP, Palpitations, NVD, Trauma, BRBPR, Headache, Seizure, productive cough, or recent ill contacts. Pt admitted to medical floor, and in itiated on IV antibiotic therapy. wound care consulted. Past History Past Medical History: COPD, diabetes, hypertension, PVD Past Surgical History: Other (IVC Filter, Right BKA) Social history: , lives with family. denies: smoking, alcohol abuse, prescription drug abuse Family history: diabetes, hypertension Medications and Allergies Allergies Allergy/AdvReac Type Severity Reaction Status Date / Time gabapentin Allergy Unknown Verified 02/13/17 23:32 sulfamethoxazole Allergy Dizziness Verified 02/13/17 23:36 [From Bactrim] tetracycline Allergy Unknown Verified 02/13/17 23:32 trimethoprim [From Bactrim] Allergy Dizziness Verified 02/13/17 23:36 Home Medications Medication Instructions Recorded Confirmed Last Taken Type Famotidine 20 mg PO BID 08/02/13 05/11/18 05/15/18 History Multivitamin [Multi-Vitamin Daily] 1 each PO QDAY 08/02/13 05/11/18 05/15/18 History glipiZIDE [Glipizide] 5 mg PO BIDAC 08/02/13 05/11/18 05/15/18 History Clopidogrel [Plavix] 75 mg PO QDAY #30 tablet 11/05/16 05/11/18 1 Week Ago Rx ~05/09/18 Acetaminophen [Acetaminophen TAB] 650 mg PO Q6HR PRN 02/14/17 05/11/18 05/15/18 History Allopurinol [Zyloprim] 100 mg PO QDAY 02/14/17 05/11/18 05/15/18 History Insulin Lispro [Humalog 100 5 units SQ AC 02/14/17 05/11/18 05/15/18 History UNITS/ML Kwikpen] Metoprolol [Lopressor TAB] 50 mg PO BID 02/14/17 05/11/18 05/15/18 History Vitamin B Complex 1 each PO QDAY 02/14/17 05/11/18 05/15/18 History amLODIPine [Norvasc] 10 mg PO DAILY 02/14/17 05/11/18 05/15/18 History Aspirin 81 mg PO DAILY 09/11/17 05/11/18 1 Week Ago History ~05/09/18 Insulin Glargine [Lantus VIAL] 20 units SUB-Q QHS units 09/22/17 05/11/18 05/15/18 Rx Doxycycline [Vibramycin CAP] 100 mg PO Q12HR 10 Days #20 capsule 03/01/18 05/11/18 05/15/18 Rx Pregabalin [Lyrica] 100 mg PO TID #90 capsule 03/01/18 05/11/18 05/15/18 Rx HYDROcodone/APAP 5-325 [[place] 1 each PO PRN PRN 05/03/18 05/11/18 05/15/18 History 5-325 mg TAB] Active Meds: Active Medications Acetaminophen (Tylenol) 650 mg PO Q4H PRN PRN Reason: Pain MILD(1-3)/Fever >100.5/ROE Albuterol (Proventil) 2.5 mg IH Q4HRT PRN PRN Reason: Shortness Of Breath Cefazolin Sodium (Ancef/Sterile Water 2 Gm/20 Ml) 2 gm IV PREOP NR Stop: 05/16/18 16:00 Famotidine (Pepcid) 20 mg IV ONCE NR Stop: 05/16/18 15:00 Last Admin: 05/16/18 10:55 Dose: 20 mg Documented by: Sodium Chloride (Nacl 0.9% 1000 Ml) 1,000 mls @ 42 mls/hr IV DIRECT RACHAEL Last Admin: 05/16/18 10:42 Dose: 42 mls/hr Documented by: Midazolam HCl (Versed) 2 mg IV PREOP PRN PRN Reason: Anxiety Stop: 05/16/18 20:00 Last Admin: 05/16/18 10:45 Dose: 2 mg Documented by: Ondansetron HCl (Zofran) 4 mg IV Q8H PRN PRN Reason: Nausea And Vomiting Sodium Chloride (Sodium Chloride Flush Syringe 10 Ml) 10 ml IV BID RACHAEL Sodium Chloride (Sodium Chloride Flush Syringe 10 Ml) 10 ml IV PRN PRN PRN Reason: LINE FLUSH Review of Systems Constitutional: no weight loss, no weight gain, no fever, no chills Ears, nose, mouth and throat: no ear pain, no ear discharge, no tinnitis, no decreased hearing, no nose pain Cardiovascular: no chest pain, no orthopnea, no palpitations, no rapid/irregular heart beat, no edema Respiratory: no cough, no cough with sputum, no excessive sputum, no hemoptysis Gastrointestinal: no nausea, no vomiting, no diarrhea, no constipation Genitourinary Male: no hematuria, no flank pain, no discharge, no urinary frequency, no urinary hesitancy Rectal: no pain, no incontinence, no bleeding Musculoskeletal: no neck stiffness, no neck pain, no shooting arm pain, no arm numbness/tingling, no low back pain, no shooting leg pain Integumentary: redness, no rash, no pruritis, no jaundice, no boils, no blisters Neurological: no transient paralysis, no paralysis, no weakness, no parathesias, no numbness Psychiatric: no anxiety, no memory loss, no change in sleep habits, no sleep disturbances, no insomnia, no hypersomnia, no change in appetite Endocrine: no cold intolerance, no heat intolerance, no excessive thirst, no polydipsia, no excessive sweating, no weight change, no proptosis, no thyroid mass Hematologic/Lymphatic: no easy bruising, no easy bleeding, no lymphadenopathy, no lymphedema Allergic/Immunologic: no urticaria, no allergic rhinitis, no wheezing, no persistent infections, no anaphylaxis, no angioedema Exam - Constitutional Vitals: Temp Pulse Resp BP Pulse Ox 98.2 F 86 13 120/54 95 05/16/18 13:07 05/16/18 13:30 05/16/18 13:30 05/16/18 13:30 05/16/18 13:30 General appearance: Present: mild distress - EENT Eyes: Present: PERRL ENT: hearing intact, clear oral mucosa - Neck Neck: Present: supple, normal ROM - Respiratory Respiratory effort: normal Respiratory: bilateral: CTA - Cardiovascular Heart Sounds: Present: S1 & S2. Absent: rub, click - Extremities Extremities: pulses symmetrical, No edema Extremity abnormal: erythema Peripheral Pulses: within normal limits - Abdominal General gastrointestinal: Present: soft, non-tender, non-distended, normal bowel sounds Male genitourinary: Present: normal - Integumentary Integumentary: Present: clear, warm, dry - Musculoskeletal Musculoskeletal: gait normal, strength equal bilaterally - Psychiatric Psychiatric: appropriate mood/affect, intact judgment & insight - Neurologic Neurologic: CNII-XII intact, moves all extremities Results - Labs CBC & Chem 7: 05/16/18 09:46 05/16/18 09:46 Labs: Abnormal lab results 05/16/18 05/16/18 05/16/18 Range/Units 09:46 09:46 10:02 RBC 3.23 L (3.65-5.03) M/mm3 Hgb 9.3 L (11.8-15.2) gm/dl Hct 28.6 L (35.5-45.6) % RDW 16.0 H (13.2-15.2) % Lymph % (Auto) 8.7 L (13.4-35.0) % Lymph # 0.7 L (1.2-5.4) K/mm3 Seg Neutrophils % 82.8 H (40.0-70.0) % BUN 8 L (9-20) mg/dL Glucose 109 H (75-100) mg/dL POC Glucose 112 H (70-105) 05/16/18 Range/Units 13:18 RBC (3.65-5.03) M/mm3 Hgb (11.8-15.2) gm/dl Hct (35.5-45.6) % RDW (13.2-15.2) % Lymph % (Auto) (13.4-35.0) % Lymph # (1.2-5.4) K/mm3 Seg Neutrophils % (40.0-70.0) % BUN (9-20) mg/dL Glucose (75-100) mg/dL POC Glucose 112 H (70-105) Assessment and Plan - Patient Problems (1) Cellulitis of left foot Current Visit: Yes Status: Acute Plan to address problem: IV antibiotic therapy, Surgery consulted, Pt taken to or for surgical intervention, wound care consulted. 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 Plan to address problem: ADA diet, insulin, accu check, (3) Leg ulcer Current Visit: No Status: Chronic Plan to address problem: wound care consulted, surgery team consulted, (4) CHF (congestive heart failure) Current Visit: Yes Status: Acute Qualifiers: Heart failure type: systolic Heart failure chronicity: acute on chronic Qualified Code(s): I50.23 - Acute on chronic systolic (congestive) heart failure Plan to address problem: Strict I/O, daily weight, supplemental oxygen, nebulizer therapy, incentive spirometry, bnp, afterload reduction, chext x ray, (5) DVT prophylaxis Current Visit: No Status: Acute Plan to address problem: scd to ble while in bed
--- NOTE | 2018-05-16 13:53 | Procedure Note ---
Date of procedure: 05/16/18 Pre-op diagnosis: Osteomyelitis, left great toe Post-op diagnosis: same Procedure: TMA, left great toe Description of procedure: Pt was placed supine on the OR table. General anesthesia by LMA was administered. Left foot was prepped and draped. A tear drop incision was then made about the great toe with the Bovie. The left great toe was amputated at the MTP joint. Periosteum was elevated off of the distal 1st metatarsal. The metatarsal shaft was amputated with a bone saw. Hemostasis was obtained with the Bovie. Deep cultures were obtained. Wound was irrigated with warm saline and was packed open with a dilute, Betadine moistened Kerlix fo llowed by a Kerlix and Coban wrap. Pt tolerated the procedure well. He was taken to PACU in stable condition. Anesthesia: other (LMA) Surgeon: KONG MORE Estimated blood loss: 50-100ml Pathology: list (Left great toe and left 1st metatarsal head) Specimen disposition: to lab Condition: stable Disposition: PACU
--- NOTE | 2018-05-16 13:58 | Anesthesia Consultation ---
Anesthesia Consult and Med Hx Date of service: 05/16/18 - Airway Anesthetic Teeth Evaluation: Good ROM Head & Neck: Adequate Mental/Hyoid Distance: Adequate Mallampati Class: Class II Intubation Access Assessment: Probably Good - Pulmonary Exam CTA: Yes - Cardiac Exam Cardiac Exam: RRR - Pre-Operative Health Status ASA Pre-Surgery Classification: ASA3 Proposed Anesthetic Plan: General - Pulmonary Hx Smoking: No (STOPPED X 5 YRS ( CIGARS)) COPD: Yes Hx Sleep Apnea: No (LESLI PRE SCREEN HIGH RISK) - Cardiovascular System Hx Hypertension: Yes Hx Pacemaker: No Hx Internal Defibrillator: No Hx Heart Murmur: Yes Hx Peripheral Vascular Disease: Yes (LOWER LEG EDEMA) - Gastrointestinal Hx Gastroesophageal Reflux Disease: No - Endocrine Hx Insulin Dependent Diabetes: Yes - Hematic Hx Anemia: Yes - Other Systems Hx Alcohol Use: No Hx Substance Use: No Hx Cancer: No Hx Obesity: No
--- NOTE | 2018-05-16 13:58 | Anesthesia Day of Surgery ---
Anesthesia Day of Surgery - Day of Surgery Patient Examined: Yes Patient H&P Reviewed: Yes Patient is NPO: Yes
[2018-05-16] MEDS ORDERED: NON-FORMULARY (Pregabalin [Lyrica] 100 MG) PO SCH (14:00)
[2018-05-16] MEDS ORDERED: VANCOMYCIN PHARMACY TO DOSE IV SCH (14:00)
[2018-05-16] MEDS ORDERED: VANCOMYCIN/NS 1 GM/250 ML 1 GM/250 ML BAG IV SCH (14:00)
[2018-05-16] MEDS: VANCOMYCIN 1,500 MG in NACL 0.9% 500 ML 500 ML IV SCH (16:53)
[2018-05-16] MEDS: LYRICA PO SCH (16:53)
[2018-05-16] MEDS: NORCO 5/325 PO PRN (20:13)
[2018-05-16] MEDS ORDERED: DILAUDID IV PRN (21:20)
[2018-05-16] MEDS: SODIUM CHLORIDE FLUSH SYRINGE 10 ML IV SCH (22:10)
[2018-05-16] MEDS: PEPCID PO SCH (22:10)
[2018-05-16] MEDS: LOPRESSOR PO SCH (23:28)
[2018-05-16] MEDS: LANTUS SUB-Q SCH (23:31)
[2018-05-17] MEDS: LYRICA PO SCH ×3 (01:31→13:56)
[2018-05-17] MEDS: VANCOMYCIN 1,500 MG in NACL 0.9% 500 ML 500 ML IV SCH ×2 (04:35→16:40)
[2018-05-17] MEDS: THERAGRAN Tab PO SCH (09:53)
[2018-05-17] MEDS: ZYLOPRIM PO SCH (09:53)
[2018-05-17] MEDS: BABY ASPIRIN PO SCH (09:53)
[2018-05-17] MEDS: LOPRESSOR PO SCH ×2 (09:53→22:00)
[2018-05-17] MEDS: PLAVIX PO SCH (09:53)
[2018-05-17] MEDS: NORVASC PO SCH (09:54)
[2018-05-17] MEDS: PEPCID PO SCH ×2 (09:54→22:00)
[2018-05-17] MEDS: NORCO 5/325 PO PRN (09:58)
[2018-05-17] MEDS ORDERED: VITAMIN B COMPLEX PO SCH (10:00)
[2018-05-17] MEDS ORDERED: NON-FORMULARY (Multivitamin [Multi-Vitamin Daily] 1 EACH) PO SCH (10:00)
--- NOTE | 2018-05-17 11:28 | Progress Note ---
Assessment and Plan 1) Wound care consult for Wound Vac placement 2) Can be discharged once wound care arrangements are made. Subjective Date of service: 05/17/18 Patient Reports: Positive: no new complaints Objective Vital Signs - 12hr 05/16/18 05/17/18 23:28 07:17 Temperature 98.9 F Pulse Rate 94 H 67 Respiratory 20 Rate Blood Pressure 128/54 124/54 O2 Sat by Pulse 95 Oximetry - Musculoskeletal other (Left foot dressing is dry and intact.) - Labs 05/16/18 09:46 05/16/18 09:46
[2018-05-17] MEDS: SODIUM CHLORIDE FLUSH SYRINGE 10 ML IV SCH (14:00)
[2018-05-17] MEDS: ALLBEE WITH C PO SCH (14:01)
--- NOTE | 2018-05-17 15:32 | Progress Note ---
Assessment and Plan Assessment and Plan - Patient Problems (1) Cellulitis of left foot Current Visit: Yes Status: Acute Plan to address problem: IV antibiotic therapy, Surgery consulted, Pt taken to or for surgical interventi on, wound care consulted. 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 Plan to address problem: ADA diet, insulin, accu check, (3) Leg ulcer Current Visit: No Status: Chronic Plan to address problem: wound care consulted, surgery team consulted, (4) CHF (congestive heart failure) Current Visit: Yes Status: Acute Qualifiers: Heart failure type: systolic Heart failure chronicity: acute on chronic Qualified Code(s): I50.23 - Acute on chronic systolic (congestive) heart failure Plan to address problem: Strict I/O, daily weight, supplemental oxygen, nebulizer therapy, incentive spirometry, bnp, afterload reduction, chext x ray, (5) DVT prophylaxis Current Visit: No Status: Acute Plan to address problem: scd to ble while in bed Subjective Date of service: 05/17/18 Principal diagnosis: Cellulitis L Foot Interval history: patient ready for discharge Objective - Constitutional Vitals: Vital Signs - 12hr 05/17/18 05/17/18 05/17/18 07:17 10:00 13:15 Temperature 98.9 F 98.2 F Pulse Rate 67 67 Respiratory 20 20 20 Rate Blood Pressure 124/54 126/60 O2 Sat by Pulse 95 97 Oximetry - Labs CBC & Chem 7: 05/16/18 09:46 05/16/18 09:46 Labs: Abnormal lab results 05/16/18 05/17/18 Range/Units 22:25 11:29 POC Glucose 134 H 122 H (70-105)
[2018-05-17] MEDS: LANTUS SUB-Q SCH (22:00)
[2018-05-18] MEDS: LOPRESSOR PO SCH ×2 (10:14→22:25)
[2018-05-18] MEDS: NORVASC PO SCH (10:15)
[2018-05-18] MEDS: PLAVIX PO SCH (10:18)
[2018-05-18] MEDS: BABY ASPIRIN PO SCH (10:19)
[2018-05-18] MEDS: THERAGRAN Tab PO SCH (10:19)
[2018-05-18] MEDS: ZYLOPRIM PO SCH (10:19)
[2018-05-18] MEDS: PEPCID PO SCH ×2 (10:23→21:49)
[2018-05-18] MEDS: ALLBEE WITH C PO SCH (10:32)
--- NOTE | 2018-05-18 11:36 | Progress Note ---
Assessment and Plan - Patient Problems (1) Osteomyelitis of toe of left foot Current Visit: Yes Status: Acute Plan to address problem: 1) Can be discharged once his own wound vac arrives 2) F/u in [facility]ound Clinic 3) Strict DM control Subjective Date of service: 05/18/18 Patient Reports: Positive: no new complaints Objective Vital Signs - 12hr 05/18/18 05/18/18 03:16 08:07 Temperature 98.8 F 97.7 F Pulse Rate 77 Respiratory 20 20 Rate Blood Pressure 139/59 130/65 O2 Sat by Pulse 95 Oximetry - Musculoskeletal other (Wound vac is in place.) - Labs 05/16/18 09:46 05/16/18 09:46
[2018-05-18] MEDS: NORCO 5/325 PO PRN (12:54)
[2018-05-18] MEDS: LYRICA PO SCH ×3 (16:22→19:52)
[2018-05-18] MEDS: VANCOMYCIN 1,500 MG in NACL 0.9% 500 ML 500 ML IV SCH (16:45)
--- NOTE | 2018-05-18 19:09 | Progress Note ---
Assessment and Plan Assessment and Plan - Patient Problems (1) Cellulitis of left foot Current Visit: Yes Status: Acute Plan to address problem: IV antibiotic therapy, Surgery consulted, Pt taken to or for surgical interventi on, wound care consulted. 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 Plan to address problem: ADA diet, insulin, accu check, (3) Leg ulcer Current Visit: No Status: Chronic Plan to address problem: wound care consulted, surgery team consulted, (4) CHF (congestive heart failure) Current Visit: Yes Status: Acute Qualifiers: Heart failure type: systolic Heart failure chronicity: acute on chronic Qualified Code(s): I50.23 - Acute on chronic systolic (congestive) heart failure Plan to address problem: Strict I/O, daily weight, supplemental oxygen, nebulizer therapy, incentive spirometry, bnp, afterload reduction, chext x ray, (5) DVT prophylaxis Current Visit: No Status: Acute Plan to address problem: scd to ble while in bed Subjective Date of service: 05/18/18 Principal diagnosis: Cellulitis L foot Interval history: patient ready for discharge Objective - Constitutional Vitals: Vital Signs - 12hr 05/18/18 05/18/18 05/18/18 08:07 09:00 14:28 Temperature 97.7 F 98.4 F Pulse Rate 80 Respiratory 20 20 Rate Blood Pressure 130/65 138/60 O2 Sat by Pulse 96 Oximetry 05/18/18 15:05 Temperature Pulse Rate 86 Respiratory Rate Blood Pressure O2 Sat by Pulse 95 Oximetry General appearance: Present: no acute distress, well-nourished - EENT Eyes: PERRL, EOM intact ENT: hearing intact, clear oral mucosa Ears: bilateral: normal - Neck Neck: supple, normal ROM - Respiratory Respiratory effort: normal Respiratory: bilateral: CTA - Breasts Breasts: normal - Cardiovascular Rhythm: regular Heart Sounds: Present: S1 & S2. Absent: gallop, rub Extremities: no ischemia, pulses intact, No edema, normal color, Full ROM - Gastrointestinal General gastrointestinal: Present: soft, non-tender, non-distended, normal bowel sounds - Genitourinary Male genitourinary: normal - Integumentary Integumentary: clear, warm, dry - Musculoskeletal Musculoskeletal: 1, strength equal bilaterally - Neurologic Neurologic: moves all extremities - Psychiatric Psychiatric: memory intact, appropriate mood/affect, intact judgment & insight - Labs CBC & Chem 7: 05/16/18 09:46 05/16/18 09:46 Labs: Abnormal lab results 05/17/18 05/18/18 05/18/18 Range/Units 22:10 08:09 14:30 POC Glucose 191 H 157 H 173 H (70-105) 05/18/18 Range/Units 16:35 POC Glucose 155 H (70-105)
[2018-05-18] MEDS: SODIUM CHLORIDE FLUSH SYRINGE 10 ML IV SCH ×2 (21:49→22:00)
[2018-05-18] MEDS: LANTUS SUB-Q SCH (23:32)
[2018-05-19] MEDS: VANCOMYCIN 1,500 MG in NACL 0.9% 500 ML 500 ML IV SCH ×3 (03:39→23:25)
[2018-05-19] MEDS: LYRICA PO SCH ×3 (08:44→23:15)
[2018-05-19] MEDS: THERAGRAN Tab PO SCH (09:41)
[2018-05-19] MEDS: PLAVIX PO SCH (09:41)
[2018-05-19] MEDS: BABY ASPIRIN PO SCH (09:41)
[2018-05-19] MEDS: NORVASC PO SCH (09:42)
[2018-05-19] MEDS: ALLBEE WITH C PO SCH (09:42)
[2018-05-19] MEDS: PEPCID PO SCH ×2 (09:42→23:13)
[2018-05-19] MEDS: LOPRESSOR PO SCH ×2 (09:42→23:17)
[2018-05-19] MEDS: ZYLOPRIM PO SCH (09:42)
[2018-05-19] MEDS: SODIUM CHLORIDE FLUSH SYRINGE 10 ML IV SCH ×3 (09:44→23:16)
[2018-05-19] MEDS: HumaLOG SUB-Q SCH ×3 (12:42→23:16)
[2018-05-19] MEDS: LANTUS SUB-Q SCH (23:13)
[2018-05-20] MEDS: LYRICA PO SCH ×4 (00:06→21:16)
[2018-05-20] MEDS: NORCO 5/325 PO PRN (01:18)
[2018-05-20] MEDS: HumaLOG SUB-Q SCH ×4 (08:05→22:41)
[2018-05-20] MEDS: ZYLOPRIM PO SCH (09:39)
[2018-05-20] MEDS: ALLBEE WITH C PO SCH (09:39)
[2018-05-20] MEDS: THERAGRAN Tab PO SCH (09:39)
[2018-05-20] MEDS: PLAVIX PO SCH (09:39)
[2018-05-20] MEDS: BABY ASPIRIN PO SCH (09:39)
[2018-05-20] MEDS: PEPCID PO SCH ×2 (09:39→21:15)
[2018-05-20] MEDS: NORVASC PO SCH (09:40)
[2018-05-20] MEDS: LOPRESSOR PO SCH ×2 (09:40→21:16)
[2018-05-20] MEDS: SODIUM CHLORIDE FLUSH SYRINGE 10 ML IV SCH ×2 (09:41→21:17)
--- NOTE | 2018-05-20 13:14 | Progress Note ---
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 Plan to address problem: ADA diet, insulin, accu check, (3) Leg ulcer Current Visit: No Status: Chronic Plan to address problem: wound care consulted, surgery team consulted, (4) CHF (congestive heart failure) Current Visit: Yes Status: Acute Qualifiers: Heart failure type: systolic Heart failure chronicity: acute on chronic Qualified Code(s): I50.23 - Acute on chronic systolic (congestive) heart failure Plan to address problem: Strict I/O, daily weight, supplemental oxygen, nebulizer therapy, incentive spirometry, bnp, afterload reduction, chext x ray, (5) DVT prophylaxis Current Visit: No Status: Acute Plan to address problem: scd to ble while in bed Subjective Date of service: 05/20/18 Principal diagnosis: Cellulitis L Foot Interval history: patient ready for discharge--Waiting for wound vac Objective - Constitutional Vitals: Vital Signs - 12hr 05/20/18 05/20/18 05/20/18 01:15 01:18 02:18 Temperature Pulse Rate Pulse Rate [ From Monitor] Respiratory 20 20 Rate Respiratory 20 Rate [Right Hip ] Respiratory 20 Rate [Right Leg ] Blood Pressure O2 Sat by Pulse Oximetry 05/20/18 05/20/18 05/20/18 04:51 07:54 09:40 Temperature 97.9 F 98.1 F Pulse Rate 59 L 63 63 Pulse Rate [ From Monitor] Respiratory 16 18 Rate Respiratory Rate [Right Hip ] Respiratory Rate [Right Leg ] Blood Pressure 118/50 127/55 127/55 O2 Sat by Pulse 97 97 Oximetry 05/20/18 10:00 Temperature Pulse Rate 62 Pulse Rate [ 62 From Monitor] Respiratory 18 Rate Respiratory Rate [Right Hip ] Respiratory Rate [Right Leg ] Blood Pressure O2 Sat by Pulse 97 Oximetry General appearance: Present: no acute distress, well-nourished - EENT Eyes: PERRL, EOM intact ENT: hearing intact, clear oral mucosa Ears: bilateral: normal - Neck Neck: supple, normal ROM - Respiratory Respiratory effort: normal Respiratory: bilateral: CTA - Breasts Breasts: normal - Cardiovascular Rhythm: regular Heart Sounds: Present: S1 & S2. Absent: gallop, rub Extremities: pulses intact, No edema, normal color, Full ROM, abnormal (Extremities in dressing) Extremity abnormal: other - Gastrointestinal General gastrointestinal: Present: soft, non-tender, non-distended, normal bowel sounds - Genitourinary Male genitourinary: normal - Integumentary Integumentary: clear, warm, dry - Musculoskeletal Musculoskeletal: 1, strength equal bilaterally - Neurologic Neurologic: moves all extremities - Psychiatric Psychiatric: memory intact, appropriate mood/affect, intact judgment & insight - Labs CBC & Chem 7: 05/16/18 09:46 05/16/18 09:46 Labs: Abnormal lab results 05/19/18 05/19/18 05/19/18 Range/Units 14:56 16:53 21:04 POC Glucose 146 H 204 H (70-105) Vancomycin Trough 26.7 H (5.0-20.0) ug/mL 05/20/18 05/20/18 Range/Units 07:56 11:29 POC Glucose 108 H 120 H (70-105) Vancomycin Trough (5.0-20.0) ug/mL
[2018-05-20] MEDS: VANCOMYCIN 1,500 MG in NACL 0.9% 500 ML 500 ML IV SCH (14:19)
[2018-05-20] MEDS: LANTUS SUB-Q SCH (22:42)
[2018-05-21] MEDS: HumaLOG SUB-Q SCH ×2 (08:05→11:40)
[2018-05-21] MEDS: THERAGRAN Tab PO SCH (09:00)
[2018-05-21] MEDS: PLAVIX PO SCH (09:00)
[2018-05-21] MEDS: LYRICA PO SCH ×2 (09:00→13:46)
[2018-05-21] MEDS: ALLBEE WITH C PO SCH (09:00)
[2018-05-21] MEDS: ZYLOPRIM PO SCH (09:44)
[2018-05-21] MEDS: BABY ASPIRIN PO SCH (09:44)
[2018-05-21] MEDS: NORVASC PO SCH (09:44)
[2018-05-21] MEDS: LOPRESSOR PO SCH (09:44)
[2018-05-21] MEDS: PEPCID PO SCH (09:44)
[2018-05-21] MEDS: SODIUM CHLORIDE FLUSH SYRINGE 10 ML IV SCH (09:45)
--- NOTE | 2018-05-21 13:28 | Progress Note ---
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 Plan to address problem: ADA diet, insulin, accu check, (3) Leg ulcer Current Visit: No Status: Chronic Plan to address problem: wound care consulted, surgery team consulted, (4) CHF (congestive heart failure) Current Visit: Yes Status: Acute Qualifiers: Heart failure type: systolic Heart failure chronicity: acute on chronic Qualified Code(s): I50.23 - Acute on chronic systolic (congestive) heart failure Plan to address problem: Strict I/O, daily weight, supplemental oxygen, nebulizer therapy, incentive spirometry, bnp, afterload reduction, chext x ray, (5) DVT prophylaxis Current Visit: No Status: Acute Plan to address problem: scd to ble while in bed Subjective Date of service: 05/21/18 Principal diagnosis: Cellulitis L Foot Interval history: patient ready for discharge--Waiting for wound vac Objective - Constitutional Vitals: Vital Signs - 12hr 05/21/18 05/21/18 05/21/18 07:31 09:44 10:00 Temperature 99.0 F Pulse Rate 70 70 72 Pulse Rate [ 70 From Monitor] Respiratory 20 20 Rate Respiratory 20 Rate [Right Leg ] Blood Pressure 140/60 140/60 O2 Sat by Pulse 97 97 Oximetry General appearance: Present: no acute distress, well-nourished - EENT Eyes: PERRL, EOM intact ENT: hearing intact, clear oral mucosa Ears: bilateral: normal - Neck Neck: supple, normal ROM - Respiratory Respiratory effort: normal Respiratory: bilateral: CTA - Breasts Breasts: normal - Cardiovascular Heart rate: 78 Rhythm: regular Heart Sounds: Present: S1 & S2. Absent: gallop, rub Extremities: no ischemia, pulses intact, No edema, normal color, Full ROM, abnormal (LE in dressing ) - Gastrointestinal General gastrointestinal: Present: soft, non-tender, non-distended, normal bowel sounds Rectal Exam: deferred - Genitourinary Male genitourinary: normal - Integumentary Integumentary: clear, warm, dry - Musculoskeletal Musculoskeletal: 1, strength equal bilaterally - Neurologic Neurologic: moves all extremities - Psychiatric Psychiatric: memory intact, appropriate mood/affect, intact judgment & insight - Labs CBC & Chem 7: 05/16/18 09:46 05/16/18 09:46 Labs: Abnormal lab results 05/20/18 05/20/18 05/21/18 Range/Units 16:19 21:33 07:34 POC Glucose 201 H 151 H 113 H (70-105) 05/21/18 Range/Units 11:27 POC Glucose 135 H (70-105)
[2018-05-21] MEDS: NORCO 5/325 PO PRN (13:46)
--- NOTE | 2018-05-21 13:46 | Discharge Summary ---
Providers - Providers Date of Admission: 05/16/18 13:35 Date of discharge: 05/21/18 Attending physician: SAIRA HERNANDEZ 05/16/18 13:38 Consult to Physician [CONS] Routine Comment: Consulting Provider: KONG MORE Physician Instructions: Reason For Exam: wound infection 05/16/18 13:53 Consult to Wound/ET Nurse [CONS] Routine Reason For Exam: wound eval Primary care physician: JOVITA SOFIA Hospitalization Hospital course: Patient Problems (1) Cellulitis of left foot Current Visit: Yes Status: Acute Plan to address problem: IV antibiotic therapy Had debridement Discharge to [facility] where wound vac will be placed 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 Plan to address problem: ADA diet, insulin, accu check, (3) Leg ulcer Current Visit: No Status: Chronic Plan to address problem: wound care consulted, surgery team consulted, (4) CHF (congestive heart failure) Current Visit: Yes Status: Acute Qualifiers: Heart failure type: systolic Heart failure chronicity: acute on chronic Qualified Code(s): I50.23 - Acute on chronic systolic (congestive) heart failure Plan to address problem: Strict I/O, daily weight, supplemental oxygen, nebulizer therapy, incentive spirometry, bnp, afterload reduction, chext x ray, Disposition: [id number] [facility] Core Measure Documentation - Palliative Care Palliative Care/ Comfort Measures: Not Applicable - Core Measures Any of the following diagnoses?: none Exam - Constitutional Vitals: Temp Pulse Resp BP Pulse Ox 99.0 F 70 20 140/60 97 05/21/18 07:31 05/21/18 10:00 05/21/18 10:00 05/21/18 09:44 05/21/18 10:00 General appearance: Present: no acute distress, well-nourished - EENT Eyes: Present: PERRL ENT: hearing intact, clear oral mucosa - Neck Neck: Present: supple, normal ROM - Respiratory Respiratory effort: normal Respiratory: bilateral: CTA - Cardiovascular Heart rate: 78 Rhythm: regular Heart Sounds: Present: S1 & S2. Absent: rub, click - Extremities Extremities: pulses symmetrical, No edema, abnormal (Lt Foot Large open wound where Lt Grt Toe is missing) Peripheral Pulses: within normal limits - Abdominal General gastrointestinal: Present: soft, non-tender, non-distended, normal bowel sounds Male genitourinary: Present: normal - Integumentary Integumentary: Present: clear, warm, dry - Musculoskeletal Musculoskeletal: gait normal, strength equal bilaterally - Psychiatric Psychiatric: appropriate mood/affect, intact judgment & insight - Neurologic Neurologic: CNII-XII intact, moves all extremities Plan Activity: no restrictions Diet: low fat, low cholesterol, low salt Wound: change dressing, other (Wound vac to be applied at [facility] per CM) Durable Medical Equipment Needed Upon Discharge: Walker-Rolling Follow up with: JOVITA SOFIA MD [Primary Care Provider] - 7 Days KONG MORE MD [Staff Physician] - 7 Days
[2018-05-21] MEDS: VANCOMYCIN 1,500 MG in NACL 0.9% 500 ML 500 ML IV SCH (13:59)
[2018-05-21 14:55] VITALS: BP 135/54
== END 2018-05-21 16:45 | DRG 239 ==
LOC: OR 09:32 → 3A 13:35 → 2B-ACE 14:19
PROVIDERS: ADMIT Internal Medicine; ATTEND Internal Medicine
PROC: 0Y6N0Z9 Detachment at Left Foot, Partial 1st Ray, Open Approach (ICD-10-PCS; principal; 2018-05-16)
DX: E11.52 Type 2 diabetes mellitus with diabetic peripheral angiopathy with gangrene (principal); I50.23 Acute on chronic systolic (congestive) heart failure; L03.116 Cellulitis of left lower limb; M86.8X8 Other osteomyelitis, other site; I96 Gangrene, not elsewhere classified; E11.69 Type 2 diabetes mellitus with other specified complication; J44.9 Chronic obstructive pulmonary disease, unspecified; I11.0 Hypertensive heart disease with heart failure; E11.621 Type 2 diabetes mellitus with foot ulcer; L97.529 Non-pressure chronic ulcer of other part of left foot with unspecified severity; Z79.4 Long term (current) use of insulin; Z87.891 Personal history of nicotine dependence; Z82.49 Family history of ischemic heart disease and other diseases of the circulatory system; Z89.511 Acquired absence of right leg below knee; Z83.3 Family history of diabetes mellitus; Z79.899 Other long term (current) drug therapy; Z79.82 Long term (current) use of aspirin; Z88.2 Allergy status to sulfonamides
CPT/HCPCS: 36415; 80048; 80202; 82962; 83880; 85025; 87075; 87076; 87116; 87186; 88302; 88304; 88305; 88311; G0378; J0690; J1170; J1644; J1815; J2250; J2370; J2405; J2704; J3010; J3370; J7030; J7040

== ENCOUNTER 2018-06-05 09:46 | Outpatient (CLI) | payer MEDICARE ==
[2018-06-05] MEDS ORDERED: SILVER NITRATE TP ONE (10:57)
[2018-06-05] MEDS ORDERED: XYLOCAINE TOPICAL 4% TP ONE (10:57)
== END 2018-06-05 09:47 | disposition home or self-care (01) ==
LOC: WOUND 09:46
PROVIDERS: ATTEND Surgery
DX: E11.621 Type 2 diabetes mellitus with foot ulcer (principal); L97.524 Non-pressure chronic ulcer of other part of left foot with necrosis of bone; E11.622 Type 2 diabetes mellitus with other skin ulcer; L97.812 Non-pressure chronic ulcer of other part of right lower leg with fat layer exposed; L97.822 Non-pressure chronic ulcer of other part of left lower leg with fat layer exposed; L92.8 Other granulomatous disorders of the skin and subcutaneous tissue; M20.5X2 Other deformities of toe(s) (acquired), left foot; I11.0 Hypertensive heart disease with heart failure; I50.9 Heart failure, unspecified; I87.2 Venous insufficiency (chronic) (peripheral); K21.9 Gastro-esophageal reflux disease without esophagitis; M10.9 Gout, unspecified; Z89.511 Acquired absence of right leg below knee; Z87.891 Personal history of nicotine dependence; Y83.5 Amputation of limb(s) as the cause of abnormal reaction of the patient, or of later complication, without mention of misadventure at the time of the procedure

== ENCOUNTER 2018-06-12 09:22 | Outpatient (CLI) | payer MEDICARE ==
[2018-06-12] MEDS ORDERED: XYLOCAINE TOPICAL 4% TP ONE (09:33)
[2018-06-12] MEDS ORDERED: SILVER NITRATE TP ONE (09:34)
== END 2018-06-12 09:23 | disposition home or self-care (01) ==
LOC: WOUND 09:22
PROVIDERS: ATTEND Surgery
DX: T87.89 Other complications of amputation stump (principal); E11.621 Type 2 diabetes mellitus with foot ulcer; L97.524 Non-pressure chronic ulcer of other part of left foot with necrosis of bone; E11.622 Type 2 diabetes mellitus with other skin ulcer; L97.812 Non-pressure chronic ulcer of other part of right lower leg with fat layer exposed; L97.222 Non-pressure chronic ulcer of left calf with fat layer exposed; I11.0 Hypertensive heart disease with heart failure; I50.9 Heart failure, unspecified; M10.9 Gout, unspecified; K21.9 Gastro-esophageal reflux disease without esophagitis; I87.2 Venous insufficiency (chronic) (peripheral); M20.5X2 Other deformities of toe(s) (acquired), left foot; Z87.891 Personal history of nicotine dependence; Y83.5 Amputation of limb(s) as the cause of abnormal reaction of the patient, or of later complication, without mention of misadventure at the time of the procedure

== ENCOUNTER 2018-06-21 09:31 | Day surgery (SDC) | payer MEDICARE ==
[2018-06-21] MEDS ORDERED: NACL 0.9% 1000 ML 1,000 ML IV SCH (10:00)
[2018-06-21] MEDS ORDERED: SUBLIMAZE IV PRN (10:14)
[2018-06-21] MEDS ORDERED: ZOFRAN IV PRN (10:14)
--- NOTE | 2018-06-21 10:16 | Anesthesia Day of Surgery ---
Anesthesia Day of Surgery - Day of Surgery Patient Examined: Yes Patient H&P Reviewed: Yes Patient is NPO: Yes Beta Blockers: Yes
--- NOTE | 2018-06-21 10:20 | Anesthesia Consultation ---
Anesthesia Consult and Med Hx Date of service: 06/21/18 - Airway Anesthetic Teeth Evaluation: Dentures, Edentulous ROM Head & Neck: Inadequate Mental/Hyoid Distance: Adequate Mallampati Class: Class II Intubation Access Assessment: Good - Pre-Operative Health Status ASA Pre-Surgery Classification: ASA3 Proposed Anesthetic Plan: General - Pulmonary Hx Smoking: No (STOPPED X 5 YRS ( CIGARS)) COPD: Yes (INHALERS PRN) Hx Sleep Apnea: No (LESLI PRE SCREEN HIGH RISK) - Cardiovascular System Hx Hypertension: Yes Hx Coronary Artery Disease: Yes Hx Pacemaker: No Hx Internal Defibrillator: No Hx Heart Murmur: Yes Hx Peripheral Vascular Disease: Yes (LOWER LEG EDEMA) - Gastrointestinal Hx Gastroesophageal Reflux Disease: No - Endocrine Hx Insulin Dependent Diabetes: Yes - Hematic Hx Anemia: Yes - Other Systems Hx Alcohol Use: No Hx Substance Use: No Hx Cancer: No Hx Obesity: No - Additional Comments Anesthesia Medical History Comments: HX CHF-pt denies and states he's active w/o cardiac symptoms. States he had a workup last year which was negative
[2018-06-21] MEDS ORDERED: D50W (25GM) Syringe IV ONE ×4 (10:56→14:31)
[2018-06-21] MEDS ORDERED: ANCEF/STERILE WATER 2 GM/20 ML 2 GM/20 ML SYRINGE IV SCH (11:00)
[2018-06-21] MEDS ORDERED: ceFAZolin 2 GM in NACL 0.9% 100 ML IV ONE (11:01)
[2018-06-21] MEDS ORDERED: HEPARIN SUB-Q NR (11:15)
[2018-06-21] MEDS ORDERED: DIPRIVAN 10 MG/ML IV ONE (12:29)
[2018-06-21] MEDS ORDERED: XYLOCAINE MPF 2% ONE (12:29)
[2018-06-21] MEDS ORDERED: DILAUDID ONE (12:29)
--- NOTE | 2018-06-21 14:07 | Post Operative Note ---
Pre-op diagnosis: Osteomyelitis at margin of remaining left 1st metatarsal Post-op diagnosis: same Procedure: Resection of remaining 1st metatarsal Anesthesia: other (LMA) Surgeon: KNOG MORE Estimated blood loss: 50-100ml Pathology: list (Proximal left 1st metatarsal with proximal margin inked) Specimen disposition: to lab Condition: stable Disposition: PACU
[2018-06-21] MEDS ORDERED: ZOFRAN ONE (14:08)
--- NOTE | 2018-06-21 15:04 | Post Anesthesia Evaluation ---
- Post Anesthesia Evaluation Patient Participated: Yes Airway Patent: Yes Stable Respiratory Function: Yes Nausea/Vomiting: No Temp > 96.8F: Yes Pain Manageable: Yes Adequeate Hydration: Yes Anesthesia Complications: No
[2018-06-21 15:54] VITALS: BP 132/70
--- NOTE | 2018-06-27 09:13 | Procedure Note ---
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 General anesthesia by LMA was administered. Pt's left foot was prepped and draped. An incision along the medial foot was made with the Bovie. The residual 1st metatarsal bone was identified and was resected with sharp and blunt dissection. The proximal portion of the 1st metatarsal bone was inked with a purple marking pen. Hemostasis was obtained with the Bovie. The wound was irrigated with warm saline and was packed open with a dry Kerlix roll followed by dry 4 X 4's. This was secured with a Kerlix wrap and Coban. Pt tolerated the procedure well. He was taken to PACU in stable condition. Anesthesia: other (LMA) Surgeon: KONG MORE Estimated blood loss: 50-100ml Pathology: list (Remaining left 1st metatarsal bone) Specimen disposition: to lab Condition: stable Disposition: PACU
== END 2018-06-21 09:32 | disposition home or self-care (01) ==
LOC: OR 09:31
PROVIDERS: ATTEND Surgery
DX: M86.8X8 Other osteomyelitis, other site (principal); I11.0 Hypertensive heart disease with heart failure; I50.32 Chronic diastolic (congestive) heart failure; E11.65 Type 2 diabetes mellitus with hyperglycemia; L97.919 Non-pressure chronic ulcer of unspecified part of right lower leg with unspecified severity; I25.10 Atherosclerotic heart disease of native coronary artery without angina pectoris; K21.9 Gastro-esophageal reflux disease without esophagitis; M19.90 Unspecified osteoarthritis, unspecified site; J44.9 Chronic obstructive pulmonary disease, unspecified; L97.529 Non-pressure chronic ulcer of other part of left foot with unspecified severity; M10.9 Gout, unspecified; E11.621 Type 2 diabetes mellitus with foot ulcer; E11.40 Type 2 diabetes mellitus with diabetic neuropathy, unspecified; E11.51 Type 2 diabetes mellitus with diabetic peripheral angiopathy without gangrene; Z98.890 Other specified postprocedural states; Z79.899 Other long term (current) drug therapy; Z79.4 Long term (current) use of insulin; Z87.891 Personal history of nicotine dependence; Z98.49 Cataract extraction status, unspecified eye; Z83.3 Family history of diabetes mellitus; Z82.49 Family history of ischemic heart disease and other diseases of the circulatory system; Z86.2 Personal history of diseases of the blood and blood-forming organs and certain disorders involving the immune mechanism
CPT/HCPCS: 28111; 82962; 88305; 88311; J0690; J1170; J1644; J2405; J2704; J7030

== ENCOUNTER 2018-06-28 10:42 | Outpatient (CLI) | payer MEDICARE ==
[2018-06-28] MEDS ORDERED: XYLOCAINE TOPICAL 4% TP ONE (11:04)
[2018-06-28] MEDS ORDERED: AD OINTMENT TP PRN (11:05)
[2018-06-28] MEDS ORDERED: SILVER NITRATE TP ONE (11:06)
== END 2018-06-28 10:43 | disposition home or self-care (01) ==
LOC: WOUND 10:42
PROVIDERS: ATTEND Surgery
DX: E11.621 Type 2 diabetes mellitus with foot ulcer (principal); L97.524 Non-pressure chronic ulcer of other part of left foot with necrosis of bone; E11.622 Type 2 diabetes mellitus with other skin ulcer; L97.222 Non-pressure chronic ulcer of left calf with fat layer exposed; L97.812 Non-pressure chronic ulcer of other part of right lower leg with fat layer exposed; I11.0 Hypertensive heart disease with heart failure; I50.9 Heart failure, unspecified; K21.9 Gastro-esophageal reflux disease without esophagitis; M10.9 Gout, unspecified; I87.8 Other specified disorders of veins; Z89.511 Acquired absence of right leg below knee; Z87.891 Personal history of nicotine dependence
CPT/HCPCS: A6250

== ENCOUNTER 2018-07-26 09:10 | Outpatient (CLI) | payer MEDICARE ==
[2018-07-26] MEDS ORDERED: XYLOCAINE TOPICAL 4% TP ONE (09:30)
[2018-07-26] MEDS ORDERED: SILVER NITRATE TP ONE (09:30)
== END 2018-07-26 09:11 | disposition home or self-care (01) ==
LOC: WOUND 09:10
PROVIDERS: ATTEND Surgery
DX: E11.622 Type 2 diabetes mellitus with other skin ulcer (principal); L97.222 Non-pressure chronic ulcer of left calf with fat layer exposed; E11.621 Type 2 diabetes mellitus with foot ulcer; L97.524 Non-pressure chronic ulcer of other part of left foot with necrosis of bone; L97.812 Non-pressure chronic ulcer of other part of right lower leg with fat layer exposed; L92.9 Granulomatous disorder of the skin and subcutaneous tissue, unspecified; K21.9 Gastro-esophageal reflux disease without esophagitis; I11.0 Hypertensive heart disease with heart failure; I50.9 Heart failure, unspecified; M10.9 Gout, unspecified; I87.8 Other specified disorders of veins; Z87.891 Personal history of nicotine dependence; Z89.511 Acquired absence of right leg below knee

== ENCOUNTER 2018-08-30 10:08 | Outpatient (CLI) | payer MEDICARE ==
[2018-08-30] MEDS ORDERED: XYLOCAINE TOPICAL 4% TP ONE (10:30)
[2018-08-30] MEDS ORDERED: SILVER NITRATE TP ONE (10:35)
== END 2018-08-30 10:09 | disposition home or self-care (01) ==
LOC: WOUND 10:08
PROVIDERS: ATTEND Surgery
DX: E11.622 Type 2 diabetes mellitus with other skin ulcer (principal); L97.222 Non-pressure chronic ulcer of left calf with fat layer exposed; L97.812 Non-pressure chronic ulcer of other part of right lower leg with fat layer exposed; E11.621 Type 2 diabetes mellitus with foot ulcer; L97.524 Non-pressure chronic ulcer of other part of left foot with necrosis of bone; I11.0 Hypertensive heart disease with heart failure; I50.9 Heart failure, unspecified; K21.9 Gastro-esophageal reflux disease without esophagitis; M10.9 Gout, unspecified; I87.8 Other specified disorders of veins; Z89.511 Acquired absence of right leg below knee; Z87.891 Personal history of nicotine dependence

== ENCOUNTER 2018-09-20 09:52 | Outpatient (CLI) | payer MEDICARE ==
[2018-09-20] MEDS ORDERED: XYLOCAINE TOPICAL 4% TP ONE (10:30)
[2018-09-20] MEDS ORDERED: SILVER NITRATE TP ONE (10:30)
== END 2018-09-20 09:53 | disposition home or self-care (01) ==
LOC: WOUND 09:52
PROVIDERS: ATTEND Surgery
DX: E11.622 Type 2 diabetes mellitus with other skin ulcer (principal); L97.222 Non-pressure chronic ulcer of left calf with fat layer exposed; L97.812 Non-pressure chronic ulcer of other part of right lower leg with fat layer exposed; E11.621 Type 2 diabetes mellitus with foot ulcer; L97.524 Non-pressure chronic ulcer of other part of left foot with necrosis of bone; I11.0 Hypertensive heart disease with heart failure; I50.9 Heart failure, unspecified; K21.9 Gastro-esophageal reflux disease without esophagitis; M10.9 Gout, unspecified; I87.8 Other specified disorders of veins; M20.5X2 Other deformities of toe(s) (acquired), left foot; Z89.511 Acquired absence of right leg below knee; Z87.891 Personal history of nicotine dependence

== ENCOUNTER 2018-09-27 09:33 | Outpatient (CLI) | payer MEDICARE ==
[2018-09-27] MEDS ORDERED: XYLOCAINE TOPICAL 4% TP ONE (10:00)
[2018-09-27] MEDS ORDERED: SILVER NITRATE TP ONE (10:00)
== END 2018-09-27 09:34 | disposition home or self-care (01) ==
LOC: WOUND 09:33
PROVIDERS: ATTEND Surgery
DX: E11.622 Type 2 diabetes mellitus with other skin ulcer (principal); L97.222 Non-pressure chronic ulcer of left calf with fat layer exposed; E11.621 Type 2 diabetes mellitus with foot ulcer; L97.524 Non-pressure chronic ulcer of other part of left foot with necrosis of bone; L92.9 Granulomatous disorder of the skin and subcutaneous tissue, unspecified; K21.9 Gastro-esophageal reflux disease without esophagitis; I11.0 Hypertensive heart disease with heart failure; I50.9 Heart failure, unspecified; I87.8 Other specified disorders of veins; M10.9 Gout, unspecified; Z89.511 Acquired absence of right leg below knee; Z87.891 Personal history of nicotine dependence

== ENCOUNTER 2018-10-04 10:19 | Outpatient (CLI) | payer MEDICARE ==
[2018-10-04] MEDS ORDERED: XYLOCAINE TOPICAL 4% TP ONE (11:19)
[2018-10-04] MEDS ORDERED: SILVER NITRATE TP ONE (11:20)
== END 2018-10-04 10:20 | disposition home or self-care (01) ==
LOC: WOUND 10:19
PROVIDERS: ATTEND Surgery
DX: E11.622 Type 2 diabetes mellitus with other skin ulcer (principal); L97.222 Non-pressure chronic ulcer of left calf with fat layer exposed; E11.621 Type 2 diabetes mellitus with foot ulcer; L97.524 Non-pressure chronic ulcer of other part of left foot with necrosis of bone; L92.9 Granulomatous disorder of the skin and subcutaneous tissue, unspecified; K21.9 Gastro-esophageal reflux disease without esophagitis; I11.0 Hypertensive heart disease with heart failure; I50.9 Heart failure, unspecified; I87.8 Other specified disorders of veins; M10.9 Gout, unspecified; Z89.511 Acquired absence of right leg below knee; Z87.891 Personal history of nicotine dependence

== ENCOUNTER 2018-10-11 10:01 | Outpatient (CLI) | payer MEDICARE ==
[2018-10-11] MEDS ORDERED: SILVER NITRATE TP NR (10:26)
== END 2018-10-11 10:02 | disposition home or self-care (01) ==
LOC: WOUND 10:01
PROVIDERS: ATTEND Surgery
DX: E11.622 Type 2 diabetes mellitus with other skin ulcer (principal); L97.222 Non-pressure chronic ulcer of left calf with fat layer exposed; L97.812 Non-pressure chronic ulcer of other part of right lower leg with fat layer exposed; E11.621 Type 2 diabetes mellitus with foot ulcer; L97.524 Non-pressure chronic ulcer of other part of left foot with necrosis of bone; L92.9 Granulomatous disorder of the skin and subcutaneous tissue, unspecified; K21.9 Gastro-esophageal reflux disease without esophagitis; I11.0 Hypertensive heart disease with heart failure; I50.9 Heart failure, unspecified; I87.8 Other specified disorders of veins; M10.9 Gout, unspecified; Z89.511 Acquired absence of right leg below knee

== ENCOUNTER 2018-10-25 10:28 | Outpatient (CLI) | payer MEDICARE ==
[2018-10-25] MEDS ORDERED: XYLOCAINE TOPICAL 4% TP ONE (10:38)
[2018-10-25] MEDS ORDERED: SILVER NITRATE TP ONE (10:38)
== END 2018-10-25 10:29 | disposition home or self-care (01) ==
LOC: WOUND 10:28
PROVIDERS: ATTEND Surgery
DX: E11.622 Type 2 diabetes mellitus with other skin ulcer (principal); L97.222 Non-pressure chronic ulcer of left calf with fat layer exposed; E11.621 Type 2 diabetes mellitus with foot ulcer; L97.524 Non-pressure chronic ulcer of other part of left foot with necrosis of bone; L92.9 Granulomatous disorder of the skin and subcutaneous tissue, unspecified; I11.0 Hypertensive heart disease with heart failure; I50.9 Heart failure, unspecified; I87.8 Other specified disorders of veins; K21.9 Gastro-esophageal reflux disease without esophagitis; M10.9 Gout, unspecified; Z89.511 Acquired absence of right leg below knee; Z87.891 Personal history of nicotine dependence

== ENCOUNTER 2018-11-01 10:04 | Outpatient (CLI) | payer MEDICARE ==
[2018-11-01] MEDS ORDERED: XYLOCAINE TOPICAL 4% TP ONE ×2 (10:30→13:00)
== END 2018-11-01 10:05 | disposition home or self-care (01) ==
LOC: WOUND 10:04
PROVIDERS: ATTEND Surgery
DX: E11.622 Type 2 diabetes mellitus with other skin ulcer (principal); L97.222 Non-pressure chronic ulcer of left calf with fat layer exposed; E11.621 Type 2 diabetes mellitus with foot ulcer; L97.524 Non-pressure chronic ulcer of other part of left foot with necrosis of bone; L92.9 Granulomatous disorder of the skin and subcutaneous tissue, unspecified; I11.0 Hypertensive heart disease with heart failure; I50.9 Heart failure, unspecified; I87.8 Other specified disorders of veins; K21.9 Gastro-esophageal reflux disease without esophagitis; M10.9 Gout, unspecified; Z89.511 Acquired absence of right leg below knee; Z87.891 Personal history of nicotine dependence

== ENCOUNTER 2018-12-06 10:17 | Outpatient (CLI) | payer MEDICARE ==
[2018-12-06] MEDS ORDERED: SILVER NITRATE TP ONE (11:00)
[2018-12-06] MEDS ORDERED: XYLOCAINE TOPICAL 4% TP ONE (11:00)
== END 2018-12-06 10:18 | disposition home or self-care (01) ==
LOC: WOUND 10:17
PROVIDERS: ATTEND Surgery
DX: E11.622 Type 2 diabetes mellitus with other skin ulcer (principal); L97.222 Non-pressure chronic ulcer of left calf with fat layer exposed; E11.621 Type 2 diabetes mellitus with foot ulcer; L97.524 Non-pressure chronic ulcer of other part of left foot with necrosis of bone; L92.9 Granulomatous disorder of the skin and subcutaneous tissue, unspecified; I11.0 Hypertensive heart disease with heart failure; I50.9 Heart failure, unspecified; I87.8 Other specified disorders of veins; K21.9 Gastro-esophageal reflux disease without esophagitis; M10.9 Gout, unspecified; Z89.511 Acquired absence of right leg below knee; Z87.891 Personal history of nicotine dependence

== ENCOUNTER 2018-12-13 10:19 | Outpatient (CLI) | payer MEDICARE | END 2018-12-13 10:20 | disposition home or self-care (01) | LOC: WOUND 10:19 | PROVIDERS: ATTEND Surgery | DX: E11.622 Type 2 diabetes mellitus with other skin ulcer (principal); L97.222 Non-pressure chronic ulcer of left calf with fat layer exposed; E11.621 Type 2 diabetes mellitus with foot ulcer; L97.524 Non-pressure chronic ulcer of other part of left foot with necrosis of bone; L92.9 Granulomatous disorder of the skin and subcutaneous tissue, unspecified; I11.0 Hypertensive heart disease with heart failure; I50.9 Heart failure, unspecified; I87.8 Other specified disorders of veins; K21.9 Gastro-esophageal reflux disease without esophagitis; M10.9 Gout, unspecified; Z89.511 Acquired absence of right leg below knee; Z87.891 Personal history of nicotine dependence ==

== ENCOUNTER 2019-01-17 10:34 | Outpatient (CLI) | payer MEDICARE ==
[2019-01-17] MEDS ORDERED: SILVER NITRATE TP ONE (10:43)
[2019-01-17] MEDS ORDERED: XYLOCAINE TOPICAL 4% TP ONE (10:43)
== END 2019-01-17 10:35 | disposition home or self-care (01) ==
LOC: WOUND 10:34
PROVIDERS: ATTEND Surgery
DX: E11.622 Type 2 diabetes mellitus with other skin ulcer (principal); L97.222 Non-pressure chronic ulcer of left calf with fat layer exposed; E11.621 Type 2 diabetes mellitus with foot ulcer; L97.524 Non-pressure chronic ulcer of other part of left foot with necrosis of bone; L92.9 Granulomatous disorder of the skin and subcutaneous tissue, unspecified; I11.0 Hypertensive heart disease with heart failure; I50.9 Heart failure, unspecified; I87.8 Other specified disorders of veins; K21.9 Gastro-esophageal reflux disease without esophagitis; M10.9 Gout, unspecified; Z89.511 Acquired absence of right leg below knee; Z87.891 Personal history of nicotine dependence
CPT/HCPCS: 97597

== ENCOUNTER 2019-01-31 10:17 | Outpatient (CLI) | payer MEDICARE ==
[2019-01-31] MEDS ORDERED: AD OINTMENT TP PRN (11:00)
[2019-01-31] MEDS ORDERED: XYLOCAINE TOPICAL 4% TP ONE (11:21)
[2019-01-31] MEDS ORDERED: SILVER NITRATE TP ONE (11:21)
== END 2019-01-31 10:18 | disposition home or self-care (01) ==
LOC: WOUND 10:17
PROVIDERS: ATTEND Surgery
DX: E11.622 Type 2 diabetes mellitus with other skin ulcer (principal); L97.222 Non-pressure chronic ulcer of left calf with fat layer exposed; E11.621 Type 2 diabetes mellitus with foot ulcer; L97.524 Non-pressure chronic ulcer of other part of left foot with necrosis of bone; L92.9 Granulomatous disorder of the skin and subcutaneous tissue, unspecified; I11.0 Hypertensive heart disease with heart failure; I50.9 Heart failure, unspecified; I87.8 Other specified disorders of veins; K21.9 Gastro-esophageal reflux disease without esophagitis; M10.9 Gout, unspecified; Z89.511 Acquired absence of right leg below knee; Z87.891 Personal history of nicotine dependence

== ENCOUNTER 2019-02-07 10:16 | Outpatient (CLI) | payer MEDICARE | END 2019-02-07 10:17 | disposition home or self-care (01) | LOC: WOUND 10:16 | PROVIDERS: ATTEND Surgery | DX: E11.622 Type 2 diabetes mellitus with other skin ulcer (principal); L97.222 Non-pressure chronic ulcer of left calf with fat layer exposed; E11.621 Type 2 diabetes mellitus with foot ulcer; L97.524 Non-pressure chronic ulcer of other part of left foot with necrosis of bone; L92.9 Granulomatous disorder of the skin and subcutaneous tissue, unspecified; I11.0 Hypertensive heart disease with heart failure; I50.9 Heart failure, unspecified; I87.8 Other specified disorders of veins; K21.9 Gastro-esophageal reflux disease without esophagitis; M10.9 Gout, unspecified; Z89.511 Acquired absence of right leg below knee; Z87.891 Personal history of nicotine dependence ==

== ENCOUNTER 2019-03-07 09:43 | Outpatient (CLI) | payer MEDICARE ==
[2019-03-07] MEDS ORDERED: XYLOCAINE TOPICAL 4% TP ONE (10:30)
[2019-03-07] MEDS ORDERED: SILVER NITRATE TP ONE (10:30)
== END 2019-03-07 09:44 | disposition home or self-care (01) ==
LOC: WOUND 09:43
PROVIDERS: ATTEND Surgery
DX: E11.622 Type 2 diabetes mellitus with other skin ulcer (principal); L97.222 Non-pressure chronic ulcer of left calf with fat layer exposed; L97.812 Non-pressure chronic ulcer of other part of right lower leg with fat layer exposed; E11.621 Type 2 diabetes mellitus with foot ulcer; L97.524 Non-pressure chronic ulcer of other part of left foot with necrosis of bone; L92.9 Granulomatous disorder of the skin and subcutaneous tissue, unspecified; I11.0 Hypertensive heart disease with heart failure; I50.9 Heart failure, unspecified; I87.8 Other specified disorders of veins; K21.9 Gastro-esophageal reflux disease without esophagitis; M10.9 Gout, unspecified; Z89.511 Acquired absence of right leg below knee; Z87.891 Personal history of nicotine dependence

== ENCOUNTER 2019-03-14 09:45 | Outpatient (CLI) | payer MEDICARE ==
[2019-03-14] MEDS ORDERED: XYLOCAINE TOPICAL 4% TP ONE (10:30)
[2019-03-14] MEDS ORDERED: SILVER NITRATE TP ONE (10:39)
== END 2019-03-14 09:46 | disposition home or self-care (01) ==
LOC: WOUND 09:45
PROVIDERS: ATTEND Surgery
DX: E11.622 Type 2 diabetes mellitus with other skin ulcer (principal); L97.222 Non-pressure chronic ulcer of left calf with fat layer exposed; L97.812 Non-pressure chronic ulcer of other part of right lower leg with fat layer exposed; E11.621 Type 2 diabetes mellitus with foot ulcer; L97.524 Non-pressure chronic ulcer of other part of left foot with necrosis of bone; L92.9 Granulomatous disorder of the skin and subcutaneous tissue, unspecified; I11.0 Hypertensive heart disease with heart failure; I50.9 Heart failure, unspecified; I87.8 Other specified disorders of veins; K21.9 Gastro-esophageal reflux disease without esophagitis; M10.9 Gout, unspecified; Z89.511 Acquired absence of right leg below knee; Z87.891 Personal history of nicotine dependence

== ENCOUNTER 2019-04-04 09:57 | Outpatient (CLI) | payer MEDICARE ==
[2019-04-04] MEDS ORDERED: SILVER NITRATE APPLICATOR 1 EA TP ONE (10:30)
[2019-04-04] MEDS ORDERED: LIDOCAINE (4%) 40 MG/ML TOPICAL SOLN 50 ML BOTTLE TP ONE (10:30)
[2019-04-04] MEDS ORDERED: VITAMIN A & D OINT 56.7 GM TP SCH (11:00)
== END 2019-04-04 09:58 | disposition home or self-care (01) ==
LOC: WOUND 09:57
PROVIDERS: ATTEND Surgery
DX: E11.622 Type 2 diabetes mellitus with other skin ulcer (principal); L97.222 Non-pressure chronic ulcer of left calf with fat layer exposed; L97.812 Non-pressure chronic ulcer of other part of right lower leg with fat layer exposed; E11.621 Type 2 diabetes mellitus with foot ulcer; L97.524 Non-pressure chronic ulcer of other part of left foot with necrosis of bone; L92.9 Granulomatous disorder of the skin and subcutaneous tissue, unspecified; I11.0 Hypertensive heart disease with heart failure; I50.9 Heart failure, unspecified; I87.8 Other specified disorders of veins; K21.9 Gastro-esophageal reflux disease without esophagitis; M10.9 Gout, unspecified; Z89.511 Acquired absence of right leg below knee; Z87.891 Personal history of nicotine dependence